=== PATIENT | male | born 1960 | race Caucasian/White ===

== ENCOUNTER 2016-12-26 16:44 | Inpatient (IN) | payer BC, OTHER ==
[2016-12-26] VITALS (11 sets, daily range): BP systolic 138–179; BP diastolic 73–93
[~2016-12-26] VITALS: Ht 188 cm; Wt 86.8 kg
[2016-12-26] MEDS ORDERED: niCARdipine IV 50 MG in NS (IVPB) 230 ML IV SCH (17:00)
[2016-12-26] MEDS ORDERED: LABETALOL HCL 20 MG/4 ML VIAL IV ONE (17:00)
--- NOTE | 2016-12-26 17:12 | Diagnostic Imaging Report ---
INDICATION: Weakness which began one day ago. EXAMINATION: Multiple contiguous axial CT images of the head were obtained. FINDINGS: The ventricles and sulci are within normal limits for size. There is no intracranial hemorrhage identified. There is no abnormal mass effect or shift of midline structures. IMPRESSION: Unremarkable CT of the head. Dictated by: Dictated on workstation # [id number]
[2016-12-26 17:15] LABS: BASOPHILS % (AUTO) 0 % (0-10); EOSINOPHILS # (AUTO) 0.2 10^3/uL (0.0-0.3); EOSINOPHILS % (AUTO) 2 % (0-10); LYMPHOCYTES # (AUTO) 1.1 X 10^3 (1.0-4.0); LYMPHOCYTES % (AUTO) 13 % (12-44); MEAN CORPUSCULAR HEMOGLOBIN 27 PG (25-34); MEAN CORPUSCULAR HGB CONC 35 G/DL (32-36); MEAN CORPUSCULAR VOLUME 79 FL (80-99); MEAN PLATELET VOLUME 9.8 FL (7.4-10.4); MONOCYTES # (AUTO) 0.8 X 10^3 (0.0-1.0); MONOCYTES % (AUTO) 10 % (0-12); NEUTROPHILS % (AUTO) 75 % (42-75); PLATELET COUNT 241 10^3/uL (130-400); RED BLOOD COUNT 5.18 10^6/uL (4.35-5.85); RED CELL DISTRIBUTION WIDTH 13.4 % (10.0-14.5); WHITE BLOOD COUNT 8.1 10^3/uL (4.3-11.0)
[2016-12-26 17:19] LABS: PROTHROMBIN TIME PATIENT 13.6 SEC (12.2-14.7)
--- NOTE | 2016-12-26 17:19 | Diagnostic Imaging Report ---
INDICATION: Hypertension. COMPARISON: No previous study is available for comparison at this time. FINDINGS: Heart size and pulmonary vasculature are within normal limits, and the lungs are clear, bilaterally. IMPRESSION: Unremarkable chest. Dictated by: Dictated on workstation # [id number]
--- NOTE | 2016-12-26 17:22 | Diagnostic Imaging Report ---
INDICATION: Right knee instability and falls. EXAM: AP, oblique and lateral views of the right knee are obtained. FINDINGS: The study is limited due to positioning. No acute fracture or malalignment is identified. There is narrowing of the medial knee joint compartment with prominent marginal spurring. There is questionable calcification also noted within the medial collateral ligament. IMPRESSION: Degenerative changes in the medial compartment of the knee. No definite acute abnormality is identified on the limited study. Dictated by: Dictated on workstation # [id number]
[2016-12-26 17:27] LABS: ALANINE AMINOTRANSFERASE 17 U/L (0-55); ALBUMIN 3.9 GM/DL (3.2-4.5); ANION GAP 6 MMOL/L (5-14); ASPARTATE AMINO TRANSFERASE 18 U/L (5-34); BILIRUBIN,TOTAL 1.1 MG/DL (0.1-1.0); BLOOD UREA NITROGEN 13 MG/DL (7-18); BUN/CREATININE RATIO 14; CALCIUM 9.3 MG/DL (8.5-10.1); CARBON DIOXIDE 28 MMOL/L (21-32); CHLORIDE 102 MMOL/L (98-107); GFR ESTIMATED > 60; GLUCOSE 226 MG/DL (70-105); POTASSIUM 4.3 MMOL/L (3.6-5.0); SODIUM 136 MMOL/L (135-145); TOTAL PROTEIN 6.3 GM/DL (6.4-8.2)
[2016-12-26 17:33] LABS: TROPONIN I < 0.30 NG/ML (<0.30)
[2016-12-26 17:37] LABS: BILIRUBIN,URINE NEGATIVE (NEGATIVE); KETONES,URINE NEGATIVE (NEGATIVE); LEUKOCYTE ESTERASE ,URINE NEGATIVE (NEGATIVE); NITRITE,URINE NEGATIVE (NEGATIVE); PH,URINE 6 (5-9); PROTEIN,URINE 3+ (NEGATIVE); UROBILINOGEN,URINE NORMAL (NORMAL)
[2016-12-26 17:53] LABS: SQUAMOUS EPITHELIAL CELL,UR RARE /HPF
[2016-12-26] MEDS ORDERED: ASPIRIN 325 MG (5 GR) TABLET PO ONE (18:15)
[2016-12-26 18:24] LABS: THYROID STIMULATING HORMONE 1.52 UIU/ML (0.35-4.94)
--- NOTE | 2016-12-26 18:29 | ED Neurological Problem ---
General Chief Complaint: Cardiac/General Problems Stated Complaint: HIGH BLOOD PRESSURE Nursing Triage Note: PT SENT TO THE ER BY [facility] WITH CC OF HYPERTENSION. Nursing Sepsis Screen: No Definite Risk Source: patient Exam Limitations: no limitations History of Present Illness Time seen by provider: 16:45 Initial Comments This 56-year-old gentleman presents to the emergency room via private vehicle from [facility] where he presented with right upper extremity weakness/ discoordination, slurred speech, and right-sided facial droop. Blood pressure as reported by [facility] staff was 240/100. Transfer to the hospital via EMS was recommended but patient declined. Patient denies any prior problems with severe hypertension. He denies any drug or alcohol use. Last known well time was yesterday evening. Patient's also reports that he fell in the shower yesterday due to chronic problems with his right knee. He denies injuring his head. Allergies and Home Medications Allergies Coded Allergies: No Known Drug Allergies (Unverified , 12/26/16) Constitutional: no symptoms reported Eyes: No Symptoms Reported Ears, Nose, Mouth, Throat: no symptoms reported Respiratory: no symptoms reported Cardiovascular: see HPI Gastrointestinal: no symptoms reported Genitourinary: no symptoms reported Musculoskeletal: no symptoms reported Skin: no symptoms reported Psychiatric/Neurological: See HPI Endocrine: No Symptoms Reported Hematologic/Lymphatic: No Symptoms Reported Past Uxmvtvk-Mjbuti-Okdvis Hx Patient Social History Alcohol Use: Rarely Uses Alcohol Beverage of Choice: Beer Recreational Drug Use: No Smoking Status: Never a Smoker 2nd Hand Smoke Exposure: No Recent Foreign Travel: No Contact w/Someone Who Travel: No Recent Infectious Disease Expo: No Recent Hopitalizations: No Seasonal Allergies Seasonal Allergies: No Surgeries History of Surgeries: Yes (LT KNEE) Surgeries: Orthopedic Respiratory History of Respiratory Disorde: No Cardiovascular History of Cardiac Disorders: Yes (HX OF HYPERTENSION IN HIS TEENS) Cardiac Disorders: Hypertension Reproductive System Hx Reproductive Disorders: No Genitourinary History of Genitourinary Disor: No Gastrointestinal History of Gastrointestinal Di: No Musculoskeletal History of Musculoskeletal Dis: Yes Musculoskeletal Disorders: Arthritis (right knee) Endocrine History of Endocrine Disorders: No HEENT History of HEENT Disorders: No Cancer History of Cancer: No Psychosocial History of Psychiatric Problem: No Integumentary History of Skin or Integumenta: No Family Medical History Significant Family History: No Pertinent Family Hx Physical Exam Vital Signs Vital Sign - Last 12Hours 12/26/16 16:53 Temp 97.6 Pulse 91 Resp 20 B/P (MAP) 251/121 Pulse Ox 97 O2 Delivery Room Air Capillary Refill : Less Than 3 Seconds General Appearance: WD/WN, no apparent distress HEENT: PERRL/EOMI, normal ENT inspection, pharynx normal Neck: normal inspection Respiratory: lungs clear, normal breath sounds, no respiratory distress, no accessory muscle use Cardiovascular: regular rate, rhythm, no edema, no murmur Gastrointestinal: non tender, soft Extremities: normal inspection, no pedal edema Neurologic/Psychiatric: alert, normal mood/affect, oriented x 3, other Crainal Nerves: normal hearing, PERRL, abnormal speech (slight dysarthria), facial weakness (slight right-sided droop) Coordination/Gait: normal gait, ABN nose to finger (R) (slight discoordination) Skin: normal color, warm/dry Stroke NIH Stroke Scale Assessment Level of Consciousness: 0=Alert (0), Level of Consciousness-Questions: 0= Answers both month/age (0), LOC Commands: 0=Performs both tasks (0), Visual Neri: 0=No visual loss (0), Facial Movement (Facial Paresis): 1=Minor paralysis (1), Motor Function-Arms Right: 0=No drift (0), Motor Function-Arms Left: 0=No drift (0), Motor Function-Legs Right: 0=No drift (0), Motor Function- Legs Left: 0=No drift (0), Limb Ataxia: 1=Present in one limb (1), Sensory: 0= Normal:no loss (0), Best Language: 0=No aphasia (0), Dysarthria: 1=Mild to moderate loss (1), Extinction & Inattention: 0=No abnormality (0), Total: 3 Progress/Results/Core Measures Results/Orders Lab Results Laboratory Tests Test 12/26/16 16:55 12/26/16 17:00 12/26/16 17:19 12/26/16 17:31 Range/Units White Blood Count 8.1 4.3-11.0 10^3/uL Red Blood Count 5.18 4.35-5.85 10^6/uL Hemoglobin 14.1 13.3-17.7 G/DL Hematocrit 41 40-54 % Mean Corpuscular Volume 79 L 80-99 FL Mean Corpuscular Hemoglobin 27 25-34 PG Mean Corpuscular Hemoglobin Concent 35 32-36 G/DL Red Cell Distribution Width 13.4 10.0-14.5 % Platelet Count 241 130-400 10^3/uL Mean Platelet Volume 9.8 7.4-10.4 FL Neutrophils (%) (Auto) 75 42-75 % Lymphocytes (%) (Auto) 13 12-44 % Monocytes (%) (Auto) 10 0-12 % Eosinophils (%) (Auto) 2 0-10 % Basophils (%) (Auto) 0 0-10 % Neutrophils # (Auto) 6.0 1.8-7.8 X 10^3 Lymphocytes # (Auto) 1.1 1.0-4.0 X 10^3 Monocytes # (Auto) 0.8 0.0-1.0 X 10^3 Eosinophils # (Auto) 0.2 0.0-0.3 10^3/uL Basophils # (Auto) 0.0 0.0-0.1 10^3/uL Prothrombin Time 13.6 12.2-14.7 SEC INR Comment 1.0 0.8-1.4 Activated Partial Thromboplast Time 31 24-35 SEC D-Dimer 0.32 0.00-0.49 UG/ML Sodium Level 136 135-145 MMOL/L Potassium Level 4.3 3.6-5.0 MMOL/L Chloride Level 102 98-107 MMOL/L Carbon Dioxide Level 28 21-32 MMOL/L Anion Gap 6 5-14 MMOL/L Blood Urea Nitrogen 13 7-18 MG/DL Creatinine 0.90 0.60-1.30 MG/DL Estimat Glomerular Filtration Rate > 60 BUN/Creatinine Ratio 14 Glucose Level 226 H 70-105 MG/DL Calcium Level 9.3 8.5-10.1 MG/DL Total Bilirubin 1.1 H 0.1-1.0 MG/DL Aspartate Amino Transf (AST/SGOT) 18 5-34 U/L Alanine Aminotransferase (ALT/SGPT) 17 0-55 U/L Alkaline Phosphatase 94 40-136 U/L Troponin I < 0.30 <0.30 NG/ML Total Protein 6.3 L 6.4-8.2 GM/DL Albumin 3.9 3.2-4.5 GM/DL Urine Opiates Screen NEGATIVE NEGATIVE Urine Oxycodone Screen NEGATIVE NEGATIVE Urine Methadone Screen NEGATIVE NEGATIVE Urine Propoxyphene Screen NEGATIVE NEGATIVE Urine Barbiturates Screen NEGATIVE NEGATIVE Ur Tricyclic Antidepressants Screen NEGATIVE NEGATIVE Urine Phencyclidine Screen NEGATIVE NEGATIVE Urine Amphetamines Screen NEGATIVE NEGATIVE Urine Methamphetamines Screen NEGATIVE NEGATIVE Urine Benzodiazepines Screen NEGATIVE NEGATIVE Urine Cocaine Screen NEGATIVE NEGATIVE Urine Cannabinoids Screen NEGATIVE NEGATIVE Glucometer 199 H 70-110 MG/DL Urine Color YELLOW Urine Clarity CLEAR Urine pH 6 5-9 Urine Specific [place] 1.010 L 1.016-1.022 Urine Protein 3+ H NEGATIVE Urine Glucose (UA) 2+ H NEGATIVE Urine Ketones NEGATIVE NEGATIVE Urine Nitrite NEGATIVE NEGATIVE Urine Bilirubin NEGATIVE NEGATIVE Urine Urobilinogen NORMAL NORMAL MG/DL Urine Leukocyte Esterase NEGATIVE NEGATIVE Urine RBC (Auto) 2+ H NEGATIVE Urine RBC RARE /HPF Urine WBC NONE /HPF Urine Squamous Epithelial Cells RARE /HPF Urine Crystals NONE /LPF Urine Bacteria NEGATIVE /HPF Urine Casts NONE /LPF Urine Mucus NEGATIVE /LPF Urine Culture Indicated NO My Orders Orders - ELIZABETH LOPEZ MD Cbc With Automated Diff (12/26/16 16:56) Protime With Inr (12/26/16 16:56) Partial Thromboplastin Time (12/26/16 16:56) Comprehensive Metabolic Panel (12/26/16 16:56) Fibrin Degradation Products (12/26/16 16:56) Troponin I (12/26/16 16:56) Ua Culture If Indicated (12/26/16 16:56) Chest 1 View, Ap/Pa Only (12/26/16 16:56) Ekg Tracing (12/26/16 16:56) Nothing By Mouth (12/27/16 Breakfast) Accucheck Stat ONCE (12/26/16 16:56) Saline Lock/Iv-Start (12/26/16 16:56) Saline Lock/Iv-Start (12/26/16 16:56) Vital Signs - Stroke Q15M (12/26/16 16:56) Ct Head Wo-R/O Stroke (12/26/16 16:56) O2 (12/26/16 16:56) Intake & Output 06,14,22 (12/26/16 16:56) Monitor-Rhythm Ecg Trace Only (12/26/16 16:56) Dysphagia Screening Tool (12/26/16 16:56) Labetalol Injection (Normodyne Injection (12/26/16 17:00) Ns (Ivpb) (Sodium C... W/Nicardipine Iv (12/26/16 17:00) Knee, Right, 3 Views (12/26/16 17:00) Drug Screen Stat (Urine) (12/26/16 17:41) Thyroid Stimulating Hormone (12/26/16 17:50) Free T4 (Free Thyroxine) (12/26/16 17:50) Aspirin Tablet (Aspirin Tablet) (12/26/16 18:15) Medications Given in ED Current Medications Medications Dose Ordered Sig/Timbo Route Start Time Stop Time Status Last Admin Dose Admin Labetalol HCl 20 mg ONCE ONCE IV 12/26/16 17:00 12/26/16 17:01 DC 12/26/16 17:27 20 MG Vital Signs/I&O Vital Sign - Last 12Hours 12/26/16 16:53 Temp 97.6 Pulse 91 Resp 20 B/P (MAP) 251/121 Pulse Ox 97 O2 Delivery Room Air Blood Pressure Mean: 164 Point of Care Testing Finger Stick Blood Glucose: 199 Blood Glucose Action Taken: INFORMED Progress Note : Progress Note Stroke activation was paged. Blood pressure was initially treated with labetalol 20 mg. This was followed by a Cardene drip. CT of the head was unremarkable. Remainder the workup was also unremarkable. Neurologic status remained unchanged. Aspirin was administered in the ER after dysphasia screening. ECG Initial ECG Impression Date: Dec 26, 2016 Initial ECG Impression Time: 17:21 Initial ECG Rate: 85 Initial ECG Rhythm: Normal Sinus Initial ECG Intervals: Normal Initial ECG Impression: Normal Comment Normal sinus rhythm with no ST elevation or depression. No abnormal intervals or axis deviation. Diagnostic Imaging Diagonstic Imaging: CT Plain Films/CT/US/NM/MRI: head Comments CT head viewed by me and report reviewed. See report below: NAME: FINA LALA [facility] REC#: [id number] PT STATUS: REG ER : 1960 PHYSICIAN: ELIZABETH LOPEZ MD ADMIT DATE: 12/26/16/ER Signed Date of Exam: 12/26/16 CT HEAD WO-R/O STROKE INDICATION: Weakness which began one day ago. EXAMINATION: Multiple contiguous axial CT images of the head were obtained. FINDINGS: The ventricles and sulci are within normal limits for size. There is no intracranial hemorrhage identified. There is no abnormal mass effect or shift of midline structures. IMPRESSION: Unremarkable CT of the head. Dictated by: Dictated on workstation # [id number] Dict: 12/26/16 1707 Trans: 12/26/161800 Interpreted by: EMELIA VILLASENOR MD Electronically signed by: EMELIA VILLASENOR MD 12/26/161800 Diagonstic Imaging: Xray Plain Films/CT/US/NM/MRI: knee Comments Right knee x-ray viewed by me and report reviewed. See report below: NAME: FINA LALA [facility] REC#: [id number] PT STATUS: REG ER : 1960 PHYSICIAN: ELIZABETH LOPEZ MD ADMIT DATE: 12/26/16/ER Signed Date of Exam:12/26/16 KNEE, RIGHT, 3 VIEWS INDICATION: Right knee instability and falls. EXAM: AP, oblique and lateral views of the right knee are obtained. FINDINGS: The study is limited due to positioning. No acute fracture or malalignment is identified. There is narrowing of the medial knee joint compartment with prominent marginal spurring. There is questionable calcification also noted within the medial collateral ligament. IMPRESSION: Degenerative changes in the medial compartment of the knee. No definite acute abnormality is identified on the limited study. Dictated by: Dictated on workstation # [id number] Dict: 12/26/16 1717 Trans: 12/26/161800 [facility] [id number] Interpreted by: EMELIA VILLASENOR MD Electronically signed by: EMELIA VILLASENOR MD 12/26/161800 Diagonstic Imaging: Xray Plain Films/CT/US/NM/MRI: chest Comments Chest x-ray viewed by me and report reviewed. See report below: NAME: FINA LALA [facility] REC#: [id number] PT STATUS: REG ER : 1960 PHYSICIAN: ELIZABETH LOPEZ MD ADMIT DATE: 12/26/16/ER Signed Date of Exam:12/26/16 CHEST 1 VIEW, AP/PA ONLY INDICATION: Hypertension. COMPARISON: No previous study is available for comparison at this time. FINDINGS: Heart size and pulmonary vasculature are within normal limits, and the lungs are clear, bilaterally. IMPRESSION: Unremarkable chest. Dictated by: Dictated on workstation # [id number] Dict: 12/26/16 1718 Trans: 12/26/16 1801 [facility] [id number] Interpreted by: EMELIA VILLASENOR MD Electronically signed by: EMELIA VILLASENOR MD 12/26/161800 Departure Communication (Admissions) Time/Spoke to Admitting Phy: 18:10 Communication Case was reviewed with Dr. Hernandez who agrees with admission to the ICU and control of blood pressure on a Cardene drip. Target blood pressure will be in the 180-200 range to avoid hypoperfusion from rapid decrease in blood pressure. Impression Impression: Primary Impression: Malignant hypertension Additional Impressions: Facial droop Dysarthria Discoordination Hyperglycemia Disposition: 09 ADMITTED INPATIENT Condition: Improved Admissions Decision to Admit Reason: Admit from ER (General) Decision to Admit/Date: Dec 26, 2016 Time/Decision to Admit Time: 16:50 Departure-Patient Inst. Referrals: NO,LOCAL PHYSICIAN (PCP/Family) Primary Care Physician ELIZABETH LOPEZ MD Dec 26, 2016 18:29
[2016-12-26] MEDS ORDERED: CATHETER FLUSH 10 ML SYR IV PRN (19:30)
[2016-12-26] MEDS: niCARdipine 50 MG/NS 250 ML IV DRIP IV SCH ×2 (19:56)
[2016-12-26] MEDS: CATHETER FLUSH 10 ML SYR IV SCH (22:05)
[2016-12-27] VITALS (18 sets, daily range): BP systolic 136–213; BP diastolic 69–104
[2016-12-27 04:54] LABS: BASOPHILS % (AUTO) 0 % (0-10); EOSINOPHILS # (AUTO) 0.2 10^3/uL (0.0-0.3); EOSINOPHILS % (AUTO) 2 % (0-10); LYMPHOCYTES # (AUTO) 1.5 X 10^3 (1.0-4.0); LYMPHOCYTES % (AUTO) 18 % (12-44); MEAN CORPUSCULAR HEMOGLOBIN 28 PG (25-34); MEAN CORPUSCULAR HGB CONC 35 G/DL (32-36); MEAN CORPUSCULAR VOLUME 80 FL (80-99); MEAN PLATELET VOLUME 9.7 FL (7.4-10.4); MONOCYTES # (AUTO) 0.9 X 10^3 (0.0-1.0); MONOCYTES % (AUTO) 11 % (0-12); NEUTROPHILS # (AUTO) 5.9 X 10^3 (1.8-7.8); NEUTROPHILS % (AUTO) 69 % (42-75); PLATELET COUNT 240 10^3/uL (130-400); RED BLOOD COUNT 4.72 10^6/uL (4.35-5.85); RED CELL DISTRIBUTION WIDTH 13.4 % (10.0-14.5); WHITE BLOOD COUNT 8.5 10^3/uL (4.3-11.0)
[2016-12-27 05:12] LABS: ANION GAP 11 MMOL/L (5-14); BLOOD UREA NITROGEN 14 MG/DL (7-18); BUN/CREATININE RATIO 15; CALCIUM 9.1 MG/DL (8.5-10.1); CARBON DIOXIDE 23 MMOL/L (21-32); CHLORIDE 107 MMOL/L (98-107); CREATININE SERUM 0.94 MG/DL (0.60-1.30); GFR ESTIMATED > 60; GLUCOSE 163 MG/DL (70-105); MAGNESIUM 1.9 MG/DL (1.8-2.4); PHOSPHORUS 3.4 MG/DL (2.3-4.7); POTASSIUM 3.9 MMOL/L (3.6-5.0); SODIUM 141 MMOL/L (135-145)
[2016-12-27] MEDS: niCARdipine 50 MG/NS 250 ML IV DRIP IV SCH ×4 (05:26→17:26)
[2016-12-27] MEDS: CATHETER FLUSH 10 ML SYR IV SCH ×3 (05:51→22:05)
--- NOTE | 2016-12-27 07:14 | Pulmonary Consultation ---
History of Present Illness History of Present Illness Date of Consultation 12/27/16 07:09 Time Seen by Provider: 07:09 Date of Admission History of Present Illness 56yo presented to ED secondary to right upper extremity weakness/discoordination , slurred speech, and right sided facial droop. BP at urgent care was 240/100. Denies drug and ETOH. No prior hx like this. I am consulted for ICU management. UDS is negative. Allergies and Home Medications Allergies Coded Allergies: No Known Drug Allergies (Unverified , 12/26/16) Past Ymdrngr-Supmzo-Jnbfub Hx Patient Social History Alcohol Use: Rarely Uses Number of Drinks Today: 0 Alcohol Beverage of Choice: Beer Recreational Drug Use: No Smoking Status: Never a Smoker 2nd Hand Smoke Exposure: No Recent Foreign Travel: No Contact w/Someone Who Travel: No Recent Infectious Disease Expo: No Recent Hopitalizations: No Seasonal Allergies Seasonal Allergies: No Surgeries History of Surgeries: Yes (LT KNEE) Surgeries: Orthopedic Respiratory History of Respiratory Disorde: No Cardiovascular History of Cardiac Disorders: Yes (HX OF HYPERTENSION IN HIS TEENS) Cardiac Disorders: Hypertension Reproductive System Hx Reproductive Disorders: No Genitourinary History of Genitourinary Disor: No Gastrointestinal History of Gastrointestinal Di: No Musculoskeletal History of Musculoskeletal Dis: Yes Musculoskeletal Disorders: Arthritis Endocrine History of Endocrine Disorders: No HEENT History of HEENT Disorders: No Cancer History of Cancer: No Psychosocial History of Psychiatric Problem: No Integumentary History of Skin or Integumenta: No Family Medical History Significant Family History: No Pertinent Family Hx Review of Systems Time Seen by Provider: 07:28 Constitutional: No: Fever, Chills, Sweats, Weakness, Malaise, Other Eyes: No: Pain, Vision change, Conjunctivae inflammation, Eyelid inflammation, Other, Redness ENT: No: Ear pain, Ear discharge, Nose pain, Nose discharge, Nose congestion, Mouth pain, Mouth swelling, Throat pain, Throat swelling, Other Respiratory: No: Cough, Dry, Shortness of breath, SOB with excertion, Wheezing , Hemoptysis, Pleuritic Pain, Sputum, Wheezing, Other Cardiovascular: No: Chest Pain, Palpitations, Orthopnea, Paroxysmal Noc. Dyspnea, Edema, Lt Headedness, Other Gastrointestinal: No: Nausea, Vomiting, Abdominal Pain, Diarrhea, Constipation , Melena, Hematochezia, Other Genitourinary: No Dysuria, No Frequency, No Incontinence, No Hematuria, No Retention, No Other Musculoskeletal: arm pain (left arm and leg weakness) Skin: No: Rash, Lesions, Jaundice, Bruising, Other Neurological: Weakness, Incoordination, Confusion Exam Exam Vital Signs Date Time Temp Pulse Resp B/P (MAP) Pulse Ox O2 Delivery O2 Flow Rate FiO2 12/27/16 06:00 67 13 150/72 96 Room Air 12/27/16 05:00 64 12 164/95 97 Room Air 12/27/16 04:00 66 11 155/79 97 Room Air 12/27/16 04:00 98 Room Air 12/27/16 03:00 71 15 146/86 97 Room Air 12/27/16 02:00 75 8 145/73 98 Room Air 12/27/16 01:00 76 12/27/16 01:00 76 14 136/85 98 Room Air 12/27/16 00:00 98 Room Air 12/27/16 00:00 97.4 73 14 151/75 98 Room Air 12/26/16 23:30 68 11 147/78 97 Room Air 12/26/16 23:00 69 13 153/77 97 Room Air 12/26/16 22:30 70 13 138/73 96 Room Air 12/26/16 22:00 76 18 155/82 96 Room Air 12/26/16 21:30 84 30 171/87 99 Room Air 12/26/16 21:00 87 28 167/77 97 Room Air 12/26/16 20:30 75 17 179/93 100 Room Air 12/26/16 20:17 100 Room Air 12/26/16 20:00 75 8 157/88 100 Room Air 12/26/16 19:45 84 20 178/89 99 Room Air 12/26/16 19:30 78 9 174/90 100 Room Air 12/26/16 19:15 87 11 100 Room Air 12/26/16 19:10 97.9 80 18 98 Room Air 12/26/16 19:08 83 12/26/16 19:05 85 27 168/89 96 Room Air 12/26/16 19:00 99.5 Room Air 12/26/16 18:40 97.6 12/26/16 16:53 97.6 91 20 251/121 97 Room Air General Appearance: No Apparent Distress, WD/WN, Anxious Neck: Full Range of Motion, Normal Inspection, Non Tender, Supple Respiratory: Chest Non Tender, Lungs Clear, Normal Breath Sounds, No Accessory Muscle Use, No Respiratory Distress Cardiovascular: Regular Rate, Rhythm, No Edema, No Gallop, No JVD, No Murmur Capillary Refill: Less Than 3 Seconds Gastrointestinal: non tender, soft Extremity: Normal Capillary Refill, Normal Inspection, Normal Range of Motion, Other (mild weakness on left ) Neurologic/Psychiatric: Alert, Oriented x3, Other (slurred speech ) Skin: Normal Color, Warm/Dry Results Lab Laboratory Tests 12/26/16 16:55 12/27/16 04:39 Assessment/Plan Assessment/Plan CVA vs TIA -Passed swallow evaluation -check echo, carotid dopplers -Plavix after repeat CT shows no bleed -Pt was outside of window for TPA upon admission -neuro checks Facial droop dysarthria malignant HTN 255 Clinical Quality Measures DVT/VTE Risk/Contraindication: Risk Factor Score Per Nursin RFS Level Per Nursing on Admit: 1=Low/No VTE PPX ALANIS DESHPANDE DO Dec 27, 2016 07:14
--- NOTE | 2016-12-27 08:45 | Diagnostic Imaging Report ---
EXAMINATION: Portable erect AP chest at 4:16 AM. INDICATION: Malignant hypertension. FINDINGS: The heart size is within normal limits and stable when compared to 12/26/2016. The lungs remain clear. There is still no sign of failure, pneumonia, or pleural effusion to suggest an acute abnormality. The mediastinum is not widened. The osseous structures are intact. IMPRESSION: Stable chest. There has been no adverse change since the prior exam. Dictated by: Dictated on workstation # [id number]
[2016-12-27] MEDS ORDERED: ASPIRIN E.C. 325 MG (ECOTRIN) TABLET PO SCH (09:00)
[2016-12-27 10:43] LABS: CHOLESTEROL 149 MG/DL (< 200); DIRECT LDL 110 MG/DL (1-129); TRIGLYCERIDES 106 MG/DL (<150); VLDL CHOLESTEROL 21 MG/DL (5-40)
--- NOTE | 2016-12-27 10:43 | Diagnostic Imaging Report ---
INDICATION: Stroke symptoms Carotid Doppler study performed in the routine fashion with color flow Doppler and waveform analysis. There is some mild plaquing visualized in the left carotid bifurcation. There is no significant elevation of the velocities. The ICA/CCA systolic velocity ratio is 1.4 on the right side, and 0.5 on the left. Both vertebrals show antegrade flow. IMPRESSION: Some plaquing is visualized in the left carotid bifurcation. There is no hemodynamically significant stenosis. Both vertebrals are patent. Dictated by: Dictated on workstation # [id number]
[2016-12-27] MEDS ORDERED: hydrALAZINE (APESOLINE) 20 MG/ML VIAL IV PRN (11:00)
[2016-12-27] MEDS: lisINopril 20 MG (ZESTRIL) TAB PO SCH (11:11)
[2016-12-27] MEDS: HYDROCHLOROTHIAZIDE 25 MG (HCTZ) TAB PO SCH (11:11)
[2016-12-27] MEDS ORDERED: MULT-35 PO (11:33)
[2016-12-27] MEDS ORDERED: NAPR220T66 PO ×2 (11:33)
--- NOTE | 2016-12-27 11:41 | Physical Therapy Progress Note ---
Therapy Progress Note Evaluation order received, eval attempted but patient had a BP of 193/95. Too high to treat safely at this time. We did note weakness in his right arm. Will check back this afternoon and see if his BP has decreased. MIREYA GARCIA PT Dec 27, 2016 11:41
--- NOTE | 2016-12-27 11:54 | History & Physical-Hospitalist ---
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 Pt did not receive TPA Night RN states pt can get up with assistance Meli ordered echo this am Frederick arreola DC yesterday Pressures up this am. Will discuss with Dr. Garrison Patient Interview: Pt states that he has been better Pt denies having a PCP. Pt was advised to obtain a PCP. Pts states that they used to see Dr. Alfonso at the [facility] [address] Pt confirms living in [place] with Pt denies smoking and ETOH use Pt confirms going to urgent care. Pt states that his symptoms started when he was at work on Sunday and felt funny when he tried to drive home. Pt went to work the next day and could not swing a hammer, he later tried to write and could not legibly. Pt confirms slurring his words currently. 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 Lungs sound perfect. Pt confirms having a knee replacement, so he has metal in his body. Possible MRI of brain was discussed Pt denies experiencing pain and is more frustrated than anything. Pt confirms having an echo performed PT discussed and they will get him up to ambulate Pt is concerned about his BP and I assured him that we will be working on this. For now a good blood pressure for pt will be ~ 180 Scribed by Jerica Underwood under the direct supervision of Dr. Paredes. 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) Alcohol Use: Rarely Uses Number of Drinks Today: 0 Alcohol Beverage of Choice: Beer Recreational Drug Use: No Smoking Status: Never a Smoker 2nd Hand Smoke Exposure: No Physical Abuse Screen: No Sexual Abuse: No Recent Foreign Travel: No Contact w/other who traveled: No Recent Hopitalizations: No Recent Infectious Disease Expo: No Seasonal Allergies Seasonal Allergies: No Surgeries Yes (LT KNEE REPLACEMENT) Orthopedic Respiratory No Cardiovascular Yes (HX OF HYPERTENSION IN HIS TEENS) Hypertension Reproductive System Hx Reproductive Disorders: No Genitourinary No Gastrointestinal No Musculoskeletal Yes Arthritis Endocrine History of Endocrine Disorders: No HEENT History of HEENT Disorders: No Cancer No Psychosocial History of Psychiatric Problem: No Integumentary History of Skin or Integumenta: No Family Medical History Significant Family History: No Pertinent Family Hx Review of Systems Constitutional: see HPI, weakness EENTM: no symptoms reported Respiratory: no symptoms reported Cardiovascular: no symptoms reported Gastrointestinal: no symptoms reported Musculoskeletal: no symptoms reported Skin: no symptoms reported Psychiatric/Neurological: Weakness (right arm and right leg) Physical Exam Physical Exam Vital Signs Vital Sign - Last 12Hours 12/26/16 16:53 Temp 97.6 Pulse 91 Resp 20 B/P (MAP) 251/121 Pulse Ox 97 O2 Delivery Room Air Capillary Refill : Less Than 3 Seconds General Appearance: No Apparent Distress, WD/WN, Chronically ill Eyes: Bilateral Eye Normal Inspection, Bilateral Eye PERRL HEENT: PERRL/EOMI, Normal ENT Inspection, Pharynx Normal Neck: Full Range of Motion, Normal Inspection, Non Tender, Supple, Carotid Bruit Respiratory: Chest Non Tender, Lungs Clear, Normal Breath Sounds, No Accessory Muscle Use, No Respiratory Distress Cardiovascular: Regular Rate, Rhythm, No Edema, No Gallop, No JVD, No Murmur, Normal Peripheral Pulses Gastrointestinal: Normal Bowel Sounds, No Organomegaly, No Pulsatile Mass, Non Tender, Soft Back: Normal Inspection, No CVA Tenderness, No Vertebral Tenderness Extremity: Normal Capillary Refill, Normal Inspection, Normal Range of Motion, Non Tender, No Calf Tenderness, No Pedal Edema Neurologic/Psychiatric: Alert, Oriented x3, Normal Mood/Affect, Motor Weakness (right arm and leg weakness 2/5) Skin: Normal Color, Warm/Dry Lymphatic: No Adenopathy Results Results/Procedures Lab Laboratory Tests 12/26/16 16:55 12/27/16 04:39 Assessment/Plan Admission Diagnosis Assessment: Acute malignant HTN with right sided weakness residual Hyperglycemia ordering HGBA1C Assessment and Plan Plan: Rehab eval Lipid panel PT/OT Cardiology consult Dr. Mustafa MRI brain BP management Clinical Quality Measures DVT/VTE Risk/Contraindication: Risk Factor Score Per Nursin RFS Level Per Nursing on Admit: 1=Low/No VTE PPX GRICEL APREDES DO Dec 27, 2016 11:54
[2016-12-27] MEDS ORDERED: amLODIPine 10 MG (NORVASC) TAB ONE (12:29)
--- NOTE | 2016-12-27 12:31 | Consultation-Cardiology ---
HPI-Cardiology Cardiology Consultation: Date of Consultation 12/27/16 Date of Admission Attending Physician Chinmay Hernandez MD Admitting Physician Marleni,Local Physician Consulting Physician Carlos MUSTAFA MD HPI: Time Seen by Provider: 12:31 Chief Complaint: Malignant hypertension This is a 56-year-old gentleman who presents with significantly elevated blood pressure and symptoms of stroke. The patient denies any significant chest pain or shortness of breath. His neurological symptoms include slurred speech, difficulty writing, and difficulty using his upper extremity. Review of Systems-Cardiology Review of Systems Constitutional: No As described under HPI, No no symptoms reported, No chills, No fever, No lightheadedness, No malaise, No tiredness, No weight loss, No weight gain, No other Eyes: No As described under HPI, No no symptoms reported, No blindness, No blurred vision, No contact lenses, No drainage, No decreased acuity, No foreign body sensation, No glasses, No inflammation, No pain, No photophobia, No previous injury, No shadows, No tunnel vision, No other, No vision change Ears/Nose/Throat: No As described under HPI, No no symptoms reported, No chronic hearing loss, No epistaxis, No ear discharge, No ear pain, No loose teeth, No mouth pain, No mouth swelling, No nasal drainage, No nose pain, No recent hearing loss, No throat pain, No throat swelling, No ulcerations, No other Respiratory: No no symptoms reported, No As described under HPI, No cough, No orthopnea, No shortness of breath, No SOB with excertion, No SOB at rest, No stridor, No wheezing, No other Cardiovascular: No no symptoms reported, No As described under HPI, No chest pain, No edema, No irregular heart rate, No lightheadedness, No palpitations, No syncope, No other Gastrointestinal: No no symptoms reported, No As described under HPI, No abdomen distended, No abdominal pain, No blood streaked bowels, No constipation , No diarrhea, No difficulty swallowing, No nausea, No poor appetite, No poor fluid intake, No rectal bleeding, No vomiting, No other, No nausea/vomiting/ diarrhea, No stool coloration changes Genitourinary: No no symptoms reported, No As described under HPI, No burning, No dysuria, No discharge, No frequency, No flank pain, No hematuria, No incontinence, No pain, No urgency, No other, No urine frequency changes, No urine coloration changes Musculoskeletal: No no symptoms reported, No As describe under HPI, No back pain, No gout, No joint pain, No joint swelling, No muscle pain, No muscle stiffness, No neck pain, No other Skin: No no symptoms reported, No As described under HPI, No change in color, No change in hair/nails, No dryness, No lesions, No lumps, No rash, No other, No skin related problems, No ulcerations, No rash on exposed areas, No ulcerations on exposed areas Psychiatric/Neurological: As described under HPI, weakness, focal weakness DJJ-Zexbwz-Bkfkwy Hx Patient Social History 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 Allergies and Home Medications Allergies Coded Allergies: No Known Drug Allergies (Unverified , 12/26/16) Home Medications Multivitamin 1 Each Tablet, 1 TAB PO DAILY, (Reported) Naproxen Sodium 220 Mg Tablet, 440 MG PO DAILY, (Reported) TAKES 2 (220MG) TABLETS Naproxen Sodium 220 Mg Tablet, 440 MG PO HS PRN for PAIN-MILD, (Reported) TAKES 2 (220MG) TABLETS Physical Exam-Cardiology Physical Exam Vital Signs/I&O Vital Sign - Last 12Hours 12/27/16 12/27/16 12/27/16 12/27/16 04:00 04:00 05:00 06:00 Pulse 66 64 67 Resp 11 12 13 B/P (MAP) 155/79 164/95 150/72 Pulse Ox 98 97 97 96 O2 Delivery Room Air Room Air Room Air Room Air 12/27/16 12/27/16 12/27/16 08:00 10:30 12:30 Temp 97.9 Resp 14 B/P (MAP) 205/84 203/81 Pulse Ox 100 100 100 O2 Delivery Room Air Room Air Room Air Capillary Refill : Less Than 3 Seconds Constitutional: No appears stated age, No AAO x 3, No apparent distress, No PERRL, No well-developed, No well-nourished, No other HEENT: other (slurred speech) Neck: No non-tender, No full range of motion, No supple, No normal inspection, No carotid bruit, No limited range of motion, No lymphadenopathy (R), No lymphadenopathy (L), No tender lateral, No tender midline, No thyromegaly, No other, No carotid pulses are 2 + bilaterally, No with good upstrokes Respiratory: No accessory muscle use, No respiratory distress, No chest tender , No chest expansion is symmetric, No chest is bilaterally symmetric, No lungs clear to percussion, No lungs clear to auscultation, No crackles, No rhonchi, No rales, No stridor, No wheezing, No pleural rub, No other Cardiovascular: No regular rate-rhythm, No irregularly irregular, No extra beats, No parasternal heave is noted, No JVD, No edema, No bradycardia, No tachycardia, No point of maximal impulse, No cardiac thrills are palpable, No S1 and S2, No gallop/S3, No gallop/S4, No diastolic murmur, No systolic murmur, No friction rub, No click, No other Gastrointestinal: No tender, No soft, No round, No distended, No pulsatile mass , No organomegaly, No guarding, No rebound, No tenderness, No hernia, No mass, No audible bowel sounds, No abnormal bowel sounds, No abdominal bruits, No spleenomegaly, No other Rectal: deferred Extremities: No normal range of motion, No non-tender, No normal inspection, No pedal edema, No calf tenderness, No normal capillary refill, No pelvis stable , No calf tenderness, No inflammation, No pedal edema, No slow capillary refill , No swelling, No other, No abrasion, No clubbing, No cyanosis, No ecchymosis, No laceration, No no lower extremity edema bilateral, No significant edema, No tenderness, No wound Neurologic/Psychiatric: facial droop, motor weakness Skin: No normal color, No warm/dry, No cyanosis, No cool, No diaphoresis, No damp, No ecchymosis, No jaundice, No mottled, No pallor, No rash, No tattoos/ piercings, No ulcerations, No rash on exposed areas, No ulcerations on exposed areas, No other Data Review Labs Laboratory Tests 12/26/16 16:55: White Blood Count 8.1, Red Blood Count 5.18, Hemoglobin 14.1, Hematocrit 41, Mean Corpuscular Volume 79L, Mean Corpuscular Hemoglobin 27, Mean Corpuscular Hemoglobin Concent 35, Red Cell Distribution Width 13.4, Platelet Count 241, Mean Platelet Volume 9.8, Neutrophils (%) (Auto) 75, Lymphocytes (%) (Auto) 13, Monocytes (%) (Auto) 10, Eosinophils (%) (Auto) 2, Basophils (%) (Auto) 0, Neutrophils # (Auto) 6.0, Lymphocytes # (Auto) 1.1, Monocytes # (Auto) 0.8, Eosinophils # (Auto) 0.2, Basophils # (Auto) 0.0, Prothrombin Time 13.6, INR Comment 1.0, Activated Partial Thromboplast Time 31, D-Dimer 0.32, Sodium Level 136, Potassium Level 4.3, Chloride Level 102, Carbon Dioxide Level 28, Anion Gap 6, Blood Urea Nitrogen 13, Creatinine 0.90, Estimat Glomerular Filtration Rate > 60, BUN/Creatinine Ratio 14, Glucose Level 226H, Calcium Level 9.3, Total Bilirubin 1.1H, Aspartate Amino Transf (AST/SGOT) 18, Alanine Aminotransferase (ALT/SGPT) 17, Alkaline Phosphatase 94, Troponin I < 0.30, Total Protein 6.3L, Albumin 3.9 12/26/16 17:00: Urine Opiates Screen NEGATIVE, Urine Oxycodone Screen NEGATIVE, Urine Methadone Screen NEGATIVE, Urine Propoxyphene Screen NEGATIVE, Urine Barbiturates Screen NEGATIVE, Ur Tricyclic Antidepressants Screen NEGATIVE, Urine Phencyclidine Screen NEGATIVE, Urine Amphetamines Screen NEGATIVE, Urine Methamphetamines Screen NEGATIVE, Urine Benzodiazepines Screen NEGATIVE, Urine Cocaine Screen NEGATIVE, Urine Cannabinoids Screen NEGATIVE 12/26/16 17:19: Glucometer 199H 12/26/16 17:31: Urine Color YELLOW, Urine Clarity CLEAR, Urine pH 6, Urine Specific [place] 1.010L, Urine Protein 3+H, Urine Glucose (UA) 2+H, Urine Ketones NEGATIVE, Urine Nitrite NEGATIVE, Urine Bilirubin NEGATIVE, Urine Urobilinogen NORMAL, Urine Leukocyte Esterase NEGATIVE, Urine RBC (Auto) 2+H, Urine RBC RARE, Urine WBC NONE, Urine Squamous Epithelial Cells RARE, Urine Crystals NONE, Urine Bacteria NEGATIVE, Urine Casts NONE, Urine Mucus NEGATIVE, Urine Culture Indicated NO, Thyroid Stimulating Hormone (TSH) 1.52, Free Thyroxine 0.95 12/27/16 04:38: Triglycerides Level 106, Cholesterol Level 149, LDL Cholesterol Direct 110, VLDL Cholesterol 21, HDL Cholesterol 31L 12/27/16 04:39: White Blood Count 8.5, Red Blood Count 4.72, Hemoglobin 13.2L, Hematocrit 38L, Mean Corpuscular Volume 80, Mean Corpuscular Hemoglobin 28, Mean Corpuscular Hemoglobin Concent 35, Red Cell Distribution Width 13.4, Platelet Count 240, Mean Platelet Volume 9.7, Neutrophils (%) (Auto) 69, Lymphocytes (%) (Auto) 18, Monocytes (%) (Auto) 11, Eosinophils (%) (Auto) 2, Basophils (%) (Auto) 0, Neutrophils # (Auto) 5.9, Lymphocytes # (Auto) 1.5, Monocytes # (Auto) 0.9, Eosinophils # (Auto) 0.2, Basophils # (Auto) 0.0, Sodium Level 141, Potassium Level 3.9, Chloride Level 107, Carbon Dioxide Level 23, Anion Gap 11, Blood Urea Nitrogen 14, Creatinine 0.94, Estimat Glomerular Filtration Rate > 60, BUN/ Creatinine Ratio 15, Glucose Level 163H, Hemoglobin A1c 6.7H, Calcium Level 9.1 , Phosphorus Level 3.4, Magnesium Level 1.9 A/P-Cardiology Assessment/Admission Diagnosis Malignant hypertension, stroke Plan Deferred treatment of stroke to the primary team. Malignant hypertension: Blood pressure systolic still over 200. Patient is on lisinopril and hydrochlorothiazide. Hydralazine 10 mg was given just before I saw the patient. I will add a standing dose of amlodipine 10 mg daily. Echocardiogram shows normal LV function with mild to moderate LVH and mild diastolic dysfunction. No significant valvular heart disease. The patient may require secondary hypertension workup as an outpatient. Thank you for your consultation. Please call me if you have any questions. Percy Mustafa MD, FACP, FACC, FSCAI, FHRS, CCDS Interventional Cardiology Cardiac Electrophysiology Vascular Medicine and Endovascular Interventions Clinical Quality Measures DVT/VTE Risk/Contraindication: Risk Factor Score Per Nursin RFS Level Per Nursing on Admit: 1=Low/No VTE PPX Carlos MUSTAFA MD Dec 27, 2016 12:31 pm
[2016-12-27] MEDS: amLODIPine 5 MG (NORVASC) TAB PO SCH (13:08)
--- NOTE | 2016-12-27 13:08 | Diagnostic Imaging Report ---
INDICATION: Screening for metallic foreign bodies prior to MRI imaging. FINDINGS: 2 views of the orbits shows no metallic foreign body or other abnormality. IMPRESSION: Normal orbits. Dictated by: Dictated on workstation # [id number]
[2016-12-27] MEDS ORDERED: GADOBUTROL 10 MMOL/10 ML (GADAVIST) VIAL IV ONE (13:15)
--- NOTE | 2016-12-27 14:36 | Diagnostic Imaging Report ---
PROCEDURE: MR imaging of the brain with and without contrast. TECHNIQUE: Multiplanar/multisequence MR imaging of the brain was performed with and without contrast. INDICATION: Right-sided weakness. COMPARISON: There are no previous MRI examinations available for comparison. The CT head exam performed on 12/26/2016 failed to show any sign of an acute abnormality. I reviewed that exam and I agree with the interpretation of that study. FINDINGS: On this exam, the diffusion series reveals that there is a 1.0 x 1.0 cm area of increased signal in the middle cerebellar peduncle on the left. There is a corresponding area of diminished signal in this area on the apparent diffusion coefficient series and most likely this is due to a subacute nonhemorrhagic infarct. There is no sign of hemorrhage in this area on the T1 series and there is no abnormal enhancement on the post contrast sequence. The remainder of the brain is unremarkable for an acute abnormality. There is no abnormal enhancement on the post contrast series to suggest a neoplastic or infectious process either. The ventricles are not abnormally dilated and are stable in size when compared to the CT head exam. There are a few small areas of increased signal in the periventricular white matter bilaterally on the FLAIR series. These are nonspecific but may be secondary to encephalomalacia from prior infarcts. There is also mild cortical atrophy. The degree of atrophy is consistent with the patient's age. The sella is not enlarged and the expected carotid flow voids are evident bilaterally. The orbits are symmetrical and within normal limits. The seventh and eighth nerve complexes are unremarkable. The sinuses are generally clear. IMPRESSION: 1. There is a subacute nonhemorrhagic infarct involving the left middle cerebellar peduncle. 2. There is no evidence for hemorrhage and no other acute intracranial abnormality is noted. 3. These results were discussed with Dr. Nupur Betancourt. CRITICAL FINDING: Dictated by: Dictated on workstation # [id number]
--- NOTE | 2016-12-27 15:57 | Physical Therapy Evaluation ---
PT Evaluation-General Medical Diagnosis Admission Date Dec 26, 2016 at 18:30 Medical Diagnosis: malignant HTN Onset Date: Dec 25, 2016 Therapy Diagnosis Therapy Diagnosis: weakness; abn gait Height/Weight Height (Feet): 6 Height (Inches): 2.00 Weight (Pounds): 197 Weight (Ounces): 0.0 Precautions Precautions/Isolations: Fall Prevention, Standard Precautions Referral Physician: erica Reason for Referral: Evaluation/Treatment Medical History Current History Pt presents with right sided weakness and slurred speech. Symptoms began on Sunday and persisted until Sunday. He presented to ED on Sunday and was admitted. He did not receive TPA. 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 PT Evaluation-Current Subjective Agreeable to PT. Anxious to get moving. Pain Numeric Pain Scale: 0-No Pain Location: No Pain Reported Objective Patient Orientation: Person, Place, Time, Situation Problem Solving: Good ROM/Strength ROM Lower Extremities ROM is WFL all planes. Strenght Lower Extremities Left LE strength is grossly 5/5 throughout Right LE strength: DF 2/5, quads 2/5, hip flexion 2/5 Integumentary/Posture Integumentary Intact Bowel Incontinence: No Bladder Incontinence: No Posture Upright and symmetrical Neuromuscular (Tone, Coordination, Reflexes) Intact reflexes on the right and symmetrical to the left. Decreased coordination right side. Sensory Vision: Functional Hearing: Functional Hand Dominance: Right Sensation Right Lower Extremit: Impaired Sensation Left Lower Extremity: Intact Transfers Functional Mitchell Measure 0=Not Assessed/NA 4=Minimal Assistance 1=Total Assistance 5=Supervision or Setup 2=Maximal Assistance 6=Modified Mitchell 3=Moderate Assistance 7=Complete Mitchell Transfers (B, C, W/C) (FIM): 4 Supine to/from Sit: 4 Sit to/from Stand: 4 (Min asssit to stand and assist to stabilize hand on the chair. ) Gait Mode of Locomotion: Walk Anticipated Mode of Locomotion: Walk Gait (FIM): 4 Distance (FIM): 3=150 ft Gait Persons Needed: 1 Gait Assistive Device: FWW Comments/Gait Description CGA at gait belt, asssit to keep right hand on the walker. Decreased foot clearance right and decreased coordinated movement on the right. Slightly unsteady with gait. Balance Sitting Static: Good Sitting Dynamic: Good Standing Static: Fair Standing Dynamic: Fair Treatment gait training and transfer training; education on safety and safe transfers. Educated pt and family to call for assist when he wants to get up and move around. Educated on fall risk and further injury. Assessment/Needs Presents with right sided weakness and limited ability to transfer and ambulate. He would significantly benefit from skilled PT intervnetion to address deficits and promote return to PLOF and indep mobility. EVL due to no other significant comorbidities. 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 Goals PT Fdc Goals Time Frame: Dec 29, 2016 Transfers (B,C,W/C) (FIM): 5 Gait (FIM): 4 PT Plan Problem List Problem List: Activity Tolerance, Functional Strength, Safety, Balance, Gait, Transfer, Bed Mobility Treatment/Plan Treatment Plan: Continue Plan of Care Treatment Plan: Bed Mobility, Education, Functional Activity Domenico, Functional Strength, Gait, Safety, Therapeutic Exercise, Transfers Treatment Duration: Dec 29, 2016 Frequency: Twice Daily (M-F and QD Sat) Estimated Hrs Per Day: .5 hour per day Patient and/or Family Agrees t: Yes Safety Risks/Education Patient Education: Gait Training, Transfer Techniques, Safety Issues Teaching Recipient: Patient, Family Teaching Methods: Discussion Response to Teaching: Reinforcement Needed Discharge Recommendations Therapy D/C Recommendations: Acute Rehab Time/GCodes Time In: 1530 Time Out: 1600 Total Billed Treatment Time: 30 Total Billed Treatment visit EVL 15 GT 15 ROCKY BROTHERS PT Dec 27, 2016 15:57
--- NOTE | 2016-12-27 15:59 | Occupational Therapy Eval ---
OT Evaluation-General/PLF Medical Diagnosis Admission Date Dec 26, 2016 at 18:30 Medical Diagnosis: malignant hypertension, facial droop, dysarthria Onset Date: Dec 26, 2016 Therapy Diagnosis Therapy Diagnosis: weakness, decr self care, decr funct use R UE, decr activ melissa, decr mobilit Height/Weight Height (Feet): 6 Height (Inches): 2.00 Weight (Pounds): 197 Weight (Ounces): 0.0 Precautions Precautions/Isolations: Fall Prevention, Standard Precautions Safety Interventions: None Referral Physician: Serafin Referral Reason: Evaluation/Treatment Medical History Pertinent Medical History: Arthritis (R knee), HTN Additional Medical History L total knee, arthritis R knee. Pt reported he was going to get a total knee soon on R Current History Admitted through ED with malignant hypertension, facial droop, incoordination, slurred speech. Fall in shower at home on 12-25-16 Reviewed History: Yes Social History Home: Single Level Current Living Status: Spouse ADL-Prior Level of Function ADL PLOF Comments Pt reported that he has been able to manage all of his basic self care needs until this event. He also did lawn work at home and still drove. 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 No pain mentioned. Very anxious and motivated to get return in his R arm. Appearance Alert, cooperative. present Mental Status/Objective Attachments: Saline Lock, Telemetry Current Hand Dominance: Right Upper Extremity ROM L UE WFL. R UE active shoulder flex/abd about 90 degrees against gravity. Elbow flex to midpoint against gravity. Pron WFL, supination to midpoint. Wrist ext PROM WFL. Finger flex/ext WFL passively. Able to get about 30 degrees wrist ext against gravity with effort. Gross finger flex but unable to touch tips to palm. Able to touch thumb to tip of index. Upper Extremity Coordination WFL L, impaired on R Upper Extremity Sensation Grossly WFL bilat Upper Extremity Strength L UE grossly 4+/5 throughout. grossly R shoulder can hold full flex briefly 3-/5 , elbow flex/ext 3-/5, wrist ext 2/5, finger flex 2/5 Edema: Slight edema in R hand Gross visual screening does not show visual deficit ADL-Treatment ADL-Current Pt reported that he was able to feed himself but with his L hand, not R hand. Functional [place] Measure 0=Not Assessed/NA 4=Minimal Assistance 1=Total Assistance 5=Supervision or Setup 2=Maximal Assistance 6=Modified [place] 3=Moderate Assistance 7=Complete IndependenceIRFPAI Quality Coding Scale 6 Independent with activity with or without an assistive device 5 Patient requires set up or clean up by helper. Patient completes activity by themselves 4 Supervision or touching assist (CGA). [place] provide cues , steadying assist 3 The helper provides less than half the effort to complete the activity 2 The helper provides more than half the effort to complete the activity 1 Dependent. The helper does all the effort to complete an activity 7 Patient refused to complete or attempt activity 9 The patient did not perform the activity before the current illness or injury 88 Not attempted due to Medical conditions or safety concerns Other Treatments Skilled facilitation techniques to increase functional use R UE. Pt tends to hold his breath and movements needed to be monitored so that he keeps breathing. After techniques, able to flex R elbow to get hand to mouth. Able to achieve wrist ext WFL, gross finger flex to touch palm (except index), touch thumb to side of index, middle and ring fingers. Pt given exercises that he can do in his room and also provided with foam hand rail car driver. pt encouraged to do ex no more that 10 reps to avoid muscle fatigue. pt encouraged to feed himself 5 bites for dinner of finger food such as tater tots. Pt educ on results of evaluation, deficits identified, keeping R hand elevated when possible, not holding breath, rehab process. verbal understanding from pt and his . pt left up in recliner, all needs met, R arm on pillows. OT Mcc Goals Mcc Goals Time Frame: Jan 19, 2017 Eating (FIM): 6 Grooming(FIM): 6 Bathing(FIM): 6 Upper Body Dressing(FIM): 6 Lower Body Dressing(FIM): 6 Toileting(FIM): 6 Toilet/Commode Transfer(FIM): 6 Shower Transfer(FIM): 6 Additional Goals: 2-Verbalize Understanding, 3-ImproveStrength/Domenico 1=Demonstrate adherence to instructed precautions during ADL tasks. 2=Patient will verbalize/demonstrate understanding of assistive devices/ modifications for ADL. 3=Patient will improve strength/tolerance for activity to enable patient to perform ADL's. OT Education/Plan Problem List/Assessment Assessment: Decreased Activ Tolerance, Decreased UE Strength, Edema, Impaired Coordination, Impaired Self-Care Skills, Restricted Funct UE ROM Pt would benefit from skilled OT to increase his independence in basic self care to allow him to safely return to his home and to decrease caregiver burden. Discharge Recommendations Plan/Recommendations: Continue POC Therapy D/C Recommendations: Acute Rehab Treatment Plan/Plan of Care Treatment,Training & Education: Yes Patient would benefit from OT for education, treatment and training to promote independence in ADL's, mobility, safety and/or upper extremity function for ADL' s. Plan of Care: ADL Retraining, Functional Mobility, UE Funct Exercise/Act, UE Neuromus Re-Ed/Coord Treatment Duration: Jan 19, 2017 Frequency: 5 times per week Estimated Hrs Per Day: .5 hour per day Agreement: Yes Rehab Potential: Good Time/GCodes Start Time: 14:50 Stop Time: 15:30 Total Time Billed (hr/min): 40 Billed Treatment Time visit, 10 minutes evaluation high intensity, 30 minutes neuromotor MARCIO PRECIADO OT Dec 27, 2016 15:59
[2016-12-28] MEDS: niCARdipine 50 MG/NS 250 ML IV DRIP IV SCH ×4 (01:40→11:30)
[2016-12-28 03:57] VITALS: BP 146/73
[2016-12-28 04:39] LABS: BASOPHILS % (AUTO) 0 % (0-10); EOSINOPHILS # (AUTO) 0.1 10^3/uL (0.0-0.3); EOSINOPHILS % (AUTO) 1 % (0-10); LYMPHOCYTES # (AUTO) 1.6 X 10^3 (1.0-4.0); LYMPHOCYTES % (AUTO) 19 % (12-44); MEAN CORPUSCULAR HEMOGLOBIN 28 PG (25-34); MEAN CORPUSCULAR HGB CONC 35 G/DL (32-36); MEAN CORPUSCULAR VOLUME 80 FL (80-99); MEAN PLATELET VOLUME 10.1 FL (7.4-10.4); MONOCYTES # (AUTO) 0.9 X 10^3 (0.0-1.0); MONOCYTES % (AUTO) 10 % (0-12); NEUTROPHILS # (AUTO) 6.2 X 10^3 (1.8-7.8); NEUTROPHILS % (AUTO) 70 % (42-75); PLATELET COUNT 245 10^3/uL (130-400); RED BLOOD COUNT 4.92 10^6/uL (4.35-5.85); RED CELL DISTRIBUTION WIDTH 13.4 % (10.0-14.5); WHITE BLOOD COUNT 8.8 10^3/uL (4.3-11.0)
[2016-12-28 05:18] LABS: ANION GAP 9 MMOL/L (5-14); BLOOD UREA NITROGEN 17 MG/DL (7-18); BUN/CREATININE RATIO 18; CALCIUM 9.3 MG/DL (8.5-10.1); CARBON DIOXIDE 24 MMOL/L (21-32); CHLORIDE 106 MMOL/L (98-107); CREATININE SERUM 0.94 MG/DL (0.60-1.30); GFR ESTIMATED > 60; GLUCOSE 161 MG/DL (70-105); MAGNESIUM 1.7 MG/DL (1.8-2.4); PHOSPHORUS 3.5 MG/DL (2.3-4.7); POTASSIUM 3.9 MMOL/L (3.6-5.0); SODIUM 139 MMOL/L (135-145)
[2016-12-28] MEDS: CATHETER FLUSH 10 ML SYR IV SCH (06:21)
--- NOTE | 2016-12-28 08:04 | Pulmonary Progress Note ---
Subjective Time Seen by Provider: 08:03 Subjective/Events-last exam Pt is doing better. No complications noted. Exam Exam Vital Signs Date Time Temp Pulse Resp B/P (MAP) Pulse Ox O2 Delivery O2 Flow Rate FiO2 12/28/16 03:57 98.5 74 14 146/73 97 Room Air 12/28/16 01:00 75 12/27/16 23:56 98.0 77 16 162/76 95 Room Air 12/27/16 23:55 Room Air 12/27/16 20:58 99.4 78 16 160/80 97 Room Air 12/27/16 20:45 Room Air 12/27/16 18:00 81 172/81 Room Air 12/27/16 17:00 71 155/72 Room Air 12/27/16 16:34 98.0 98 Room Air 12/27/16 16:33 100 Room Air 12/27/16 16:00 98.0 80 12 146/86 98 Room Air 12/27/16 16:00 80 146/69 12/27/16 15:00 83 171/89 Room Air 12/27/16 14:00 87 13 192/93 Room Air 12/27/16 13:30 Room Air 12/27/16 13:30 91 205/99 12/27/16 13:00 92 12/27/16 12:30 100 Room Air 12/27/16 12:00 75 213/104 Room Air 12/27/16 11:30 70 16 193/96 Room Air 12/27/16 10:30 97.9 14 205/84 100 Room Air 203/81 General Appearance: No Apparent Distress, WD/WN, Chronically ill HEENT: PERRL/EOMI, Normal ENT Inspection, Pharynx Normal Neck: Full Range of Motion, Normal Inspection, Non Tender, Supple, Carotid Bruit Respiratory: Chest Non Tender, Lungs Clear, Normal Breath Sounds, No Accessory Muscle Use, No Respiratory Distress Cardiovascular: Regular Rate, Rhythm, No Edema, No Gallop, No JVD, No Murmur, Normal Peripheral Pulses Capillary Refill: Less Than 3 Seconds Gastrointestinal: non tender, soft Extremity: Normal Capillary Refill, Normal Inspection, Normal Range of Motion, Non Tender, No Calf Tenderness, No Pedal Edema Neurologic/Psychiatric: Alert, Oriented x3, Normal Mood/Affect, Motor Weakness (right arm and leg weakness 2/5) Skin: Normal Color, Warm/Dry Lymphatic: No Adenopathy Results Lab Laboratory Tests 12/26/16 16:55 12/27/16 04:39 12/28/16 04:14 Assessment/Plan Assessment/Plan CVA -Passed swallow evaluation -Plavix -Pt was outside of window for TPA upon admission -neuro checks Facial droop dysarthria malignant HTN - improved 232 I am going to sign off please let me know of any questions/concerns. Clinical Quality Measures DVT/VTE Risk/Contraindication: Risk Factor Score Per Nursin RFS Level Per Nursing on Admit: 1=Low/No VTE PPX ALANIS DESHPANDE DO Dec 28, 2016 08:04
[2016-12-28 08:17] VITALS: BP 171/106
[2016-12-28] MEDS ORDERED: CLOPIDOGREL 75 MG (PLAVIX) TABLET PO SCH (09:00)
--- NOTE | 2016-12-28 09:19 | Diagnostic Imaging Report ---
CLINICAL INDICATION: Patient with malignant hypertension, right upper extremity discoordination, and right facial droop. EXAM: Portable chest x-ray upright view. COMPARISONS: Chest x-ray dated 12/27/2016. FINDINGS: Lungs/pleura: Lungs are clear. There is no pneumothorax. There is no pleural effusion. Mediastinum: Unremarkable. Pulmonary vasculature: Unremarkable. Heart: Upper limits of normal heart size for portable projection. Bones/extrathoracic soft tissue: Unremarkable. IMPRESSION: Upper limits of heart size for portable projection. Otherwise, there is no interval radiographic evidence of acute cardiopulmonary process. Dictated by: Dictated on workstation # [id number]
[2016-12-28] MEDS: lisINopril 20 MG (ZESTRIL) TAB PO SCH (10:05)
[2016-12-28] MEDS: amLODIPine 5 MG (NORVASC) TAB PO SCH (10:05)
[2016-12-28] MEDS: HYDROCHLOROTHIAZIDE 25 MG (HCTZ) TAB PO SCH (10:05)
[2016-12-28] MEDS ORDERED: AMLO5TAB2 PO (10:51)
[2016-12-28] MEDS ORDERED: ATOR10TA66 PO (10:51)
[2016-12-28] MEDS ORDERED: LISI-552 PO (10:51)
[2016-12-28] MEDS ORDERED: ASPI325T32 PO (10:51)
[2016-12-28] MEDS ORDERED: HYDR25TA4 PO (10:51)
[2016-12-28] MEDS ORDERED: CLOP75TA28 PO (10:51)
--- NOTE | 2016-12-28 10:59 | ST Cognitive Linguistic Eval ---
Speech Evaluation-General Medical Diagnosis Malignant Hypertension, Right Facial Droop, Dysarthria Onset Date: Dec 26, 2016 Therapy Diagnosis Therapy Diagnosis: Mild Dysarthria Precautions Precautions/Isolations: Standard Precautions Referral Referring Physician: Dr. Garrison Reason for Referral: Evaluation/Treatment Speech Evaluation Medical History Pertinent Medical History: Arthritis (R knee), HTN Reviewed History: Yes Social History Current Living Status: Spouse Speech PLF-Current Status Prior Level of Function The patient denied prior difficulties with speech or language. Subjective The patient was recently admitted to [facility] following an acute CVA resulting a right sided weakness and facial droop. The patient greeted the clinician appropriately and was agreeable to participation in the speech and language evaluation. Language Eval: Auditory Follows 1-Step Commands: Functional Follows Complex Directions: Functional Follows General Conversations: Functional Language Eval: Verbal Language Completes Spontaneous Greeting: Functional Requests Basic Needs: Functional States Basic Personal Info: Functional Expresses Complex Ideas: Functional Objective Oral Motor/Speech Production A cursory oral mechanism examination was completed. The patient displays a minimal reduction in right labial retraction, as well as, minimally reduced strength. Per patient, right facial sensation remains intact. Adequate left sided labial retraction and range of motion was noted. Lingual protrusion was at midline. Lingual range of motion was WNL. The patient displayed minimal to mild dysarthria (consistent with flaccid-type) , however, remained 100% intelligible throughout the session. Impression The patient displays minimal to mild dysarthria characterized by reduced right labial range of motion and strength. Speech Short Term Goals Short Term Goals Short Term Goals 1. The patient will demonstrate oral lingual range of motion and strengthening exercises with 90% accuracy, independently. Time Frame-STG: Three Days Speech Nursing Home Goals Nursing Home Goals 1. The patient will display continued intelligibility with reduced imprecise articulation through functional communication attempts. Time Frame: Two Weeks Speech-Plan Treatment Plan Speech Therapy Treatment Plan: Continue Plan of Care Continue skilled speech pathology to target functional expressive communication. Frequency: 3 times per week Estimated Hrs Per Day: .25 hour per day Rehab Potential: Good Safety Risks/Education Teaching Recipient: Patient Teaching Methods: Discussion Response to Teaching: Verbalize Understanding Education Topics Provided: Results, Recommendations, Plan of Care Time Speech Therapy Time In: 10:22 Speech Therapy Time Out: 10:37 Total Billed Time: 15 Billed Treatment Time 1, DARREN ARRIAGA ST Dec 28, 2016 10:59
--- NOTE | 2016-12-28 11:04 | Discharge Summary-Hospitalist ---
Diagnosis/Chief Complaint Date of Admission Dec 26, 2016 at 18:30 Date of Discharge Discharge Date: Dec 28, 2016 Admission Diagnosis Assessment: Acute malignant HTN with right sided weakness residual Hyperglycemia ordering HGBA1C Discharge Diagnosis Assessment: Acute malignant HTN with right sided weakness with infarct left side on MRI Hyperglycemia HGBA1C 6.7 Plan: Rehab eval Lipid panel PT/OT Cardiology consult Dr. Mustafa MRI brain BP management Discharge Summary Discharge Physical Examination Allergies: Coded Allergies: No Known Drug Allergies (Unverified , 12/26/16) Vitals & I&Os Vital Signs Date Time Temp Pulse Resp B/P (MAP) Pulse Ox O2 Delivery O2 Flow Rate FiO2 12/28/16 08:17 97.4 74 16 171/106 97 Room Air Hospital Course Notes from 12/28/16 Chart Review: MRI confirmed stroke Dr. 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 Pt was assured that this can be controlled through medication and recuperation. In-pt rehab discussed Physical exam stable Pt denies ability to make a fist with his right hand. Pt can raise his right arm and his right foot. Plan: Lipitor 10 mg Move to in-pt rehab Scribed by Jerica Underwood under the direct supervision of Dr. Betancourt. Hospital course: patient had a brief course. Admitted and placed on Cardene drip due to severe HTN and right sided weakness for 36 hours before admit. He was not a tpa candidate. MRI confirmed infarct on left c/w symptoms and weakness on the right. IRf consulted for rehab. CVA protocol initiated at [facility]. Labs (last 24 hrs) Laboratory Tests 12/28/16 04:14: White Blood Count 8.8, Red Blood Count 4.92, Hemoglobin 13.6, Hematocrit 39L, Mean Corpuscular Volume 80, Mean Corpuscular Hemoglobin 28, Mean Corpuscular Hemoglobin Concent 35, Red Cell Distribution Width 13.4, Platelet Count 245, Mean Platelet Volume 10.1, Neutrophils (%) (Auto) 70, Lymphocytes (%) (Auto) 19 , Monocytes (%) (Auto) 10, Eosinophils (%) (Auto) 1, Basophils (%) (Auto) 0, Neutrophils # (Auto) 6.2, Lymphocytes # (Auto) 1.6, Monocytes # (Auto) 0.9, Eosinophils # (Auto) 0.1, Basophils # (Auto) 0.0, Sodium Level 139, Potassium Level 3.9, Chloride Level 106, Carbon Dioxide Level 24, Anion Gap 9, Blood Urea Nitrogen 17, Creatinine 0.94, Estimat Glomerular Filtration Rate > 60, BUN/ Creatinine Ratio 18, Glucose Level 161H, Calcium Level 9.3, Phosphorus Level 3.5 , Magnesium Level 1.7L Pending Labs Discharge Home Medications: Active Scripts Active Hydrochlorothiazide 25 Mg Tablet 25 Mg PO DAILY Aspirin EC (Aspirin) 325 Mg Tablet.dr 325 Mg PO DAILY Lisinopril 20 Mg Tablet 20 Mg PO DAILY Amlodipine Besylate 5 Mg Tablet 10 Mg PO DAILY Atorvastatin Calcium 10 Mg Tablet 10 Mg PO HS Clopidogrel (Clopidogrel Bisulfate) 75 Mg Tablet 75 Mg PO DAILY@0900 Reported Daily Multiple Vitamin (Multivitamin) 1 Each Tablet 1 Tab PO DAILY Aleve (Naproxen Sodium) 220 Mg Tablet 440 Mg PO HS PRN TAKES 2 (220MG) TABLETS Aleve (Naproxen Sodium) 220 Mg Tablet 440 Mg PO DAILY TAKES 2 (220MG) TABLETS Instructions to patient/family Please see electonic discharge instructions given to patient. Clinical Quality Measures DVT/VTE Risk/Contraindication: Risk Factor Score Per Nursin RFS Level Per Nursing on Admit: 1=Low/No VTE PPX GRICEL BETANCOURT DO Dec 28, 2016 11:04
--- NOTE | 2016-12-28 11:39 | Physical Therapy Daily Note ---
PT Daily Note-Current Subjective Patient is emotional about shelter outcome. He voices his anxiety with not knowing. He agrees to PT. Pain Numeric Pain Scale: 5-Moderate Pain Location: Right Location Body Site: Knee Pain Description: Chronic Mental Status Patient Orientation: Normal For Age Transfers Functional [place] Measure 0=Not Assessed/NA 4=Minimal Assistance 1=Total Assistance 5=Supervision or Setup 2=Maximal Assistance 6=Modified [place] 3=Moderate Assistance 7=Complete IndependenceIRFPAI Quality Coding Scale 6 Independent with activity with or without an assistive device 5 Patient requires set up or clean up by helper. Patient completes activity by themselves 4 Supervision or touching assist (CGA). [place] provide cues , steadying assist 3 The helper provides less than half the effort to complete the activity 2 The helper provides more than half the effort to complete the activity 1 Dependent. The helper does all the effort to complete an activity 7 Patient refused to complete or attempt activity 9 The patient did not perform the activity before the current illness or injury 88 Not attempted due to Medical conditions or safety concerns Transfers (B, C, W/C) (FIM): 4 Scootin Rollin Supine to/from Sit: 5 Sit to/from Stand: 4 Bed to/from Chair: 4 Patient requires CGA for safety with use of gait belt Gait Training Gait (FIM): 2 Distance (FIM): 6=844-68 ft Distance: 125' Gait Level of Assist: 3 Gait Persons Needed: 1 Gait Assistive Device: Walker Thad step to gait sequence with use of thad walker in left hand. Patient will benefit from a right platform FWW. Exercises Supine Ex: Ankle pumps, Quad Set, Heel Slides, Straight leg raise, Hip abd/add Supine Reps: 15 (to improve motor control and strength to improve functional mobility) Assessment Patient continues to be emotional and voices fear of the unknown. PT reassured patient that the staff will assist with recovery to maximum potential. He will transfer to [facility] tomorrow for continued care. PT Senior Living Goals Review Analyst Goals PT Senior Living Goals Time Frame: Dec 29, 2016 Transfers (B,C,W/C) (FIM): 5 Gait (FIM): 4 PT Plan Treatment/Plan Treatment Plan: Continue Plan of Care Treatment Plan: Bed Mobility, Education, Functional Activity Domenico, Functional Strength, Gait, Safety, Therapeutic Exercise, Transfers Treatment Duration: Dec 29, 2016 Frequency: Twice Daily (M-F and QD Sat) Estimated Hrs Per Day: .5 hour per day Patient and/or Family Agrees t: Yes Safety Risks/Education Patient Education: Gait Training, Disease Process, Safety Issues Teaching Recipient: Patient Teaching Methods: Demonstration, Discussion Response to Teaching: Verbalize Understanding, Return Demonstration Discharge Recommendations Therapy D/C Recommendations: Acute Rehab Time/GCodes Time In: 1040 Time Out: 1105 Total Billed Treatment Time: 25 Total Billed Treatment 1 visit EX 15 min GT 10 min ASYA PADILLA PT Dec 28, 2016 11:38
--- NOTE | 2016-12-28 11:48 | Cardiology Progress Note ---
Cardiology SOAP Progress Note Subjective: Residual neurological deficits Objective: I&O/Vital Signs Vital Sign - Last 12Hours 12/28/16 12/28/16 12/28/16 03:57 07:00 08:17 Temp 98.5 97.4 Pulse 74 68 74 Resp 14 16 B/P (MAP) 146/73 171/106 Pulse Ox 97 97 O2 Delivery Room Air Room Air Weight (Pounds): 191 Weight (Ounces): 7.0 Weight (Calculated Kilograms): 86.091675 Constitutional: No appears stated age, No AAO x 3, No apparent distress, No PERRL, No well-developed, No well-nourished, No other Respiratory: No accessory muscle use, No respiratory distress, No chest tender , No chest expansion is symmetric, No chest is bilaterally symmetric, No lungs clear to percussion, No lungs clear to auscultation, No crackles, No rhonchi, No rales, No stridor, No wheezing, No pleural rub, No other Cardiovascular: No regular rate-rhythm, No irregularly irregular, No extra beats, No parasternal heave is noted, No JVD, No edema, No bradycardia, No tachycardia, No point of maximal impulse, No cardiac thrills are palpable, No S1 and S2, No gallop/S3, No gallop/S4, No diastolic murmur, No systolic murmur, No friction rub, No click, No other Gastrointestional: No tender, No soft, No round, No distended, No pulsatile mass, No organomegaly, No guarding, No rebound, No tenderness, No hernia, No mass, No audible bowel sounds, No abnormal bowel sounds, No abdominal bruits, No spleenomegaly, No other Extremities: No normal range of motion, No non-tender, No normal inspection, No pedal edema, No calf tenderness, No normal capillary refill, No pelvis stable , No calf tenderness, No inflammation, No pedal edema, No slow capillary refill , No swelling, No other, No abrasion, No clubbing, No cyanosis, No ecchymosis, No laceration, No no lower extremity edema bilateral, No significant edema, No tenderness, No wound Neurologic/Psychiatric: facial droop, motor weakness Skin: No normal color, No warm/dry, No cyanosis, No cool, No diaphoresis, No damp, No ecchymosis, No jaundice, No mottled, No pallor, No rash, No tattoos/ piercings, No ulcerations, No rash on exposed areas, No ulcerations on exposed areas, No other Results/Procedures: Labs Laboratory Tests 12/28/16 04:14: White Blood Count 8.8, Red Blood Count 4.92, Hemoglobin 13.6, Hematocrit 39L, Mean Corpuscular Volume 80, Mean Corpuscular Hemoglobin 28, Mean Corpuscular Hemoglobin Concent 35, Red Cell Distribution Width 13.4, Platelet Count 245, Mean Platelet Volume 10.1, Neutrophils (%) (Auto) 70, Lymphocytes (%) (Auto) 19 , Monocytes (%) (Auto) 10, Eosinophils (%) (Auto) 1, Basophils (%) (Auto) 0, Neutrophils # (Auto) 6.2, Lymphocytes # (Auto) 1.6, Monocytes # (Auto) 0.9, Eosinophils # (Auto) 0.1, Basophils # (Auto) 0.0, Sodium Level 139, Potassium Level 3.9, Chloride Level 106, Carbon Dioxide Level 24, Anion Gap 9, Blood Urea Nitrogen 17, Creatinine 0.94, Estimat Glomerular Filtration Rate > 60, BUN/ Creatinine Ratio 18, Glucose Level 161H, Calcium Level 9.3, Phosphorus Level 3.5 , Magnesium Level 1.7L A/P: Assessment/Dx: Malignant hypertension, stroke Plan: Deferred treatment of stroke to the primary team. Malignant hypertension: Blood pressure systolic in the range of 140-150 mmHg which is acceptable. Continue amlodipine 10 mg, lisinopril and hydrochlorothiazide. Echocardiogram shows normal LV function with mild to moderate LVH and mild diastolic dysfunction. No significant valvular heart disease. The patient may require secondary hypertension workup as an outpatient. I will continue to follow. Thank you for your consultation. Please call me if you have any questions. Percy Mustafa MD, FACP, FACC, FSCAI, FHRS, CCDS Interventional Cardiology Cardiac Electrophysiology Vascular Medicine and Endovascular Interventions Carlos MUSTAFA MD Dec 28, 2016 11:47 am
[2016-12-28 12:30] VITALS: BP 168/78
--- NOTE | 2016-12-28 12:49 | Occupational Ther Daily Note ---
OT Current Status-Daily Note Subjective Pt seen in room, up in bed, agreeable to OT. No pain mentioned. Pt tearful about loss. Appearance Alert, cooperative Mental Status/Objective Functional [place] Measure 0=Not Assessed/NA 4=Minimal Assistance 1=Total Assistance 5=Supervision or Setup 2=Maximal Assistance 6=Modified [place] 3=Moderate Assistance 7=Complete [place] ADL-Treatment Functional [place] Measure 0=Not Assessed/NA 4=Minimal Assistance 1=Total Assistance 5=Supervision or Setup 2=Maximal Assistance 6=Modified [place] 3=Moderate Assistance 7=Complete IndependenceIRFPAI Quality Coding Scale 6 Independent with activity with or without an assistive device 5 Patient requires set up or clean up by helper. Patient completes activity by themselves 4 Supervision or touching assist (CGA). [place] provide cues , steadying assist 3 The helper provides less than half the effort to complete the activity 2 The helper provides more than half the effort to complete the activity 1 Dependent. The helper does all the effort to complete an activity 7 Patient refused to complete or attempt activity 9 The patient did not perform the activity before the current illness or injury 88 Not attempted due to Medical conditions or safety concerns Other Treatment Skilled facilitation techniques used to increase functional use of R UE. Slight increase in swelling in R hand but not moveable with massage. After techniques, pt was able to hold R shoulder in almost full flex against gravity and slowly lower it. He was able to actively do shoulder internal and external rotation with mild resistance in both directions. He could flex and extend R elbow against gravity and with mild resistance. He had active pronation but supination was slow and only to midpoint. He could extend wrist fully but with effort, extra time and facilitation techniques. He had more difficulty with gross finger flexion and was not able to hold fingers to touch his palm. He was able to flex thumb to touch index and almost touch middle finger. Thumb extension not observed. He seems to have a little increased strength and coordination in shoulder but a little less in forearm, wrist and hand. At end of tx, pt was able to safely do some exercises on his own - he is very motivated for full recovery. Pt left up in bed, all needs met. Education OT Patient Education: Progress toward Goal/Update tx plan, Purpose of tx/ functional activities Teaching Recipient: Patient Teaching Methods: Discussion Response to Teaching: Verbalize Understanding, Reinforcement Needed OT Short Term Goals Short Term Goals 1=Demonstrate adherence to instructed precautions during ADL tasks. 2=Patient will verbalize/demonstrate understanding of assistive devices/ modifications for ADL. 3=Patient will improve strength/tolerance for activity to enable patient to perform ADL's. OT Sole Leather Cutting Machine Operator Goals Sole Leather Cutting Machine Operator Goals Time Frame: Jan 19, 2017 Eating (FIM): 6 Groomin Bathing(FIM): 6 Upper Body Dressing(FIM): 6 Lower Body Dressing(FIM): 6 Toileting(FIM): 6 Toilet/Commode Transfer(FIM): 6 Shower Transfer(FIM): 6 Additional Goals: 2-Verbalize Understanding, 3-ImproveStrength/Domenico 1=Demonstrate adherence to instructed precautions during ADL tasks. 2=Patient will verbalize/demonstrate understanding of assistive devices/ modifications for ADL. 3=Patient will improve strength/tolerance for activity to enable patient to perform ADL's. OT Education/Plan Problem List/Assessment Pt would benefit from skilled OT to increase his independence in basic self care to allow him to safely return to his home and to decrease caregiver burden. Discharge Recommendations Plan/Recommendations: Continue POC Treatment Plan/Plan of Care Patient would benefit from OT for education, treatment and training to promote independence in ADL's, mobility, safety and/or upper extremity function for ADL' s. Plan of Care: ADL Retraining, Functional Mobility, UE Funct Exercise/Act, UE Neuromus Re-Ed/Coord Treatment Duration: Jan 19, 2017 Frequency: 5 times per week Estimated Hrs Per Day: .5 hour per day Agreement: Yes Rehab Potential: Good Time/GCodes Start Time: 11:20 Stop Time: 12:00 Total Time Billed (hr/min): 40 Billed Treatment Time visit, 40 minutes neuromotor MARCIO PRECIADO OT Dec 28, 2016 12:48
[2016-12-28] MEDS ORDERED: NAPR220T66 PO ×2 (16:07)
[2016-12-28] MEDS ORDERED: MULT-35 PO (16:07)
[2016-12-28] MEDS ORDERED: ATORVASTATIN 10 MG (LIPITOR) TABLET PO SCH (21:00)
== END 2016-12-28 14:54 | DRG 65 ==
LOC: EDUNIT# 16:44 → ER 16:45 → ICU 18:30
PROVIDERS: ADMIT Internal Medicine; ATTEND Internal Medicine
DX: I63.9 Cerebral infarction, unspecified (principal); I69.351 Hemiplegia and hemiparesis following cerebral infarction affecting right dominant side; I69.392 Facial weakness following cerebral infarction; I69.322 Dysarthria following cerebral infarction; I10 Essential (primary) hypertension
CPT/HCPCS: 36415; 70250; 70450; 70553; 71010; 73562; 80048; 80053; 80061; 80306; 81000; 82962; 83036; 83735; 84100; 84439; 84443; 84484; 85025; 85379; 85610; 85730; 93005; 93041; 93306; 93880; 96365; 96375

== ENCOUNTER 2016-12-28 13:55 | Inpatient (IN) | payer BC ==
[~2016-12-28] VITALS: Ht 188 cm; Wt 87.2 kg
[~2016-12-28 13:55] MED LIST: AMLO5TAB2 PO; ASPI325T32 PO; ATOR10TA66 PO; CLOP75TA28 PO; HYDR25TA4 PO; LISI-552 PO; MULT-35 PO; NAPR220T66 PO
[2016-12-28 14:48] VITALS: BP 167/73
--- NOTE | 2016-12-28 15:41 | Physical Therapy Evaluation ---
PT Evaluation-General Medical Diagnosis Admission Date Dec 28, 2016 at 14:55 Medical Diagnosis: CVA Onset Date: Dec 26, 2016 Therapy Diagnosis Therapy Diagnosis: weakness; abn gait Height/Weight Height (Feet): 6 Height (Inches): 2.00 Weight (Pounds): 190 Weight (Ounces): 2.0 Precautions Precautions/Isolations: Standard Precautions Referral Physician: Juventino Reason for Referral: Evaluation/Treatment Medical History Pertinent Medical History: Arthritis, HTN, OA Additional Medical History Left TKR; Right knee OA, knew that he needed a TKR but hadnt done it yet. Current History Admitted to acute initially with right sided weakness. Pt was out of the range for TPA. Transferred to ARU for intensive therapy services. 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 PT Evaluation-Current Subjective Pt is agreeable to PT and anxious to get stronger. Pt tearful at times. Reports he had planned to start the process to have a R TKR in the near future, but that is now on hold. "I"ll do whatever it takes to get better." Pain Numeric Pain Scale: 0-No Pain Location: No Pain Reported Objective Patient Orientation: Person, Place, Time, Situation Problem Solving: Good ROM/Strength ROM Lower Extremities WFL; right knee does not seem to fully extend (lacks 5-8 degrees) which is likely attributed to orthopedic changes. Strenght Lower Extremities Left LE strength is 5/5 throughout. R: quads: 3/5; hamstrings: 3/5; DF 2/5 Integumentary/Posture Integumentary Refer to nursing notes. Ulcer noted on plantar aspect of right foot at the 5th metatarsal met head; circular. Bowel Incontinence: No Bladder Incontinence: No Posture Normal and symmetrical Neuromuscular (Tone, Coordination, Reflexes) Tone is normal Coordination is diminished throughout the right side. Reflexes are symmetrical Sensory Vision: Functional Hearing: Functional Hand Dominance: Right Sensation Right Lower Extremit: Impaired (slightly to light touch) Sensation Left Lower Extremity: Intact Transfers Functional [place] Measure 0=Not Assessed/NA 4=Minimal Assistance 1=Total Assistance 5=Supervision or Setup 2=Maximal Assistance 6=Modified [place] 3=Moderate Assistance 7=Complete IndependenceIRFPAI Quality Coding Scale 6 Independent with activity with or without an assistive device 5 Patient requires set up or clean up by helper. Patient completes activity by themselves 4 Supervision or touching assist (CGA). [place] provide cues , steadying assist 3 The helper provides less than half the effort to complete the activity 2 The helper provides more than half the effort to complete the activity 1 Dependent. The helper does all the effort to complete an activity 7 Patient refused to complete or attempt activity 9 The patient did not perform the activity before the current illness or injury 88 Not attempted due to Medical conditions or safety concerns Transfers (B, C, W/C) (FIM): 3 Scootin Rollin Roll Left to Right (QC): 5 Supine to/from Sit: 4 Sit to/from Stand: 3 (depending on surface height: min to mod assist) bed t/f WC(FIM only if WC use): 4 Sit to Lying (QC): 4 (asssit with right leg) Lying to Sitting/Side of Bed(Q: 5 Sit to Stand (QC): 3 Chair/Ksw-fb-Efkjx Xfer(QC): 4 Car Transfer (QC): 88 Pt has difficulty with pushing up from the chair with the right UE. If the chair height is elevated he only needs a light lifting assist but from standard chair height, needs mod [email or web address] Gait Does the Patient Walk?: Yes Mode of Locomotion: Walk Anticipated Mode of Locomotion: Walk Gait (FIM): 3 Distance (FIM): 3=150 ft Walk 10 feet (QC): 4 Walk 50 ft with 2 Turns(QC): 4 Walk 150 ft (QC): 3 Walking 10ft/uneven surface-QC: 3 Gait Assistive Device: FWW Comments/Gait Description Pt requires close CGA with gait and assist to keep right hand on the walker. He needs skilled cues for swing through and foot clearance of the right LE. Pt had an incident of his right knee buckling that required mod assist to recover. Impaired DF strength thus toe drag during swing through of gait; right knee strength deficits limit quad control and safety with ambulation. Wheelchair Training Does the Pt Use a Wheelchair?: No Stairs Stairs (FIM): 2 #of Steps: 4 1 Step (curb) (QC): 4 4 Steps (QC): 3 12 Steps (QC): 88 very close CGA to min assist with assist to stabilize right knee; skilled cues for sequencing and safety on stairs. Balance Sitting Static: Good Sitting Dynamic: Good Standing Static: Fair Standing Dynamic: Fair Picking up an Object (QC): 3 Treatment Worked on functional safety with transfers, performing sit to from stand several times with focus on foot placement and hand placement requiring skilled cues 50% of the time. Gait training with focus on keeping right hand on the walker and step through gait with education / training on safety due to right knee issues. Assessment/Needs Post CVA with right sided weakness. He presents with weakness throughout the LE which impairs functional transfers and gait and adds falls as a safety concern. He is alert and oriented to his deficits and very motivated to improve. He has an ulcer on the plantar aspect of his right foot which may be a barrier when trying to place an AFO. He will benefit from skilled training on functional strength, neuro reintegration, balance training, functional gait and progress to returning to community mobility and lifestyle. Rehab Potential: Good PT Short Term Goals Short Term Goals Time Frame: Jan 05, 2017 Transfers (B,C,W/C) (FIM): 4 Gait (FIM): 4 Distance (FIM): 3=150 ft Gait Assistive Device: Walker Platform PT Certified Mortician Goals Half-Way Goals PT Half-Way Goals Time Frame: Jan 19, 2017 Transfers (B,C,W/C) (FIM): 7 Sit to Lying (QC): 6 Lying-Sitting on Side/Bed(QC): 6 Sit to Stand (QC): 6 Roll Left to Right (QC): 6 Chair/Ebc-oy-Gdpfi Xfer(QC): 6 Car Transfer (QC): 6 Does the Patient Walk: Yes Gait (FIM): 6 Gait distance (FIM): 3=150 ft Walk 10 feet (QC): 6 Walk 10ft-Uneven Surface(QC): 6 Walk 50ft with 2 Turns (QC): 6 Walk 150 ft (QC): 6 Gait Assistive Device: FWW Stairs (FIM): 5 # of Steps: 8 1 Step (curb) (QC): 5 4 Steps (QC): 5 12 Steps (QC): 88 Picking up an Object (QC): 4 All LTG's are set with the plan for him to return home and be mod indep to indep with mobility in his home and short community distances. PT Plan Problem List Problem List: Activity Tolerance, Functional Strength, Safety, Balance, Gait, Transfer, Bed Mobility Treatment/Plan Treatment Plan: Continue Plan of Care Treatment Plan: Bed Mobility, Education, Functional Activity Domenico, Functional Strength, Group Therapy (social integration/support), Gait, Safety, Therapeutic Exercise, Transfers Treatment Duration: Jan 19, 2017 Frequency: At least 5 to 7 days/Wk (IRF) Estimated Hrs Per Day: 1.5 hours per day Patient and/or Family Agrees t: Yes Safety Risks/Education Patient Education: Transfer Techniques, Safety Issues Teaching Recipient: Patient Teaching Methods: Discussion Response to Teaching: Reinforcement Needed Time/GCodes Time In: 1445 Time Out: 1535 Total Billed Treatment Time: 50 Total Billed Treatment visit EVM 20 FA 15 GT 15 ROCKY BROTHERS PT Dec 28, 2016 15:41
[2016-12-28] MEDS ORDERED: NAPR220T66 PO ×2 (16:07)
[2016-12-28] MEDS ORDERED: MULT-35 PO (16:07)
--- NOTE | 2016-12-28 16:57 | Occupational Therapy Eval ---
OT Evaluation-General/PLF Medical Diagnosis Admission Date Dec 28, 2016 at 14:55 Medical Diagnosis: CVA Onset Date: Dec 26, 2016 Therapy Diagnosis Therapy Diagnosis: weakness, decr self care, decr funct use R UE, decr activ melissa, decr mobilit Height/Weight Height (Feet): 6 Height (Inches): 2.00 Weight (Pounds): 190 Weight (Ounces): 2.0 Precautions Precautions/Isolations: Fall Prevention, Standard Precautions Referral Physician: Juventino Referral Reason: Evaluation/Treatment Medical History Pertinent Medical History: Arthritis, HTN, OA Additional Medical History L total knee, arthritis R knee. Pt reported he is going to get a R total knee. Current History Admitted through ED with malignant hypertension, facial droop, incoordination, slurred speech. Fall in shower at home on 12-25-16. Reviewed History: Yes Social History Home: Single Level Current Living Status: Spouse ADL-Prior Level of Function ADL PLOF Comments Pt reported that he has been able to manage all of his basic self care needs until this event. He also did lawn work at home and still drove. 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 Pain reported 0/10. Pt very motivated to get return in his R arm. Appearance Alert, cooperative Mental Status/Objective Patient Orientation: Person, Place, Time, Situation Current Glasses/Contacts: Yes Hearing Aids: No Dentures/Partials: No Hand Dominance: Right Upper Extremity ROM L UE WFL. R UE active shoulder flex/abd about 90 degrees against gravity. Able to maintain full flex briefly when arm placed in position. Elbow flex WFL against gravity. Elbow extension against gravity. Pron WFL, supination to midpoint. Wrist ext WFL passively and to about 30 degrees ext against gravity, with effort. Gross finger flex but unable to touch finger tips to palms. Able to touch thumb to index Upper Extremity Coordination WFL L, impaired on R Upper Extremity Sensation grossly WFL bilat but pt reported R hand numbness this afternoon, which resolved "Like my hand was asleep" Upper Extremity Strength L UE grossly 4+/5 throughout. Grossly R shoulder 3-/5, elbow flex/ext 3+/5, wrist 3-/5, finger flex 2/5 Edema: Slight edema R hand, does not respond to massage gross visual screening does not show visual deficit but may have some right sided neglect ADL-Treatment ADL-Current Pt reported that he is able to feed himself but with his L hand and he can't cut up his food. Functional [place] Measure 0=Not Assessed/NA 4=Minimal Assistance 1=Total Assistance 5=Supervision or Setup 2=Maximal Assistance 6=Modified [place] 3=Moderate Assistance 7=Complete IndependenceIRFPAI Quality Coding Scale 6 Independent with activity with or without an assistive device 5 Patient requires set up or clean up by helper. Patient completes activity by themselves 4 Supervision or touching assist (CGA). [place] provide cues , steadying assist 3 The helper provides less than half the effort to complete the activity 2 The helper provides more than half the effort to complete the activity 1 Dependent. The helper does all the effort to complete an activity 7 Patient refused to complete or attempt activity 9 The patient did not perform the activity before the current illness or injury 88 Not attempted due to Medical conditions or safety concerns Grooming (FIM): 5 (Setup, seated at sink, to brush teeth, wash face and hands, comb hair. Used R hand to hold toothpaste while L hand took cap off. Brushed teeth with L hand) Oral Hygiene (QC): 5 (setup, seated at sink) Toilet/Commode Transfer (FIM): 4 (Min assist getting on and off BSC over toilet. Necessary to raise toilet seat high enough for him to get on/off. Also used platform walker, grab bar) Toilet Transfer (QC): 3 Other Treatments Skilled facilitation techniques used to increase functional use of R UE during ADLs and mobility. Pt was able to place his R arm on platform on walker but needed help to get hand in place. Skilled assistance needed to place R UE/hand in positions to assist with transfers. Pt placed R hand on countertop at sink and used R hand to turn water on/off. he is very motivated to get full use back in his R UE. At end of tx, pt back in bed, 4 rails up, bed alarm on, all needs met. Pt aware that he needs to call for help to use urinal if he is sitting at EOB. Education OT Patient Education: Correct positioning, Modified ADL techniques, Progress toward Goal/Update tx plan, Purpose of tx/functional activities, Reviewed precautions, Rehab process, Safety issues, Transfer techniques, Use of adapted equipment Teaching Recipient: Patient Teaching Methods: Demonstration, Discussion Response to Teaching: Verbalize Understanding, Return Demonstration, Reinforcement Needed OT Short Term Goals Short Term Goals Time Frame: Jan 12, 2017 Eating(FIM): 6 Grooming(FIM): 6 Toileting(FIM): 5 Toilet/Commode Transfer(FIM): 5 Additional Short Term Goals: 1-Demonstrate ADL Tasks, 2-Verbalize Understanding , 3-ImproveStrength/Domenico 1=Demonstrate adherence to instructed precautions during ADL tasks. 2=Patient will verbalize/demonstrate understanding of assistive devices/ modifications for ADL. 3=Patient will improve strength/tolerance for activity to enable patient to perform ADL's. OT [facility]ci Goals Energy Efficiency Finance Manager Goals Time Frame: Jan 26, 2017 Eating (FIM): 6 Eating (QC): 6 Groomin Oral Hygiene (QC): 6 Bathing(FIM): 6 Shower/Bathe Self (QC): 6 Upper Body Dressing(FIM): 6 Upper Body Dressing (QC): 6 Lower Body Dressing(FIM): 6 Lower Body Dressing (QC): 6 On/Off Footwear (QC): 6 Toileting(FIM): 6 Toileting Hygiene (QC): 6 Toilet/Commode Transfer(FIM): 6 Toilet/Commode Transfer (QC): 6 Shower Transfer(FIM): 6 Additional Goals: 1-Demonstrate ADL Tasks, 2-Verbalize Understanding, 3- ImproveStrength/Domenico 1=Demonstrate adherence to instructed precautions during ADL tasks. 2=Patient will verbalize/demonstrate understanding of assistive devices/ modifications for ADL. 3=Patient will improve strength/tolerance for activity to enable patient to perform ADL's. OT Education/Plan Problem List/Assessment Assessment: Decreased Activ Tolerance, Decreased Safety Aware, Decreased UE Strength, Dependent Transfers, Edema, Impaired Coordination, Impaired Funct Balance, Impaired Self-Care Skills, Restricted Funct UE ROM, Visual-Perceptual Deficit (possibly neglect) pt would benefit from skilled OT to increase his independence in basic self care to allow him to safely return to his home to live with family and to decrease caregiver burden Discharge Recommendations Plan/Recommendations: Continue POC Barriers to Progress impulsivity Target Placement home Treatment Plan/Plan of Care Treatment,Training & Education: Yes Patient would benefit from OT for education, treatment and training to promote independence in ADL's, mobility, safety and/or upper extremity function for ADL' s. Plan of Care: ADL Retraining, Functional Mobility, Group Exercise/Act as Ind ( education, exercise, activity melissa, socialization, communication, problem solving ), UE Funct Exercise/Act, UE Neuromus Re-Ed/Coord, Visual/Perceptual Retrain ( if needed) Treatment Duration: Jan 26, 2017 Frequency: At least 5 to 7 days/Wk (IRF) Estimated Hrs Per Day: 1.5 hours per day Agreement: Yes Rehab Potential: Good Time/GCodes Start Time: 15:50 Stop Time: 16:30 Total Time Billed (hr/min): 40 Billed Treatment Time visit, 10 minutes evaluation high intensity, 30 minutes ADL MARCIO PRECIADO OT Dec 28, 2016 16:57
[2016-12-28 17:20] VITALS: BP 146/83
--- NOTE | 2016-12-28 19:49 | PM&R Post Admission Assessment ---
Post Admission Physician Asses The preadmission screen agrees with the post admission assessment that the patient is a good candidate for inpatient rehabilitation. The patient will have a comprehensive program of inpatient rehabilitation with a goal of maximizing level of functional independence prior to discharge home with spouse and [facility]. The patient will have PT/OT ninety minutes per day, each discipline, five days a week for gait, strengthening, conditioning, balance, ADLs, any patient/family/caregiver training as necessary. Speech therapy to do cognitive and sppech assessment and treat as indicated 3-5 times aweek for 2 weeks for 30-45 min sessions each. Rehabilitation nursing to assist with bowel, bladder, skin, wound care, medication administration, pain management. District Wire Chief to assist with discharge planning, community reentry. SCD's for DVT prophylaxis.Wound care consulted fro ulcer rt fifth metatarsal head. He appears to be well motivated to participate in three hours of therapy a day. He should be able to tolerate three hours of therapy a day from a medical standpoint. He should benefit from the three hours of therapy a day. He has a reasonable discharge plan, reasonable discharge rehabilitation goals and a supportive family. He has various comorbidities that need to be closely monitored with medications and treatments adjusted on a daily basis as needed. These include: HTN Ulcer rt foot as per above OA rt Knee Barriers to discharge for this patient who had been independent prior to this are for him to be modified independent to supervision for ADLs and mobility skills prior to discharge home with spouse, so as to lessen the burden of the caregivers. Risks for this patient include: 1. Fall 2. Fracture 3. DVT 4. Pulmonary embolism 5. Wound infection 6. Skin breakdown 7. Contractures 8. Poorly controlled pain 9. Urinary retention 10. UTI 11. Respiratory infection 12. Aspiration 13. Poorly controlled HTN 14. Poorly controlled arthritic pain Estimated Length of Stay: 21 days Prognosis: Rehab prognosis appears good for goal of discharge home with spouse. modified independent to supervision for ADLs and mobility skills. SPENSER CHAPARRO MD Dec 28, 2016 19:49
[2016-12-28] MEDS: ATORVASTATIN 10 MG (LIPITOR) TABLET PO SCH (20:48)
[2016-12-29 05:00] VITALS: BP 149/72
--- NOTE | 2016-12-29 07:12 | HISTORY AND PHYSICAL ---
DATE OF SERVICE: 12/28/2016 CHIEF COMPLAINT: Difficulty with walking. 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 He was found to have a acute malignant hypertension with a left-sided infarct on MRI of the brain consistent with his right-sided weakness and dysarthria. He also had hemoglobin A1c of 6.7 indicating hyperglycemia. He was seen by Dr. Garrison and cardiology and followed by the hospitalist service. He does not see a physician regularly and has no PCP. He is now referred to inpatient rehabilitation for a comprehensive program with inpatient stroke rehabilitation with his insurance company's approval. Currently he requires assistance for his ADLs and mobility skills. PAST MEDICAL HISTORY: Untreated hypertension. PAST SURGICAL HISTORY: He has had a left total knee replacement in the past with Dr. Rosenthal. He has arthritis of the right knee and was considering having a right total knee replacement in the near future, which is now on hold temporarily. ALLERGIES: No known medication allergies. FAMILY HISTORY: Noncontributory. SOCIAL HISTORY: Essentially as per above. He lives in a 1-story home. He has a supportive family. REVIEW OF SYSTEMS: A 10-point review of systems significant for some slurred speech, gait imbalance, right-sided weakness. MEDICATIONS: Amlodipine 10 mg p.o. daily, ASA 325 mg p.o. daily, Lipitor 10 mg p.o. daily, Plavix 75 mg p.o. daily, hydrochlorothiazide 25 mg p.o. daily, lisinopril 20 mg p.o. daily. PHYSICAL EXAMINATION: GENERAL: A pleasant male, appearing his stated age, lying in bed, in no acute distress. VITAL SIGNS: Blood pressure 146/83, he is afebrile, pulse is 89, respirations 20, O2 sat 98% on room air. HEENT: He has a left labial droop, mild dysarthria, no oral lesions noted. Vision and hearing grossly intact. NECK: Supple without mass. HEART: Regular rhythm. LUNGS: Clear. ABDOMEN: Soft, nontender. Bowel sounds present. EXTREMITIES: No leg edema. No calf tenderness. There is a quarter size ulceration approximately 1/2 inch deep over the right 5th metatarsal head which the patient relates to a spider bite. No drainage is noted. Does not appear purulent. He reports no pain from this although he does report mildly decreased sensation in both feet. MUSCULOSKELETAL: He has functional passive range of motion in all 4 extremities. He has a well-healed surgical scar over the left knee. NEUROLOGIC: Cognition appears grossly intact. He has a mild dysarthria. He has a right hemiparesis. Sensation is grossly intact to touch other then in feet. Strength LLE 5/5 RT Quads 3/5 as well as hamstrings Dorsiflexion 2/5.Decreased coordination decreased on rt. LUE strength 4+/5 RT shoulder 3-/5 elbow flex ext 3+/5 Wrist 3-/5 Finger flex 2/5 He is rt hand domonant IMPRESSION: 1. Left middle cerebral artery distribution ischemic stroke with resultant right hemiparesis and dysarthria. 2. Hypertension, controlled with medication. 3. Foot ulcer, right 5th metatarsal head. 4. Hyperglycemia with hemoglobin A1c of 6.7. PLAN: 1. The patient will have a comprehensive program of inpatient stroke rehabilitation with goal of maximizing the level of functional independence prior to discharge home with spouse. The patient will have PT, OT 90 minutes per day each discipline for gait, strengthening, conditioning, ADLs and any patient family caregiver training as necessary and any adaptive equipment and training as necessary. 2. Rehabilitation nursing to assist with bowel, bladder, skin, wound care, medication administration, pain management. corporate services manager to assist with discharge planning and community reentry. Speech therapy to do cognitive and speech assessment and treat as indicated 3-5 times a week for 2 weeks, 30-45 minutes per session. 3. Follow with the hospitalist service as per their schedule. 4. Therapy with cardiac and fall precautions. 5. Consult wound care service regarding wound right 5th metatarsal head. ESTIMATED LENGTH OF STAY: Two weeks. PROGNOSIS: Rehab prognosis appear good for goal of discharging home with spouse, modified independent to supervision for ADLs and mobility skills. DIET: Heart healthy. The patient requests liberalization to a regular diet for now. CODE STATUS: Full code. Job ID: [id number] DocumentID: [id number] Dictated Date: 12/28/2016 19:44:10 Highway Maintenance Worker Date: 12/29/2016 07:11:58 Dictated By: SPENSER CHAPARRO MD [facility]ITALEliot
--- NOTE | 2016-12-29 08:09 | Occupational Ther Daily Note ---
OT Current Status-Daily Note Subjective Pt alert, sitting in bed. Agrees to therapy. No c/o pain. Mental Status/Objective Patient Orientation: Person, Place, Time, Situation Functional [place] Measure 0=Not Assessed/NA 4=Minimal Assistance 1=Total Assistance 5=Supervision or Setup 2=Maximal Assistance 6=Modified [place] 3=Moderate Assistance 7=Complete [place] ADL-Treatment Functional [place] Measure 0=Not Assessed/NA 4=Minimal Assistance 1=Total Assistance 5=Supervision or Setup 2=Maximal Assistance 6=Modified [place] 3=Moderate Assistance 7=Complete IndependenceIRFPAI Quality Coding Scale 6 Independent with activity with or without an assistive device 5 Patient requires set up or clean up by helper. Patient completes activity by themselves 4 Supervision or touching assist (CGA). [place] provide cues , steadying assist 3 The helper provides less than half the effort to complete the activity 2 The helper provides more than half the effort to complete the activity 1 Dependent. The helper does all the effort to complete an activity 7 Patient refused to complete or attempt activity 9 The patient did not perform the activity before the current illness or injury 88 Not attempted due to Medical conditions or safety concerns Eating (FIM): 6 (Pt able to open containers and feed self using regular utensils while seated. Uses L hand for eating/opening, R hand as stabilizer. ) Eating (QC): 6 (Pt able to open containers and feed self using regular utensils while seated. Uses L hand for eating/opening, R hand as stabilizer. ) Bathing (FIM): 4 (Pt able to bathe self while seated with SBA requiring min A to dry L arm and buttocks. Uses shower bench, handheld shower, and grab bars. ) Bathing Location: R Arm, L Upper Leg, R Upper Leg, L Lower Leg (including foot) , R Lower Leg (including foot), Chest, Abdomen, Buttocks, Perineal Area Shower/Bathe Self (QC): 3 (Pt able to bathe self while seated with SBA requiring min A to dry L arm and buttocks. Uses shower bench, handheld shower, and grab bars. ) Upper Body (FIM): 3 (Pt requires assist to thread arms through arm holes. Pt pulls over head with assist to manipulate down body. ) Upper Body Dressing (QC): 3 (Pt requires min A to thread arms through arm holes. Pt pulls over head with min A to manipulate down body. ) Lower Body Dressing (FIM): 2 (Pt requires assistance to stand and pull pants down, having one LOB with therapist helping to regain. Assistance to pull clothing off feet. Pt requires assistance to thread feet through pant legs. Mod A to stand while hiking up pants, requiring assistance to get over R hip. Assistance to don socks and knee brace. ) Lower Body Dressing (QC): 2 (Pt requires assistance to stand and pull pants down, having one LOB with therapist helping to regain. Assistance to pull clothing off feet. Pt requires assistance to thread feet through pant legs. Mod A to stand while hiking up pants, requiring assistance to get over R hip. Assistance to don socks and knee brace. ) On/Off Footwear (QC): 2 (Pt requires assitance to don/doff socks. Pt lifts foot off ground to help.) Toileting (FIM): 4 (Pt able to complete hygiene while seated. Requires assistance to stand and hike R side of pants over hips. Using BSC over toilet, FWW with arm platform, and grab bars. ) Toileting Hygiene (QC): 3 (Pt able to complete hygiene while seated. Requires assistance to stand and hike R side of pants over hips. Using BSC over toilet, FWW with arm platform, and grab bars. ) Transfers (B, C, W/C) (FIM): 3 (Pt requires mod A when ambulating with FWW with arm platform.) Toilet/Commode Transfer (FIM): 3 (Pt requires mod A to toilet with FWW with arm platform and BSC over toilet. ) Toilet Transfer (QC): 3 Shower Transfer(FIM): 3 (Pt requires mod A to transfer into shower with FWW and arm platform, grab bars, and shower bench. ) Other Treatment Pt transferred to EOB with mod A and verbal cues to life R UE off platform. Pt educated and instructed on R UE wt bearing to increase sensation and muscle movement. Completed R UE wt bearing through shoulder, elbow, and wrist, blocking elbow and wrist. Pt completed AROM with scapular elevation, depression and retraction then forearm pronation, 2 sets 5 reps. AAROM with elbow extension. AAROM with facilitation techniques elbow flexion and supination. After therapy, pt sitting EOB eating breakfast with call light and phone within reach. present. Nrsing notified of pt sitting EOB. All needs met in room. Education OT Patient Education: Exercise program Teaching Recipient: Patient, Family Teaching Methods: Demonstration, Discussion Response to Teaching: Verbalize Understanding, Return Demonstration OT Short Term Goals Short Term Goals Time Frame: Jan 12, 2017 Eating(FIM): 6 Grooming(FIM): 6 Toileting(FIM): 5 Toilet/Commode Transfer(FIM): 5 Additional Short Term Goals: 1-Demonstrate ADL Tasks, 2-Verbalize Understanding , 3-ImproveStrength/Domenico 1=Demonstrate adherence to instructed precautions during ADL tasks. 2=Patient will verbalize/demonstrate understanding of assistive devices/ modifications for ADL. 3=Patient will improve strength/tolerance for activity to enable patient to perform ADL's. OT Penitentiary Goals Projection Printer Goals Time Frame: Jan 26, 2017 Eating (FIM): 6 Eating (QC): 6 Groomin Oral Hygiene (QC): 6 Bathing(FIM): 6 Shower/Bathe Self (QC): 6 Upper Body Dressing(FIM): 6 Upper Body Dressing (QC): 6 Lower Body Dressing(FIM): 6 Lower Body Dressing (QC): 6 On/Off Footwear (QC): 6 Toileting(FIM): 6 Toileting Hygiene (QC): 6 Toilet/Commode Transfer(FIM): 6 Toilet/Commode Transfer (QC): 6 Shower Transfer(FIM): 6 Additional Goals: 1-Demonstrate ADL Tasks, 2-Verbalize Understanding, 3- ImproveStrength/Domenico 1=Demonstrate adherence to instructed precautions during ADL tasks. 2=Patient will verbalize/demonstrate understanding of assistive devices/ modifications for ADL. 3=Patient will improve strength/tolerance for activity to enable patient to perform ADL's. OT Education/Plan Problem List/Assessment pt would benefit from skilled OT to increase his independence in basic self care to allow him to safely return to his home to live with family and to decrease caregiver burden Discharge Recommendations Plan/Recommendations: Continue POC Treatment Plan/Plan of Care Patient would benefit from OT for education, treatment and training to promote independence in ADL's, mobility, safety and/or upper extremity function for ADL' s. Plan of Care: ADL Retraining, Functional Mobility, Group Exercise/Act as Ind ( education, exercise, activity melissa, socialization, communication, problem solving ), UE Funct Exercise/Act, UE Neuromus Re-Ed/Coord, Visual/Perceptual Retrain ( if needed) Treatment Duration: Jan 26, 2017 Frequency: At least 5 to 7 days/Wk (IRF) Estimated Hrs Per Day: 1.5 hours per day Agreement: Yes Rehab Potential: Good Time/GCodes Start Time: 07:00 Stop Time: 08:00 Total Time Billed (hr/min): 60 Billed Treatment Time 1 visit, ADL 3 (45 mins) NM 1 (15 mins) ROCKY PARADA Dec 29, 2016 08:09
[2016-12-29] MEDS: lisINopril 20 MG (ZESTRIL) TAB PO SCH (08:26)
[2016-12-29] MEDS: CLOPIDOGREL 75 MG (PLAVIX) TABLET PO SCH (08:27)
[2016-12-29] MEDS: HYDROCHLOROTHIAZIDE 25 MG (HCTZ) TAB PO SCH (08:27)
[2016-12-29] MEDS: ASPIRIN E.C. 325 MG (ECOTRIN) TABLET PO SCH (08:27)
[2016-12-29] MEDS: amLODIPine 10 MG (NORVASC) TAB PO SCH (08:27)
--- NOTE | 2016-12-29 08:29 | Wound Care Progress Note ---
Subjective Subjective Subjective/Events-last exam The patient is a 56 year old gentleman, previously untreated for hypertension, who presented to emergency with malignant hypertension and stroke. He has been transitioned to Inpatient Rehabilitation, and was noted by Dr. Jauregui to have an elevated HgbA1c and a R foot ulcer. The patient has diminished sensation in the R foot and the beginnings of hammer toes, c/w diabetic neuropathy. PMH: Stroke, HTN. FH: Cancer. Review of Systems Date Seen by Provider: Dec 29, 2016 Time Seen by Provider: 15:30 General: No Chills Pulmonary: No Dyspnea Cardiovascular: No: Chest Pain Musculoskeletal: leg pain Objective Exam Last Set of Vital Signs Vital Signs Date Time Temp Pulse Resp B/P (MAP) Pulse Ox O2 Delivery O2 Flow Rate FiO2 12/29/16 05:00 98.3 73 20 149/72 97 Room Air Capillary Refill : I&O Intake and Output 12/30/16 00:00 Intake Total 300 ml Balance 300 ml Intake Oral 300 ml # Voids 3 # Bowel Movements 1 General: Alert, No Acute Distress Lungs: Normal Air Movement Extremities: Other (Diminished pulses.) Skin: Other (Open area R plantar foot) Assessment/Plan Assessment/Plan Assessment/Plan 1. R foot ulcer, diabetic, Grade 2. 2. Peripheral arterial disease, atherosclerotic, with ulceration R foot. 3. Recent disabling stroke secondary to malignant hypertension. Plan: Screen for correctable arterial lesion. Routine dressings. Will follow. MONTEZ STOREY MD Dec 29, 2016 08:29
[2016-12-29 09:12] VITALS: BP 158/82
--- NOTE | 2016-12-29 10:10 | PM & R (SOAP) Progress Note ---
Subjective Time Seen by Provider: 07:55 Subjective/Events-last exam Patient was seen in his room this AM Adjusting well to unit. Discussed case with DR Fernandez Appreciate his note and orders. Review of Systems Neurological: Weakness, Incoordination Objective Exam Last Set of Vital Signs Vital Signs Date Time Temp Pulse Resp B/P (MAP) Pulse Ox O2 Delivery O2 Flow Rate FiO2 12/29/16 09:12 158/82 12/29/16 05:00 98.3 73 20 97 Room Air Capillary Refill : I&O Intake and Output 12/30/16 00:00 Intake Total 300 ml Balance 300 ml Intake Oral 300 ml # Voids 3 # Bowel Movements 1 General: Alert, Oriented X3, Cooperative, No Acute Distress HEENT: Atraumatic, PERRLA, EOMI, Mucous Memb Moist/[place], Other (labila droop) Neck: Supple, No JVD Lungs: Clear to Auscultation Heart: Regular Rate Abdomen: Normal Bowel Sounds, Soft, No Tenderness Extremities: Other (trace edema rt hand) Skin: Other (Ulcer rt fifth metatarsal head) Neuro: Other (RT HP and mild dysarthria) Assessment/Plan Assessment Left CVA with RT HP and dysarthria HTN Ulcer rt fifth metatarsal head Hyperglycemia wit a HGBAic of 6.7 Plan Continue PT/OT/ST F/U with hospitalist service F/U with DR Fernandez wound care Team Conference next week SPENSER CHAPARRO MD Dec 29, 2016 10:10
--- NOTE | 2016-12-29 10:15 | Individualized Plan of Care ---
Individualized Plan of Care Rehab Nursing IPOC Order Admission Date Dec 28, 2016 at 14:55 Current Orders Orders Pt Evaluate/Treat Request (12/28/16 13:55) Request Ot Evaluate & Treat (12/28/16 13:55) Request For Cognitive Services (12/28/16 13:55) Admission-Acute Rehab Unit (12/28/16 15:14) Sequential Compression Device 08,20 (12/28/16 15:14) Rehab Nursing Orders-Ipoc (12/28/16 15:14) Intake & Output 06,14,22 (12/28/16 15:14) Precautions (Aru) (12/28/16 15:14) Weekly Weight (Lbs) WEEK (12/28/16 15:14) Code/Resuscitation (12/28/16 15:17) Consult Physician (12/28/16 15:18) Amlodipine Tablet (Norvasc Tablet) (12/29/16 09:00) Aspirin Enteric Coated Tablet (Ecotrin T (12/29/16 09:00) Clopidogrel Tablet (Plavix Tablet) (12/29/16 09:00) Hydrochlorothiazide Cap/Tablet (Hctz Cap (12/29/16 09:00) Lisinopril Tablet (Zestril Tablet) (12/29/16 09:00) Consult Physician (12/28/16 15:37) Atorvastatin Tablet (Lipitor Tablet) (12/28/16 21:00) Speech Therapy Orders (12/28/16 15:54) Request Ot Evaluate & Treat (12/28/16 15:54) Ambulate TID (12/28/16 18:50) Sequential Compression Device 08,20 (12/28/16 18:50) Dvt/Vte Risk - Notifiy Physici (12/28/16 18:50) Heart Healthy (12/29/16 Breakfast) Us Dany Lower Ext [id number] (12/29/16 09:00) Us Noninvas Ext 3 Or >[id number] (12/29/16 09:00) Advanced Wound Care Dressing O DAILY PRN (12/29/16 08:22) Patient Visit (12/28/16 ) Pt Eval Moderate Complexity (12/28/16 ) Functional Activities, Ea 15 (12/28/16 ) Gait Training, Ea 15 Min (12/28/16 ) Rehab Nursing Orders: Diseage Management, Edu in Press Rel Techn, Hydration Management, Nutrition Management Other Nursing Orders: Monitor for any urinary retention or constipation Intensity of Therapy to be met Patient to be seen: Min.3h per day/5 of 7d PT IPOC Problem List: Activity Tolerance, Functional Strength, Safety, Balance, Gait, Transfer, Bed Mobility Treatment Plan: Continue Plan of Care Bed Mobility, Education, Functional Activity Domenico, Functional Strength, Group Therapy (social integration/support), Gait, Safety, Therapeutic Exercise, Transfers Treatment Duration: Jan 19, 2017 Frequency: At least 5 to 7 days/Wk (IRF) Estimated Hrs Per Day: 1.5 hours per day OT IPOC Problems: Decreased Activ Tolerance, Decreased Safety Aware, Decreased UE Strength, Dependent Transfers, Edema, Impaired Coordination, Impaired Funct Balance, Impaired Self-Care Skills, Restricted Funct UE ROM, Visual-Perceptual Deficit (possibly neglect) OT Treatment, Training and Edu: Yes OT Problems pt would benefit from skilled OT to increase his independence in basic self care to allow him to safely return to his home to live with family and to decrease caregiver burden Plan of Care: ADL Retraining, Functional Mobility, Group Exercise/Act as Ind ( education, exercise, activity melissa, socialization, communication, problem solving ), UE Funct Exercise/Act, UE Neuromus Re-Ed/Coord, Visual/Perceptual Retrain ( if needed) Treatment Duration: Jan 26, 2017 Frequency: At least 5 to 7 days/Wk (IRF) Estimated Hrs Per Day: 1.5 hours per day Physician IPOC Medical Issues being managed closely and that require the 24 hour availability of a physician: Foot ulcer HTN Medical Issues: DVT Prophylaxis, Falls Precautions, Fluid/Electrolyte/ Nutrition Balance, Infection Protection, Pain Management, Wound Care, Other ( List) (as per above) Brief Synthesis of Preadmission Screen, Post-Admission Evaluation, and Therapy Evaluations: 56 yo male with Poorly controlled HTN who developed a Left CVA with RT HP and dysarthria now admitted for Stroke rehab Had been Independent and 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 SPENSER CHAPARRO MD Dec 29, 2016 10:15
--- NOTE | 2016-12-29 10:54 | ST Cognitive Linguistic Eval ---
Speech Evaluation-General Medical Diagnosis CVA Onset Date: Dec 26, 2016 Therapy Diagnosis Therapy Diagnosis: Mild Dysarthria Precautions Precautions/Isolations: Fall Prevention, Standard Precautions Referral Referring Physician: Dr. Edmund Jauregui Reason for Referral: Evaluation/Treatment Cognitive Evaluation Medical History Pertinent Medical History: Arthritis, HTN, OA Reviewed History: Yes Social History Home: Single Level Current Living Status: Spouse Speech PLF-Current Status Prior Level of Function The patient denied difficulties with speech, language, or cognition prior to his recent CVA. Subjective The patient was recently admitted to [facility] with a diagnosis of CVA resulting in right handed weakness and right facial droop. The patient greeted the clinician appropriately and was agreeable to participation in the cognitive assessment. Language Eval: Auditory Comprehends Simple Yes/No Ques: Functional Indent/Objects Multiple Neri: Functional Ident/Pics in Multiple Neri: Functional Follows 1-Step Commands: Functional Follows Complex Directions: Functional Follows General Conversations: Functional Language Eval: Verbal Language Completes Spontaneous Greeting: Functional Produces Auto, Serial Info: Functional Imitates Simple Words/Phrases: Functional Word Finding: Functional Requests Basic Needs: Functional States Basic Personal Info: Functional Expresses Complex Ideas: Functional Cognitive Patient Orientation The patient is oriented to month, day of week, date, and year (independently). Objective Cognitive Domain Attention: WNL Memory: WNL Problem Solving: Functional Executive Functions: WNL Objective Oral Motor/Speech Production The patient displays reduced right labial retraction and strength. Lingual protrusion was at midline. Minimally to mildly imprecise articulation was noted , however, the patient is 100% intelligible in known and unknown contexts. Impression The patient presents with mild dysarthria characterized by imprecise articulation. Communication/Social Cognition Comprehension: 6 Expression: 5 Social Interaction: 6 Problem Solvin Memory: 6 Speech Patient Assess Expression of Ideas/Wants: Expression (4) Understanding Vebal Content: Understands (4) Brief Interview-Mental Status: Yes Repetition of Three Words: Three (3) Temporal Orientation: Year: Correct (3) Temporal Orientation: Month: Accurate within 5 days(2) Temporal Orientation: Day: Correct (1) Recall : Wear to say "Sock": Yes, no cue required (2) Recall : Color: Yes, no cue required (2) Recall : Bed: Yes, no cue required (2) Speech Short Term Goals Short Term Goals Short Term Goals 1. The patient will demonstrate 80% accuracy with oral lingual range of motion and strengthening exercises, independently. Time Frame-STG: Five Days Speech Associate Professor Of Psychology Goals Associate Professor Of Psychology Goals 1. The patient will display consistent intelligibility and improved functional verbal communication. Time Frame: One Week Comprehension: 6 Expression: 6 Social Interaction: 6 Problem Solvin Memory: 6 Speech-Plan Treatment Plan Speech Therapy Treatment Plan: Continue Plan of Care Continue skilled speech pathology to target right labial strengthening exercises. Frequency: At least 5 to 7 days/Wk (IRF) Estimated Hrs Per Day: .5 hour per day Rehab Potential: Good Safety Risks/Education Teaching Recipient: Patient Teaching Methods: Discussion Response to Teaching: Verbalize Understanding Education Topics Provided: Results, Recommendations, Plan of Care Time Speech Therapy Time In: 10:15 Speech Therapy Time Out: 10:45 Total Billed Time: 30 Billed Treatment Time 1, DARREN ARRIAGA Dec 29, 2016 10:54
[2016-12-29] MEDS ORDERED: LACTULOSE SYRUP 10GM/15ML (ENULOSE) 30ML UDC PO PRN (11:00)
[2016-12-29] MEDS ORDERED: POLYETHYLENE GLYCOL 17 GM (MIRALAX) PACK PO PRN (11:00)
--- NOTE | 2016-12-29 11:16 | Progress Note-Hospitalist ---
Progress Note Progress Notes/Assess & Plan Date Seen 12/29/16 Time Seen by Provider: 10:30 Diagonsis/Assessment & Plan New wound on right foot that had been present for approximately one month per the patient report but upon further evaluation by Dr. Fernandez clarity specialists no Doppler pulses noted and we'll order ultrasound to evaluate presumed severe peripheral vascular disease Hemoglobin A1c is 6.7 so we'll check Accu-Cheks twice a day and use sliding scale in the meantime Will hold off on metformin initiation due to the fact that he may need angiogram with contrast Still having severe weakness of the right arm and hand Bowels are not moving yet and declines any meds but I did leave meds to take as needed Blood pressure is satisfactory No fever, vital signs stable, blood pressure 158/86 Regular rate and rhythm, clear to auscultation bilaterally Right arm severe weakness 1/ 5 strength and right lower leg 3/5 strength Right foot right lateral area with 2 cm ulcer no erythema Assessment: Acute malignant HTN with right sided weakness with infarct left side on MRI Hyperglycemia HGBA1C 6.7 indicating new DM so ordered BID accuchecks and SSI A initiated Right foot ulcer appears to be PVD USG ordered Plan: Maintain meds USG pending Appreciated Dr Fernandez help GRICEL PAREDES DO Dec 29, 2016 11:16
--- NOTE | 2016-12-29 12:03 | Physical Therapy Daily Note ---
PT Daily Note-Current Subjective Pt is lying in bed prior to tx and agreeable to PT. Pt reports no pain. Pt is sitting on edge of bed with nurse call, phone, tray, all needs in reach, family in room post tx. Pain Numeric Pain Scale: 0-No Pain Location: No Pain Reported Mental Status Patient Orientation: Normal For Age Transfers Functional [place] Measure 0=Not Assessed/NA 4=Minimal Assistance 1=Total Assistance 5=Supervision or Setup 2=Maximal Assistance 6=Modified [place] 3=Moderate Assistance 7=Complete IndependenceIRFPAI Quality Coding Scale 6 Independent with activity with or without an assistive device 5 Patient requires set up or clean up by helper. Patient completes activity by themselves 4 Supervision or touching assist (CGA). [place] provide cues , steadying assist 3 The helper provides less than half the effort to complete the activity 2 The helper provides more than half the effort to complete the activity 1 Dependent. The helper does all the effort to complete an activity 7 Patient refused to complete or attempt activity 9 The patient did not perform the activity before the current illness or injury 88 Not attempted due to Medical conditions or safety concerns Transfers (B, C, W/C) (FIM): 3 Scootin Supine to/from Sit: 5 Sit to/from Stand: 3 Pt is SBA with bed mobility and min to mod assist with sit to stand transfers. He is a little impulsive. He also continually will place his right hand on the walker before standing and it will fall off because he has no master rigger. Gait Training Does the Patient Walk?: Yes Gait (FIM): 4 Distance (FIM): 3=150 ft Distance: 150' x2, 300'x2 Gait Level of Assist: 4 Gait Persons Needed: 1 Gait Assistive Device: Walker Platform Pt ambulates with platform walker and close CGA for safety. Pt has difficulty bringing right leg forward, and PT wraps right foot with francisco bandage to assist with dorsiflexion with gait. Pt requires verbal cues for safety. Patient does have a wound on his right foot and an AFO may not be safe due to pressure. Patient states he thinks it will be fine because he wore boots, worked, put pressure on it before, indicating that his safety awareness might be impaired. Exercises Standing: Hip Abduction, Hamstring curls Standing Reps: 20 Treatments Pt completes gait training to increase functional mobility and independence. Pt completes standing exercises (abduction, knee flexion, lunges) in parallel bars for functional LE strengthening. Assessment Current Status: Good Progress Pt gait is improved with francisco bandage, pt is unable to don AFO due to wound on bottom of right foot. Right knee is weak and has tendency to give out with fatigue. PT Short Term Goals Short Term Goals Time Frame: Jan 05, 2017 Transfers (B,C,W/C) (FIM): 4 Gait (FIM): 4 Distance (FIM): 3=150 ft Gait Assistive Device: Walker Platform PT Detention Goals Detention Goals PT Dean For [employer] Goals Time Frame: Jan 19, 2017 Transfers (B,C,W/C) (FIM): 7 Sit to Lying (QC): 6 Lying-Sitting on Side/Bed(QC): 6 Sit to Stand (QC): 6 Rollin Roll Left to Right (QC): 6 Chair/Oug-zy-Krmzj Xfer(QC): 6 Car Transfer (QC): 6 Does the Patient Walk: Yes Gait (FIM): 6 Gait distance (FIM): 3=150 ft Walk 10 feet (QC): 6 Walk 10ft-Uneven Surface(QC): 6 Walk 50ft with 2 Turns (QC): 6 Walk 150 ft (QC): 6 Gait Assistive Device: FWW Stairs (FIM): 5 # of Steps: 8 1 Step (curb) (QC): 5 4 Steps (QC): 5 12 Steps (QC): 88 Picking up an Object (QC): 4 PT Plan Problem List Problem List: Activity Tolerance, Functional Strength, Safety, Balance, Gait, Transfer, Bed Mobility, ROM Treatment/Plan Treatment Plan: Continue Plan of Care Treatment Plan: Bed Mobility, Education, Functional Activity Domenico, Functional Strength, Group Therapy (social integration/support), Gait, Safety, Therapeutic Exercise, Transfers Treatment Duration: Jan 19, 2017 Frequency: At least 5 to 7 days/Wk (IRF) Estimated Hrs Per Day: 1.5 hours per day Patient and/or Family Agrees t: Yes Safety Risks/Education Patient Education: Gait Training, Transfer Techniques, Reviewed Precautions, Correct Positioning, Safety Issues Teaching Recipient: Patient Teaching Methods: Demonstration, Discussion Response to Teaching: Verbalize Understanding, Reinforcement Needed Time/GCodes Time In: 1100 Time Out: 1200 Total Billed Treatment Time: 60 Total Billed Treatment 1 visit 30 GT 15 NM 15 EX MIREYA GARCIA PT Dec 29, 2016 12:02
[2016-12-29] MEDS: inSUlin ASPART (NovoLOG) 1 UNIT/0.01 ML (CHARGE PER UNIT) SC SCH ×3 (12:04→20:34)
--- NOTE | 2016-12-29 15:04 | Therapy Group Daily Note ---
Therapy Daily Group Note Patient Education Topic Other List Below (stair demonstration/safety and walker safety) Exercises LE Seated Exercise, UE Exercise Other/Notes Pt ambulated to OT/PT group with platform walker. OT/PT group consisted of introductions (name, place, first dollar made), socialization, education on ARU description/expectations, stair safety/demon, walker safety, pt led seated UE/ LE exercises and pt led conversations about medicare. Pt was able to introduce self appropriately. Pt contributed to conversations throughout group. Pt verbalized understanding of ARU description/expectations. Pt attentive to safety demonstrations and education. Pt was able to lead exercise and describe how to complete. After therapy, pt ambulated back to room with platform walker then transferred into bed. Call light/phone in reach. All needs met in room. Start Time: 13:00 Stop Time: 14:10 Total Billed Treatment Time: 70 Total Billed Treatment 1-GRP ROCKY PARADA Dec 29, 2016 15:04
--- NOTE | 2016-12-29 15:47 | Diagnostic Imaging Report ---
INDICATION: Nonhealing ulcer. Segmental ankle-brachial indices. The right lower extremity shows abnormal ankle brachial indices beginning in the calf and extending throughout to the foot with calf ankle-brachial index of 0.6. The digital index is 0.2. The left lower extremity shows abnormal ankle brachial index beginning at the calf which is 0.9 and measures 0.5 at the ankle and 0.3 at the digit. IMPRESSION: Abnormal bilateral segmental ankle-brachial indices. These do correlate well with the color Doppler images reported. Dictated by: Dictated on workstation # [id number]
--- NOTE | 2016-12-29 15:47 | Diagnostic Imaging Report ---
PROCEDURE: US Bilateral lower extremity arterial. TECHNIQUE: Multiple real-time grayscale images are obtained through both lower extremity arterial systems with color Doppler imaging and color Doppler spectral analysis. INDICATION: Peripheral vascular disease with claudication. Nonhealing ulcer on the right foot. FINDINGS: There is triphasic and biphasic flow noted in the right common femoral and proximal superficial femoral artery. Profundus femoral artery also shows normal flow. There is high-grade stenosis of the distal superficial femoral artery at the adductor canal with velocity of 220 cm/s. There is occlusion of the popliteal artery. There is monophasic flow noted in the posterior tibial artery with peak velocity of 40 cm/s. The anterior tibial artery appears occluded as does the dorsalis pedis. Left lower extremity shows biphasic flow with moderate atherosclerotic changes in the common femoral artery. The profundus femoral and superficial femoral artery are patent with no hemodynamic changes demonstrated. The popliteal artery shows normal biphasic flow. The posterior tibial artery shows monophasic flow with diffuse atherosclerotic plaquing. Peak velocity of 40 cm/s. The anterior tibial artery is occluded. IMPRESSION: 1. Diffuse atherosclerotic disease. Right lower extremity shows occlusion of the popliteal artery with single monophasic posterior tibial artery patent at the foot. 2. Diffuse atherosclerotic disease of the left lower extremity with hemodynamic disease noted in the trifurcation vessels with occlusion of the anterior tibial artery and monophasic flow at the ankle within the posterior tibial artery. Dictated by: Dictated on workstation # [id number]
[2016-12-29 18:00] VITALS: BP 156/73
[2016-12-29] MEDS: ATORVASTATIN 10 MG (LIPITOR) TABLET PO SCH (20:34)
[2016-12-30 05:32] VITALS: BP 165/74
[2016-12-30] MEDS: inSUlin ASPART (NovoLOG) 1 UNIT/0.01 ML (CHARGE PER UNIT) SC SCH ×4 (05:35→20:30)
[2016-12-30] MEDS: ASPIRIN E.C. 325 MG (ECOTRIN) TABLET PO SCH (07:49)
[2016-12-30] MEDS: CLOPIDOGREL 75 MG (PLAVIX) TABLET PO SCH (07:50)
[2016-12-30] MEDS: amLODIPine 10 MG (NORVASC) TAB PO SCH (07:50)
[2016-12-30] MEDS: HYDROCHLOROTHIAZIDE 25 MG (HCTZ) TAB PO SCH (07:50)
[2016-12-30] MEDS: lisINopril 20 MG (ZESTRIL) TAB PO SCH (07:50)
--- NOTE | 2016-12-30 08:58 | Occupational Ther Daily Note ---
OT Current Status-Daily Note Subjective Pt sleeping in bed, woke easily to name. Pt agreed to therapy. No c/o pain at this time. Pt gets frustrated that his UE isn't getting better as quickly as he wants it too. Mental Status/Objective Patient Orientation: Person, Place, Time, Situation Functional [place] Measure 0=Not Assessed/NA 4=Minimal Assistance 1=Total Assistance 5=Supervision or Setup 2=Maximal Assistance 6=Modified [place] 3=Moderate Assistance 7=Complete [place] ADL-Treatment Functional [place] Measure 0=Not Assessed/NA 4=Minimal Assistance 1=Total Assistance 5=Supervision or Setup 2=Maximal Assistance 6=Modified [place] 3=Moderate Assistance 7=Complete IndependenceIRFPAI Quality Coding Scale 6 Independent with activity with or without an assistive device 5 Patient requires set up or clean up by helper. Patient completes activity by themselves 4 Supervision or touching assist (CGA). [place] provide cues , steadying assist 3 The helper provides less than half the effort to complete the activity 2 The helper provides more than half the effort to complete the activity 1 Dependent. The helper does all the effort to complete an activity 7 Patient refused to complete or attempt activity 9 The patient did not perform the activity before the current illness or injury 88 Not attempted due to Medical conditions or safety concerns Other Treatment Completed electrical muscle stimulation to R UE to increase AROM for daily functional tasks. Electrical stimulation to bicep flexion, wrist extension, finger extension/flexion (5-6 combs, 9 sec contraction, 7 sec relaxation, 5 min for active assistive movement). Pt demonstrated increased AROM with bicep after electrical stimulation. Pt then ambulated to therapy gym using platform walker with min A. Pt sat on mat to work on wt bearing through R UE. Pt demonstrated active movement with shldr elevation/depression, scapular retraction/protraction and elbow extension (after muscle facilitation) while completing wt bearing. Pt then was able to complete horizontal shldr abd/add and retraction/protraction with gravity eliminated, compensatory movement initially then after verbal/physical cues correct movement. Pt given edema glove for R hand due to increased swelling. Pt ambulated back to room with min A using platform walker. After therapy, pt sitting in bed with call light/ phone in reach. All needs met in room. OT Short Term Goals Short Term Goals Time Frame: Jan 12, 2017 Eating(FIM): 6 Grooming(FIM): 6 Toileting(FIM): 5 Transfers (B,C,W/C) (FIM): 4 Toilet/Commode Transfer(FIM): 5 Additional Short Term Goals: 1-Demonstrate ADL Tasks, 2-Verbalize Understanding , 3-ImproveStrength/Domenico 1=Demonstrate adherence to instructed precautions during ADL tasks. 2=Patient will verbalize/demonstrate understanding of assistive devices/ modifications for ADL. 3=Patient will improve strength/tolerance for activity to enable patient to perform ADL's. OT Mcfp Goals Mcfp Goals Time Frame: Jan 26, 2017 Eating (FIM): 6 Eating (QC): 6 Groomin Oral Hygiene (QC): 6 Bathing(FIM): 6 Shower/Bathe Self (QC): 6 Upper Body Dressing(FIM): 6 Upper Body Dressing (QC): 6 Lower Body Dressing(FIM): 6 Lower Body Dressing (QC): 6 On/Off Footwear (QC): 6 Toileting(FIM): 6 Toileting Hygiene (QC): 6 Toilet/Commode Transfer(FIM): 6 Toilet/Commode Transfer (QC): 6 Shower Transfer(FIM): 6 Comprehension(FIM): 6 Expression (FIM): 6 Social Interaction(FIM): 6 Problem Solving(FIM): 6 Memory(FIM): 6 Additional Goals: 1-Demonstrate ADL Tasks, 2-Verbalize Understanding, 3- ImproveStrength/Domenico 1=Demonstrate adherence to instructed precautions during ADL tasks. 2=Patient will verbalize/demonstrate understanding of assistive devices/ modifications for ADL. 3=Patient will improve strength/tolerance for activity to enable patient to perform ADL's. OT Education/Plan Problem List/Assessment pt would benefit from skilled OT to increase his independence in basic self care to allow him to safely return to his home to live with family and to decrease caregiver burden Discharge Recommendations Plan/Recommendations: Continue POC Treatment Plan/Plan of Care Patient would benefit from OT for education, treatment and training to promote independence in ADL's, mobility, safety and/or upper extremity function for ADL' s. Plan of Care: ADL Retraining, Functional Mobility, Group Exercise/Act as Ind ( education, exercise, activity melissa, socialization, communication, problem solving ), UE Funct Exercise/Act, UE Neuromus Re-Ed/Coord, Visual/Perceptual Retrain ( if needed) Treatment Duration: Jan 26, 2017 Frequency: At least 5 to 7 days/Wk (IRF) Estimated Hrs Per Day: 1.5 hours per day Agreement: Yes Rehab Potential: Good Time/GCodes Start Time: 07:20 Stop Time: 08:50 Total Time Billed (hr/min): 90 Billed Treatment Time 1 visit-NM 3 (45 min) EX 3 (45 min) ROCKY PARADA Dec 30, 2016 08:58
[2016-12-30] MEDS: glyBURIDE 2.5 MG (MICRONASE) TAB PO SCH ×2 (12:24→16:21)
--- NOTE | 2016-12-30 13:58 | Physical Therapy Daily Note ---
PT Daily Note-Current Subjective Pt in bed, agreeable. Denies pain. "More frustration than anything". Mental Status Patient Orientation: Person, Place, Time, Situation Transfers Functional [place] Measure 0=Not Assessed/NA 4=Minimal Assistance 1=Total Assistance 5=Supervision or Setup 2=Maximal Assistance 6=Modified [place] 3=Moderate Assistance 7=Complete IndependenceIRFPAI Quality Coding Scale 6 Independent with activity with or without an assistive device 5 Patient requires set up or clean up by helper. Patient completes activity by themselves 4 Supervision or touching assist (CGA). [place] provide cues , steadying assist 3 The helper provides less than half the effort to complete the activity 2 The helper provides more than half the effort to complete the activity 1 Dependent. The helper does all the effort to complete an activity 7 Patient refused to complete or attempt activity 9 The patient did not perform the activity before the current illness or injury 88 Not attempted due to Medical conditions or safety concerns Transfers (B, C, W/C) (FIM): 5 Scootin Supine to/from Sit: 5 Sit to/from Stand: 4 Sit to Lying (QC): 4 Sit to Stand (QC): 4 Weight Bearing Weight Bearing Restriction: Full Weight Bearing Location Restriction: LE Bilateral Gait Training Does the Patient Walk?: Yes Distance (FIM): 3=150 ft Distance: 150 Walk 10 feet (QC): 4 Walk 50 ft with 2 Turns(QC): 4 Walk 150 ft (QC): 4 Gait Level of Assist: 4 Gait Persons Needed: 1 Gait Assistive Device: FWW Pt ambulated 150' x 2 with platform FWW with Alex bandage applied to (R) to improve foot clearance. VCS for foot clearance and knee stabilization during stance as well as base of support. Occasional scuffing on (R) with swing but no LOB. No knee buckling this date. Exercises Supine Ex: LE Protocol ((R) hip IR), Bridging, Ankle pumps, Quad Set, Glut sets , Heel Slides, Short Arc Quads, Straight leg raise, Hip abd/add Supine Reps: 20 NuStep Minutes: 20 ([employer] Coordinator and LE stabilizer on (R)) NuStep Workload: 2 Treatments Gait training with platform FWW. NuStep for (B) UE/LE reciprocal integration and functional strengthening, LE supine exercises for functional strengthening with focus on control and isolated movement on (R). Returned to bed with daughters present, needs met. Assessment Current Status: Good Progress Pt tolerated well. Fatigued at end of session but no knee buckling noted. PT Short Term Goals Short Term Goals Time Frame: Jan 05, 2017 Transfers (B,C,W/C) (FIM): 4 Gait (FIM): 4 Distance (FIM): 3=150 ft Gait Assistive Device: Walker Platform PT Deputy K 9 Goals Deputy K 9 Goals PT Fdc Goals Time Frame: Jan 19, 2017 Transfers (B,C,W/C) (FIM): 7 Sit to Lying (QC): 6 Lying-Sitting on Side/Bed(QC): 6 Sit to Stand (QC): 6 Rollin Roll Left to Right (QC): 6 Chair/Nuo-ce-Tncis Xfer(QC): 6 Car Transfer (QC): 6 Does the Patient Walk: Yes Gait (FIM): 6 Gait distance (FIM): 3=150 ft Walk 10 feet (QC): 6 Walk 10ft-Uneven Surface(QC): 6 Walk 50ft with 2 Turns (QC): 6 Walk 150 ft (QC): 6 Gait Assistive Device: FWW Stairs (FIM): 5 # of Steps: 8 1 Step (curb) (QC): 5 4 Steps (QC): 5 12 Steps (QC): 88 Picking up an Object (QC): 4 PT Plan Problem List Problem List: Activity Tolerance, Functional Strength, Safety, Balance, Gait, Transfer, Bed Mobility Treatment/Plan Treatment Plan: Continue Plan of Care Treatment Plan: Bed Mobility, Education, Functional Activity Domenico, Functional Strength, Group Therapy (social integration/support), Gait, Safety, Therapeutic Exercise, Transfers Treatment Duration: Jan 19, 2017 Frequency: At least 5 to 7 days/Wk (IRF) Estimated Hrs Per Day: 1.5 hours per day Patient and/or Family Agrees t: Yes Safety Risks/Education Patient Education: Gait Training, Safety Issues Teaching Recipient: Patient Teaching Methods: Discussion Response to Teaching: Verbalize Understanding, Return Demonstration, Reinforcement Needed Time/GCodes Time In: 1226 Time Out: 1356 Total Billed Treatment Time: 90 Total Billed Treatment 1, Ex x 60', Gt x 30 G Codes Necessary: No LENA NICHOLSON DPT Dec 30, 2016 13:57
[2016-12-30 18:08] VITALS: BP 149/74
[2016-12-30] MEDS: ATORVASTATIN 10 MG (LIPITOR) TABLET PO SCH (20:39)
[2016-12-31] MEDS: glyBURIDE 2.5 MG (MICRONASE) TAB PO SCH ×2 (05:39→16:40)
[2016-12-31] MEDS: inSUlin ASPART (NovoLOG) 1 UNIT/0.01 ML (CHARGE PER UNIT) SC SCH ×4 (05:39→20:14)
[2016-12-31 06:00] VITALS: BP 122/77
[2016-12-31 08:18] VITALS: BP 120/65
[2016-12-31] MEDS: amLODIPine 10 MG (NORVASC) TAB PO SCH (08:20)
[2016-12-31] MEDS: CLOPIDOGREL 75 MG (PLAVIX) TABLET PO SCH (08:20)
[2016-12-31] MEDS: lisINopril 20 MG (ZESTRIL) TAB PO SCH (08:20)
[2016-12-31] MEDS: HYDROCHLOROTHIAZIDE 25 MG (HCTZ) TAB PO SCH (08:20)
[2016-12-31] MEDS: ASPIRIN E.C. 325 MG (ECOTRIN) TABLET PO SCH (08:20)
[2016-12-31 18:56] VITALS: BP 143/74
[2016-12-31] MEDS: ATORVASTATIN 10 MG (LIPITOR) TABLET PO SCH (20:10)
[2017-01-01] MEDS: inSUlin ASPART (NovoLOG) 1 UNIT/0.01 ML (CHARGE PER UNIT) SC SCH ×4 (05:22→20:14)
[2017-01-01 05:23] VITALS: BP 149/63
[2017-01-01] MEDS: glyBURIDE 2.5 MG (MICRONASE) TAB PO SCH ×2 (06:08→17:16)
[2017-01-01 07:59] VITALS: BP 158/74
[2017-01-01] MEDS: HYDROCHLOROTHIAZIDE 25 MG (HCTZ) TAB PO SCH (08:00)
[2017-01-01] MEDS: CLOPIDOGREL 75 MG (PLAVIX) TABLET PO SCH (08:00)
[2017-01-01] MEDS: lisINopril 20 MG (ZESTRIL) TAB PO SCH (08:00)
[2017-01-01] MEDS: ASPIRIN E.C. 325 MG (ECOTRIN) TABLET PO SCH (08:00)
[2017-01-01] MEDS: amLODIPine 10 MG (NORVASC) TAB PO SCH (08:00)
--- NOTE | 2017-01-01 11:48 | Physical Therapy Daily Note ---
PT Daily Note-Current Subjective Patient in bathroom on toilet pre tx, agrees to PT after he is done. Patient has no complaints of pain. Appearance Patient sitting EOB post tx with nurse call, phone, tray, all needs met. Mental Status Patient Orientation: Normal For Age Transfers Functional [place] Measure 0=Not Assessed/NA 4=Minimal Assistance 1=Total Assistance 5=Supervision or Setup 2=Maximal Assistance 6=Modified [place] 3=Moderate Assistance 7=Complete IndependenceIRFPAI Quality Coding Scale 6 Independent with activity with or without an assistive device 5 Patient requires set up or clean up by helper. Patient completes activity by themselves 4 Supervision or touching assist (CGA). [place] provide cues , steadying assist 3 The helper provides less than half the effort to complete the activity 2 The helper provides more than half the effort to complete the activity 1 Dependent. The helper does all the effort to complete an activity 7 Patient refused to complete or attempt activity 9 The patient did not perform the activity before the current illness or injury 88 Not attempted due to Medical conditions or safety concerns Transfers (B, C, W/C) (FIM): 4 Sit to/from Stand: 4 Bed to/from Chair: 4 Patient performs transfers with CGA and cues for safety and hand placement. Gait Training Gait (FIM): 4 Distance: 150'x2, 100'x2 Gait Level of Assist: 4 Gait Persons Needed: 1 Gait Assistive Device: Walker Platform Patient ambulated 150'x2 with a platform walker with CGA, he also ambulated 100' x2 with a hemiwalker with CGA and right ankle wrap for dorsiflexion assist. He had no LOB but did need occasional cues for foot placement and positioning. Exercises LAQ right side for 5 min with 3# ankle weight. In parallel bars stepping sideways up and down 1 step x4 NuStep Minutes: 15 NuStep Workload: 5 (for strengthening of right lower extremity to improve mobility) Treatments transfers, ambulation, functional strengthening Assessment Current Status: Fair Progress Improving ambulation. Patient had no LOB and his right knee did not give out. PT Short Term Goals Short Term Goals Time Frame: Jan 05, 2017 Transfers (B,C,W/C) (FIM): 4 Gait (FIM): 4 Distance (FIM): 3=150 ft Gait Assistive Device: Walker Platform PT Batterboard Setter Goals Assisted Goals PT Assisted Goals Time Frame: Jan 19, 2017 Transfers (B,C,W/C) (FIM): 7 Sit to Lying (QC): 6 Lying-Sitting on Side/Bed(QC): 6 Sit to Stand (QC): 6 Rollin Roll Left to Right (QC): 6 Chair/Uru-ll-Rnnxl Xfer(QC): 6 Car Transfer (QC): 6 Does the Patient Walk: Yes Gait (FIM): 6 Gait distance (FIM): 3=150 ft Walk 10 feet (QC): 6 Walk 10ft-Uneven Surface(QC): 6 Walk 50ft with 2 Turns (QC): 6 Walk 150 ft (QC): 6 Gait Assistive Device: FWW Stairs (FIM): 5 # of Steps: 8 1 Step (curb) (QC): 5 4 Steps (QC): 5 12 Steps (QC): 88 Picking up an Object (QC): 4 PT Plan Problem List Problem List: Activity Tolerance, Functional Strength, Safety, Balance, Gait, Transfer, Bed Mobility Treatment/Plan Treatment Plan: Continue Plan of Care Treatment Plan: Bed Mobility, Education, Functional Activity Domenico, Functional Strength, Group Therapy (social integration/support), Gait, Safety, Therapeutic Exercise, Transfers Treatment Duration: Jan 19, 2017 Frequency: At least 5 to 7 days/Wk (IRF) Estimated Hrs Per Day: 1.5 hours per day Patient and/or Family Agrees t: Yes Safety Risks/Education Patient Education: Gait Training, Transfer Techniques, Correct Positioning, Safety Issues Teaching Recipient: Patient Teaching Methods: Demonstration, Discussion Response to Teaching: Reinforcement Needed Time/GCodes Time In: 1045 Time Out: 1145 Total Billed Treatment Time: 60 Total Billed Treatment 1 visit EX 25' GT 35' MIREYA GARCIA PT Jan 01, 2017 11:47
--- NOTE | 2017-01-01 12:42 | Occupational Ther Daily Note ---
OT Current Status-Daily Note Subjective Pt seen in room, up in bed, agreeable to OT. No pain mentioned. Appearance Alert, cooperative Mental Status/Objective Functional [place] Measure 0=Not Assessed/NA 4=Minimal Assistance 1=Total Assistance 5=Supervision or Setup 2=Maximal Assistance 6=Modified [place] 3=Moderate Assistance 7=Complete [place] ADL-Treatment Supine to sit EOB without assistance, including lowering bed rail himself. Sit to stand CGA, with pt placing R UE on platform of walker. Walked CGA, walker to bathroom, CGA to manage clothing and transfer on/off flat BSC over toilet. Assist to place R hand on armrest of BSC. Pt walked to sink to wash hands, CGA, FWW. He was able to balance at sink at wash L hand, R hand staying on platform. Functional [place] Measure 0=Not Assessed/NA 4=Minimal Assistance 1=Total Assistance 5=Supervision or Setup 2=Maximal Assistance 6=Modified [place] 3=Moderate Assistance 7=Complete IndependenceIRFPAI Quality Coding Scale 6 Independent with activity with or without an assistive device 5 Patient requires set up or clean up by helper. Patient completes activity by themselves 4 Supervision or touching assist (CGA). [place] provide cues , steadying assist 3 The helper provides less than half the effort to complete the activity 2 The helper provides more than half the effort to complete the activity 1 Dependent. The helper does all the effort to complete an activity 7 Patient refused to complete or attempt activity 9 The patient did not perform the activity before the current illness or injury 88 Not attempted due to Medical conditions or safety concerns Other Treatment Pt walked over 100 feet to gym with close CGA, FWW with platform, occasional cues for R foot placement. R knee buckled twice but pt supported himself on walker and no LOB. In gym, skilled facilitation techniques used to work on R shoulder, elbow, forearm, wrist and finger movements. Assistance needed to minimize overflow movements. Also did scapular strengthening/facilitation, especially for stabilization with elbow extension, as needed for sit to stand and scooting in bed. Pt walked back to room with close CGA, no knee buckling but did stop to take a brief standing break. Pt took R arm off platform to sit EOB, then used bilat arms to scoot self up toward head of bed. Pt left EOB, daughter in room, all needs met. Education OT Patient Education: Progress toward Goal/Update tx plan, Purpose of tx/ functional activities Teaching Recipient: Patient, Family (daughter) Teaching Methods: Discussion Response to Teaching: Verbalize Understanding OT Short Term Goals Short Term Goals Time Frame: Jan 12, 2017 Eating(FIM): 6 Grooming(FIM): 6 Toileting(FIM): 5 Transfers (B,C,W/C) (FIM): 4 Toilet/Commode Transfer(FIM): 5 Additional Short Term Goals: 1-Demonstrate ADL Tasks, 2-Verbalize Understanding , 3-ImproveStrength/Domenico 1=Demonstrate adherence to instructed precautions during ADL tasks. 2=Patient will verbalize/demonstrate understanding of assistive devices/ modifications for ADL. 3=Patient will improve strength/tolerance for activity to enable patient to perform ADL's. OT House Principal Goals Care Home Goals Time Frame: Jan 26, 2017 Eating (FIM): 6 Eating (QC): 6 Groomin Oral Hygiene (QC): 6 Bathing(FIM): 6 Shower/Bathe Self (QC): 6 Upper Body Dressing(FIM): 6 Upper Body Dressing (QC): 6 Lower Body Dressing(FIM): 6 Lower Body Dressing (QC): 6 On/Off Footwear (QC): 6 Toileting(FIM): 6 Toileting Hygiene (QC): 6 Toilet/Commode Transfer(FIM): 6 Toilet/Commode Transfer (QC): 6 Shower Transfer(FIM): 6 Comprehension(FIM): 6 Expression (FIM): 6 Social Interaction(FIM): 6 Problem Solving(FIM): 6 Memory(FIM): 6 Additional Goals: 1-Demonstrate ADL Tasks, 2-Verbalize Understanding, 3- ImproveStrength/Domenico 1=Demonstrate adherence to instructed precautions during ADL tasks. 2=Patient will verbalize/demonstrate understanding of assistive devices/ modifications for ADL. 3=Patient will improve strength/tolerance for activity to enable patient to perform ADL's. OT Education/Plan Problem List/Assessment pt would benefit from skilled OT to increase his independence in basic self care to allow him to safely return to his home to live with family and to decrease caregiver burden Discharge Recommendations Plan/Recommendations: Continue POC Treatment Plan/Plan of Care Patient would benefit from OT for education, treatment and training to promote independence in ADL's, mobility, safety and/or upper extremity function for ADL' s. Plan of Care: ADL Retraining, Functional Mobility, Group Exercise/Act as Ind ( education, exercise, activity melissa, socialization, communication, problem solving ), UE Funct Exercise/Act, UE Neuromus Re-Ed/Coord, Visual/Perceptual Retrain ( if needed) Treatment Duration: Jan 26, 2017 Frequency: At least 5 to 7 days/Wk (IRF) Estimated Hrs Per Day: 1.5 hours per day Agreement: Yes Rehab Potential: Good Time/GCodes Start Time: 08:00 Stop Time: 09:00 Total Time Billed (hr/min): 60 Billed Treatment Time visit, 15 minutes ADL, 15 minutes functional activity, 30 minutes neuromotor MARCIO PRECIADO OT Jan 01, 2017 12:42
--- NOTE | 2017-01-01 14:46 | Therapy Group Daily Note ---
Therapy Daily Group Note Patient Education Topic Other List Below Exercises LE Seated Exercise, UE Exercise Other/Notes Pt was an active participant in OT/PT group. He contributed to education/ discussion on memory and memory strategies and was able to identify different strategies that work for him to help remembering things. He also was successful in a memory activity, matching different images. He did seated UE and LE exercises, modifying them to his limitations. He walked to and from group, CGA, FWW with platform, with no LOB. Remembers to place R arm on arm rest when sitting. Pt left up in bed, all needs met. Start Time: 13:00 Stop Time: 14:15 Total Billed Treatment Time: 75 Total Billed Treatment visit, 75 minutes group MARCIO PRECIADO OT Jan 01, 2017 14:46
[2017-01-01 17:27] VITALS: BP 158/82
[2017-01-01] MEDS: ATORVASTATIN 10 MG (LIPITOR) TABLET PO SCH (19:50)
[2017-01-02 05:15] VITALS: BP 161/72
[2017-01-02] MEDS: glyBURIDE 2.5 MG (MICRONASE) TAB PO SCH ×2 (05:40→17:48)
[2017-01-02] MEDS: inSUlin ASPART (NovoLOG) 1 UNIT/0.01 ML (CHARGE PER UNIT) SC SCH ×4 (05:59→20:36)
--- NOTE | 2017-01-02 08:52 | Occupational Ther Daily Note ---
OT Current Status-Daily Note Subjective Pt sitting in bed, agreed to therapy. Pt declined shower, wanted to go to therapy gym to exercise. Mental Status/Objective Patient Orientation: Person, Place, Time, Situation Functional [place] Measure 0=Not Assessed/NA 4=Minimal Assistance 1=Total Assistance 5=Supervision or Setup 2=Maximal Assistance 6=Modified [place] 3=Moderate Assistance 7=Complete [place] ADL-Treatment Functional [place] Measure 0=Not Assessed/NA 4=Minimal Assistance 1=Total Assistance 5=Supervision or Setup 2=Maximal Assistance 6=Modified [place] 3=Moderate Assistance 7=Complete IndependenceIRFPAI Quality Coding Scale 6 Independent with activity with or without an assistive device 5 Patient requires set up or clean up by helper. Patient completes activity by themselves 4 Supervision or touching assist (CGA). [place] provide cues , steadying assist 3 The helper provides less than half the effort to complete the activity 2 The helper provides more than half the effort to complete the activity 1 Dependent. The helper does all the effort to complete an activity 7 Patient refused to complete or attempt activity 9 The patient did not perform the activity before the current illness or injury 88 Not attempted due to Medical conditions or safety concerns Other Treatment Pt transferred EOB to standing with min A. Ambulated to therapy gym with min A and FWW with arm platform. Pt sat on therapy mat to perform weightbearing through R UE to increase shoulder, elbow, and wrist AROM, strength, and proprioception. Pt demonstrated AROM scapular elevation/depression (with 2-3 lb weights) and retraction/protraction 3 sets 10x. Pt laid supine to perform AAROM shldr flex and elbox flex/ext with facilitation techniques, AROM shldr abd/add ( gravity eliminated) with arm lifted off mat to decrease resistance. E-stim on wrist flex/ext 5-6 combs 5 mins, thumb flex/ext 4-5 combs 5 mins. Pt then completed arm bike forward duration set 5 mins at 25 combs, backwards duration set 5 mins at 25 combs resistance, R UE duration set 3 mins at 15 combs resistance, rest breaks in between. Pt's arms felt fatigued after. Pt ambulated back to room with min A using FWW with arm platform. Pt transferred to EOB with min A. After therapy, pt sitting on EOB waiting for breakfast with call light and phone within reach. present. All needs met. Education OT Patient Education: Exercise program, Instructions to caregiver Teaching Recipient: Patient, Family Teaching Methods: Demonstration, Discussion Response to Teaching: Verbalize Understanding, Return Demonstration OT Short Term Goals Short Term Goals Time Frame: Jan 12, 2017 Eating(FIM): 6 Grooming(FIM): 6 Toileting(FIM): 5 Transfers (B,C,W/C) (FIM): 4 Toilet/Commode Transfer(FIM): 5 Additional Short Term Goals: 1-Demonstrate ADL Tasks, 2-Verbalize Understanding , 3-ImproveStrength/Domenico 1=Demonstrate adherence to instructed precautions during ADL tasks. 2=Patient will verbalize/demonstrate understanding of assistive devices/ modifications for ADL. 3=Patient will improve strength/tolerance for activity to enable patient to perform ADL's. OT Penitentiary Goals Penitentiary Goals Time Frame: Jan 26, 2017 Eating (FIM): 6 Eating (QC): 6 Groomin Oral Hygiene (QC): 6 Bathing(FIM): 6 Shower/Bathe Self (QC): 6 Upper Body Dressing(FIM): 6 Upper Body Dressing (QC): 6 Lower Body Dressing(FIM): 6 Lower Body Dressing (QC): 6 On/Off Footwear (QC): 6 Toileting(FIM): 6 Toileting Hygiene (QC): 6 Toilet/Commode Transfer(FIM): 6 Toilet/Commode Transfer (QC): 6 Shower Transfer(FIM): 6 Comprehension(FIM): 6 Expression (FIM): 6 Social Interaction(FIM): 6 Problem Solving(FIM): 6 Memory(FIM): 6 Additional Goals: 1-Demonstrate ADL Tasks, 2-Verbalize Understanding, 3- ImproveStrength/Domenico 1=Demonstrate adherence to instructed precautions during ADL tasks. 2=Patient will verbalize/demonstrate understanding of assistive devices/ modifications for ADL. 3=Patient will improve strength/tolerance for activity to enable patient to perform ADL's. OT Education/Plan Problem List/Assessment pt would benefit from skilled OT to increase his independence in basic self care to allow him to safely return to his home to live with family and to decrease caregiver burden Discharge Recommendations Plan/Recommendations: Continue POC Treatment Plan/Plan of Care Patient would benefit from OT for education, treatment and training to promote independence in ADL's, mobility, safety and/or upper extremity function for ADL' s. Plan of Care: ADL Retraining, Functional Mobility, Group Exercise/Act as Ind ( education, exercise, activity melissa, socialization, communication, problem solving ), UE Funct Exercise/Act, UE Neuromus Re-Ed/Coord, Visual/Perceptual Retrain ( if needed) Treatment Duration: Jan 26, 2017 Frequency: At least 5 to 7 days/Wk (IRF) Estimated Hrs Per Day: 1.5 hours per day Agreement: Yes Rehab Potential: Good Time/GCodes Start Time: 07:15 Stop Time: 08:45 Total Time Billed (hr/min): 90 Billed Treatment Time 1 visit, NM 5 (70 minutes) EX 1 (20 minutes) ROCKY PARADA Jan 02, 2017 08:52
[2017-01-02 09:00] VITALS: BP 142/72
[2017-01-02] MEDS: HYDROCHLOROTHIAZIDE 25 MG (HCTZ) TAB PO SCH (09:03)
[2017-01-02] MEDS: CLOPIDOGREL 75 MG (PLAVIX) TABLET PO SCH (09:03)
[2017-01-02] MEDS: lisINopril 20 MG (ZESTRIL) TAB PO SCH (09:03)
[2017-01-02] MEDS: amLODIPine 10 MG (NORVASC) TAB PO SCH (09:03)
[2017-01-02] MEDS: ASPIRIN E.C. 325 MG (ECOTRIN) TABLET PO SCH (09:03)
--- NOTE | 2017-01-02 10:05 | Progress Note-Hospitalist ---
Subjective HPI/CC On Admission Date Seen by Provider: Jan 02, 2017 Time Seen by Provider: 08:05 Subjective/Events-last exam Mr. 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 He's been ambulating with standby assistance. He still has significant right upper extremity hemiparesis with 1+ hand scudder strength and does not feel that there is is been any improvement in this regard. 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 He denies any current claudication but does have a right foot ulcer underneath the fifth metatarsal head and just lateral nonhealing. He underwent venous Doppler studies do reveal significant peripheral vascular disease bilaterally with previous history of reported claudication. He denies chest discomfort with stable dyspnea on exertion. He has no known history of coronary artery disease. Objective Exam Vital Signs Vital Sign - Last 12Hours 12/28/16 14:48 Temp 96.7 Pulse 83 Resp 20 B/P (MAP) 167/73 Pulse Ox 98 O2 Delivery Room Air Capillary Refill : General Appearance: No Apparent Distress, WD/WN Neck: Full Range of Motion, Non Tender, Supple, Other (no carotid bruits.) Respiratory: Chest Non Tender, Lungs Clear, Normal Breath Sounds, No Accessory Muscle Use, No Respiratory Distress Cardiovascular: Regular Rate, Rhythm, No Edema, No Gallop, No JVD, No Murmur, Normal Peripheral Pulses Extremity: Other (I lateral atrophic changes with loss of hair is noted. The right foot predominantly forefoot is cool without pallor. There is a punched out dime-sized ulcer underneath the right fifth metatarsal head it's nontender. Sensation to light touch is intact.) Neurologic/Psychiatric: Alert, Oriented x3, Other (with difficulty he can raise his right hand and touch his nose with his hand but there is no fine motor control on only 1+ hand scudder strength. He has 1+ wrist flexion and extension. There is 1 plus biceps and triceps strength.) Assessment/Plan Assessment and Plan Assess & Plan/Chief Complaint 1. The patient is now nearly one week out from left middle cerebral artery distribution CVA with right hemiparesis upper greater than lower continue physical therapy and occupational therapy with dietary consult later today for hypertension and hyperlipidemia education. 2. Significant peripheral vascular disease with nonhealing right foot ulcer as noted above. We'll consult Dr. Mustafa for consideration for arteriography.there may be a prominent of peripheral neuropathy due to underlying type II diabetes mellitus. 3. Type II diabetes mellitus under good control on current diet. Patient was a heavy regular soda drinker discussed the importance of significantly limiting simple sugars with dietary consult to follow. 4. Hypertension systolic pressures 140-160 on amlodipine we'll repeat CBC CMP and a sedimentation rate considering his diabetic foot ulcer and impending arteriography. We'll hold hypertension medication intensification at this time. CASIMIRO SANTIAGO MD Jan 02, 2017 10:05
--- NOTE | 2017-01-02 10:37 | Physical Therapy Daily Note ---
PT Daily Note-Current Subjective Agreeable to PT. Pt and in themidst of a lengthy discussion with DR Sylvester at start of treatment. Pt anxious to return to normal. Pain Numeric Pain Scale: 0-No Pain Location: No Pain Reported Mental Status Patient Orientation: Person, Place, Time, Situation Transfers Functional [place] Measure 0=Not Assessed/NA 4=Minimal Assistance 1=Total Assistance 5=Supervision or Setup 2=Maximal Assistance 6=Modified [place] 3=Moderate Assistance 7=Complete IndependenceIRFPAI Quality Coding Scale 6 Independent with activity with or without an assistive device 5 Patient requires set up or clean up by helper. Patient completes activity by themselves 4 Supervision or touching assist (CGA). [place] provide cues , steadying assist 3 The helper provides less than half the effort to complete the activity 2 The helper provides more than half the effort to complete the activity 1 Dependent. The helper does all the effort to complete an activity 7 Patient refused to complete or attempt activity 9 The patient did not perform the activity before the current illness or injury 88 Not attempted due to Medical conditions or safety concerns Transfers (B, C, W/C) (FIM): 4 Supine to/from Sit: 4 (uses bed rail and extra time.) Sit to/from Stand: 4 (CGA and skilled cues for hand placement.) Gait Training Gait (FIM): 4 Distance (FIM): 3=150 ft Distance: 150 ft x 4 with CGA and skilled cues to focus on heel strike Gait Assistive Device: Walker Platform Initailly ambulates with steppage gait; able to clear his toes doing so. Began focusing on heel strike and normalizing gait pattern, which he was able to do with a dyscoordinated movement but could strike the heel. CGA for gait for safety but no LOB noted. Pt able to place and remove his right UE from the platform. Focused on slowing his gait down to be more intentional with a heel strike. Treatments Seated LE ther ex to focue on strength for functional transfers and gait; DF in sitting 3x10; LAQ, hip flexion and ham curls with yellow theraband .15; Standing attempts to perform DF, unable to do so at this time. Standing ther ex x15 for marching and mini squats. Assessment Current Status: Good Progress Improved gait pattern after treatment this date. Strength improving. Focusing on functional movement patterns and safety. PT Short Term Goals Short Term Goals Time Frame: Jan 05, 2017 Transfers (B,C,W/C) (FIM): 4 Gait (FIM): 4 Distance (FIM): 3=150 ft Gait Assistive Device: Walker Platform PT Sales Floor Manager Goals Sales Floor Manager Goals PT Sales Floor Manager Goals Time Frame: Jan 19, 2017 Transfers (B,C,W/C) (FIM): 7 Sit to Lying (QC): 6 Lying-Sitting on Side/Bed(QC): 6 Sit to Stand (QC): 6 Rollin Roll Left to Right (QC): 6 Chair/Krt-in-Meprg Xfer(QC): 6 Car Transfer (QC): 6 Does the Patient Walk: Yes Gait (FIM): 6 Gait distance (FIM): 3=150 ft Walk 10 feet (QC): 6 Walk 10ft-Uneven Surface(QC): 6 Walk 50ft with 2 Turns (QC): 6 Walk 150 ft (QC): 6 Gait Assistive Device: FWW Stairs (FIM): 5 # of Steps: 8 1 Step (curb) (QC): 5 4 Steps (QC): 5 12 Steps (QC): 88 Picking up an Object (QC): 4 PT Plan Problem List Problem List: Activity Tolerance, Functional Strength, Safety, Balance, Gait, Transfer Treatment/Plan Treatment Plan: Continue Plan of Care Treatment Plan: Bed Mobility, Education, Functional Activity Domenico, Functional Strength, Group Therapy (social integration/support), Gait, Safety, Therapeutic Exercise, Transfers Treatment Duration: Jan 19, 2017 Frequency: At least 5 to 7 days/Wk (IRF) Estimated Hrs Per Day: 1.5 hours per day Patient and/or Family Agrees t: Yes Safety Risks/Education Patient Education: Gait Training Teaching Recipient: Patient Teaching Methods: Demonstration, Discussion Response to Teaching: Return Demonstration, Reinforcement Needed Time/GCodes Time In: 910 Time Out: 1010 Total Billed Treatment Time: 60 Total Billed Treatment visit EX 30 GT 30 ROCKY BROTHERS PT Jan 02, 2017 10:37
--- NOTE | 2017-01-02 10:53 | Speech Therapy Daily Note ---
Speech Daily Progress Note Subjective Date Seen by Provider: Jan 02, 2017 Time Seen by Provider: 10:15 The patient was seated upright in bed upon entrance. The patient's spouse was present at bedside for the treatment session. The patient was pleasant and agreeable to speech therapy on this date. Objective Oral Motor Exercises: Lingual and labial range of motion and strengthening exercises were initiated on this date. The patient displayed high accuracy with all exercises, completing the exercises with 90% accuracy and mild clinician cueing. Fifteen repetitions of each exercise were performed. Assessment Assessment Current Status: Good Progress Treatment Plan Discontinue ST, Goals Met Communication Comprehension: 6 Expression: 6 Social Cognition Social Interaction: 6 Problem Solvin Memory: 6 Speech Short Term Goals Short Term Goals Short Term Goals 1. The patient will demonstrate 80% accuracy with oral lingual range of motion and strengthening exercises, independently. Time Frame-STG: Five Days Speech Custodial Goals Chha Goals 1. The patient will display consistent intelligibility and improved functional verbal communication. Time Frame: One Week Comprehension: 6 (MET) Expression: 6 (MET) Social Interaction: 6 (MET) Problem Solvin (MET) Memory: 6 (MET) Speech-Plan Treatment Plan Speech Therapy Treatment Plan: Discontinue ST, Goals Met Discontinue speech pathology, goals met. Frequency: At least 5 to 7 days/Wk (IRF) Estimated Hrs Per Day: .5 hour per day Rehab Potential: Good Safety Risks/Education Teaching Recipient: Patient, Significant Other Teaching Methods: Demonstration, Handout, Discussion Response to Teaching: Verbalize Understanding, Return Demonstration Education Topics Provided: Oral Motor Exercises Time Speech Therapy Time In: 10:15 Speech Therapy Time Out: 10:45 Total Billed Time: 30 Billed Treatment Time 1, DARREN DOE Jan 02, 2017 10:53
--- NOTE | 2017-01-02 10:57 | Therapy Team Discharge Summary ---
Therapy Discharge Summary Discharge Recommendations Date of Discharge Speech-Language Pathology The patient was admitted to [facility] following a CVA which resulted in right sided weakness. The patient displays mild dysarthria characterized by imprecise articulation (reduced right labial retraction). Skilled speech pathology focused on oral motor exercises for strengthening and improved articulation. The patient completes oral motor exercises with high accuracy with minimal clinician cueing. As the patient has met all goals placed by speech pathology, speech will discontinue skilled speech services at this time. PT Prison Goals Materials Mgmt Tech Goals PT Materials Mgmt Tech Goals Time Frame: Jan 19, 2017 Transfers (B,C,W/C) (FIM): 7 Roll Left to Right (QC): 6 Sit to Lying (QC): 6 Lying-Sitting on Side/Bed(QC): 6 Sit to Stand (QC): 6 Chair/Koi-tr-Tyzll Xfer(QC): 6 Car Transfer (QC): 6 Does the Patient Walk: Yes Gait (FIM): 6 Gait distance (FIM): 3=150 ft Walk 10 feet (QC): 6 Walk 10ft-Uneven Surface(QC): 6 Walk 50ft with 2 Turns (QC): 6 Walk 150 ft (QC): 6 Gait Assistive Device: FWW Stairs (FIM): 5 # of Steps: 8 1 Step (curb) (QC): 5 4 Steps (QC): 5 12 Steps (QC): 88 Picking up an Object (QC): 4 OT Materials Mgmt Tech Goals Prison Goals Time Frame: Jan 26, 2017 Eating (FIM): 6 Eating (QC): 6 Oral Hygiene (QC): 6 Grooming(FIM): 6 Bathing(FIM): 6 Shower/Bathe Self (QC): 6 Upper Body Dressing(FIM): 6 Upper Body Dressing (QC): 6 Lower Body Dressing(FIM): 6 Lower Body Dressing (QC): 6 On/Off Footwear (QC): 6 Toileting(FIM): 6 Toileting Hygiene (QC): 6 Toilet/Commode Transfer(FIM): 6 Toilet/Commode Transfer (QC): 6 Shower Transfer(FIM): 6 Comprehension(FIM): 6 (MET) Expression (FIM): 6 (MET) Social Interaction(FIM): 6 (MET) Problem Solving(FIM): 6 (MET) Memory(FIM): 6 (MET) Additional Goals: 1-Demonstrate ADL Tasks, 2-Verbalize Understanding, 3- ImproveStrength/Domenico 1=Demonstrate adherence to instructed precautions during ADL tasks. 2=Patient will verbalize/demonstrate understanding of assistive devices/ modifications for ADL. 3=Patient will improve strength/tolerance for activity to enable patient to perform ADL's. Speech Prison Goals Prison Goals 1. The patient will display consistent intelligibility and improved functional verbal communication. Time Frame: One Week Comprehension: 6 (MET) Expression: 6 (MET) Social Interaction: 6 (MET) Problem Solvin (MET) Memory: 6 (MET) DARREN NUÑEZ Jan 02, 2017 10:57
[2017-01-02 11:32] LABS: BASOPHILS % (AUTO) 0 % (0-10); EOSINOPHILS # (AUTO) 0.1 10^3/uL (0.0-0.3); EOSINOPHILS % (AUTO) 1 % (0-10); LYMPHOCYTES # (AUTO) 1.2 X 10^3 (1.0-4.0); LYMPHOCYTES % (AUTO) 13 % (12-44); MEAN CORPUSCULAR HEMOGLOBIN 28 PG (25-34); MEAN CORPUSCULAR HGB CONC 35 G/DL (32-36); MEAN CORPUSCULAR VOLUME 80 FL (80-99); MEAN PLATELET VOLUME 10.6 FL (7.4-10.4); MONOCYTES # (AUTO) 0.8 X 10^3 (0.0-1.0); MONOCYTES % (AUTO) 9 % (0-12); NEUTROPHILS # (AUTO) 7.1 X 10^3 (1.8-7.8); NEUTROPHILS % (AUTO) 77 % (42-75); PLATELET COUNT 258 10^3/uL (130-400); RED BLOOD COUNT 5.22 10^6/uL (4.35-5.85); RED CELL DISTRIBUTION WIDTH 13.5 % (10.0-14.5); WHITE BLOOD COUNT 9.2 10^3/uL (4.3-11.0)
[2017-01-02 11:54] LABS: ALBUMIN 3.9 GM/DL (3.2-4.5); BILIRUBIN,TOTAL 1.6 MG/DL (0.1-1.0); CALCIUM 9.5 MG/DL (8.5-10.1); CREATININE SERUM 1.27 MG/DL (0.60-1.30); POTASSIUM 3.9 MMOL/L (3.6-5.0); TOTAL PROTEIN 6.4 GM/DL (6.4-8.2)
[2017-01-02 12:14] LABS: ERYTHROCYTE SEDIMENTATION RATE 8 MM/HR (0-30)
[2017-01-02 14:50] VITALS: BP 129/74
--- NOTE | 2017-01-02 14:52 | Vascular Consult ---
HPI-Cardiology Cardiology Consultation: Date of Consultation 01/02/17 Date of Admission Attending Physician Edmund Jauregui MD Admitting Physician No,Local Physician Consulting Physician Carlos MUSTAFA MD HPI: Time Seen by Provider: 13:30 Chief Complaint: Stroke This is a 56-year-old gentleman with history of previous stroke and malignant hypertension. He still has residual neurological deficit and therefore in our acute rehabilitation area. He has a nonhealing ulcer on the right foot. He does not have any resting pain in his foot. Review of Systems-Cardiology Review of Systems Constitutional: No As described under HPI, No no symptoms reported, No chills, No fever, No lightheadedness, No malaise, No tiredness, No weight loss, No weight gain, No other Eyes: No As described under HPI, No no symptoms reported, No blindness, No blurred vision, No contact lenses, No drainage, No decreased acuity, No foreign body sensation, No glasses, No inflammation, No pain, No photophobia, No previous injury, No shadows, No tunnel vision, No other, No vision change Ears/Nose/Throat: No As described under HPI, No no symptoms reported, No chronic hearing loss, No epistaxis, No ear discharge, No ear pain, No loose teeth, No mouth pain, No mouth swelling, No nasal drainage, No nose pain, No recent hearing loss, No throat pain, No throat swelling, No ulcerations, No other Respiratory: No no symptoms reported, No As described under HPI, No cough, No orthopnea, No shortness of breath, No SOB with excertion, No SOB at rest, No stridor, No wheezing, No other Cardiovascular: No no symptoms reported, No As described under HPI, No chest pain, No edema, No irregular heart rate, No lightheadedness, No palpitations, No syncope, No other Gastrointestinal: No no symptoms reported, No As described under HPI, No abdomen distended, No abdominal pain, No blood streaked bowels, No constipation , No diarrhea, No difficulty swallowing, No nausea, No poor appetite, No poor fluid intake, No rectal bleeding, No vomiting, No other, No nausea/vomiting/ diarrhea, No stool coloration changes Genitourinary: No no symptoms reported, No As described under HPI, No burning, No dysuria, No discharge, No frequency, No flank pain, No hematuria, No incontinence, No pain, No urgency, No other, No urine frequency changes, No urine coloration changes Musculoskeletal: No no symptoms reported, No As describe under HPI, No back pain, No gout, No joint pain, No joint swelling, No muscle pain, No muscle stiffness, No neck pain, No other Skin: No no symptoms reported, No As described under HPI, No change in color, No change in hair/nails, No dryness, No lesions, No lumps, No rash, No other, No skin related problems, No ulcerations, No rash on exposed areas, No ulcerations on exposed areas Psychiatric/Neurological: focal weakness YMD-Gngoyr-Odanqy Hx Patient Social History Alcohol Use: Occasionally Uses Recreational Drug Use: No Smoking Status: Never a Smoker 2nd Hand Smoke Exposure: No Recent Foreign Travel: No Recent Infectious Disease Expo: No Physical Abuse Screen: No Sexual Abuse: No Past Medical History PMH As described under Assessment. Family Medical History Family History: FH: gallbladder disease 19 MOTHER FH: testicular cancer 19 FATHER Allergies and Home Medications Allergies Coded Allergies: No Known Drug Allergies (Unverified , 12/26/16) Home Medications Multivitamin 1 Each Tablet, 1 TAB PO DAILY, (Reported) Naproxen Sodium 220 Mg Tablet, 440 MG PO DAILY, (Reported) TAKES 2 (220MG) TABLETS Naproxen Sodium 220 Mg Tablet, 440 MG PO HS PRN for PAIN-MILD, (Reported) TAKES 2 (220MG) TABLETS Physical Exam-Cardiology Physical Exam Vital Signs/I&O Vital Sign - Last 12Hours 01/02/17 01/02/17 01/02/17 14:50 18:14 20:40 Temp 97.5 97.2 Pulse 83 78 Resp 20 16 B/P (MAP) 129/74 138/81 Pulse Ox 94 98 O2 Delivery Room Air Room Air Intake and Output 01/03/17 00:00 Intake Total 980 ml Balance 980 ml Capillary Refill : Constitutional: No appears stated age, No AAO x 3, No apparent distress, No PERRL, No well-developed, No well-nourished, No other HEENT: No PERRL, No normal ENT inspection, No TMs normal, No pharynx normal, No scleral icterus (R), No scleral icterus (L), No pale conjunctivae (R), No pale conjunctivae (L), No photophobia, No TM abnormal (R), No TM abnormal (L), No pharyngeal erythema, No tonsillar exudate, No other, No discharge, No EOMI, No hearing is well preserved, No hard of hearing, No oral hygience is good, No ulceration, No xanthelasmas are seen Neck: No non-tender, No full range of motion, No supple, No normal inspection, No carotid bruit, No limited range of motion, No lymphadenopathy (R), No lymphadenopathy (L), No tender lateral, No tender midline, No thyromegaly, No other, No carotid pulses are 2 + bilaterally, No with good upstrokes Respiratory: No accessory muscle use, No respiratory distress, No chest tender , No chest expansion is symmetric, No chest is bilaterally symmetric, No lungs clear to percussion, No lungs clear to auscultation, No crackles, No rhonchi, No rales, No stridor, No wheezing, No pleural rub, No other Cardiovascular: No regular rate-rhythm, No irregularly irregular, No extra beats, No parasternal heave is noted, No JVD, No edema, No bradycardia, No tachycardia, No point of maximal impulse, No cardiac thrills are palpable, No S1 and S2, No gallop/S3, No gallop/S4, No diastolic murmur, No systolic murmur, No friction rub, No click, No other Gastrointestinal: No tender, No soft, No round, No distended, No pulsatile mass , No organomegaly, No guarding, No rebound, No tenderness, No hernia, No mass, No audible bowel sounds, No abnormal bowel sounds, No abdominal bruits, No spleenomegaly, No other Rectal: deferred Extremities: No normal range of motion, No non-tender, No normal inspection, No pedal edema, No calf tenderness, No normal capillary refill, No pelvis stable , No calf tenderness, No inflammation, No pedal edema, No slow capillary refill , No swelling, No other, No abrasion, No clubbing, No cyanosis, No ecchymosis, No laceration, No no lower extremity edema bilateral, No significant edema, No tenderness, No wound Neurologic/Psychiatric: alert, aphasia, motor weakness Skin: other (wound on the plantar aspect of the right fifth metatarsal) Data Review Labs Laboratory Tests 01/02/17 05:42: Glucometer 100 01/02/17 10:46: Glucometer 109 01/02/17 10:47: White Blood Count 9.2, Red Blood Count 5.22, Hemoglobin 14.5, Hematocrit 42, Mean Corpuscular Volume 80, Mean Corpuscular Hemoglobin 28, Mean Corpuscular Hemoglobin Concent 35, Red Cell Distribution Width 13.5, Platelet Count 258, Mean Platelet Volume 10.6H, Neutrophils (%) (Auto) 77H, Lymphocytes (%) (Auto) 13, Monocytes (%) (Auto) 9, Eosinophils (%) (Auto) 1, Basophils (%) (Auto) 0, Neutrophils # (Auto) 7.1, Lymphocytes # (Auto) 1.2, Monocytes # (Auto) 0.8, Eosinophils # (Auto) 0.1, Basophils # (Auto) 0.0, Erythrocyte Sedimentation Rate 8, Sodium Level 140, Potassium Level 3.9, Chloride Level 104, Carbon Dioxide Level 24, Anion Gap 12, Blood Urea Nitrogen 29H, Creatinine 1.27, Estimat Glomerular Filtration Rate 58, BUN/Creatinine Ratio 23, Glucose Level 120H, Calcium Level 9.5, Total Bilirubin 1.6H, Aspartate Amino Transf (AST/SGOT ) 19, Alanine Aminotransferase (ALT/SGPT) 19, Alkaline Phosphatase 81, Total Protein 6.4, Albumin 3.9 01/02/17 15:57: Glucometer 122H 01/02/17 20:09: Glucometer 163H A/P-Cardiology Assessment/Admission Diagnosis Nonhealing ulcer, severe PAD, hypertension, stroke Plan This is a 56-year-old gentleman with history of active smoking. He presented with malignant hypertension and stroke. He has residual neurological deficit. He was found to have nonhealing ulcer on the right foot. He does not have resting foot pain. Arterial ultrasound shows severe PAD. Patient will need peripheral angiography in the near future. Since the patient has had acute stroke, I would recommend that he completes his acute rehabilitation and be perform peripheral angiogram as an outpatient in the next 2-3 weeks. In the meantime we will optimize his medical therapy with aspirin, Plavix, statin. My office information was given to the patient and follow-up will be scheduled at discharge. Thank you for your consultation. Please call me if you have any questions. Percy Mustafa MD, FACP, FACC, FSCAI, FHRS, CCDS Interventional Cardiology Cardiac Electrophysiology Vascular Medicine and Endovascular Interventions Clinical Quality Measures DVT/VTE Risk/Contraindication: Risk Factor Score Per Nursin RFS Level Per Nursing on Admit: 4+=Very High Carlos MUSTAFA MD Jan 02, 2017 14:52
--- NOTE | 2017-01-02 14:56 | Therapy Group Daily Note ---
Therapy Daily Group Note Patient Education Topic Exercises, Other List Below (memory strategies, body systems) Exercises LE Seated Exercise, UE Exercise Other/Notes Pt ambulated with min A and FWW with arm platform to OT group in therapy gym. Participated in introductions (name, hospital born in, [place]), pt was social and contributed to conversations. Educated about different systems of body and how they affect balance. Pt reviewed memory strategies. Pt used strategies to recall and lead group in UE/LE seated exercises. Pt completed AROM with R UE during exercises. Pt reviewed board with different items on it, then used memory strategies to recall what was on it. Pt completed multisensory exercises. Pt completed stereognosis activity. Pt participated in group conversation about what pt does to relax. Pt ambulated back to room with min A using FWW with arm platform. Transferred to EOB with min A. After therapy, pt sitting on EOB eating snack with phone and call light in reach. All needs met. Start Time: 13:00 Stop Time: 14:10 Total Billed Treatment Time: 70 Total Billed Treatment 1-GRP ROCKY PARADA Jan 02, 2017 14:56
--- NOTE | 2017-01-02 17:11 | PM & R (SOAP) Progress Note ---
Subjective Time Seen by Provider: 16:45 Subjective/Events-last exam Patient was seen in his room this afternoon Appreciate DR Simon note as well as DR Crowley note and orders. Vascular studies noted-revealing Peripheral vascular D.pATIENT MIN ASSIST FOR TRANSFERS Review of Systems Neurological: Weakness Objective Exam Last Set of Vital Signs Vital Signs Date Time Temp Pulse Resp B/P (MAP) Pulse Ox O2 Delivery O2 Flow Rate FiO2 01/02/17 14:50 97.5 83 20 129/74 94 Room Air Capillary Refill : I&O Intake and Output 01/03/17 00:00 Intake Total 750 ml Balance 750 ml Intake Oral 750 ml # Voids 5 # Bowel Movements 1 General: Alert, Oriented X3, Cooperative, No Acute Distress HEENT: Atraumatic, PERRLA, EOMI, Mucous Memb Moist/[place], Other (labila droop) Neck: Supple, No JVD Lungs: Clear to Auscultation Heart: Regular Rate Abdomen: Normal Bowel Sounds, Soft, No Tenderness Extremities: Other (trace edema rt hand) Skin: Other (Ulcer rt fifth metatarsal head) Neuro: Other (RT HP and mild dysarthria) Results Lab Laboratory Tests 12/30/16 20:17: Glucometer 187H 12/31/16 05:38: Glucometer 162H 12/31/16 10:54: Glucometer 201H 12/31/16 15:57: Glucometer 155H 12/31/16 20:02: Glucometer 153H 01/01/17 05:11: Glucometer 99 01/01/17 10:58: Glucometer 191H 01/01/17 15:59: Glucometer 105 01/01/17 20:13: Glucometer 141H 01/02/17 05:42: Glucometer 100 01/02/17 10:46: Glucometer 109 01/02/17 10:47: White Blood Count 9.2, Red Blood Count 5.22, Hemoglobin 14.5, Hematocrit 42, Mean Corpuscular Volume 80, Mean Corpuscular Hemoglobin 28, Mean Corpuscular Hemoglobin Concent 35, Red Cell Distribution Width 13.5, Platelet Count 258, Mean Platelet Volume 10.6H, Neutrophils (%) (Auto) 77H, Lymphocytes (%) (Auto) 13, Monocytes (%) (Auto) 9, Eosinophils (%) (Auto) 1, Basophils (%) (Auto) 0, Neutrophils # (Auto) 7.1, Lymphocytes # (Auto) 1.2, Monocytes # (Auto) 0.8, Eosinophils # (Auto) 0.1, Basophils # (Auto) 0.0, Erythrocyte Sedimentation Rate 8, Sodium Level 140, Potassium Level 3.9, Chloride Level 104, Carbon Dioxide Level 24, Anion Gap 12, Blood Urea Nitrogen 29H, Creatinine 1.27, Estimat Glomerular Filtration Rate 58, BUN/Creatinine Ratio 23, Glucose Level 120H, Calcium Level 9.5, Total Bilirubin 1.6H, Aspartate Amino Transf (AST/SGOT ) 19, Alanine Aminotransferase (ALT/SGPT) 19, Alkaline Phosphatase 81, Total Protein 6.4, Albumin 3.9 01/02/17 15:57: Glucometer 122H Assessment/Plan Assessment Left CVA with RT HP and dysarthria HTN Ulcer rt fifth metatarsal head tYPE 2 dm witH a HGBAic of 6.7 NOW BETTER CONTROLLED WITH ADJUSTMENT IN MEDS Peripheral vascular D Plan Continue PT/OT dYSARTHRIA IMPROVED st HAS SIGNED OFF F/U with hospitalist service prn F/U with DR Fernandez wound care Team Conference TOMORROW 01-03-17 f/u RE VASCULAR STUDIES RECS aPPRECIATE dr Mcmahon NOTE AND ORDERS. SPENSER CHAPARRO MD Jan 02, 2017 17:10
[2017-01-02 18:14] VITALS: BP 138/81
[2017-01-02] MEDS: ATORVASTATIN 10 MG (LIPITOR) TABLET PO SCH (20:22)
[2017-01-03 06:06] VITALS: BP 115/66
[2017-01-03] MEDS: inSUlin ASPART (NovoLOG) 1 UNIT/0.01 ML (CHARGE PER UNIT) SC SCH ×4 (06:10→20:04)
[2017-01-03] MEDS: glyBURIDE 2.5 MG (MICRONASE) TAB PO SCH ×2 (06:22→16:26)
--- NOTE | 2017-01-03 08:11 | Occupational Ther Daily Note ---
OT Current Status-Daily Note Subjective Pt alert, sitting in bed. Agrees to therapy. No c/o pain. Declines shower, wants to go to therapy gym. Mental Status/Objective Patient Orientation: Person, Place, Time, Situation Functional [place] Measure 0=Not Assessed/NA 4=Minimal Assistance 1=Total Assistance 5=Supervision or Setup 2=Maximal Assistance 6=Modified [place] 3=Moderate Assistance 7=Complete [place] ADL-Treatment Functional [place] Measure 0=Not Assessed/NA 4=Minimal Assistance 1=Total Assistance 5=Supervision or Setup 2=Maximal Assistance 6=Modified [place] 3=Moderate Assistance 7=Complete IndependenceIRFPAI Quality Coding Scale 6 Independent with activity with or without an assistive device 5 Patient requires set up or clean up by helper. Patient completes activity by themselves 4 Supervision or touching assist (CGA). Stanton provide cues , steadying assist 3 The helper provides less than half the effort to complete the activity 2 The helper provides more than half the effort to complete the activity 1 Dependent. The helper does all the effort to complete an activity 7 Patient refused to complete or attempt activity 9 The patient did not perform the activity before the current illness or injury 88 Not attempted due to Medical conditions or safety concerns Toileting (FIM): 5 (Pt able to complete hygiene while seated and manipulate clothing with supervision using grab bars, FWW, and BSC over toilet.) Transfers (B, C, W/C) (FIM): 4 (Pt requires min A sit to stand, CGA when ambulating with FWW with arm platform. ) Toilet/Commode Transfer (FIM): 4 (Requires CGA to ambulate to bathroom with FWW with arm platform. Using grab bars, FWW, and BSC over toilet. ) Other Treatment Pt ambulated to therapy gym with CGA using FWW with arm platform. Pt demonstrated AROM scapular elevation/depression (with 3 lb weights) and scapular retraction/protraction 3 sets 10x. Pt sat on mat to perform weightbearing through R UE with with wrist blocked for support and shoulder blocked due to compensatory movements, used to increase shldr, elbow, and wrist strength, AROM, and proprioception. Pt worked on core balance and weightbearing through elbows with dynamic sitting balance while leaning to side onto each elbow 2 sets 10x. Pt then completed arm bike duration 8 minutes at minimal resistance using R UE (wrapped to handle due to decreased grasp skills) to increase strength, AROM, and activity tolerance for daily functional tasks. Pt ambulated back to room with CGA using FWW with arm platform. After therapy, pt sitting in bed with phone and call light in reach. present. All needs met. OT Short Term Goals Short Term Goals Time Frame: Jan 12, 2017 Eating(FIM): 6 Grooming(FIM): 6 Toileting(FIM): 5 Transfers (B,C,W/C) (FIM): 4 Toilet/Commode Transfer(FIM): 5 Additional Short Term Goals: 1-Demonstrate ADL Tasks, 2-Verbalize Understanding , 3-ImproveStrength/Domenico 1=Demonstrate adherence to instructed precautions during ADL tasks. 2=Patient will verbalize/demonstrate understanding of assistive devices/ modifications for ADL. 3=Patient will improve strength/tolerance for activity to enable patient to perform ADL's. OT Quality Control Coordinator Goals Shelter Goals Time Frame: Jan 26, 2017 Eating (FIM): 6 Eating (QC): 6 Groomin Oral Hygiene (QC): 6 Bathing(FIM): 6 Shower/Bathe Self (QC): 6 Upper Body Dressing(FIM): 6 Upper Body Dressing (QC): 6 Lower Body Dressing(FIM): 6 Lower Body Dressing (QC): 6 On/Off Footwear (QC): 6 Toileting(FIM): 6 Toileting Hygiene (QC): 6 Toilet/Commode Transfer(FIM): 6 Toilet/Commode Transfer (QC): 6 Shower Transfer(FIM): 6 Comprehension(FIM): 6 (MET) Expression (FIM): 6 (MET) Social Interaction(FIM): 6 (MET) Problem Solving(FIM): 6 (MET) Memory(FIM): 6 (MET) Additional Goals: 1-Demonstrate ADL Tasks, 2-Verbalize Understanding, 3- ImproveStrength/Domenico 1=Demonstrate adherence to instructed precautions during ADL tasks. 2=Patient will verbalize/demonstrate understanding of assistive devices/ modifications for ADL. 3=Patient will improve strength/tolerance for activity to enable patient to perform ADL's. OT Education/Plan Problem List/Assessment pt would benefit from skilled OT to increase his independence in basic self care to allow him to safely return to his home to live with family and to decrease caregiver burden Discharge Recommendations Plan/Recommendations: Continue POC Treatment Plan/Plan of Care Patient would benefit from OT for education, treatment and training to promote independence in ADL's, mobility, safety and/or upper extremity function for ADL' s. Plan of Care: ADL Retraining, Functional Mobility, Group Exercise/Act as Ind ( education, exercise, activity melissa, socialization, communication, problem solving ), UE Funct Exercise/Act, UE Neuromus Re-Ed/Coord, Visual/Perceptual Retrain ( if needed) Treatment Duration: Jan 26, 2017 Frequency: At least 5 to 7 days/Wk (IRF) Estimated Hrs Per Day: 1.5 hours per day Agreement: Yes Rehab Potential: Good Time/GCodes Start Time: 07:00 Stop Time: 08:00 Total Time Billed (hr/min): 60 Billed Treatment Time 1 visit, NM 3 (45 minutes) EX 1 (15 minutes) ROCKY PARADA Jan 03, 2017 08:11
[2017-01-03 08:44] VITALS: BP_SYST 125; BP_SYST 142; BP_DIAS 39; BP_DIAS 75
[2017-01-03] MEDS: CLOPIDOGREL 75 MG (PLAVIX) TABLET PO SCH (08:48)
[2017-01-03] MEDS: amLODIPine 10 MG (NORVASC) TAB PO SCH (08:48)
[2017-01-03] MEDS: HYDROCHLOROTHIAZIDE 25 MG (HCTZ) TAB PO SCH (08:48)
[2017-01-03] MEDS: lisINopril 20 MG (ZESTRIL) TAB PO SCH (08:49)
[2017-01-03] MEDS: ASPIRIN E.C. 325 MG (ECOTRIN) TABLET PO SCH (08:49)
--- NOTE | 2017-01-03 08:53 | PM & R (SOAP) Progress Note ---
Subjective Time Seen by Provider: 07:55 Subjective/Events-last exam Patient was seen in his room this AM reviewed DR Vernon and leighann notes and orders reviewed current labs and vascular studies.Patient min assist for transfers Objective Exam Last Set of Vital Signs Vital Signs Date Time Temp Pulse Resp B/P (MAP) Pulse Ox O2 Delivery O2 Flow Rate FiO2 01/03/17 08:44 84 20 125/39 99 Room Air 01/03/17 06:06 97.4 Capillary Refill : I&O Intake and Output 01/04/17 00:00 Intake Total 900 ml Balance 900 ml Intake Oral 900 ml # Voids 3 General: Alert, Oriented X3, Cooperative, No Acute Distress HEENT: Atraumatic, PERRLA, EOMI, Mucous Memb Moist/[place], Other (labila droop) Neck: Supple, No JVD Lungs: Clear to Auscultation Heart: Regular Rate Abdomen: Normal Bowel Sounds, Soft, No Tenderness Extremities: Other (trace edema rt hand) Skin: Other (Ulcer rt fifth metatarsal head) Neuro: Other (RT HP and mild dysarthria) Results Lab Laboratory Tests 12/31/16 10:54: Glucometer 201H 12/31/16 15:57: Glucometer 155H 12/31/16 20:02: Glucometer 153H 01/01/17 05:11: Glucometer 99 01/01/17 10:58: Glucometer 191H 01/01/17 15:59: Glucometer 105 01/01/17 20:13: Glucometer 141H 01/02/17 05:42: Glucometer 100 01/02/17 10:46: Glucometer 109 01/02/17 10:47: White Blood Count 9.2, Red Blood Count 5.22, Hemoglobin 14.5, Hematocrit 42, Mean Corpuscular Volume 80, Mean Corpuscular Hemoglobin 28, Mean Corpuscular Hemoglobin Concent 35, Red Cell Distribution Width 13.5, Platelet Count 258, Mean Platelet Volume 10.6H, Neutrophils (%) (Auto) 77H, Lymphocytes (%) (Auto) 13, Monocytes (%) (Auto) 9, Eosinophils (%) (Auto) 1, Basophils (%) (Auto) 0, Neutrophils # (Auto) 7.1, Lymphocytes # (Auto) 1.2, Monocytes # (Auto) 0.8, Eosinophils # (Auto) 0.1, Basophils # (Auto) 0.0, Erythrocyte Sedimentation Rate 8, Sodium Level 140, Potassium Level 3.9, Chloride Level 104, Carbon Dioxide Level 24, Anion Gap 12, Blood Urea Nitrogen 29H, Creatinine 1.27, Estimat Glomerular Filtration Rate 58, BUN/Creatinine Ratio 23, Glucose Level 120H, Calcium Level 9.5, Total Bilirubin 1.6H, Aspartate Amino Transf (AST/SGOT ) 19, Alanine Aminotransferase (ALT/SGPT) 19, Alkaline Phosphatase 81, Total Protein 6.4, Albumin 3.9 01/02/17 15:57: Glucometer 122H 01/02/17 20:09: Glucometer 163H 01/03/17 04:47: Glucometer 108 Assessment/Plan Assessment 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 SPENSER CHAPARRO MD Jan 03, 2017 08:53
--- NOTE | 2017-01-03 10:03 | Physical Therapy Daily Note ---
PT Daily Note-Current Subjective Pt is lying in bed and agreeable to PT. Pt has no reports of pain. Pt right ankle is wrapped with francisco wrap to assist with dorsiflexion. Pt is lying in bed with nurse call, tray, phone, all needs in reach post-tx, in room. Pain Numeric Pain Scale: 0-No Pain Location: No Pain Reported Mental Status Patient Orientation: Normal For Age Transfers Functional [place] Measure 0=Not Assessed/NA 4=Minimal Assistance 1=Total Assistance 5=Supervision or Setup 2=Maximal Assistance 6=Modified [place] 3=Moderate Assistance 7=Complete IndependenceIRFPAI Quality Coding Scale 6 Independent with activity with or without an assistive device 5 Patient requires set up or clean up by helper. Patient completes activity by themselves 4 Supervision or touching assist (CGA). [place] provide cues , steadying assist 3 The helper provides less than half the effort to complete the activity 2 The helper provides more than half the effort to complete the activity 1 Dependent. The helper does all the effort to complete an activity 7 Patient refused to complete or attempt activity 9 The patient did not perform the activity before the current illness or injury 88 Not attempted due to Medical conditions or safety concerns Transfers (B, C, W/C) (FIM): 4 Scootin Rollin Supine to/from Sit: 5 Sit to/from Stand: 4 Pt is CGA for sit to stand transfers for safety. Gait Training Does the Patient Walk?: Yes Gait (FIM): 4 Distance (FIM): 3=150 ft Distance: 150'x4 Gait Level of Assist: 4 Gait Persons Needed: 1 Gait Assistive Device: Walker Platform Pt ambulates with platform walker, leona walker, and large base quad cane. Pt requires close CGA for safety, pt is anxious about right knee buckling with WBing. Pt requires verbal cues for step sequencing with cane. His right knee never did buckle. Needs cues for foot placement when using the quad cane. Stair Training Stair Training: Handrails/: 1 handrail Stairs (FIM): 2 #of Steps: 8 Stairs: Pattern: Step to Level of Assist: 4 Pt requires CGA for safety, completes steps using handrail with left arm and step-to pattern. Cues for safety and foot placement. Exercises Seated Therapy Exercises: Long arc quads Seated Reps: 5 (5 min) Standing: Mini squats, Unilateral stance Standing Reps: 20 Pt completes lunges, mini squats, toe-tapping on cone in parallel bard with CGA , 15 of each. Treatments Pt completes gait training and stair training to increase functional mobility. Patient completes LAQ using 3 pound ankle weights for 5 minutes on right leg. Pt also completes standing exercises for functional LE strengthening. Assessment Current Status: Good Progress Pt is improving with ambulation and mobility. PT Short Term Goals Short Term Goals Time Frame: Jan 05, 2017 Transfers (B,C,W/C) (FIM): 4 Gait (FIM): 4 Distance (FIM): 3=150 ft Gait Assistive Device: Walker Platform PT Fci Goals Cyber Security Architect Goals PT Cyber Security Architect Goals Time Frame: Jan 19, 2017 Transfers (B,C,W/C) (FIM): 7 Sit to Lying (QC): 6 Lying-Sitting on Side/Bed(QC): 6 Sit to Stand (QC): 6 Rollin Roll Left to Right (QC): 6 Chair/Mbw-pq-Bmnwa Xfer(QC): 6 Car Transfer (QC): 6 Does the Patient Walk: Yes Gait (FIM): 6 Gait distance (FIM): 3=150 ft Walk 10 feet (QC): 6 Walk 10ft-Uneven Surface(QC): 6 Walk 50ft with 2 Turns (QC): 6 Walk 150 ft (QC): 6 Gait Assistive Device: FWW Stairs (FIM): 5 # of Steps: 8 1 Step (curb) (QC): 5 4 Steps (QC): 5 12 Steps (QC): 88 Picking up an Object (QC): 4 PT Plan Problem List Problem List: Activity Tolerance, Functional Strength, Safety, Balance, Gait, Transfer, Bed Mobility, ROM Treatment/Plan Treatment Plan: Continue Plan of Care Treatment Plan: Bed Mobility, Education, Functional Activity Domenico, Functional Strength, Group Therapy (social integration/support), Gait, Safety, Therapeutic Exercise, Transfers Treatment Duration: Jan 19, 2017 Frequency: At least 5 to 7 days/Wk (IRF) Estimated Hrs Per Day: 1.5 hours per day Patient and/or Family Agrees t: Yes Safety Risks/Education Patient Education: Gait Training, Transfer Techniques, Steps, Reviewed Precautions, Correct Positioning, Safety Issues Teaching Recipient: Patient Teaching Methods: Demonstration, Discussion Response to Teaching: Verbalize Understanding, Reinforcement Needed Time/GCodes Time In: 900 Time Out: 1000 Total Billed Treatment Time: 60 Total Billed Treatment 1 visit 30 GT 15 EX 15 NM MIREYA GARCIA PT Jan 03, 2017 10:03
--- NOTE | 2017-01-03 13:36 | Occupational Ther Daily Note ---
OT Current Status-Daily Note Subjective Pt sitting in bed. Agrees to therapy, no c/o pain. Mental Status/Objective Functional [place] Measure 0=Not Assessed/NA 4=Minimal Assistance 1=Total Assistance 5=Supervision or Setup 2=Maximal Assistance 6=Modified [place] 3=Moderate Assistance 7=Complete Telephone ADL-Treatment Functional Telephone Measure 0=Not Assessed/NA 4=Minimal Assistance 1=Total Assistance 5=Supervision or Setup 2=Maximal Assistance 6=Modified [place] 3=Moderate Assistance 7=Complete IndependenceIRFPAI Quality Coding Scale 6 Independent with activity with or without an assistive device 5 Patient requires set up or clean up by helper. Patient completes activity by themselves 4 Supervision or touching assist (CGA). [place] provide cues , steadying assist 3 The helper provides less than half the effort to complete the activity 2 The helper provides more than half the effort to complete the activity 1 Dependent. The helper does all the effort to complete an activity 7 Patient refused to complete or attempt activity 9 The patient did not perform the activity before the current illness or injury 88 Not attempted due to Medical conditions or safety concerns Other Treatment Pt transferred from EOB to standing and ambulated to therapy gym with min A and quad cane. Electrical stimulation for finger flexion (5 combs for 15 minutes) and wrist extension (6 combs for 10 minutes) to facilitate movement and complete AROM for daily functional tasks. Pt ambulated back to room with min A using quad cane. After therapy, pt sitting in bed with phone and call light in reach. All needs met. OT Short Term Goals Short Term Goals Time Frame: Jan 12, 2017 Eating(FIM): 6 Grooming(FIM): 6 Toileting(FIM): 5 Transfers (B,C,W/C) (FIM): 4 Toilet/Commode Transfer(FIM): 5 Additional Short Term Goals: 1-Demonstrate ADL Tasks, 2-Verbalize Understanding , 3-ImproveStrength/Domenico 1=Demonstrate adherence to instructed precautions during ADL tasks. 2=Patient will verbalize/demonstrate understanding of assistive devices/ modifications for ADL. 3=Patient will improve strength/tolerance for activity to enable patient to perform ADL's. OT Fpc Goals Clarifying Plant Operator Goals Time Frame: Jan 26, 2017 Eating (FIM): 6 Eating (QC): 6 Groomin Oral Hygiene (QC): 6 Bathing(FIM): 6 Shower/Bathe Self (QC): 6 Upper Body Dressing(FIM): 6 Upper Body Dressing (QC): 6 Lower Body Dressing(FIM): 6 Lower Body Dressing (QC): 6 On/Off Footwear (QC): 6 Toileting(FIM): 6 Toileting Hygiene (QC): 6 Toilet/Commode Transfer(FIM): 6 Toilet/Commode Transfer (QC): 6 Shower Transfer(FIM): 6 Comprehension(FIM): 6 (MET) Expression (FIM): 6 (MET) Social Interaction(FIM): 6 (MET) Problem Solving(FIM): 6 (MET) Memory(FIM): 6 (MET) Additional Goals: 1-Demonstrate ADL Tasks, 2-Verbalize Understanding, 3- ImproveStrength/Domenico 1=Demonstrate adherence to instructed precautions during ADL tasks. 2=Patient will verbalize/demonstrate understanding of assistive devices/ modifications for ADL. 3=Patient will improve strength/tolerance for activity to enable patient to perform ADL's. OT Education/Plan Problem List/Assessment pt would benefit from skilled OT to increase his independence in basic self care to allow him to safely return to his home to live with family and to decrease caregiver burden Discharge Recommendations Plan/Recommendations: Continue POC Treatment Plan/Plan of Care Patient would benefit from OT for education, treatment and training to promote independence in ADL's, mobility, safety and/or upper extremity function for ADL' s. Plan of Care: ADL Retraining, Functional Mobility, Group Exercise/Act as Ind ( education, exercise, activity melissa, socialization, communication, problem solving ), UE Funct Exercise/Act, UE Neuromus Re-Ed/Coord, Visual/Perceptual Retrain ( if needed) Treatment Duration: Jan 26, 2017 Frequency: At least 5 to 7 days/Wk (IRF) Estimated Hrs Per Day: 1.5 hours per day Agreement: Yes Rehab Potential: Good Time/GCodes Start Time: 13:00 Stop Time: 13:30 Total Time Billed (hr/min): 30 Billed Treatment Time 1 visit, NM 2 (30 minutes) ROCKY PARADA Jan 03, 2017 13:36
--- NOTE | 2017-01-03 15:32 | Physical Therapy Daily Note ---
PT Daily Note-Current Subjective Pt laying Supine in bed upon arrival. Pt agrees to PT. Pain Location: No Pain Reported Mental Status Patient Orientation: Person, Place, Time, Situation Transfers Functional [place] Measure 0=Not Assessed/NA 4=Minimal Assistance 1=Total Assistance 5=Supervision or Setup 2=Maximal Assistance 6=Modified [place] 3=Moderate Assistance 7=Complete IndependenceIRFPAI Quality Coding Scale 6 Independent with activity with or without an assistive device 5 Patient requires set up or clean up by helper. Patient completes activity by themselves 4 Supervision or touching assist ([facility]). [place] provide cues , steadying assist 3 The helper provides less than half the effort to complete the activity 2 The helper provides more than half the effort to complete the activity 1 Dependent. The helper does all the effort to complete an activity 7 Patient refused to complete or attempt activity 9 The patient did not perform the activity before the current illness or injury 88 Not attempted due to Medical conditions or safety concerns Scootin Rollin Supine to/from Sit: 5 Sit to/from Stand: 5 Sit to Stand (QC): 5 Weight Bearing Weight Bearing Restriction: Full Weight Bearing Location Restriction: LE Bilateral Gait Training Does the Patient Walk?: Yes Distance (FIM): 3=150 ft Distance: 150' Walk 10 feet (QC): 4 Walk 50 ft with 2 Turns(QC): 4 Walk 150 ft (QC): 4 Gait Level of Assist: 4 Gait Persons Needed: 1 Gait Assistive Device: Cane Large Base Quad Pt walks slow and a has a couple of stumbles but doesn't lose balance and is able to self-correct. Wheelchair Training Does the Pt Use a Wheelchair?: No Exercises NuStep Minutes: 10 NuStep Workload: 4 Treatments Pt transfers from Supine to EOB to standing using Quad Cane. Pt ambulates using Quad Cane at [facility] for safety. Pt uses NuStep for 10m at Workload 4 with attachment for RUE & R thigh to stay in place as well as francisco wrapping foot into foot pedal for positioning. Pt returns to room at end of tx to rest Supine in bed with all needs met. Assessment Current Status: Good Progress Pt has improved with independence and safety of transfers and mobility. Pt will still have occasional stumbles but able to self-correct during ambulation. PT Short Term Goals Short Term Goals Time Frame: Jan 05, 2017 Transfers (B,C,W/C) (FIM): 4 Gait (FIM): 4 Distance (FIM): 3=150 ft Gait Assistive Device: Walker Platform PT Solution Director Goals Assisted Goals PT Assisted Goals Time Frame: Jan 19, 2017 Transfers (B,C,W/C) (FIM): 7 Sit to Lying (QC): 6 Lying-Sitting on Side/Bed(QC): 6 Sit to Stand (QC): 6 Rollin Roll Left to Right (QC): 6 Chair/Zxa-ir-Etrng Xfer(QC): 6 Car Transfer (QC): 6 Does the Patient Walk: Yes Gait (FIM): 6 Gait distance (FIM): 3=150 ft Walk 10 feet (QC): 6 Walk 10ft-Uneven Surface(QC): 6 Walk 50ft with 2 Turns (QC): 6 Walk 150 ft (QC): 6 Gait Assistive Device: FWW Stairs (FIM): 5 # of Steps: 8 1 Step (curb) (QC): 5 4 Steps (QC): 5 12 Steps (QC): 88 Picking up an Object (QC): 4 PT Plan Problem List Problem List: Activity Tolerance, Functional Strength, Safety, Balance, Gait Treatment/Plan Treatment Plan: Continue Plan of Care Treatment Plan: Bed Mobility, Education, Functional Activity Domenico, Functional Strength, Group Therapy (social integration/support), Gait, Safety, Therapeutic Exercise, Transfers Treatment Duration: Jan 19, 2017 Frequency: At least 5 to 7 days/Wk (IRF) Estimated Hrs Per Day: 1.5 hours per day Patient and/or Family Agrees t: Yes Safety Risks/Education Patient Education: Gait Training, Correct Positioning, Safety Issues Teaching Recipient: Patient Teaching Methods: Discussion Response to Teaching: Verbalize Understanding Time/GCodes Time In: 1400 Time Out: 1430 Total Billed Treatment Time: 30 Total Billed Treatment visit, EX (15m) & GT (15m) LINDY MIRANDA CONFECTIONERY DROPS MACHINE OPERATOR Jan 03, 2017 15:32
[2017-01-03 18:00] VITALS: BP 149/74
[2017-01-03] MEDS: ATORVASTATIN 10 MG (LIPITOR) TABLET PO SCH (20:13)
[2017-01-04 06:00] VITALS: BP 127/66
[2017-01-04] MEDS: inSUlin ASPART (NovoLOG) 1 UNIT/0.01 ML (CHARGE PER UNIT) SC SCH ×4 (06:31→21:26)
[2017-01-04] MEDS: glyBURIDE 2.5 MG (MICRONASE) TAB PO SCH ×2 (06:33→18:35)
--- NOTE | 2017-01-04 08:08 | Occupational Ther Daily Note ---
OT Current Status-Daily Note Subjective Pt alert, sitting in bed. Agrees to therapy and shower today. No c/o pain. Mental Status/Objective Patient Orientation: Person, Place, Time, Situation Functional [place] Measure 0=Not Assessed/NA 4=Minimal Assistance 1=Total Assistance 5=Supervision or Setup 2=Maximal Assistance 6=Modified [place] 3=Moderate Assistance 7=Complete [place] ADL-Treatment Functional [place] Measure 0=Not Assessed/NA 4=Minimal Assistance 1=Total Assistance 5=Supervision or Setup 2=Maximal Assistance 6=Modified [place] 3=Moderate Assistance 7=Complete IndependenceIRFPAI Quality Coding Scale 6 Independent with activity with or without an assistive device 5 Patient requires set up or clean up by helper. Patient completes activity by themselves 4 Supervision or touching assist (CGA). [place] provide cues , steadying assist 3 The helper provides less than half the effort to complete the activity 2 The helper provides more than half the effort to complete the activity 1 Dependent. The helper does all the effort to complete an activity 7 Patient refused to complete or attempt activity 9 The patient did not perform the activity before the current illness or injury 88 Not attempted due to Medical conditions or safety concerns Bathing (FIM): 4 (Pt able to wash body while seated in shower, assistance needed to wash L arm. SBA when standing to dry buttocks. Using shower bench, grab bars, and handheld shower. ) Bathing Location: R Arm, L Upper Leg, R Upper Leg, L Lower Leg (including foot) , R Lower Leg (including foot), Chest, Abdomen, Buttocks, Perineal Area Upper Body (FIM): 5 (Pt ambulated to retrieve clothing with CGA, requiring assistance to transport to bathroom. Pt able to dress upper body while seated. ) Lower Body Dressing (FIM): 4 (Pt able to doff clothing by self, SBA when standing to pull pants down. Able to don underwear and pants by self with supervision. Assistance needed to don R sock. ) Transfers (B, C, W/C) (FIM): 4 (CGA sit to stand. ) Shower Transfer(FIM): 4 (CGA to transfer into shower using quad cane, grab bars , and shower bench. ) Pt able to brush hair while seated. Washes face while seated in shower. Other Treatment Pt ambulated to therapy gym with CGA and quad cane, 1 LOB stabilized by therapist and self. Pt sat on mat to perform weightbearing through R UE with wrist blocked for stabilization and shoulder blocked due to compensatory movements to increase strength, AROM, and proprioception. While seated, pt performed SROM B shoulder flexion 10x. Pt transferred from EOB to lying prone on mat by self to complete cory exercise. Pt used pulleys with B UE to increase strength in biceps and triceps. Pt then used cory with R UE while therapist held other cory to allow pt to fully engage R UE to increase strength and AROM for daily functional tasks. Pt ambulated back to room with CGA using quad cane. After therapy, pt sitting EOB waiting for breakfast with phone and call light in reach. All needs met. OT Short Term Goals Short Term Goals Time Frame: Jan 12, 2017 Eating(FIM): 6 Grooming(FIM): 6 Toileting(FIM): 5 Transfers (B,C,W/C) (FIM): 4 Toilet/Commode Transfer(FIM): 5 Additional Short Term Goals: 1-Demonstrate ADL Tasks, 2-Verbalize Understanding , 3-ImproveStrength/Domenico 1=Demonstrate adherence to instructed precautions during ADL tasks. 2=Patient will verbalize/demonstrate understanding of assistive devices/ modifications for ADL. 3=Patient will improve strength/tolerance for activity to enable patient to perform ADL's. OT Chcf Goals Chcf Goals Time Frame: Jan 26, 2017 Eating (FIM): 6 Eating (QC): 6 Groomin Oral Hygiene (QC): 6 Bathing(FIM): 6 Shower/Bathe Self (QC): 6 Upper Body Dressing(FIM): 6 Upper Body Dressing (QC): 6 Lower Body Dressing(FIM): 6 Lower Body Dressing (QC): 6 On/Off Footwear (QC): 6 Toileting(FIM): 6 Toileting Hygiene (QC): 6 Toilet/Commode Transfer(FIM): 6 Toilet/Commode Transfer (QC): 6 Shower Transfer(FIM): 6 Comprehension(FIM): 6 (MET) Expression (FIM): 6 (MET) Social Interaction(FIM): 6 (MET) Problem Solving(FIM): 6 (MET) Memory(FIM): 6 (MET) Additional Goals: 1-Demonstrate ADL Tasks, 2-Verbalize Understanding, 3- ImproveStrength/Domenico 1=Demonstrate adherence to instructed precautions during ADL tasks. 2=Patient will verbalize/demonstrate understanding of assistive devices/ modifications for ADL. 3=Patient will improve strength/tolerance for activity to enable patient to perform ADL's. OT Education/Plan Problem List/Assessment pt would benefit from skilled OT to increase his independence in basic self care to allow him to safely return to his home to live with family and to decrease caregiver burden Discharge Recommendations Plan/Recommendations: Continue POC Treatment Plan/Plan of Care Patient would benefit from OT for education, treatment and training to promote independence in ADL's, mobility, safety and/or upper extremity function for ADL' s. Plan of Care: ADL Retraining, Functional Mobility, Group Exercise/Act as Ind ( education, exercise, activity melissa, socialization, communication, problem solving ), UE Funct Exercise/Act, UE Neuromus Re-Ed/Coord, Visual/Perceptual Retrain ( if needed) Treatment Duration: Jan 26, 2017 Frequency: At least 5 to 7 days/Wk (IRF) Estimated Hrs Per Day: 1.5 hours per day Agreement: Yes Rehab Potential: Good Time/GCodes Start Time: 07:00 Stop Time: 08:00 Total Time Billed (hr/min): 60 Billed Treatment Time 1 visit, ADL 2 (30 minutes) NM 2 (30 minutes) ROCKY PARADA Jan 04, 2017 08:08
--- NOTE | 2017-01-04 08:29 | PM & R (SOAP) Progress Note ---
Subjective Time Seen by Provider: 07:35 Subjective/Events-last exam Patient was seen in his room this AM Patient SBA for transfers RT Foot with dry dressing in place Objective Exam Last Set of Vital Signs Vital Signs Date Time Temp Pulse Resp B/P (MAP) Pulse Ox O2 Delivery O2 Flow Rate FiO2 01/04/17 06:00 97.3 65 16 127/66 96 Room Air Capillary Refill : I&O Intake and Output 01/05/17 00:00 Intake Total 500 ml Balance 500 ml Intake Oral 500 ml # Voids 3 General: Alert, Oriented X3, Cooperative, No Acute Distress HEENT: Atraumatic, PERRLA, EOMI, Mucous Memb Moist/[place], Other (labila droop) Neck: Supple, No JVD Lungs: Clear to Auscultation Heart: Regular Rate Abdomen: Normal Bowel Sounds, Soft, No Tenderness Extremities: Other (trace edema rt hand) Skin: Other (Ulcer rt fifth metatarsal head) Neuro: Other (RT HP and mild dysarthria) Results Lab Laboratory Tests 01/01/17 10:58: Glucometer 191H 01/01/17 15:59: Glucometer 105 01/01/17 20:13: Glucometer 141H 01/02/17 05:42: Glucometer 100 01/02/17 10:46: Glucometer 109 01/02/17 10:47: White Blood Count 9.2, Red Blood Count 5.22, Hemoglobin 14.5, Hematocrit 42, Mean Corpuscular Volume 80, Mean Corpuscular Hemoglobin 28, Mean Corpuscular Hemoglobin Concent 35, Red Cell Distribution Width 13.5, Platelet Count 258, Mean Platelet Volume 10.6H, Neutrophils (%) (Auto) 77H, Lymphocytes (%) (Auto) 13, Monocytes (%) (Auto) 9, Eosinophils (%) (Auto) 1, Basophils (%) (Auto) 0, Neutrophils # (Auto) 7.1, Lymphocytes # (Auto) 1.2, Monocytes # (Auto) 0.8, Eosinophils # (Auto) 0.1, Basophils # (Auto) 0.0, Erythrocyte Sedimentation Rate 8, Sodium Level 140, Potassium Level 3.9, Chloride Level 104, Carbon Dioxide Level 24, Anion Gap 12, Blood Urea Nitrogen 29H, Creatinine 1.27, Estimat Glomerular Filtration Rate 58, BUN/Creatinine Ratio 23, Glucose Level 120H, Calcium Level 9.5, Total Bilirubin 1.6H, Aspartate Amino Transf (AST/SGOT ) 19, Alanine Aminotransferase (ALT/SGPT) 19, Alkaline Phosphatase 81, Total Protein 6.4, Albumin 3.9 01/02/17 15:57: Glucometer 122H 01/02/17 20:09: Glucometer 163H 01/03/17 04:47: Glucometer 108 01/03/17 10:58: Glucometer 106 01/03/17 16:14: Glucometer 116H 01/03/17 20:03: Glucometer 112H 01/04/17 06:30: Glucometer 91 Assessment/Plan Assessment 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 APPRECIATE DR CINTRON NOTE AND ORDERS. SPENSER CHAPARRO MD Jan 04, 2017 08:29
--- NOTE | 2017-01-04 08:56 | Physical Therapy Daily Note ---
PT Daily Note-Current Subjective Pt was laying in bed pre tx and agreeable to PT. Pt reports no pain. Pt right ankle was wrapped with francisco bandage to assist with dorsiflexion with ambulation. Pt was sitting in bed with nurse call, tray, phone, all needs in reach post tx. Pain Numeric Pain Scale: 0-No Pain Location: No Pain Reported Mental Status Patient Orientation: Normal For Age Transfers Functional [place] Measure 0=Not Assessed/NA 4=Minimal Assistance 1=Total Assistance 5=Supervision or Setup 2=Maximal Assistance 6=Modified [place] 3=Moderate Assistance 7=Complete IndependenceIRFPAI Quality Coding Scale 6 Independent with activity with or without an assistive device 5 Patient requires set up or clean up by helper. Patient completes activity by themselves 4 Supervision or touching assist (CGA). [place] provide cues , steadying assist 3 The helper provides less than half the effort to complete the activity 2 The helper provides more than half the effort to complete the activity 1 Dependent. The helper does all the effort to complete an activity 7 Patient refused to complete or attempt activity 9 The patient did not perform the activity before the current illness or injury 88 Not attempted due to Medical conditions or safety concerns Transfers (B, C, W/C) (FIM): 4 Scootin Rollin Supine to/from Sit: 5 Sit to/from Stand: 4 Pt is CGA with sit to stand transfers for safety. Gait Training Does the Patient Walk?: Yes Gait (FIM): 4 Distance (FIM): 3=150 ft Distance: 150'x3, 100'x2 Gait Level of Assist: 4 Gait Persons Needed: 1 Gait Assistive Device: Cane Large Base Quad Pt ambulates with large quad base cane and close CGA for safety. Pt ambulates slowly with step-to pattern and decreased foot clearance on right. Pt is verbally cued with cane placement and foot sequencing. Pt has one LOB with right knee buckling, requires mod assist with PT and gait belt to recover. Exercises Seated Therapy Exercises: Long arc quads Seated Reps: 5 (5 minutes) Treatments Pt completes gait training to increase functional mobility and seated LAQ with 3 pound ankle weight for 5 minutes to facilitate functional LE strengthening. Assessment Current Status: Good Progress Pt is improving with ambulation and distance is increased. Pt completes Tinnetti and scores 16/28, which places him at a high fall risk. PT Short Term Goals Short Term Goals Time Frame: Jan 05, 2017 Transfers (B,C,W/C) (FIM): 4 Gait (FIM): 4 Distance (FIM): 3=150 ft Gait Assistive Device: Walker Platform PT Long-Term Goals Heavy Line Technician Goals PT Long-Term Goals Time Frame: Jan 19, 2017 Transfers (B,C,W/C) (FIM): 7 Sit to Lying (QC): 6 Lying-Sitting on Side/Bed(QC): 6 Sit to Stand (QC): 6 Rollin Roll Left to Right (QC): 6 Chair/Tzh-ji-Xiwsx Xfer(QC): 6 Car Transfer (QC): 6 Does the Patient Walk: Yes Gait (FIM): 6 Gait distance (FIM): 3=150 ft Walk 10 feet (QC): 6 Walk 10ft-Uneven Surface(QC): 6 Walk 50ft with 2 Turns (QC): 6 Walk 150 ft (QC): 6 Gait Assistive Device: FWW Stairs (FIM): 5 # of Steps: 8 1 Step (curb) (QC): 5 4 Steps (QC): 5 12 Steps (QC): 88 Picking up an Object (QC): 4 PT Plan Problem List Problem List: Activity Tolerance, Functional Strength, Safety, Balance, Gait, Transfer, Bed Mobility, ROM Treatment/Plan Treatment Plan: Continue Plan of Care Treatment Plan: Bed Mobility, Education, Functional Activity Domenico, Functional Strength, Group Therapy (social integration/support), Gait, Safety, Therapeutic Exercise, Transfers Treatment Duration: Jan 19, 2017 Frequency: At least 5 to 7 days/Wk (IRF) Estimated Hrs Per Day: 1.5 hours per day Patient and/or Family Agrees t: Yes Safety Risks/Education Patient Education: Gait Training, Transfer Techniques, Reviewed Precautions, Correct Positioning, Safety Issues Teaching Recipient: Patient Teaching Methods: Demonstration, Discussion Response to Teaching: Verbalize Understanding, Reinforcement Needed Time/GCodes Time In: 800 Time Out: 900 Total Billed Treatment Time: 60 Total Billed Treatment 1 visit 45 GT 15 NM MIREYA GARCIA PT Jan 04, 2017 08:56
[2017-01-04] MEDS: CLOPIDOGREL 75 MG (PLAVIX) TABLET PO SCH (09:00)
[2017-01-04] MEDS: lisINopril 20 MG (ZESTRIL) TAB PO SCH (09:00)
[2017-01-04] MEDS: amLODIPine 10 MG (NORVASC) TAB PO SCH (09:00)
[2017-01-04] MEDS: HYDROCHLOROTHIAZIDE 25 MG (HCTZ) TAB PO SCH (09:01)
[2017-01-04] MEDS: ASPIRIN E.C. 325 MG (ECOTRIN) TABLET PO SCH (09:01)
[2017-01-04 09:59] VITALS: BP 134/70
--- NOTE | 2017-01-04 13:39 | Occupational Ther Daily Note ---
OT Current Status-Daily Note Subjective Pt alert, sitting in bed. No c/o pain. Agrees to therapy. Mental Status/Objective Patient Orientation: Person, Place, Time, Situation Functional [place] Measure 0=Not Assessed/NA 4=Minimal Assistance 1=Total Assistance 5=Supervision or Setup 2=Maximal Assistance 6=Modified [place] 3=Moderate Assistance 7=Complete [place] ADL-Treatment Functional [place] Measure 0=Not Assessed/NA 4=Minimal Assistance 1=Total Assistance 5=Supervision or Setup 2=Maximal Assistance 6=Modified [place] 3=Moderate Assistance 7=Complete IndependenceIRFPAI Quality Coding Scale 6 Independent with activity with or without an assistive device 5 Patient requires set up or clean up by helper. Patient completes activity by themselves 4 Supervision or touching assist (CGA). [place] provide cues , steadying assist 3 The helper provides less than half the effort to complete the activity 2 The helper provides more than half the effort to complete the activity 1 Dependent. The helper does all the effort to complete an activity 7 Patient refused to complete or attempt activity 9 The patient did not perform the activity before the current illness or injury 88 Not attempted due to Medical conditions or safety concerns Other Treatment Pt ambulated to therapy gym with CGA using quad cane. Electrical stimulation on R wrist & finger flexors/extenders (5-6 combs, 10 minutes) to increase sensation and AROM. Pt completed activity by grasping cones and attempting to isolate extension in arm to move to them to edge of table to increase gross grasp strength and AROM for daily functional tasks. Pt ambulated back to room with CGA using quad cane. After therapy, pt sitting on EOB with phone and call light in reach. Visitor present. All needs met. OT Short Term Goals Short Term Goals Time Frame: Jan 12, 2017 Eating(FIM): 6 Grooming(FIM): 6 Toileting(FIM): 5 Transfers (B,C,W/C) (FIM): 4 Toilet/Commode Transfer(FIM): 5 Additional Short Term Goals: 1-Demonstrate ADL Tasks, 2-Verbalize Understanding , 3-ImproveStrength/Domenico 1=Demonstrate adherence to instructed precautions during ADL tasks. 2=Patient will verbalize/demonstrate understanding of assistive devices/ modifications for ADL. 3=Patient will improve strength/tolerance for activity to enable patient to perform ADL's. OT Motorcycle Racer Goals Fpc Goals Time Frame: Jan 26, 2017 Eating (FIM): 6 Eating (QC): 6 Groomin Oral Hygiene (QC): 6 Bathing(FIM): 6 Shower/Bathe Self (QC): 6 Upper Body Dressing(FIM): 6 Upper Body Dressing (QC): 6 Lower Body Dressing(FIM): 6 Lower Body Dressing (QC): 6 On/Off Footwear (QC): 6 Toileting(FIM): 6 Toileting Hygiene (QC): 6 Toilet/Commode Transfer(FIM): 6 Toilet/Commode Transfer (QC): 6 Shower Transfer(FIM): 6 Comprehension(FIM): 6 (MET) Expression (FIM): 6 (MET) Social Interaction(FIM): 6 (MET) Problem Solving(FIM): 6 (MET) Memory(FIM): 6 (MET) Additional Goals: 1-Demonstrate ADL Tasks, 2-Verbalize Understanding, 3- ImproveStrength/Domenico 1=Demonstrate adherence to instructed precautions during ADL tasks. 2=Patient will verbalize/demonstrate understanding of assistive devices/ modifications for ADL. 3=Patient will improve strength/tolerance for activity to enable patient to perform ADL's. OT Education/Plan Problem List/Assessment pt would benefit from skilled OT to increase his independence in basic self care to allow him to safely return to his home to live with family and to decrease caregiver burden Discharge Recommendations Plan/Recommendations: Continue POC Treatment Plan/Plan of Care Patient would benefit from OT for education, treatment and training to promote independence in ADL's, mobility, safety and/or upper extremity function for ADL' s. Plan of Care: ADL Retraining, Functional Mobility, Group Exercise/Act as Ind ( education, exercise, activity melissa, socialization, communication, problem solving ), UE Funct Exercise/Act, UE Neuromus Re-Ed/Coord, Visual/Perceptual Retrain ( if needed) Treatment Duration: Jan 26, 2017 Frequency: 11 times per week Estimated Hrs Per Day: 1.5 hours per day Agreement: Yes Rehab Potential: Good Time/GCodes Start Time: 12:50 Stop Time: 13:30 Total Time Billed (hr/min): 40 Billed Treatment Time 1 visit, NM 3 (40 minutes) ROCKY PARADA Jan 04, 2017 13:38
--- NOTE | 2017-01-04 14:31 | Progress Note-Hospitalist ---
Subjective HPI/CC On Admission Date Seen by Provider: Jan 04, 2017 Time Seen by Provider: 13:30 Subjective/Events-last exam Patient reports feeling well and hoping to continue to progress with therapy. His only question is about the medicines he is taking here and if he'll need to take them at home. Objective Exam Vital Signs Vital Sign - Last 12Hours 12/29/16 05:00 Temp 98.3 Pulse 73 Resp 20 B/P (MAP) 149/72 Pulse Ox 97 O2 Delivery Room Air Capillary Refill : General Appearance: No Apparent Distress, WD/WN Respiratory: Lungs Clear, No Accessory Muscle Use, No Respiratory Distress Cardiovascular: Regular Rate, Rhythm, No Edema, No Murmur Gastrointestinal: Normal Bowel Sounds, Non Tender, Soft Extremity: Other (right sided weakness) Neurologic/Psychiatric: Alert, Oriented x3 Assessment/Plan Assessment and Plan Assess & Plan/Chief Complaint 1. 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 Peripheral vascular disease with nonhealing right foot ulcer - Dr Mustafa evaluated and recommended outpatient follow up 3. Type II diabetes mellitus, well controlled - A1c 6.7, continue glyburide 4. Hypertension, adequately controlled on multiple agents, will continue current regimen ESTHER JUAREZ MD Jan 04, 2017 14:31
--- NOTE | 2017-01-04 14:36 | Physical Therapy Daily Note ---
PT Daily Note-Current Subjective Pt is lying in bed prior to tx and agreeable to PT. Pt reports no pain. Pt was sitting in bed with nurse call, tray, phone, all needs in reach. Pain Numeric Pain Scale: 0-No Pain Location: No Pain Reported Mental Status Patient Orientation: Normal For Age Transfers Functional [place] Measure 0=Not Assessed/NA 4=Minimal Assistance 1=Total Assistance 5=Supervision or Setup 2=Maximal Assistance 6=Modified [place] 3=Moderate Assistance 7=Complete IndependenceIRFPAI Quality Coding Scale 6 Independent with activity with or without an assistive device 5 Patient requires set up or clean up by helper. Patient completes activity by themselves 4 Supervision or touching assist (CGA). [place] provide cues , steadying assist 3 The helper provides less than half the effort to complete the activity 2 The helper provides more than half the effort to complete the activity 1 Dependent. The helper does all the effort to complete an activity 7 Patient refused to complete or attempt activity 9 The patient did not perform the activity before the current illness or injury 88 Not attempted due to Medical conditions or safety concerns Transfers (B, C, W/C) (FIM): 4 Supine to/from Sit: 6 Sit to/from Stand: 4 Pt completes sit to stand transfer with CGA for safety. Gait Training Does the Patient Walk?: Yes Gait (FIM): 4 Distance (FIM): 3=150 ft Distance: 150'x2 Gait Level of Assist: 4 Gait Persons Needed: 1 Gait Assistive Device: Cane Large Base Quad Pt ambulates with LBQ cane and close CGA for safety. Pt has decreased foot clearance on right and requires verbal cues for sequencing with feet and cane placement. Pt right knee has tendency to buckle and requires close CGA for safety. Treatments Pt completes 40' obstacle course (foam mat, weaving between cones, step up) 4 times with close CGA for safety. Pt completes gait training and obstacle course to increase functional mobility and ability to navigate obstacles. Assessment Current Status: Good Progress Pt ambulation and endurance is improving. PT Short Term Goals Short Term Goals Time Frame: Jan 05, 2017 Transfers (B,C,W/C) (FIM): 4 Gait (FIM): 4 Distance (FIM): 3=150 ft Gait Assistive Device: Walker Platform PT Retirement Goals Global Risk Management Director Goals PT Retirement Goals Time Frame: Jan 19, 2017 Transfers (B,C,W/C) (FIM): 7 Sit to Lying (QC): 6 Lying-Sitting on Side/Bed(QC): 6 Sit to Stand (QC): 6 Rollin Roll Left to Right (QC): 6 Chair/Rpr-at-Klknr Xfer(QC): 6 Car Transfer (QC): 6 Does the Patient Walk: Yes Gait (FIM): 6 Gait distance (FIM): 3=150 ft Walk 10 feet (QC): 6 Walk 10ft-Uneven Surface(QC): 6 Walk 50ft with 2 Turns (QC): 6 Walk 150 ft (QC): 6 Gait Assistive Device: FWW Stairs (FIM): 5 # of Steps: 8 1 Step (curb) (QC): 5 4 Steps (QC): 5 12 Steps (QC): 88 Picking up an Object (QC): 4 PT Plan Problem List Problem List: Activity Tolerance, Functional Strength, Safety, Balance, Gait, Transfer, Bed Mobility, ROM Treatment/Plan Treatment Plan: Continue Plan of Care Treatment Plan: Bed Mobility, Education, Functional Activity Domenico, Functional Strength, Group Therapy (social integration/support), Gait, Safety, Therapeutic Exercise, Transfers Treatment Duration: Jan 19, 2017 Frequency: 11 times per week Estimated Hrs Per Day: 1.5 hours per day Patient and/or Family Agrees t: Yes Safety Risks/Education Patient Education: Gait Training, Transfer Techniques, Steps, Reviewed Precautions, Safety Issues Teaching Recipient: Patient Teaching Methods: Demonstration, Discussion Response to Teaching: Verbalize Understanding, Reinforcement Needed Time/GCodes Time In: 1400 Time Out: 1430 Total Billed Treatment Time: 30 Total Billed Treatment 1 visit 20 NM 10 GT ROCKY BROTHERS PT Jan 04, 2017 14:36
[2017-01-04 18:14] VITALS: BP 149/63
[2017-01-04] MEDS: ATORVASTATIN 10 MG (LIPITOR) TABLET PO SCH (20:59)
[2017-01-05 05:00] VITALS: BP 135/73
[2017-01-05] MEDS: inSUlin ASPART (NovoLOG) 1 UNIT/0.01 ML (CHARGE PER UNIT) SC SCH ×4 (05:14→20:14)
[2017-01-05] MEDS: glyBURIDE 2.5 MG (MICRONASE) TAB PO SCH ×2 (06:59→16:54)
[2017-01-05 08:28] VITALS: BP 138/68
[2017-01-05] MEDS: lisINopril 20 MG (ZESTRIL) TAB PO SCH (08:31)
[2017-01-05] MEDS: amLODIPine 10 MG (NORVASC) TAB PO SCH (08:31)
[2017-01-05] MEDS: ASPIRIN E.C. 325 MG (ECOTRIN) TABLET PO SCH (08:31)
[2017-01-05] MEDS: CLOPIDOGREL 75 MG (PLAVIX) TABLET PO SCH (08:31)
[2017-01-05] MEDS: HYDROCHLOROTHIAZIDE 25 MG (HCTZ) TAB PO SCH (08:31)
--- NOTE | 2017-01-05 08:33 | Occupational Ther Daily Note ---
OT Current Status-Daily Note Subjective Pt alert, sitting in bed. Agrees to therapy. No c/o pain. Mental Status/Objective Patient Orientation: Person, Place, Time, Situation Functional [place] Measure 0=Not Assessed/NA 4=Minimal Assistance 1=Total Assistance 5=Supervision or Setup 2=Maximal Assistance 6=Modified [place] 3=Moderate Assistance 7=Complete [place] ADL-Treatment Functional [place] Measure 0=Not Assessed/NA 4=Minimal Assistance 1=Total Assistance 5=Supervision or Setup 2=Maximal Assistance 6=Modified [place] 3=Moderate Assistance 7=Complete IndependenceIRFPAI Quality Coding Scale 6 Independent with activity with or without an assistive device 5 Patient requires set up or clean up by helper. Patient completes activity by themselves 4 Supervision or touching assist (CGA). [place] provide cues , steadying assist 3 The helper provides less than half the effort to complete the activity 2 The helper provides more than half the effort to complete the activity 1 Dependent. The helper does all the effort to complete an activity 7 Patient refused to complete or attempt activity 9 The patient did not perform the activity before the current illness or injury 88 Not attempted due to Medical conditions or safety concerns Toileting (FIM): 5 (Pt able to manipulate clothing and complete hygiene while seated on BSC over toilet using grab bars with supervision. ) Toilet/Commode Transfer (FIM): 4 (Pt ambulates to toilet with CGA using quad cane. ) Other Treatment Pt educated on 1 handed sock donning technique and was able to don sock by self using this method. Pt ambulated to restroom and then to gym with quad cane and CGA. Pt completed AROM elbow flexion 3 sets 5x. Pt then completed shoulder flexion on cory with R UE strapped to cory while therapist held other cory to increase strength, AROM, and activity tolerance for daily functional tasks. Pt completed shoulder int/ext rotation with arm strapped to skates and shoulder blocked due to compensatory movements. Pt then completed shoulder horizontal add/abd with skates and 2 lb weight with table slanted for increased resistance. Pt ambulated back to room with quad cane and CGA and transferred from EOB to supine by self. After therapy, pt lying in bed with phone and call light in reach. All needs met in room. Education OT Patient Education: Modified ADL techniques Teaching Recipient: Patient Teaching Methods: Demonstration, Discussion Response to Teaching: Verbalize Understanding, Return Demonstration OT Short Term Goals Short Term Goals Time Frame: Jan 12, 2017 Eating(FIM): 6 Grooming(FIM): 6 Toileting(FIM): 5 Transfers (B,C,W/C) (FIM): 4 Toilet/Commode Transfer(FIM): 5 Additional Short Term Goals: 1-Demonstrate ADL Tasks, 2-Verbalize Understanding , 3-ImproveStrength/Domenico 1=Demonstrate adherence to instructed precautions during ADL tasks. 2=Patient will verbalize/demonstrate understanding of assistive devices/ modifications for ADL. 3=Patient will improve strength/tolerance for activity to enable patient to perform ADL's. OT Paste Up Artist Apprentice Goals Fpc Goals Time Frame: Jan 26, 2017 Eating (FIM): 6 Eating (QC): 6 Groomin Oral Hygiene (QC): 6 Bathing(FIM): 6 Shower/Bathe Self (QC): 6 Upper Body Dressing(FIM): 6 Upper Body Dressing (QC): 6 Lower Body Dressing(FIM): 6 Lower Body Dressing (QC): 6 On/Off Footwear (QC): 6 Toileting(FIM): 6 Toileting Hygiene (QC): 6 Toilet/Commode Transfer(FIM): 6 Toilet/Commode Transfer (QC): 6 Shower Transfer(FIM): 6 Comprehension(FIM): 6 (MET) Expression (FIM): 6 (MET) Social Interaction(FIM): 6 (MET) Problem Solving(FIM): 6 (MET) Memory(FIM): 6 (MET) Additional Goals: 1-Demonstrate ADL Tasks, 2-Verbalize Understanding, 3- ImproveStrength/Domenico 1=Demonstrate adherence to instructed precautions during ADL tasks. 2=Patient will verbalize/demonstrate understanding of assistive devices/ modifications for ADL. 3=Patient will improve strength/tolerance for activity to enable patient to perform ADL's. OT Education/Plan Problem List/Assessment pt would benefit from skilled OT to increase his independence in basic self care to allow him to safely return to his home to live with family and to decrease caregiver burden Discharge Recommendations Plan/Recommendations: Continue POC Treatment Plan/Plan of Care Patient would benefit from OT for education, treatment and training to promote independence in ADL's, mobility, safety and/or upper extremity function for ADL' s. Plan of Care: ADL Retraining, Functional Mobility, Group Exercise/Act as Ind ( education, exercise, activity melissa, socialization, communication, problem solving ), UE Funct Exercise/Act, UE Neuromus Re-Ed/Coord, Visual/Perceptual Retrain ( if needed) Treatment Duration: Jan 26, 2017 Frequency: At least 5 of 7 days/Wk (IRF) Estimated Hrs Per Day: 1.5 hours per day Agreement: Yes Rehab Potential: Good Time/GCodes Start Time: 07:00 Stop Time: 08:00 Total Time Billed (hr/min): 60 Billed Treatment Time 1 visit, NM 4 (60 minutes) ROCKY PARADA Jan 05, 2017 08:33
--- NOTE | 2017-01-05 09:00 | Physical Therapy Daily Note ---
PT Daily Note-Current Subjective Pt was laying in bed pre tx and agreeable to PT. Pt right ankle was wrapped with francisco bandage to assist with dorsiflexion. Pt had no reports of pain. Pt was sitting in bed with nurse call, phone, tray, all needs in reach post tx. Pain Numeric Pain Scale: 0-No Pain Location: No Pain Reported Mental Status Patient Orientation: Normal For Age Transfers Functional [place] Measure 0=Not Assessed/NA 4=Minimal Assistance 1=Total Assistance 5=Supervision or Setup 2=Maximal Assistance 6=Modified [place] 3=Moderate Assistance 7=Complete IndependenceIRFPAI Quality Coding Scale 6 Independent with activity with or without an assistive device 5 Patient requires set up or clean up by helper. Patient completes activity by themselves 4 Supervision or touching assist (CGA). [place] provide cues , steadying assist 3 The helper provides less than half the effort to complete the activity 2 The helper provides more than half the effort to complete the activity 1 Dependent. The helper does all the effort to complete an activity 7 Patient refused to complete or attempt activity 9 The patient did not perform the activity before the current illness or injury 88 Not attempted due to Medical conditions or safety concerns Transfers (B, C, W/C) (FIM): 4 Scootin Rollin Supine to/from Sit: 6 Sit to/from Stand: 4 Pt is CGA with sit to stand for safety. Gait Training Gait (FIM): 4 Distance (FIM): 3=150 ft Distance: 100'x2, 200'x2 Gait Level of Assist: 4 Gait Persons Needed: 1 Gait Assistive Device: Walker Thad Pt ambulates with thad walker and close CGA for safety. Pt has decreased foot clearance on right. Pt prefers to use thad walker instead of LBQ cane due to patient request for increased stability with gait. Exercises Seated Therapy Exercises: Long arc quads Seated Reps: 5 (5 minutes) Standing: Marching, Mini squats, Unilateral stance Standing Reps: 20 NuStep Minutes: 15 NuStep Workload: 6 Treatments Pt completes gait training to increase functional mobility, tx on NuStep to increase endurance and LE functional strengthening, and standing exercises in parallel bars to increase LE strength. Pt completes 5 min of LAQ on right with 3 pound ankle weights. Assessment Current Status: Good Progress Pt ambulation is improving. Pt right knee buckled a few times with standing exercises, is giving pt difficulty and pain today with tx. PT Short Term Goals Short Term Goals Time Frame: Jan 05, 2017 Transfers (B,C,W/C) (FIM): 4 Gait (FIM): 4 Distance (FIM): 3=150 ft Gait Assistive Device: Walker Platform PT Certified Credit Counselor Goals Certified Credit Counselor Goals PT Prison Goals Time Frame: Jan 19, 2017 Transfers (B,C,W/C) (FIM): 7 Sit to Lying (QC): 6 Lying-Sitting on Side/Bed(QC): 6 Sit to Stand (QC): 6 Rollin Roll Left to Right (QC): 6 Chair/Orw-ip-Sbtea Xfer(QC): 6 Car Transfer (QC): 6 Does the Patient Walk: Yes Gait (FIM): 6 Gait distance (FIM): 3=150 ft Walk 10 feet (QC): 6 Walk 10ft-Uneven Surface(QC): 6 Walk 50ft with 2 Turns (QC): 6 Walk 150 ft (QC): 6 Gait Assistive Device: FWW Stairs (FIM): 5 # of Steps: 8 1 Step (curb) (QC): 5 4 Steps (QC): 5 12 Steps (QC): 88 Picking up an Object (QC): 4 PT Plan Problem List Problem List: Activity Tolerance, Functional Strength, Safety, Balance, Gait, Transfer, Bed Mobility, ROM Treatment/Plan Treatment Plan: Continue Plan of Care Treatment Plan: Bed Mobility, Education, Functional Activity Domenico, Functional Strength, Group Therapy (social integration/support), Gait, Safety, Therapeutic Exercise, Transfers Treatment Duration: Jan 19, 2017 Frequency: At least 5 of 7 days/Wk (IRF) Estimated Hrs Per Day: 1.5 hours per day Patient and/or Family Agrees t: Yes Safety Risks/Education Patient Education: Gait Training, Transfer Techniques, Reviewed Precautions, Correct Positioning, Safety Issues Teaching Recipient: Patient Teaching Methods: Demonstration, Discussion Response to Teaching: Verbalize Understanding, Reinforcement Needed Time/GCodes Time In: 800 Time Out: 900 Total Billed Treatment Time: 60 Total Billed Treatment 1 visit 30 EX 15 NM 15 GT MIREYA GARCIA PT Jan 05, 2017 09:00
--- NOTE | 2017-01-05 13:29 | Occupational Ther Daily Note ---
OT Current Status-Daily Note Subjective Pt alert, sitting in bed. Agrees to therapy. No c/o pain. Mental Status/Objective Patient Orientation: Person, Place, Time, Situation Functional [place] Measure 0=Not Assessed/NA 4=Minimal Assistance 1=Total Assistance 5=Supervision or Setup 2=Maximal Assistance 6=Modified [place] 3=Moderate Assistance 7=Complete [place] ADL-Treatment Functional [place] Measure 0=Not Assessed/NA 4=Minimal Assistance 1=Total Assistance 5=Supervision or Setup 2=Maximal Assistance 6=Modified [place] 3=Moderate Assistance 7=Complete IndependenceIRFPAI Quality Coding Scale 6 Independent with activity with or without an assistive device 5 Patient requires set up or clean up by helper. Patient completes activity by themselves 4 Supervision or touching assist (CGA). [place] provide cues , steadying assist 3 The helper provides less than half the effort to complete the activity 2 The helper provides more than half the effort to complete the activity 1 Dependent. The helper does all the effort to complete an activity 7 Patient refused to complete or attempt activity 9 The patient did not perform the activity before the current illness or injury 88 Not attempted due to Medical conditions or safety concerns Other Treatment Pt ambulated to therapy gym with CGA using quad cane. Electrical stimulation to wrist flexors/extensors for 10 minutes each. Pt worked on gross grasp skills by squeezing mod resistance sponge. AROM finger flexion with joints blocked to isolate DIP, PIP, and MCP joints and PROM to MCP joints for finger extension to increase strength and ROM for daily functional tasks. Pt ambulated back to room with CGA using quad cane. Transferred EOB to supine by self. After therapy , pt lying in bed with phone and call light in reach. All needs met. OT Short Term Goals Short Term Goals Time Frame: Jan 12, 2017 Eating(FIM): 6 Grooming(FIM): 6 Toileting(FIM): 5 Transfers (B,C,W/C) (FIM): 4 Toilet/Commode Transfer(FIM): 5 Additional Short Term Goals: 1-Demonstrate ADL Tasks, 2-Verbalize Understanding , 3-ImproveStrength/Domenico 1=Demonstrate adherence to instructed precautions during ADL tasks. 2=Patient will verbalize/demonstrate understanding of assistive devices/ modifications for ADL. 3=Patient will improve strength/tolerance for activity to enable patient to perform ADL's. OT Web Development Intern Goals Fdc Goals Time Frame: Jan 26, 2017 Eating (FIM): 6 Eating (QC): 6 Groomin Oral Hygiene (QC): 6 Bathing(FIM): 6 Shower/Bathe Self (QC): 6 Upper Body Dressing(FIM): 6 Upper Body Dressing (QC): 6 Lower Body Dressing(FIM): 6 Lower Body Dressing (QC): 6 On/Off Footwear (QC): 6 Toileting(FIM): 6 Toileting Hygiene (QC): 6 Toilet/Commode Transfer(FIM): 6 Toilet/Commode Transfer (QC): 6 Shower Transfer(FIM): 6 Comprehension(FIM): 6 (MET) Expression (FIM): 6 (MET) Social Interaction(FIM): 6 (MET) Problem Solving(FIM): 6 (MET) Memory(FIM): 6 (MET) Additional Goals: 1-Demonstrate ADL Tasks, 2-Verbalize Understanding, 3- ImproveStrength/Domenico 1=Demonstrate adherence to instructed precautions during ADL tasks. 2=Patient will verbalize/demonstrate understanding of assistive devices/ modifications for ADL. 3=Patient will improve strength/tolerance for activity to enable patient to perform ADL's. OT Education/Plan Problem List/Assessment pt would benefit from skilled OT to increase his independence in basic self care to allow him to safely return to his home to live with family and to decrease caregiver burden Discharge Recommendations Plan/Recommendations: Continue POC Treatment Plan/Plan of Care Patient would benefit from OT for education, treatment and training to promote independence in ADL's, mobility, safety and/or upper extremity function for ADL' s. Plan of Care: ADL Retraining, Functional Mobility, Group Exercise/Act as Ind ( education, exercise, activity melissa, socialization, communication, problem solving ), UE Funct Exercise/Act, UE Neuromus Re-Ed/Coord, Visual/Perceptual Retrain ( if needed) Treatment Duration: Jan 26, 2017 Frequency: At least 5 of 7 days/Wk (IRF) Estimated Hrs Per Day: 1.5 hours per day Agreement: Yes Rehab Potential: Good Time/GCodes Start Time: 12:45 Stop Time: 13:15 Total Time Billed (hr/min): 30 Billed Treatment Time 1 visit, NM 2 (30 minutes) ROCKY PARADA Jan 05, 2017 13:29
--- NOTE | 2017-01-05 14:04 | Physical Therapy Daily Note ---
PT Daily Note-Current Subjective Pt was sitting in bed prior to tx and agreeable to PT. Pt reports no pain. Pt right ankle was wrapped with francisco bandage to assist with dorsiflexion. Pt was sitting in bed with nurse call, tray, phone, all needs in reach post tx. Pain Numeric Pain Scale: 0-No Pain Location: No Pain Reported Mental Status Patient Orientation: Normal For Age Transfers Functional [place] Measure 0=Not Assessed/NA 4=Minimal Assistance 1=Total Assistance 5=Supervision or Setup 2=Maximal Assistance 6=Modified [place] 3=Moderate Assistance 7=Complete IndependenceIRFPAI Quality Coding Scale 6 Independent with activity with or without an assistive device 5 Patient requires set up or clean up by helper. Patient completes activity by themselves 4 Supervision or touching assist (CGA). [place] provide cues , steadying assist 3 The helper provides less than half the effort to complete the activity 2 The helper provides more than half the effort to complete the activity 1 Dependent. The helper does all the effort to complete an activity 7 Patient refused to complete or attempt activity 9 The patient did not perform the activity before the current illness or injury 88 Not attempted due to Medical conditions or safety concerns Transfers (B, C, W/C) (FIM): 4 Scootin Rollin Supine to/from Sit: 6 Sit to/from Stand: 4 Pt is mod I with all bed mobility. Pt is CGA with sit to stand transfers for safety. Gait Training Does the Patient Walk?: Yes Gait (FIM): 4 Distance (FIM): 3=150 ft Distance: 200',100' Gait Level of Assist: 4 Gait Persons Needed: 1 Gait Assistive Device: Walker Thad Pt ambulates with thad walker with CGA for safety. Pt has decreased foot clearance on right. Exercises Supine Ex: Bridging, Ankle pumps, Quad Set, Glut sets, Heel Slides, Resisted flex/ext, Straight leg raise, Hip abd/add Supine Reps: 20 Treatments Pt completes gait training to increase functional mobility and independence. Pt completes supine exercises on mat to increase functional LE strengthening. Assessment Current Status: Good Progress Pt ambulation is improving. PT Short Term Goals Short Term Goals Time Frame: Jan 05, 2017 Transfers (B,C,W/C) (FIM): 4 Gait (FIM): 4 Distance (FIM): 3=150 ft Gait Assistive Device: Walker Platform PT Awning Craftsperson Goals Awning Craftsperson Goals PT Fpc Goals Time Frame: Jan 19, 2017 Transfers (B,C,W/C) (FIM): 7 Sit to Lying (QC): 6 Lying-Sitting on Side/Bed(QC): 6 Sit to Stand (QC): 6 Rollin Roll Left to Right (QC): 6 Chair/Heh-py-Gubph Xfer(QC): 6 Car Transfer (QC): 6 Does the Patient Walk: Yes Gait (FIM): 6 Gait distance (FIM): 3=150 ft Walk 10 feet (QC): 6 Walk 10ft-Uneven Surface(QC): 6 Walk 50ft with 2 Turns (QC): 6 Walk 150 ft (QC): 6 Gait Assistive Device: FWW Stairs (FIM): 5 # of Steps: 8 1 Step (curb) (QC): 5 4 Steps (QC): 5 12 Steps (QC): 88 Picking up an Object (QC): 4 PT Plan Problem List Problem List: Activity Tolerance, Functional Strength, Safety, Balance, Gait, Transfer, Bed Mobility, ROM Treatment/Plan Treatment Plan: Continue Plan of Care Treatment Plan: Bed Mobility, Education, Functional Activity Domenico, Functional Strength, Group Therapy (social integration/support), Gait, Safety, Therapeutic Exercise, Transfers Treatment Duration: Jan 19, 2017 Frequency: At least 5 of 7 days/Wk (IRF) Estimated Hrs Per Day: 1.5 hours per day Patient and/or Family Agrees t: Yes Safety Risks/Education Patient Education: Gait Training, Transfer Techniques, Reviewed Precautions, Correct Positioning, Safety Issues Teaching Recipient: Patient Teaching Methods: Demonstration, Discussion Response to Teaching: Verbalize Understanding, Reinforcement Needed Time/GCodes Time In: 1330 Time Out: 1400 Total Billed Treatment Time: 30 Total Billed Treatment 1 visit 10 GT 20 MIREYA NAVA PT Jan 05, 2017 14:04
[2017-01-05 19:39] VITALS: BP 152/62
[2017-01-05] MEDS: ATORVASTATIN 10 MG (LIPITOR) TABLET PO SCH (20:13)
[2017-01-06 05:00] VITALS: BP 117/60
[2017-01-06] MEDS: glyBURIDE 2.5 MG (MICRONASE) TAB PO SCH ×2 (05:47→15:52)
[2017-01-06] MEDS: inSUlin ASPART (NovoLOG) 1 UNIT/0.01 ML (CHARGE PER UNIT) SC SCH ×4 (05:48→20:32)
[2017-01-06] MEDS: lisINopril 20 MG (ZESTRIL) TAB PO SCH (08:13)
[2017-01-06] MEDS: HYDROCHLOROTHIAZIDE 25 MG (HCTZ) TAB PO SCH (08:13)
[2017-01-06 08:14] VITALS: BP 129/67
[2017-01-06] MEDS: CLOPIDOGREL 75 MG (PLAVIX) TABLET PO SCH (08:14)
[2017-01-06] MEDS: ASPIRIN E.C. 325 MG (ECOTRIN) TABLET PO SCH (08:14)
[2017-01-06] MEDS: amLODIPine 10 MG (NORVASC) TAB PO SCH (08:14)
--- NOTE | 2017-01-06 10:19 | Physical Therapy Daily Note ---
PT Daily Note-Current Subjective Pt. agrees to Rx. States he would like to have a day pass for tomorrow. this WEIGHT SHIFTER sharing that we have not observed his family and their indep in managing him safely and that this would not be prudent at this time. Tis WEIGHT SHIFTER discussed this with nursing afterward and they concur. Pain Numeric Pain Scale: 0-No Pain Mental Status Patient Orientation: Normal For Age Attachments: Other-See Comments (LINDA as AFO holding R foot in DF) Transfers Functional [place] Measure 0=Not Assessed/NA 4=Minimal Assistance 1=Total Assistance 5=Supervision or Setup 2=Maximal Assistance 6=Modified [place] 3=Moderate Assistance 7=Complete IndependenceIRFPAI Quality Coding Scale 6 Independent with activity with or without an assistive device 5 Patient requires set up or clean up by helper. Patient completes activity by themselves 4 Supervision or touching assist (CGA). [place] provide cues , steadying assist 3 The helper provides less than half the effort to complete the activity 2 The helper provides more than half the effort to complete the activity 1 Dependent. The helper does all the effort to complete an activity 7 Patient refused to complete or attempt activity 9 The patient did not perform the activity before the current illness or injury 88 Not attempted due to Medical conditions or safety concerns Transfers (B, C, W/C) (FIM): 5 Scootin Rollin Supine to/from Sit: 6 Sit to/from Stand: 5 Gait Training Does the Patient Walk?: Yes Gait (FIM): 2 Distance (FIM): 3=150 ft (200x2) Gait Level of Assist: 2 Gait Persons Needed: 1 Gait Assistive Device: Walker Thad most of gait training pt. only required CGA , however after supine and stand exercise as pt.and this WEIGHT SHIFTER entered room and were rounding the bed pt. melted and required max assist to stay upright falling back completely on this WEIGHT SHIFTER and taking several seconds to recover and get footing again, pt. stating that his right knee went out. Pt. was given mod to max assist to get to the bed approx 4 ft. and then sat on bed Exercises Supine Ex: Bridging, Quad Set, Rolling, Glut sets, Straight leg raise, Hip abd/ add Supine Reps: 15 (sidelyingn clam shell and hip abd) Standing: Hip Abduction, Hamstring curls, Marching Standing Reps: 12 Assessment Current Status: Fair Progress at risk for falls PT Short Term Goals Short Term Goals Time Frame: Jan 05, 2017 Transfers (B,C,W/C) (FIM): 4 Gait (FIM): 4 Distance (FIM): 3=150 ft Gait Assistive Device: Walker Platform PT Audience Development Manager Goals Fpc Goals PT Fpc Goals Time Frame: Jan 19, 2017 Transfers (B,C,W/C) (FIM): 7 Sit to Lying (QC): 6 Lying-Sitting on Side/Bed(QC): 6 Sit to Stand (QC): 6 Rollin Roll Left to Right (QC): 6 Chair/Swb-ni-Avrhv Xfer(QC): 6 Car Transfer (QC): 6 Does the Patient Walk: Yes Gait (FIM): 6 Gait distance (FIM): 3=150 ft Walk 10 feet (QC): 6 Walk 10ft-Uneven Surface(QC): 6 Walk 50ft with 2 Turns (QC): 6 Walk 150 ft (QC): 6 Gait Assistive Device: FWW Stairs (FIM): 5 # of Steps: 8 1 Step (curb) (QC): 5 4 Steps (QC): 5 12 Steps (QC): 88 Picking up an Object (QC): 4 PT Plan Treatment/Plan Treatment Plan: Continue Plan of Care Treatment Plan: Bed Mobility, Education, Functional Activity Domenico, Functional Strength, Group Therapy (social integration/support), Gait, Safety, Therapeutic Exercise, Transfers Treatment Duration: Jan 19, 2017 Frequency: At least 5 of 7 days/Wk (IRF) Estimated Hrs Per Day: 1.5 hours per day Patient and/or Family Agrees t: Yes Safety Risks/Education Patient Education: Gait Training, Transfer Techniques, Correct Positioning, Disease Process, Safety Issues Teaching Recipient: Patient Teaching Methods: Demonstration, Discussion Response to Teaching: Verbalize Understanding, Return Demonstration, Reinforcement Needed Time/GCodes Time In: 940 Time Out: 1005 Total Billed Treatment Time: 25 Total Billed Treatment 1,GT15,EX10 G Codes Necessary: AAKASH Marks WEIGHT SHIFTER Jan 06, 2017 10:19
[2017-01-06 18:00] VITALS: BP 138/69
[2017-01-06] MEDS: ATORVASTATIN 10 MG (LIPITOR) TABLET PO SCH (20:32)
[2017-01-07 06:00] VITALS: BP 148/77
[2017-01-07] MEDS: inSUlin ASPART (NovoLOG) 1 UNIT/0.01 ML (CHARGE PER UNIT) SC SCH ×4 (06:36→20:13)
[2017-01-07] MEDS: glyBURIDE 2.5 MG (MICRONASE) TAB PO SCH ×2 (06:37→16:33)
[2017-01-07] MEDS: ASPIRIN E.C. 325 MG (ECOTRIN) TABLET PO SCH (09:05)
[2017-01-07] MEDS: amLODIPine 10 MG (NORVASC) TAB PO SCH (09:05)
[2017-01-07] MEDS: HYDROCHLOROTHIAZIDE 25 MG (HCTZ) TAB PO SCH (09:05)
[2017-01-07] MEDS: CLOPIDOGREL 75 MG (PLAVIX) TABLET PO SCH (09:06)
[2017-01-07] MEDS: lisINopril 20 MG (ZESTRIL) TAB PO SCH (09:06)
[2017-01-07 17:37] VITALS: BP 138/73
[2017-01-07] MEDS: ATORVASTATIN 10 MG (LIPITOR) TABLET PO SCH (20:13)
[2017-01-08] MEDS: inSUlin ASPART (NovoLOG) 1 UNIT/0.01 ML (CHARGE PER UNIT) SC SCH ×4 (05:55→21:45)
[2017-01-08 06:12] VITALS: BP 136/61
--- NOTE | 2017-01-08 07:59 | Occupational Ther Daily Note ---
OT Current Status-Daily Note Subjective Pt alert, sitting in bed. Agrees to therapy. No c/o pain. Mental Status/Objective Patient Orientation: Person, Place, Time, Situation Functional [place] Measure 0=Not Assessed/NA 4=Minimal Assistance 1=Total Assistance 5=Supervision or Setup 2=Maximal Assistance 6=Modified [place] 3=Moderate Assistance 7=Complete [place] ADL-Treatment Functional [place] Measure 0=Not Assessed/NA 4=Minimal Assistance 1=Total Assistance 5=Supervision or Setup 2=Maximal Assistance 6=Modified [place] 3=Moderate Assistance 7=Complete IndependenceIRFPAI Quality Coding Scale 6 Independent with activity with or without an assistive device 5 Patient requires set up or clean up by helper. Patient completes activity by themselves 4 Supervision or touching assist (CGA). [place] provide cues , steadying assist 3 The helper provides less than half the effort to complete the activity 2 The helper provides more than half the effort to complete the activity 1 Dependent. The helper does all the effort to complete an activity 7 Patient refused to complete or attempt activity 9 The patient did not perform the activity before the current illness or injury 88 Not attempted due to Medical conditions or safety concerns Other Treatment Pt ambulated to therapy gym with CGA using quad cane. Pt performed AROM scapular elevation/depression (with 2 lb weight) and retraction/protraction 3 sets 10x. Pt performed weightbearing through R UE with wrist blocked for stabilization and shoulder blocked due to compensatory movements, progression made in tricep muscle activation. Pt worked on dynamic sitting balance while leaning to R side for weightbearing through elbow. Pt performed AROM elbow flexion against gravity 3 sets 5x with no compensatory movements made. Pt laid supine to perform AROM shoulder flexion (progression made, no facilitation techniques necessary, elbow kept straight and arm controlled) and shoulder abduction (to 90 degrees due to pain). Pt completed arm bike (R hand strapped to handle due to low grasp strength) duration 5 mins forward at 15 combs resistance, 5 mins backward at 15 combs resistance, 3 mins forward with R UE with minimal resistance to increase strength, AROM, and activity tolerance for daily functional tasks. Pt ambulated back to room with CGA using quad cane. After therapy, pt sitting in bed with phone and call light in reach. All needs met. OT Short Term Goals Short Term Goals Time Frame: Jan 12, 2017 Eating(FIM): 6 Grooming(FIM): 6 Toileting(FIM): 5 Transfers (B,C,W/C) (FIM): 4 Toilet/Commode Transfer(FIM): 5 Additional Short Term Goals: 1-Demonstrate ADL Tasks, 2-Verbalize Understanding , 3-ImproveStrength/Domenico 1=Demonstrate adherence to instructed precautions during ADL tasks. 2=Patient will verbalize/demonstrate understanding of assistive devices/ modifications for ADL. 3=Patient will improve strength/tolerance for activity to enable patient to perform ADL's. OT Green Belt Goals Green Belt Goals Time Frame: Jan 26, 2017 Eating (FIM): 6 Eating (QC): 6 Groomin Oral Hygiene (QC): 6 Bathing(FIM): 6 Shower/Bathe Self (QC): 6 Upper Body Dressing(FIM): 6 Upper Body Dressing (QC): 6 Lower Body Dressing(FIM): 6 Lower Body Dressing (QC): 6 On/Off Footwear (QC): 6 Toileting(FIM): 6 Toileting Hygiene (QC): 6 Toilet/Commode Transfer(FIM): 6 Toilet/Commode Transfer (QC): 6 Shower Transfer(FIM): 6 Comprehension(FIM): 6 (MET) Expression (FIM): 6 (MET) Social Interaction(FIM): 6 (MET) Problem Solving(FIM): 6 (MET) Memory(FIM): 6 (MET) Additional Goals: 1-Demonstrate ADL Tasks, 2-Verbalize Understanding, 3- ImproveStrength/Domenico 1=Demonstrate adherence to instructed precautions during ADL tasks. 2=Patient will verbalize/demonstrate understanding of assistive devices/ modifications for ADL. 3=Patient will improve strength/tolerance for activity to enable patient to perform ADL's. OT Education/Plan Problem List/Assessment pt would benefit from skilled OT to increase his independence in basic self care to allow him to safely return to his home to live with family and to decrease caregiver burden Discharge Recommendations Plan/Recommendations: Continue POC Treatment Plan/Plan of Care Patient would benefit from OT for education, treatment and training to promote independence in ADL's, mobility, safety and/or upper extremity function for ADL' s. Plan of Care: ADL Retraining, Functional Mobility, Group Exercise/Act as Ind ( education, exercise, activity melissa, socialization, communication, problem solving ), UE Funct Exercise/Act, UE Neuromus Re-Ed/Coord, Visual/Perceptual Retrain ( if needed) Treatment Duration: Jan 26, 2017 Frequency: At least 5 of 7 days/Wk (IRF) Estimated Hrs Per Day: 1.5 hours per day Agreement: Yes Rehab Potential: Good Time/GCodes Start Time: 07:00 Stop Time: 08:00 Total Time Billed (hr/min): 60 Billed Treatment Time 1 visit, NM 4 (60 minutes) ROCKY PARADA Jan 08, 2017 07:59
[2017-01-08] MEDS: HYDROCHLOROTHIAZIDE 25 MG (HCTZ) TAB PO SCH (08:51)
[2017-01-08] MEDS: ASPIRIN E.C. 325 MG (ECOTRIN) TABLET PO SCH (08:51)
[2017-01-08] MEDS: lisINopril 20 MG (ZESTRIL) TAB PO SCH (08:51)
[2017-01-08] MEDS: CLOPIDOGREL 75 MG (PLAVIX) TABLET PO SCH (08:51)
[2017-01-08] MEDS: amLODIPine 10 MG (NORVASC) TAB PO SCH (08:51)
[2017-01-08] MEDS: glyBURIDE 2.5 MG (MICRONASE) TAB PO SCH ×2 (08:52→17:02)
--- NOTE | 2017-01-08 09:02 | Physical Therapy Daily Note ---
PT Daily Note-Current Subjective Pt was sitting in bed prior to tx and agreeable to PT. Pt reports knee has been cramping up over weekend. Pt reports no pain. Pt right ankle was wrapped with francisco bandage to assist with dorsiflexion. Pt was sitting in bed with nurse call, phone, tray, all needs in reach post-tx. Pain Numeric Pain Scale: 0-No Pain Location: No Pain Reported Mental Status Patient Orientation: Normal For Age knee brace Transfers Functional [place] Measure 0=Not Assessed/NA 4=Minimal Assistance 1=Total Assistance 5=Supervision or Setup 2=Maximal Assistance 6=Modified [place] 3=Moderate Assistance 7=Complete IndependenceIRFPAI Quality Coding Scale 6 Independent with activity with or without an assistive device 5 Patient requires set up or clean up by helper. Patient completes activity by themselves 4 Supervision or touching assist (CGA). [place] provide cues , steadying assist 3 The helper provides less than half the effort to complete the activity 2 The helper provides more than half the effort to complete the activity 1 Dependent. The helper does all the effort to complete an activity 7 Patient refused to complete or attempt activity 9 The patient did not perform the activity before the current illness or injury 88 Not attempted due to Medical conditions or safety concerns Transfers (B, C, W/C) (FIM): 4 Scootin Rollin Supine to/from Sit: 6 Sit to/from Stand: 4 Pt is mod I with all bed mobility and CGA with sit to stand transfer for safety. Gait Training Does the Patient Walk?: Yes Gait (FIM): 4 Distance (FIM): 3=150 ft Distance: 100', 250'x2 Gait Level of Assist: 4 Gait Persons Needed: 1 Gait Assistive Device: Walker Thad Pt ambulates with thad walker and close CGA for safety. Pt knee buckled twice with ambulation, but patient was able to recover without assistance. Stair Training Stair Training: Handrails/: 1 handrail #of Steps: 8 Stairs: Pattern: Step to Level of Assist: 4 Pt completes 8 stairs using close CGA for safety. Pt is verbally cued for sequencing with foot placement. Exercises Seated Therapy Exercises: Long arc quads Seated Reps: 5 (5 minutes) Standing: Hip Abduction, Hamstring curls, Marching, Mini squats, Unilateral stance Standing Reps: 15 Treatments Pt completes gait training and stair training to increase functional mobility. Pt completes 5 minutes of LAQ with 3 pound ankle weight and completes standing exercises in parallel bars to increase functional LE strengthening. Assessment Current Status: Good Progress Pt has different knee brace from home which is donned with treatment, pt reports he feels more stability than before but that his knee still gives out. Pt is improving with endurance and ambulation. Pt reports he may be going home on Sunday, and PT discussed benefits of family training. PT discussed setting up time for family to come in for training with bilingual social worker. PT Short Term Goals Short Term Goals Time Frame: Jan 05, 2017 Transfers (B,C,W/C) (FIM): 4 Gait (FIM): 4 Distance (FIM): 3=150 ft Gait Assistive Device: Walker Platform PT Calender Tender Goals Penitentiary Goals PT Penitentiary Goals Time Frame: Jan 19, 2017 Transfers (B,C,W/C) (FIM): 7 Sit to Lying (QC): 6 Lying-Sitting on Side/Bed(QC): 6 Sit to Stand (QC): 6 Rollin Roll Left to Right (QC): 6 Chair/Unh-ju-Sxhzj Xfer(QC): 6 Car Transfer (QC): 6 Does the Patient Walk: Yes Gait (FIM): 6 Gait distance (FIM): 3=150 ft Walk 10 feet (QC): 6 Walk 10ft-Uneven Surface(QC): 6 Walk 50ft with 2 Turns (QC): 6 Walk 150 ft (QC): 6 Gait Assistive Device: FWW Stairs (FIM): 5 # of Steps: 8 1 Step (curb) (QC): 5 4 Steps (QC): 5 12 Steps (QC): 88 Picking up an Object (QC): 4 PT Plan Problem List Problem List: Activity Tolerance, Functional Strength, Safety, Balance, Gait, Transfer, Bed Mobility, ROM Treatment/Plan Treatment Plan: Continue Plan of Care Treatment Plan: Bed Mobility, Education, Functional Activity Domenico, Functional Strength, Group Therapy (social integration/support), Gait, Safety, Therapeutic Exercise, Transfers Treatment Duration: Jan 19, 2017 Frequency: At least 5 of 7 days/Wk (IRF) Estimated Hrs Per Day: 1.5 hours per day Patient and/or Family Agrees t: Yes Safety Risks/Education Patient Education: Gait Training, Transfer Techniques, Reviewed Precautions, Correct Positioning, Safety Issues Teaching Recipient: Patient Teaching Methods: Demonstration, Discussion Response to Teaching: Verbalize Understanding, Reinforcement Needed Pt brought up driving himself to outpatient PT after discharge, PT discussed safety concerns with this issue and recommended he consult with a neurologist to get cleared to drive. Time/GCodes Time In: 800 Time Out: 900 Total Billed Treatment Time: 60 Total Billed Treatment 1 visit 30 GT 15 EX 15 NM MIREYA GARCIA PT Jan 08, 2017 09:02
--- NOTE | 2017-01-08 13:04 | Occupational Ther Daily Note ---
OT Current Status-Daily Note Subjective Pt alert, sitting in bed. Agrees to therapy. No c/o pain. Mental Status/Objective Patient Orientation: Person, Place, Time, Situation Functional [place] Measure 0=Not Assessed/NA 4=Minimal Assistance 1=Total Assistance 5=Supervision or Setup 2=Maximal Assistance 6=Modified [place] 3=Moderate Assistance 7=Complete [place] ADL-Treatment Functional [place] Measure 0=Not Assessed/NA 4=Minimal Assistance 1=Total Assistance 5=Supervision or Setup 2=Maximal Assistance 6=Modified [place] 3=Moderate Assistance 7=Complete IndependenceIRFPAI Quality Coding Scale 6 Independent with activity with or without an assistive device 5 Patient requires set up or clean up by helper. Patient completes activity by themselves 4 Supervision or touching assist (CGA). [place] provide cues , steadying assist 3 The helper provides less than half the effort to complete the activity 2 The helper provides more than half the effort to complete the activity 1 Dependent. The helper does all the effort to complete an activity 7 Patient refused to complete or attempt activity 9 The patient did not perform the activity before the current illness or injury 88 Not attempted due to Medical conditions or safety concerns Other Treatment Pt ambulated to gym with CGA using leona walker. Electrical stimulation to R UE wrist and finger extensors, flexing fingers to make a fist by self then extending fingers when E-stim activated. Functional activity completed by grasping cones loosely by self and moving them to other side of table, releasing when E-stim activated. Pt tolerated well. Pt ambulated back to room with CGA using leona walker. After therapy, pt sitting in bed with phone and call light in reach. All needs met. OT Short Term Goals Short Term Goals Time Frame: Jan 12, 2017 Eating(FIM): 6 Grooming(FIM): 6 Toileting(FIM): 5 Transfers (B,C,W/C) (FIM): 4 Toilet/Commode Transfer(FIM): 5 Additional Short Term Goals: 1-Demonstrate ADL Tasks, 2-Verbalize Understanding , 3-ImproveStrength/Domenico 1=Demonstrate adherence to instructed precautions during ADL tasks. 2=Patient will verbalize/demonstrate understanding of assistive devices/ modifications for ADL. 3=Patient will improve strength/tolerance for activity to enable patient to perform ADL's. OT Correction Goals Correction Goals Time Frame: Jan 26, 2017 Eating (FIM): 6 Eating (QC): 6 Groomin Oral Hygiene (QC): 6 Bathing(FIM): 6 Shower/Bathe Self (QC): 6 Upper Body Dressing(FIM): 6 Upper Body Dressing (QC): 6 Lower Body Dressing(FIM): 6 Lower Body Dressing (QC): 6 On/Off Footwear (QC): 6 Toileting(FIM): 6 Toileting Hygiene (QC): 6 Toilet/Commode Transfer(FIM): 6 Toilet/Commode Transfer (QC): 6 Shower Transfer(FIM): 6 Comprehension(FIM): 6 (MET) Expression (FIM): 6 (MET) Social Interaction(FIM): 6 (MET) Problem Solving(FIM): 6 (MET) Memory(FIM): 6 (MET) Additional Goals: 1-Demonstrate ADL Tasks, 2-Verbalize Understanding, 3- ImproveStrength/Domenico 1=Demonstrate adherence to instructed precautions during ADL tasks. 2=Patient will verbalize/demonstrate understanding of assistive devices/ modifications for ADL. 3=Patient will improve strength/tolerance for activity to enable patient to perform ADL's. OT Education/Plan Problem List/Assessment pt would benefit from skilled OT to increase his independence in basic self care to allow him to safely return to his home to live with family and to decrease caregiver burden Discharge Recommendations Plan/Recommendations: Continue POC Treatment Plan/Plan of Care Patient would benefit from OT for education, treatment and training to promote independence in ADL's, mobility, safety and/or upper extremity function for ADL' s. Plan of Care: ADL Retraining, Functional Mobility, Group Exercise/Act as Ind ( education, exercise, activity melissa, socialization, communication, problem solving ), UE Funct Exercise/Act, UE Neuromus Re-Ed/Coord, Visual/Perceptual Retrain ( if needed) Treatment Duration: Jan 26, 2017 Frequency: At least 5 of 7 days/Wk (IRF) Estimated Hrs Per Day: 1.5 hours per day Agreement: Yes Rehab Potential: Good Time/GCodes Start Time: 12:30 Stop Time: 13:00 Total Time Billed (hr/min): 30 Billed Treatment Time 1 visit, NM 2 (30 minutes) ROCKY PARADA Jan 08, 2017 13:04
--- NOTE | 2017-01-08 13:33 | Physical Therapy Daily Note ---
PT Daily Note-Current Subjective Pt was sitting in bed prior to tx and agreeable to PT. Pt right ankle was wrapped with francisco bandage to assist with dorsiflexion. Pt reports no pain. Pt was sitting in bed with nurse call, phone, tray, all needs in reach post tx. Pain Numeric Pain Scale: 0-No Pain Location: No Pain Reported Mental Status Patient Orientation: Normal For Age knee brace Transfers Functional [place] Measure 0=Not Assessed/NA 4=Minimal Assistance 1=Total Assistance 5=Supervision or Setup 2=Maximal Assistance 6=Modified [place] 3=Moderate Assistance 7=Complete IndependenceIRFPAI Quality Coding Scale 6 Independent with activity with or without an assistive device 5 Patient requires set up or clean up by helper. Patient completes activity by themselves 4 Supervision or touching assist (CGA). [place] provide cues , steadying assist 3 The helper provides less than half the effort to complete the activity 2 The helper provides more than half the effort to complete the activity 1 Dependent. The helper does all the effort to complete an activity 7 Patient refused to complete or attempt activity 9 The patient did not perform the activity before the current illness or injury 88 Not attempted due to Medical conditions or safety concerns Transfers (B, C, W/C) (FIM): 4 Scootin Rollin Supine to/from Sit: 6 Sit to/from Stand: 4 Pt is CGA with sit to stand for safety. Gait Training Does the Patient Walk?: Yes Gait (FIM): 4 Distance (FIM): 3=150 ft Distance: 400'x2 Gait Level of Assist: 1 Gait Persons Needed: 4 Gait Assistive Device: Walker Thad Pt ambulated with thad walker and close CGA for safety. Pt has decreased foot clearance on right. Pt right knee buckled once with ambulation but was able to recover with no assist from PT. Stair Training Stair Training: Handrails/: 1 handrail #of Steps: 3 Stairs: Pattern: Step to Level of Assist: 4 Pt completed 3 steps using handrail and moving thad walker up the stairs by himself. Pt required CGA for safety. Treatments Pt completed gait training in an outdoors environment to facilitate functional mobility. Treatment included stairs, ramp, and navigating obstacles with varied surface textures. Assessment Current Status: Good Progress Pt ambulation and endurance is improving. PT Short Term Goals Short Term Goals Time Frame: Jan 05, 2017 Transfers (B,C,W/C) (FIM): 4 (met) Gait (FIM): 4 (met) Distance (FIM): 3=150 ft Gait Assistive Device: Walker Platform PT Mat Puncher Goals Mat Puncher Goals PT Mat Puncher Goals Time Frame: Jan 19, 2017 Transfers (B,C,W/C) (FIM): 7 Sit to Lying (QC): 6 Lying-Sitting on Side/Bed(QC): 6 Sit to Stand (QC): 6 Rollin Roll Left to Right (QC): 6 Chair/Ynf-ly-Jknxh Xfer(QC): 6 Car Transfer (QC): 6 Does the Patient Walk: Yes Gait (FIM): 6 Gait distance (FIM): 3=150 ft Walk 10 feet (QC): 6 Walk 10ft-Uneven Surface(QC): 6 Walk 50ft with 2 Turns (QC): 6 Walk 150 ft (QC): 6 Gait Assistive Device: FWW Stairs (FIM): 5 # of Steps: 8 1 Step (curb) (QC): 5 4 Steps (QC): 5 12 Steps (QC): 88 Picking up an Object (QC): 4 PT Plan Problem List Problem List: Activity Tolerance, Functional Strength, Safety, Balance, Gait, Transfer, Bed Mobility, ROM Treatment/Plan Treatment Plan: Continue Plan of Care Treatment Plan: Bed Mobility, Education, Functional Activity Domenico, Functional Strength, Group Therapy (social integration/support), Gait, Safety, Therapeutic Exercise, Transfers Treatment Duration: Jan 19, 2017 Frequency: At least 5 of 7 days/Wk (IRF) Estimated Hrs Per Day: 1.5 hours per day Patient and/or Family Agrees t: Yes Safety Risks/Education Patient Education: Gait Training, Transfer Techniques, Steps, Reviewed Precautions, Correct Positioning, Safety Issues Teaching Recipient: Patient Teaching Methods: Demonstration, Discussion Response to Teaching: Verbalize Understanding, Reinforcement Needed Issues regarding patient driving himself after pt discharge was discussed again. PT reiterates concerns with safety and recommends getting clearance from neurologist first. Time/GCodes Time In: 1300 Time Out: 1330 Total Billed Treatment Time: 30 Total Billed Treatment 1 visit GT 30 ROCKY BROTHERS PT Jan 08, 2017 13:33
[2017-01-08 17:35] VITALS: BP 138/65
--- NOTE | 2017-01-08 21:10 | PM & R (SOAP) Progress Note ---
Subjective Time Seen by Provider: 20:00 Subjective/Events-last exam Patient was seen in his room this evening Discussed case with RN Patient Min assist for transfers Objective Exam Last Set of Vital Signs Vital Signs Date Time Temp Pulse Resp B/P (MAP) Pulse Ox O2 Delivery O2 Flow Rate FiO2 01/08/17 17:35 98.4 66 18 138/65 99 Room Air Capillary Refill : I&O Intake and Output 01/09/17 00:00 Intake Total 1462 ml Balance 1462 ml Intake Oral 1462 ml # Voids 9 General: Alert, No Acute Distress HEENT: Atraumatic, PERRLA, EOMI, Mucous Memb Moist/[place], Other (labila droop) Neck: Supple, No JVD Lungs: Normal Air Movement Heart: Regular Rate Abdomen: Normal Bowel Sounds, Soft, No Tenderness Extremities: Other (Diminished pulses.) Skin: Other (Open area R plantar foot) Neuro: Other (RT HP and mild dysarthria) Results Lab Laboratory Tests 01/06/17 05:46: Glucometer 110 01/06/17 11:08: Glucometer 117H 01/06/17 15:50: Glucometer 218H 01/06/17 20:31: Glucometer 103 01/07/17 06:36: Glucometer 94 01/07/17 11:12: Glucometer 187H 01/07/17 16:28: Glucometer 144H 01/07/17 20:10: Glucometer 92 01/08/17 05:09: Glucometer 88 01/08/17 11:06: Glucometer 137H 01/08/17 16:22: Glucometer 105 Assessment/Plan Assessment 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 APPRECIATE DR CINTRON NOTE AND ORDERS. Next Team Conference 01/10/17 SPENSER CHAPARRO MD Jan 08, 2017 21:10
[2017-01-08] MEDS: ATORVASTATIN 10 MG (LIPITOR) TABLET PO SCH (21:52)
[2017-01-09 06:00] VITALS: BP 126/63
[2017-01-09] MEDS: inSUlin ASPART (NovoLOG) 1 UNIT/0.01 ML (CHARGE PER UNIT) SC SCH ×4 (06:07→21:00)
--- NOTE | 2017-01-09 07:59 | Occupational Ther Daily Note ---
OT Current Status-Daily Note Subjective Pt alert, sitting in bed. Agrees to therapy and shower this morning. No c/o pain. Mental Status/Objective Patient Orientation: Person, Place, Time, Situation Functional [place] Measure 0=Not Assessed/NA 4=Minimal Assistance 1=Total Assistance 5=Supervision or Setup 2=Maximal Assistance 6=Modified [place] 3=Moderate Assistance 7=Complete [place] ADL-Treatment Functional [place] Measure 0=Not Assessed/NA 4=Minimal Assistance 1=Total Assistance 5=Supervision or Setup 2=Maximal Assistance 6=Modified [place] 3=Moderate Assistance 7=Complete IndependenceIRFPAI Quality Coding Scale 6 Independent with activity with or without an assistive device 5 Patient requires set up or clean up by helper. Patient completes activity by themselves 4 Supervision or touching assist (CGA). [place] provide cues , steadying assist 3 The helper provides less than half the effort to complete the activity 2 The helper provides more than half the effort to complete the activity 1 Dependent. The helper does all the effort to complete an activity 7 Patient refused to complete or attempt activity 9 The patient did not perform the activity before the current illness or injury 88 Not attempted due to Medical conditions or safety concerns Eating (FIM): 7 (Pt able to set self up and use regular utensils to cut food and feed self.) Eating (QC): 6 (Pt able to set self up and use regular utensils to cut food and feed self.) Grooming (FIM): 6 (Pt able to brush teeth and comb hair while seated at sink. Washes face while seated in shower.) Oral Hygiene (QC): 6 (Pt able to brush teeth while seated at sink. ) Bathing (FIM): 4 (Pt able to complete bathing by self with min A to wash/dry L arm. Using shower bench , grab bars, and handheld shower. SBA while standing to dry buttocks. ) Bathing Location: R Arm, L Upper Leg, R Upper Leg, L Lower Leg (including foot) , R Lower Leg (including foot), Chest, Abdomen, Buttocks, Perineal Area Shower/Bathe Self (QC): 3 (Pt able to complete bathing by self with min A to wash/dry L arm. Using shower bench , grab bars, and handheld shower. SBA while pt stands to dry buttocks. ) Upper Body (FIM): 5 (After set up, pt able to dress upper body by self while seated. ) Upper Body Dressing (QC): 5 (After set up, pt able to dress upper body by self while seated. ) Lower Body Dressing (FIM): 5 (After set up, pt able to dress lower body by self while seated. SBA while standing to pull up pants. Able to don socks by self, but required assistance with R foot today due to new bandaging on foot pulling while donning sock. ) Lower Body Dressing (QC): 4 (After set up, pt able to dress lower body by self while seated. SBA while standing to pull pants up. Able to don socks by self, but required assistance with R foot today due to new bandaging on foot pulling while donning sock. ) On/Off Footwear (QC): 4 (Able to don socks by self, but required assistance with R foot today due to new bandaging on foot pulling while donning sock. ) Toileting (FIM): 5 (Pt able to manipulate clothing and complete hygiene with SBA using grab bars, and BSC over toilet. ) Toileting Hygiene (QC): 4 (Pt able to manipulate clothing and complete hygiene with SBA using grab bars, and BSC over toilet. ) Transfers (B, C, W/C) (FIM): 4 (Pt requires CGA using leona walker. ) Toilet/Commode Transfer (FIM): 4 (CGA while using leona walker. Using grab bars , and BSC over toilet.) Toilet Transfer (QC): 4 (CGA using leona walker. Using grab bars and BSC over toilet. ) Shower Transfer(FIM): 4 (Requires CGA using leona walker, grab bars, and shower bench. ) Other Treatment Pt transferred from EOB to supine by self. While supine, pt completed AROM elbow ext against gravity with elbow stabilized and shoulder flexion to increase strength, coordination, and AROM for daily functional tasks. Pt performed shoulder abduction with education on correct positioning to eliminate pain, making progress from about 90 degrees yesterday to 160 degrees. After therapy, pt lying in bed with phone and call light in reach. All needs met in room. Education OT Patient Education: Exercise program Teaching Recipient: Patient Teaching Methods: Demonstration, Discussion Response to Teaching: Verbalize Understanding, Return Demonstration OT Short Term Goals Short Term Goals Time Frame: Jan 12, 2017 Eating(FIM): 6 Grooming(FIM): 6 Toileting(FIM): 5 Transfers (B,C,W/C) (FIM): 4 (met) Toilet/Commode Transfer(FIM): 5 Additional Short Term Goals: 1-Demonstrate ADL Tasks, 2-Verbalize Understanding , 3-ImproveStrength/Domenico 1=Demonstrate adherence to instructed precautions during ADL tasks. 2=Patient will verbalize/demonstrate understanding of assistive devices/ modifications for ADL. 3=Patient will improve strength/tolerance for activity to enable patient to perform ADL's. OT Mcc Goals Counter Pocket Trimmer Goals Time Frame: Jan 26, 2017 Eating (FIM): 6 (met-01/09/2017) Eating (QC): 6 (met-01/09/2017) Groomin (met 01/09/17) Oral Hygiene (QC): 6 (met 01/09/17) Bathing(FIM): 6 (not met) Shower/Bathe Self (QC): 6 (not met) Upper Body Dressing(FIM): 6 (not met) Upper Body Dressing (QC): 6 (not met) Lower Body Dressing(FIM): 6 (not met) Lower Body Dressing (QC): 6 (not met) On/Off Footwear (QC): 6 (not met) Toileting(FIM): 6 (not met) Toileting Hygiene (QC): 6 (not met) Toilet/Commode Transfer(FIM): 6 (not met) Toilet/Commode Transfer (QC): 6 (not met) Shower Transfer(FIM): 6 (not met) Comprehension(FIM): 6 (MET) Expression (FIM): 6 (MET) Social Interaction(FIM): 6 (MET) Problem Solving(FIM): 6 (MET) Memory(FIM): 6 (MET) Additional Goals: 1-Demonstrate ADL Tasks, 2-Verbalize Understanding, 3- ImproveStrength/Domenico 1=Demonstrate adherence to instructed precautions during ADL tasks. 2=Patient will verbalize/demonstrate understanding of assistive devices/ modifications for ADL. 3=Patient will improve strength/tolerance for activity to enable patient to perform ADL's. OT Education/Plan Problem List/Assessment pt would benefit from skilled OT to increase his independence in basic self care to allow him to safely return to his home to live with family and to decrease caregiver burden Discharge Recommendations Plan/Recommendations: Continue POC Therapy D/C Recommendations: Occupational Therapy Home Care Equpiment Recommendations-D/C: Rails on Tub/Shower, Extended Shower Sprayer, Rails on Toilet Treatment Plan/Plan of Care Patient would benefit from OT for education, treatment and training to promote independence in ADL's, mobility, safety and/or upper extremity function for ADL' s. Plan of Care: ADL Retraining, Functional Mobility, Group Exercise/Act as Ind ( education, exercise, activity melissa, socialization, communication, problem solving ), UE Funct Exercise/Act, UE Neuromus Re-Ed/Coord, Visual/Perceptual Retrain ( if needed) Treatment Duration: Jan 26, 2017 Frequency: At least 5 of 7 days/Wk (IRF) Estimated Hrs Per Day: 1.5 hours per day Agreement: Yes Rehab Potential: Good Time/GCodes Start Time: 07:00 Stop Time: 08:00 Total Time Billed (hr/min): 60 Billed Treatment Time 1 visit, ADL 3 (40 minutes) NM 1 (20 minutes) ROCKY PARADA Jan 09, 2017 07:59
[2017-01-09] MEDS: lisINopril 20 MG (ZESTRIL) TAB PO SCH (09:02)
[2017-01-09] MEDS: HYDROCHLOROTHIAZIDE 25 MG (HCTZ) TAB PO SCH (09:02)
[2017-01-09] MEDS: glyBURIDE 2.5 MG (MICRONASE) TAB PO SCH ×2 (09:02→15:37)
[2017-01-09] MEDS: amLODIPine 10 MG (NORVASC) TAB PO SCH (09:02)
[2017-01-09] MEDS: ASPIRIN E.C. 325 MG (ECOTRIN) TABLET PO SCH (09:02)
[2017-01-09] MEDS: CLOPIDOGREL 75 MG (PLAVIX) TABLET PO SCH (09:02)
--- NOTE | 2017-01-09 09:04 | Physical Therapy Daily Note ---
PT Daily Note-Current Subjective Pt was sitting in bed pre-tx and agreeable to PT. Pt reports no pain. Pt right ankle was wrapped with francisco bandage to assist with dorsiflexion and donned knee brace patient brought from home on right knee for treatment. Pt was sitting in bed with nurse call, phone, tray, all needs in reach post tx. Pain Numeric Pain Scale: 0-No Pain Location: No Pain Reported Mental Status Patient Orientation: Normal For Age knee brace Transfers Functional [place] Measure 0=Not Assessed/NA 4=Minimal Assistance 1=Total Assistance 5=Supervision or Setup 2=Maximal Assistance 6=Modified [place] 3=Moderate Assistance 7=Complete IndependenceIRFPAI Quality Coding Scale 6 Independent with activity with or without an assistive device 5 Patient requires set up or clean up by helper. Patient completes activity by themselves 4 Supervision or touching assist (CGA). [place] provide cues , steadying assist 3 The helper provides less than half the effort to complete the activity 2 The helper provides more than half the effort to complete the activity 1 Dependent. The helper does all the effort to complete an activity 7 Patient refused to complete or attempt activity 9 The patient did not perform the activity before the current illness or injury 88 Not attempted due to Medical conditions or safety concerns Transfers (B, C, W/C) (FIM): 5 Scootin Rollin Roll Left to Right (QC): 6 Supine to/from Sit: 6 Sit to/from Stand: 5 Sit to Lying (QC): 6 Sit to Stand (QC): 4 Chair/Bgi-wi-Prsvc Xfer(QC): 6 Bed to/from Chair: 6 Pt was mod I with all bed mobility and requires stand by assist with sit to stand transfers for safety. Gait Training Does the Patient Walk?: Yes Gait (FIM): 4 Distance (FIM): 3=150 ft Distance: 300'x2 Walk 10 feet (QC): 4 Walk 50 ft with 2 Turns(QC): 4 Walk 150 ft (QC): 4 Walking 10ft/uneven surface-QC: 4 Gait Level of Assist: 4 Gait Persons Needed: 1 Gait Assistive Device: Walker Thad Pt ambulates with thad walker and CGA for safety. Pt has decreased foot clearance on right and right knee has tendency to buckle. Pt right knee buckled once with ambulation, and patient was recovered with min assist from PT. Patient can ambulate 300' with CGA using a thad walker and 50' with at least 2 turns of 90 degrees and 10' over an uneven surface. Wheelchair Training Does the Pt Use a Wheelchair?: No Stair Training Stair Training: Handrails/: 1 handrail Stairs (FIM): 4 #of Steps: 12 1 Step (curb) (QC): 4 4 Steps (QC): 4 12 Steps (QC): 4 Stairs: Pattern: Step to Level of Assist: 4 Pt completes 12 stairs with CGA for safety. Exercises Seated Therapy Exercises: Long arc quads Seated Reps: 5 (5 min) Standing: Hip Abduction, Marching, Mini squats, Side steps, Unilateral stance Standing Reps: 20 Treatments Pt completed 5 min LAQ with 3 pound ankle weight and standing exercises in parallel bars to increase functional LE strengthening. Pt completed stair and gait training to increase functional mobility and independence. Assessment Current Status: Good Progress Pt ambulation is improving. Still has some right knee buckling. Patient is discharging tomorrow and has family training. He wants to be independent in his room but is not allowed at this time because of the knee buckling, if it would happen while he is up alone he would fall. PT Short Term Goals Short Term Goals Time Frame: Jan 05, 2017 Transfers (B,C,W/C) (FIM): 4 (met) Gait (FIM): 4 (met) Distance (FIM): 3=150 ft Gait Assistive Device: Walker Platform PT Half-Way Goals Half-Way Goals PT Chemical Dependency Attendant Goals Time Frame: Jan 19, 2017 Transfers (B,C,W/C) (FIM): 7 Sit to Lying (QC): 6 Lying-Sitting on Side/Bed(QC): 6 Sit to Stand (QC): 6 Rollin Roll Left to Right (QC): 6 Chair/Eel-yb-Aykcz Xfer(QC): 6 Car Transfer (QC): 6 Does the Patient Walk: Yes Gait (FIM): 6 Gait distance (FIM): 3=150 ft Walk 10 feet (QC): 6 Walk 10ft-Uneven Surface(QC): 6 Walk 50ft with 2 Turns (QC): 6 Walk 150 ft (QC): 6 Gait Assistive Device: FWW Stairs (FIM): 5 # of Steps: 8 1 Step (curb) (QC): 5 4 Steps (QC): 5 12 Steps (QC): 88 Picking up an Object (QC): 4 PT Plan Problem List Problem List: Activity Tolerance, Functional Strength, Safety, Balance, Gait, Transfer, Bed Mobility, ROM Treatment/Plan Treatment Plan: Continue Plan of Care Treatment Plan: Bed Mobility, Education, Functional Activity Domenico, Functional Strength, Group Therapy (social integration/support), Gait, Safety, Therapeutic Exercise, Transfers Treatment Duration: Jan 19, 2017 Frequency: At least 5 of 7 days/Wk (IRF) Estimated Hrs Per Day: 1.5 hours per day Patient and/or Family Agrees t: Yes Safety Risks/Education Patient Education: Gait Training, Transfer Techniques, Steps, Reviewed Precautions, Correct Positioning, Safety Issues Teaching Recipient: Patient Teaching Methods: Demonstration, Discussion Response to Teaching: Verbalize Understanding, Reinforcement Needed Time/GCodes Time In: 800 Time Out: 900 Total Billed Treatment Time: 60 Total Billed Treatment 1 visit 30 GT 30 MIREYA NAVA PT Jan 09, 2017 09:04
--- NOTE | 2017-01-09 11:54 | PM & R (SOAP) Progress Note ---
Subjective Time Seen by Provider: 07:50 Subjective/Events-last exam Patient was seen in his room this AM Patient Min assist for transfers Patient c/ o bleeding rt foot wound discussed with RN she will change dressing and check Review of Systems Neurological: Weakness Objective Exam Last Set of Vital Signs Vital Signs Date Time Temp Pulse Resp B/P (MAP) Pulse Ox O2 Delivery O2 Flow Rate FiO2 01/09/17 09:49 Room Air 01/09/17 06:00 98.4 66 18 126/63 96 Capillary Refill : I&O Intake and Output 01/10/17 00:00 Intake Total 250 ml Balance 250 ml Intake Oral 250 ml # Voids 3 General: Alert, No Acute Distress HEENT: Atraumatic, PERRLA, EOMI, Mucous Memb Moist/[place], Other (labila droop) Neck: Supple, No JVD Lungs: Normal Air Movement Heart: Regular Rate Abdomen: Normal Bowel Sounds, Soft, No Tenderness Extremities: Other (Diminished pulses.) Skin: Other (Open area R plantar foot) Neuro: Other (RT HP and mild dysarthria) Results Lab Laboratory Tests 01/06/17 15:50: Glucometer 218H 01/06/17 20:31: Glucometer 103 01/07/17 06:36: Glucometer 94 01/07/17 11:12: Glucometer 187H 01/07/17 16:28: Glucometer 144H 01/07/17 20:10: Glucometer 92 01/08/17 05:09: Glucometer 88 01/08/17 11:06: Glucometer 137H 01/08/17 16:22: Glucometer 105 01/08/17 21:54: Glucometer 125H 01/09/17 05:43: Glucometer 91 01/09/17 11:10: Glucometer 193H Assessment/Plan Assessment 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 APPRECIATE DR CINTRON NOTE AND ORDERS. Next Team Conference tomorrow 01/10/17 SPENSER Caban MD Jan 09, 2017 11:54
--- NOTE | 2017-01-09 13:12 | Occupational Ther Daily Note ---
OT Current Status-Daily Note Subjective Pt agrees to therapy. No c/o pain. Mental Status/Objective Patient Orientation: Person, Place, Time, Situation Functional [place] Measure 0=Not Assessed/NA 4=Minimal Assistance 1=Total Assistance 5=Supervision or Setup 2=Maximal Assistance 6=Modified [place] 3=Moderate Assistance 7=Complete [place] ADL-Treatment Functional [place] Measure 0=Not Assessed/NA 4=Minimal Assistance 1=Total Assistance 5=Supervision or Setup 2=Maximal Assistance 6=Modified [place] 3=Moderate Assistance 7=Complete IndependenceIRFPAI Quality Coding Scale 6 Independent with activity with or without an assistive device 5 Patient requires set up or clean up by helper. Patient completes activity by themselves 4 Supervision or touching assist (CGA). [place] provide cues , steadying assist 3 The helper provides less than half the effort to complete the activity 2 The helper provides more than half the effort to complete the activity 1 Dependent. The helper does all the effort to complete an activity 7 Patient refused to complete or attempt activity 9 The patient did not perform the activity before the current illness or injury 88 Not attempted due to Medical conditions or safety concerns Toileting (FIM): 5 (Pt completes manipulation of clothing and hygiene by self with supervision using grab bars and BSC over toilet. ) Toilet/Commode Transfer (FIM): 4 (CGA using leona walker. ) Other Treatment Pt ambulated to therapy gym with CGA using leona walker. Electrical stimulation to finger flexors for 5 mins at 4 combs to increase gross grasp AROM. E-stim to wrist and finger extensors at 5 combs while functional activity completed as pt grasped cones and moved them to other side of table to stack, releasing when e- stim activated. Progression made from yesterday as evidenced by pt's ability to grasp cones and keep hold of it while raising arm to stack on top of each other. E-stim removed and pt grasped 2 cones and stacked on top of others by self. Pt ambulated back to room with CGA using leona walker. After therapy, pt sitting in bed with phone and call light in reach. All needs met in room. OT Short Term Goals Short Term Goals Time Frame: Jan 12, 2017 Eating(FIM): 6 Grooming(FIM): 6 Toileting(FIM): 5 Transfers (B,C,W/C) (FIM): 4 (met) Toilet/Commode Transfer(FIM): 5 Additional Short Term Goals: 1-Demonstrate ADL Tasks, 2-Verbalize Understanding , 3-ImproveStrength/Domenico 1=Demonstrate adherence to instructed precautions during ADL tasks. 2=Patient will verbalize/demonstrate understanding of assistive devices/ modifications for ADL. 3=Patient will improve strength/tolerance for activity to enable patient to perform ADL's. OT Survey Instrument Operator Goals Survey Instrument Operator Goals Time Frame: Jan 26, 2017 Eating (FIM): 6 (met-01/09/2017) Eating (QC): 6 (met-01/09/2017) Groomin (met 01/09/17) Oral Hygiene (QC): 6 (met 01/09/17) Bathing(FIM): 6 (not met) Shower/Bathe Self (QC): 6 (not met) Upper Body Dressing(FIM): 6 (not met) Upper Body Dressing (QC): 6 (not met) Lower Body Dressing(FIM): 6 (not met) Lower Body Dressing (QC): 6 (not met) On/Off Footwear (QC): 6 (not met) Toileting(FIM): 6 (not met) Toileting Hygiene (QC): 6 (not met) Toilet/Commode Transfer(FIM): 6 (not met) Toilet/Commode Transfer (QC): 6 (not met) Shower Transfer(FIM): 6 (not met) Comprehension(FIM): 6 (MET) Expression (FIM): 6 (MET) Social Interaction(FIM): 6 (MET) Problem Solving(FIM): 6 (MET) Memory(FIM): 6 (MET) Additional Goals: 1-Demonstrate ADL Tasks, 2-Verbalize Understanding, 3- ImproveStrength/Domenico 1=Demonstrate adherence to instructed precautions during ADL tasks. 2=Patient will verbalize/demonstrate understanding of assistive devices/ modifications for ADL. 3=Patient will improve strength/tolerance for activity to enable patient to perform ADL's. OT Education/Plan Problem List/Assessment pt would benefit from skilled OT to increase his independence in basic self care to allow him to safely return to his home to live with family and to decrease caregiver burden Discharge Recommendations Plan/Recommendations: Continue POC Treatment Plan/Plan of Care Patient would benefit from OT for education, treatment and training to promote independence in ADL's, mobility, safety and/or upper extremity function for ADL' s. Plan of Care: ADL Retraining, Functional Mobility, Group Exercise/Act as Ind ( education, exercise, activity melissa, socialization, communication, problem solving ), UE Funct Exercise/Act, UE Neuromus Re-Ed/Coord, Visual/Perceptual Retrain ( if needed) Treatment Duration: Jan 26, 2017 Frequency: At least 5 of 7 days/Wk (IRF) Estimated Hrs Per Day: 1.5 hours per day Agreement: Yes Rehab Potential: Good Time/GCodes Start Time: 12:30 Stop Time: 13:00 Total Time Billed (hr/min): 30 Billed Treatment Time 1 visit, NM 2 (30 minutes) ROCKY PARADA Jan 09, 2017 13:12
--- NOTE | 2017-01-09 15:42 | Physical Therapy Daily Note ---
PT Daily Note-Current Subjective Pt laying Supine in bed upon arrival. Pt agrees to PT. Pain Numeric Pain Scale: 0-No Pain Location: No Pain Reported Mental Status Patient Orientation: Person, Place, Time, Situation Attachments: Other-See Comments (R knee brace) Transfers Functional [place] Measure 0=Not Assessed/NA 4=Minimal Assistance 1=Total Assistance 5=Supervision or Setup 2=Maximal Assistance 6=Modified [place] 3=Moderate Assistance 7=Complete IndependenceIRFPAI Quality Coding Scale 6 Independent with activity with or without an assistive device 5 Patient requires set up or clean up by helper. Patient completes activity by themselves 4 Supervision or touching assist (CGA). [place] provide cues , steadying assist 3 The helper provides less than half the effort to complete the activity 2 The helper provides more than half the effort to complete the activity 1 Dependent. The helper does all the effort to complete an activity 7 Patient refused to complete or attempt activity 9 The patient did not perform the activity before the current illness or injury 88 Not attempted due to Medical conditions or safety concerns Scootin Supine to/from Sit: 5 Sit to/from Stand: 5 Sit to Lying (QC): 5 Sit to Stand (QC): 5 Weight Bearing Weight Bearing Restriction: Full Weight Bearing Location Restriction: LE Bilateral Gait Training Does the Patient Walk?: Yes Distance (FIM): 3=150 ft Distance: 150' Walk 10 feet (QC): 5 Walk 50 ft with 2 Turns(QC): 5 Walk 150 ft (QC): 5 Gait Level of Assist: 5 Gait Persons Needed: 1 Gait Assistive Device: Cane Large Base Quad Pt has slow but steady gait, no LOB. Wheelchair Training Does the Pt Use a Wheelchair?: No Exercises NuStep Minutes: 15 NuStep Workload: 6 Treatments Pt transfers from Supine to EOB to standing using Cane at close SBA. Pt ambulates in [facility] using Cane at close SBA. Pt uses NuStep for 15m at Workload 6 with R hand and knee attachment for positioning. Pt returns to rest in bed at end of tx with all needs met. Assessment Current Status: Good Progress Pt has improved with independence and safety of ambulation and transfers. PT Short Term Goals Short Term Goals Time Frame: Jan 05, 2017 Transfers (B,C,W/C) (FIM): 4 (met) Gait (FIM): 4 (met) Distance (FIM): 3=150 ft Gait Assistive Device: Walker Platform PT Shelter Goals Tram Operator Goals PT Shelter Goals Time Frame: Jan 19, 2017 Transfers (B,C,W/C) (FIM): 7 Sit to Lying (QC): 6 Lying-Sitting on Side/Bed(QC): 6 Sit to Stand (QC): 6 Rollin Roll Left to Right (QC): 6 Chair/Taq-fu-Jgtsr Xfer(QC): 6 Car Transfer (QC): 6 Does the Patient Walk: Yes Gait (FIM): 6 Gait distance (FIM): 3=150 ft Walk 10 feet (QC): 6 Walk 10ft-Uneven Surface(QC): 6 Walk 50ft with 2 Turns (QC): 6 Walk 150 ft (QC): 6 Gait Assistive Device: FWW Stairs (FIM): 5 # of Steps: 8 1 Step (curb) (QC): 5 4 Steps (QC): 5 12 Steps (QC): 88 Picking up an Object (QC): 4 PT Plan Problem List Problem List: Activity Tolerance, Balance, Gait Treatment/Plan Treatment Plan: Continue Plan of Care Treatment Plan: Bed Mobility, Education, Functional Activity Domenico, Functional Strength, Group Therapy (social integration/support), Gait, Safety, Therapeutic Exercise, Transfers Treatment Duration: Jan 19, 2017 Frequency: At least 5 of 7 days/Wk (IRF) Estimated Hrs Per Day: 1.5 hours per day Patient and/or Family Agrees t: Yes Safety Risks/Education Patient Education: Gait Training, Transfer Techniques, Correct Positioning, Safety Issues Teaching Recipient: Patient Teaching Methods: Discussion Response to Teaching: Verbalize Understanding Time/GCodes Time In: 1400 Time Out: 1430 Total Billed Treatment Time: 30 Total Billed Treatment visit, GT (15m) & EX (15m) LINDY MIRANDA PTA Jan 09, 2017 15:42
[2017-01-09 17:57] VITALS: BP 138/67
[2017-01-09] MEDS ORDERED: LISI-552 PO (19:27)
[2017-01-09] MEDS ORDERED: GLYB2.5T4 PO (19:27)
[2017-01-09] MEDS ORDERED: ASPI325T32 PO (19:27)
[2017-01-09] MEDS ORDERED: HYDR25TA4 PO (19:27)
[2017-01-09] MEDS ORDERED: ATOR10TA66 PO (19:27)
[2017-01-09] MEDS ORDERED: AMLO10TA2 PO (19:27)
[2017-01-09] MEDS ORDERED: CLOP75TA28 PO (19:27)
[2017-01-09] MEDS: ATORVASTATIN 10 MG (LIPITOR) TABLET PO SCH (21:21)
--- NOTE | 2017-01-09 23:16 | Wound Care Progress Note ---
Subjective Subjective Subjective/Events-last exam 57 year old male with Grade 2 DFU of R 5ht metatarsal head, stable on silver alginate dressings. Limited ambulation due to stroke. The patient is urged to have follow-up for the foot ulcer. The seriousness of the condition is underlined and the risk of loss of limb is stated. The patient was found to have hemodynamically significant blockage in R popliteal. Intervention has been delayed to allow for recovery from acute CVA. PMH: HTN, DM, stroke, with hemiplegia. FH: Non-contributory. Review of Systems Date Seen by Provider: Jan 09, 2017 Time Seen by Provider: 17:30 General: No Chills Pulmonary: No Dyspnea Cardiovascular: No: Chest Pain Neurological: Weakness Objective Exam Last Set of Vital Signs Vital Signs Date Time Temp Pulse Resp B/P (MAP) Pulse Ox O2 Delivery O2 Flow Rate FiO2 01/09/17 17:57 97.9 67 18 138/67 98 Simple Mask Capillary Refill : I&O Intake and Output 01/10/17 00:00 Intake Total 1050 ml Balance 1050 ml Intake Oral 1050 ml # Voids 7 # Bowel Movements 2 General: Alert, No Acute Distress Lungs: Normal Air Movement Skin: Other (R 5th MTH --- 0.9 x 1.2 x 0.4 cm, base 75% granulation, 25% slough, margin with callus.) Results Lab Laboratory Tests 01/09/17 05:43: Glucometer 91 01/09/17 11:10: Glucometer 193H 01/09/17 15:35: Glucometer 81 01/09/17 21:27: Glucometer 86 Assessment/Plan Assessment/Plan Assessment/Plan 1. Diabetic foot ulcer, R 5th metatarsal head, Grade 2. 2. Peripheral arterial disease, atherosclerotic, R popliteal artery, hemodynamically significant. This will prevent wound healing of R foot. 3. Malignant hypertension, controlled. 4. Recent stroke. Plan: will continue silver alginate dressings as out-patient and follow-up in [facility]. MONTEZ STOREY MD Jan 09, 2017 23:16
[2017-01-10] MEDS: inSUlin ASPART (NovoLOG) 1 UNIT/0.01 ML (CHARGE PER UNIT) SC SCH (05:11)
[2017-01-10 05:50] VITALS: BP 143/52
[2017-01-10] MEDS: glyBURIDE 2.5 MG (MICRONASE) TAB PO SCH (07:24)
--- NOTE | 2017-01-10 08:02 | Occupational Ther Daily Note ---
OT Current Status-Daily Note Subjective Pt alert, agrees to therapy. No c/o pain. Pt reports his hand is not working as well this morning because he is tired and just woke up. Mental Status/Objective Patient Orientation: Person, Place, Time, Situation Functional [place] Measure 0=Not Assessed/NA 4=Minimal Assistance 1=Total Assistance 5=Supervision or Setup 2=Maximal Assistance 6=Modified [place] 3=Moderate Assistance 7=Complete [place] ADL-Treatment Functional [place] Measure 0=Not Assessed/NA 4=Minimal Assistance 1=Total Assistance 5=Supervision or Setup 2=Maximal Assistance 6=Modified [place] 3=Moderate Assistance 7=Complete IndependenceIRFPAI Quality Coding Scale 6 Independent with activity with or without an assistive device 5 Patient requires set up or clean up by helper. Patient completes activity by themselves 4 Supervision or touching assist (CGA). [place] provide cues , steadying assist 3 The helper provides less than half the effort to complete the activity 2 The helper provides more than half the effort to complete the activity 1 Dependent. The helper does all the effort to complete an activity 7 Patient refused to complete or attempt activity 9 The patient did not perform the activity before the current illness or injury 88 Not attempted due to Medical conditions or safety concerns Toileting (FIM): 5 (Pt completes manipulation of clothing and hygiene with supervision using grab bars and BSC over toilet. ) Toilet/Commode Transfer (FIM): 4 (CGA using leona walker. ) Other Treatment Pt ambulated to therapy gym with CGA using leona walker. AAROM pronation and supination with myofascial stretching to increase AROM. E-stim to finger flexors /extensors to increase AROM. Pt grasped cones and released, then moved cones from one side of table to the other and stacked them by self with trial and error to keep armature winder repairer on cones to increase AROM, strength, and activity tolerance for daily functional tasks. Educated about equipment needed at home, stated they are currently looking for tub transfer bench but have alternative until they get one. Pt ambulated back to room with CGA using leona walker. After therapy, pt sitting in bed with phone and call light in reach. present. All needs met. Education OT Patient Education: Instructions to caregiver, Modified ADL techniques Teaching Recipient: Patient, Family Teaching Methods: Discussion Response to Teaching: Verbalize Understanding OT Short Term Goals Short Term Goals Time Frame: Jan 12, 2017 Eating(FIM): 6 Grooming(FIM): 6 Toileting(FIM): 5 Transfers (B,C,W/C) (FIM): 4 (met) Toilet/Commode Transfer(FIM): 5 Additional Short Term Goals: 1-Demonstrate ADL Tasks, 2-Verbalize Understanding , 3-ImproveStrength/Domenico 1=Demonstrate adherence to instructed precautions during ADL tasks. 2=Patient will verbalize/demonstrate understanding of assistive devices/ modifications for ADL. 3=Patient will improve strength/tolerance for activity to enable patient to perform ADL's. OT Alf Goals Alf Goals Time Frame: Jan 26, 2017 Eating (FIM): 6 (met-01/09/2017) Eating (QC): 6 (met-01/09/2017) Groomin (met 01/09/17) Oral Hygiene (QC): 6 (met 01/09/17) Bathing(FIM): 6 (not met) Shower/Bathe Self (QC): 6 (not met) Upper Body Dressing(FIM): 6 (not met) Upper Body Dressing (QC): 6 (not met) Lower Body Dressing(FIM): 6 (not met) Lower Body Dressing (QC): 6 (not met) On/Off Footwear (QC): 6 (not met) Toileting(FIM): 6 (not met) Toileting Hygiene (QC): 6 (not met) Toilet/Commode Transfer(FIM): 6 (not met) Toilet/Commode Transfer (QC): 6 (not met) Shower Transfer(FIM): 6 (not met) Comprehension(FIM): 6 (MET) Expression (FIM): 6 (MET) Social Interaction(FIM): 6 (MET) Problem Solving(FIM): 6 (MET) Memory(FIM): 6 (MET) Additional Goals: 1-Demonstrate ADL Tasks, 2-Verbalize Understanding, 3- ImproveStrength/Domenico 1=Demonstrate adherence to instructed precautions during ADL tasks. 2=Patient will verbalize/demonstrate understanding of assistive devices/ modifications for ADL. 3=Patient will improve strength/tolerance for activity to enable patient to perform ADL's. OT Education/Plan Problem List/Assessment pt would benefit from skilled OT to increase his independence in basic self care to allow him to safely return to his home to live with family and to decrease caregiver burden Discharge Recommendations Plan/Recommendations: Continue POC Therapy D/C Recommendations: Occupational Therapy Home Care Equpiment Recommendations-D/C: Extended Bath Bench, Rails on Tub/Shower, Extended Shower Sprayer, Rails on Toilet Target Placement Home with family Treatment Plan/Plan of Care Patient would benefit from OT for education, treatment and training to promote independence in ADL's, mobility, safety and/or upper extremity function for ADL' s. Plan of Care: ADL Retraining, Functional Mobility, Group Exercise/Act as Ind ( education, exercise, activity melissa, socialization, communication, problem solving ), UE Funct Exercise/Act, UE Neuromus Re-Ed/Coord, Visual/Perceptual Retrain ( if needed) Treatment Duration: Jan 26, 2017 Frequency: At least 5 of 7 days/Wk (IRF) Estimated Hrs Per Day: 1.5 hours per day Agreement: Yes Rehab Potential: Good Time/GCodes Start Time: 07:00 Stop Time: 08:00 Total Time Billed (hr/min): 60 Billed Treatment Time 1 visit, NM 4 (60 minutes) ROCKY PARADA Jan 10, 2017 08:02
[2017-01-10] MEDS: HYDROCHLOROTHIAZIDE 25 MG (HCTZ) TAB PO SCH (08:05)
[2017-01-10] MEDS: amLODIPine 10 MG (NORVASC) TAB PO SCH (08:05)
[2017-01-10] MEDS: ASPIRIN E.C. 325 MG (ECOTRIN) TABLET PO SCH (08:05)
[2017-01-10] MEDS: CLOPIDOGREL 75 MG (PLAVIX) TABLET PO SCH (08:05)
[2017-01-10] MEDS: lisINopril 20 MG (ZESTRIL) TAB PO SCH (08:05)
--- NOTE | 2017-01-10 08:39 | Physical Therapy Daily Note ---
PT Daily Note-Current Subjective Pt was sitting on bed prior to tx and agreeable to PT. Pt was in room for family training. Pt had no complaints of pain. Pt donned knee brace and right ankle was wrapped with francisco bandage to assist with dorsiflexion. Pt was sitting on bed with nurse call, tray, all needs in reach post tx. Pain Numeric Pain Scale: 0-No Pain Location: No Pain Reported Mental Status Patient Orientation: Normal For Age Transfers Functional [place] Measure 0=Not Assessed/NA 4=Minimal Assistance 1=Total Assistance 5=Supervision or Setup 2=Maximal Assistance 6=Modified [place] 3=Moderate Assistance 7=Complete IndependenceIRFPAI Quality Coding Scale 6 Independent with activity with or without an assistive device 5 Patient requires set up or clean up by helper. Patient completes activity by themselves 4 Supervision or touching assist (CGA). [place] provide cues , steadying assist 3 The helper provides less than half the effort to complete the activity 2 The helper provides more than half the effort to complete the activity 1 Dependent. The helper does all the effort to complete an activity 7 Patient refused to complete or attempt activity 9 The patient did not perform the activity before the current illness or injury 88 Not attempted due to Medical conditions or safety concerns Transfers (B, C, W/C) (FIM): 5 Scootin Supine to/from Sit: 6 Sit to/from Stand: 5 Gait Training Does the Patient Walk?: Yes Gait (FIM): 4 Distance (FIM): 3=150 ft Distance: 150'x2 Gait Level of Assist: 4 Gait Persons Needed: 1 Gait Assistive Device: Walker Thad Pt ambulates with thad walker and requires CGA for safety due to right knee buckling. was educated on guarding and safety issues. She was told he could use an AFO for dorsiflexion but he would need a custom fit one due to his foot wound. Stair Training Stair Training: Handrails/: 1 handrail #of Steps: 4 Stairs: Pattern: Step to Level of Assist: 4 and patient educated on foot placement and safety. Treatments Pt completed gait and stair training with PT and PT educated family on safety issues regarding pts mobility. Assessment Current Status: Good Progress Pt has made good progress with rehab with functional mobility. Pt is discharging today to home with family support. PT Short Term Goals Short Term Goals Time Frame: Jan 05, 2017 Transfers (B,C,W/C) (FIM): 4 (met) Gait (FIM): 4 (met) Distance (FIM): 3=150 ft Gait Assistive Device: Walker Platform PT Halfway Goals Health Data Administrator Goals PT Halfway Goals Time Frame: Jan 19, 2017 Transfers (B,C,W/C) (FIM): 7 Sit to Lying (QC): 6 Lying-Sitting on Side/Bed(QC): 6 Sit to Stand (QC): 6 Rollin Roll Left to Right (QC): 6 Chair/Vsa-ie-Mieog Xfer(QC): 6 Car Transfer (QC): 6 Does the Patient Walk: Yes Gait (FIM): 6 Gait distance (FIM): 3=150 ft Walk 10 feet (QC): 6 Walk 10ft-Uneven Surface(QC): 6 Walk 50ft with 2 Turns (QC): 6 Walk 150 ft (QC): 6 Gait Assistive Device: FWW Stairs (FIM): 5 # of Steps: 8 1 Step (curb) (QC): 5 4 Steps (QC): 5 12 Steps (QC): 88 Picking up an Object (QC): 4 PT Plan Problem List Problem List: Activity Tolerance, Functional Strength, Safety, Balance, Gait, ROM Treatment/Plan Treatment Plan: Discontinue PT Treatment Plan: Bed Mobility, Education, Functional Activity Domenico, Functional Strength, Group Therapy (social integration/support), Gait, Safety, Therapeutic Exercise, Transfers Treatment Duration: Jan 19, 2017 Frequency: At least 5 of 7 days/Wk (IRF) Estimated Hrs Per Day: 1.5 hours per day Patient and/or Family Agrees t: Yes Safety Risks/Education Patient Education: Gait Training, Transfer Techniques, Steps, Reviewed Precautions, Correct Positioning, Instructions to Caregiver, Safety Issues Teaching Recipient: Patient, Significant Other Teaching Methods: Demonstration, Discussion Response to Teaching: Verbalize Understanding, Reinforcement Needed Patient was present today for family training. PT discussed pts knee buckling and how to guard on correct side with ambulation. Pt was educated on correct sequencing with stairs and guarding pt with steps. Pt was also given education regarding home health PT and neurological condition. Pt was also involved in discussion about patient not driving a vehicle due to lack of safety. Discharge Recommendations Therapy D/C Recommendations: Home w/ Family Support Time/GCodes Time In: 800 Time Out: 830 Total Billed Treatment Time: 30 Total Billed Treatment 1 visit GT 30 MIREYA GARCIA PT Jan 10, 2017 08:39
--- NOTE | 2017-01-10 08:54 | Therapy Team Discharge Summary ---
Therapy Discharge Summary Discharge Recommendations Date of Discharge Therapy D/C Recommendations: Home w/ Family Support Physical Therapy Patient came to rehab following a CVA. Upon admission patient performed bed mobility with min assist and transfers with mod assist, he ambulated 150' with mod assist using a rolling walker, and went up and down 4 steps using one handrail with CGA. Patient has been performing bed mobility and transfer training, balance and endurance training, functional strengthening, stair training, gait training, and education. Patient has made good progress but has only met his usp goals for bed mobility. Now, patient performs bed mobility with mod I, transfers with CGA, ambulates 300' with a hemiwalker with CGA (including 50' with at least 2 turns of 90 degrees and 10' over an uneven surface), and can go up and down 12 steps using 1 handrail with CGA, patient does not use a wheelchair . Patient is discharging from this facility today and will be discharged from PT at this time. PT Shampoo Person Goals Custodial Goals PT Shampoo Person Goals Time Frame: Jan 19, 2017 Transfers (B,C,W/C) (FIM): 7 Roll Left to Right (QC): 6 Sit to Lying (QC): 6 Lying-Sitting on Side/Bed(QC): 6 Sit to Stand (QC): 6 Chair/Yap-qe-Yfmyx Xfer(QC): 6 Car Transfer (QC): 6 Does the Patient Walk: Yes Gait (FIM): 6 Gait distance (FIM): 3=150 ft Walk 10 feet (QC): 6 Walk 10ft-Uneven Surface(QC): 6 Walk 50ft with 2 Turns (QC): 6 Walk 150 ft (QC): 6 Gait Assistive Device: FWW Stairs (FIM): 5 # of Steps: 8 1 Step (curb) (QC): 5 4 Steps (QC): 5 12 Steps (QC): 88 Picking up an Object (QC): 4 OT Custodial Goals Shampoo Person Goals Time Frame: Jan 26, 2017 Eating (FIM): 6 (met-01/09/2017) Eating (QC): 6 (met-01/09/2017) Oral Hygiene (QC): 6 (met 01/09/17) Grooming(FIM): 6 (met 01/09/17) Bathing(FIM): 6 (not met) Shower/Bathe Self (QC): 6 (not met) Upper Body Dressing(FIM): 6 (not met) Upper Body Dressing (QC): 6 (not met) Lower Body Dressing(FIM): 6 (not met) Lower Body Dressing (QC): 6 (not met) On/Off Footwear (QC): 6 (not met) Toileting(FIM): 6 (not met) Toileting Hygiene (QC): 6 (not met) Toilet/Commode Transfer(FIM): 6 (not met) Toilet/Commode Transfer (QC): 6 (not met) Shower Transfer(FIM): 6 (not met) Comprehension(FIM): 6 (MET) Expression (FIM): 6 (MET) Social Interaction(FIM): 6 (MET) Problem Solving(FIM): 6 (MET) Memory(FIM): 6 (MET) Additional Goals: 1-Demonstrate ADL Tasks, 2-Verbalize Understanding, 3- ImproveStrength/Domenico 1=Demonstrate adherence to instructed precautions during ADL tasks. 2=Patient will verbalize/demonstrate understanding of assistive devices/ modifications for ADL. 3=Patient will improve strength/tolerance for activity to enable patient to perform ADL's. Speech Shampoo Person Goals Shampoo Person Goals 1. The patient will display consistent intelligibility and improved functional verbal communication. Time Frame: One Week Comprehension: 6 (MET) Expression: 6 (MET) Social Interaction: 6 (MET) Problem Solvin (MET) Memory: 6 (MET) MIREYA GARCIA PT Jan 10, 2017 08:54
--- NOTE | 2017-01-10 09:40 | PM & R (SOAP) Progress Note ---
Subjective Time Seen by Provider: 08:20 Subjective/Events-last exam Patient was seen in his room this AM Labs reviewed Case discussed with RN, Patient set for discharge to home with family and HHC today Objective Exam Last Set of Vital Signs Vital Signs Date Time Temp Pulse Resp B/P (MAP) Pulse Ox O2 Delivery O2 Flow Rate FiO2 01/10/17 05:50 97.0 80 18 143/52 97 Room Air Capillary Refill : I&O Intake and Output 01/11/17 00:00 Intake Total 400 ml Balance 400 ml Intake Oral 400 ml # Voids 3 General: Alert, No Acute Distress HEENT: Atraumatic, PERRLA, EOMI, Mucous Memb Moist/[place], Other (labila droop) Neck: Supple, No JVD Lungs: Normal Air Movement Heart: Regular Rate Abdomen: Normal Bowel Sounds, Soft, No Tenderness Extremities: Other (Diminished pulses.) Skin: Other (R 5th MTH --- 0.9 x 1.2 x 0.4 cm, base 75% granulation, 25% slough, margin with callus.) Neuro: Other (RT HP and mild dysarthria) Results Lab Laboratory Tests 01/07/17 11:12: Glucometer 187H 01/07/17 16:28: Glucometer 144H 01/07/17 20:10: Glucometer 92 01/08/17 05:09: Glucometer 88 01/08/17 11:06: Glucometer 137H 01/08/17 16:22: Glucometer 105 01/08/17 21:54: Glucometer 125H 01/09/17 05:43: Glucometer 91 01/09/17 11:10: Glucometer 193H 01/09/17 15:35: Glucometer 81 01/09/17 21:27: Glucometer 86 01/10/17 04:49: Glucometer 117H Assessment/Plan Assessment Left CVA with RT HP and dysarthria HTN Ulcer rt fifth metatarsal head tYPE 2 dm witH a HGBAic of 6.7 NOW BETTER CONTROLLED WITH ADJUSTMENT IN MEDS Peripheral vascular D Plan Discharge today to home with C and Family F/U with Sigifredo Lincoln MD who will be new PCP and DR Fernandez Wound care Current meds reviewed See orders. SPENSER CHAPARRO MD Jan 10, 2017 09:40
[2017-01-10] MEDS ORDERED: BLOO1EAC87 MC ×2 (09:54→10:03)
--- NOTE | 2017-01-11 10:20 | Therapy Team Discharge Summary ---
Therapy Discharge Summary Discharge Recommendations Date of Discharge Jan 10, 2017 at 10:50 Therapy D/C Recommendations: Occupational Therapy Home Care Occupational Therapy Pt was seen for skilled OT to increase his independence in basic self care to allow him to safely return home after a stroke, with residual R sided hemiparesis. On admission he needed no help with eating, was setup for grooming. He needed min assist with bathing and toileting, mod assist with upper body dressing and toilet transfers and max assist with lower body dressing. By discharge he had increased functional use of his R UE and had progressed with hie ADLs to independent with eating, modified independent with grooming, setup or supervision for dressing and toileting, and min assist for bathing, toilet and shower transfers. He used shower bench, grab bars, hand held shower. BSC over toilet and quad cane or platform walker. See tx plans for goals met. Recommend continued OT in his home. DC OT PT Finance Director Goals Finance Director Goals PT Finance Director Goals Time Frame: Jan 19, 2017 Transfers (B,C,W/C) (FIM): 7 Roll Left to Right (QC): 6 Sit to Lying (QC): 6 Lying-Sitting on Side/Bed(QC): 6 Sit to Stand (QC): 6 Chair/Wcv-jb-Tbmlm Xfer(QC): 6 Car Transfer (QC): 6 Does the Patient Walk: Yes Gait (FIM): 6 Gait distance (FIM): 3=150 ft Walk 10 feet (QC): 6 Walk 10ft-Uneven Surface(QC): 6 Walk 50ft with 2 Turns (QC): 6 Walk 150 ft (QC): 6 Gait Assistive Device: FWW Stairs (FIM): 5 # of Steps: 8 1 Step (curb) (QC): 5 4 Steps (QC): 5 12 Steps (QC): 88 Picking up an Object (QC): 4 OT Finance Director Goals Group Home Goals Time Frame: Jan 26, 2017 Eating (FIM): 6 (met-01/09/2017) Eating (QC): 6 (met-01/09/2017) Oral Hygiene (QC): 6 (met 01/09/17) Grooming(FIM): 6 (met 01/09/17) Bathing(FIM): 6 (not met) Shower/Bathe Self (QC): 6 (not met) Upper Body Dressing(FIM): 6 (not met) Upper Body Dressing (QC): 6 (not met) Lower Body Dressing(FIM): 6 (not met) Lower Body Dressing (QC): 6 (not met) On/Off Footwear (QC): 6 (not met) Toileting(FIM): 6 (not met) Toileting Hygiene (QC): 6 (not met) Toilet/Commode Transfer(FIM): 6 (not met) Toilet/Commode Transfer (QC): 6 (not met) Shower Transfer(FIM): 6 (not met) Comprehension(FIM): 6 (MET) Expression (FIM): 6 (MET) Social Interaction(FIM): 6 (MET) Problem Solving(FIM): 6 (MET) Memory(FIM): 6 (MET) Additional Goals: 1-Demonstrate ADL Tasks, 2-Verbalize Understanding, 3- ImproveStrength/Domenico 1=Demonstrate adherence to instructed precautions during ADL tasks. 2=Patient will verbalize/demonstrate understanding of assistive devices/ modifications for ADL. 3=Patient will improve strength/tolerance for activity to enable patient to perform ADL's. Speech Group Home Goals Finance Director Goals 1. The patient will display consistent intelligibility and improved functional verbal communication. Time Frame: One Week Comprehension: 6 (MET) Expression: 6 (MET) Social Interaction: 6 (MET) Problem Solvin (MET) Memory: 6 (MET) MARCIO PRECIADO OT Jan 11, 2017 10:20
--- NOTE | 2017-01-24 12:49 | DISCHARGE SUMMARY ---
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 He was found to have an acute left-sided infarct on MRI of the brain consistent with his right-sided weakness and dysarthria as well as malignant hypertension. He had a hemoglobin A1c of 6.7 indicating a possible type 2 diabetes mellitus. He was seen by Dr. Garrison in cardiology and followed by the hospitalist service. He has not seen a physician regularly and has no PCP. He is then referred to the inpatient rehabilitation unit for a comprehensive program of stroke rehabilitation with his insurance company's approval. He had been independent and working prior to this. PAST MEDICAL HISTORY: Hypertension. He has had a left total knee replacement in the past with arthritis of the right knee and was considering having a right total knee replacement in the near future which is now on hold temporarily. He lives in a one story home and has supportive family. MEDICAL COURSE: He was found to have a diabetic foot ulcer in the right fifth metatarsal head. He was seen by Dr. Fernandez and topical care was provided. Dr. Fernandez ordered ultrasound of bilateral lower extremities revealing diffuse arthrosclerotic disease, right lower extremity shows occlusion of the popliteal artery with single monophasic posterior tibial artery patent at the foot, diffuse atherosclerotic disease of the left lower extremity with hemodynamic disease noted in his trifurcation vessels with occlusion of the anterior tibial artery and monophasic flow at the ankle within the posterior tibial artery. Dr. Mustafa was consulted for a vascular cause. The patient was felt to be appropriate for interventional revascularization procedure which will be scheduled on an outpatient basis. Topical care was provided to the wound. The patient was followed by Dr. Parrish at our hospitalist service. CBC on 01/02/2017 showed WBC 9.2, H and H 14.5/42, platelet count 258,000. Chemistry showed normal electrolytes, BUN mildly elevated at 29 on 01/02, creatinine are within normal limits at 1.27, blood glucose 120, bilirubin 1.6. Glucometer readings from 01/08-01/10/2017 varied between 88 and 193. He was afebrile during his stay. His pulse was 80 on 01/10, respirations 18, blood pressure 143/52, O2 sat 97% on room air. The patient was placed on glyburide for diabetes management. [facility] REHABILITATION COURSE: The patient progressed well with his therapies. He had increased strength and endurance. Speech therapy notes that the patient's displayed mild dysarthria characterized by imprecise articulation with reduced right labial retraction. The patient completed oral motor exercises with high accuracy with minimal clinician cueing. At discharge, patient had met all goals placed by speech pathology and was modified independent for social interaction, problem solving, memory, expression and comprehension. Physical therapy notes upon admission, the patient performed bed mobility with min assist and transfers with mod assist, could ambulate 150 feet with mod assist using a wheeled walker. Upon discharge, the patient was modified independent with bed mobility, contact guard for transfers and ambulates 300 feet with a leona-walker with contact guard assist. OT notes upon admission, the patient required no assistance with eating, was set up for grooming. He needed min assist with bathing and toileting and was mod assist for upper body dressing and toilet transfers and max assist for lower body dressing. By discharge, he had increased functional use of his right upper limb and had progressed with his ADLs to independence with eating, modified independent for grooming, set up for supervision for dressing and toileting and min assist for bathing, toilet and shower transfers. He used a shower bench, grab bars, hand held shower, bedside commode over toilet and quad cane or platform walker. Home health care, OT was recommended. DISCHARGE INSTRUCTIONS: The patient will have a new patient follow up with Dr. Sigifredo Lincoln, has PCP follow up with Dr. Fernandez in the wound care clinic and Dr. Mustafa for consideration for a revascularization procedure. The patient will have home health care nursing for diabetic foot ulcer wound care management. Prescription for a custom right AFO was provided and a leona-walker and shower chair. A carb consistent diet. DISCHARGE MEDICATIONS: Amlodipine 10 mg p.o. daily, ASA 325 mg p.o. daily, Lipitor 10 mg p.o. at bedtime, Plavix 75 mg p.o. daily, glyburide 1.25 mg p.o. b.i.d., hydrochlorothiazide 25 mg p.o. daily, lisinopril 20 mg p.o. daily, multivitamins 1 tablet p.o. daily. DISCHARGE DIAGNOSES: 1. 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 2. Hypertension, controlled on medication. 3. Diabetes mellitus with ulcer fifth metatarsal, received topical care. 4. Diabetes mellitus with peripheral vascular disease, diffuse. 5. Diabetes mellitus with peripheral neuropathy. 6. Hammertoes, right foot. 7. Smoker, currently abstaining 8. Hyperbilirubinemia with total bilirubin 1.6 on 01/02/2017. He will have repeat studies and follow up with Dr. Sigifredo Lincoln, new PCP. CONDITION AT DISCHARGE: Improved and stable. PROGNOSIS: Rehab prognosis appears good for continued improvement at home and return to independent living with some assistance from family as needed. Prognosis for returning to work appears somewhat guarded at this point. Job ID: [id number] DocumentID: [id number] Dictated Date: 01/23/2017 20:11:16 Hybrid Corn Breeder Date: 01/24/2017 12:48:08 Dictated By: SPENSER CHAPARRO MD
== END 2017-01-10 10:50 | disposition home health service (06) | DRG 57 ==
PROVIDERS: ADMIT Physical Medicine & Rehabilitation; ATTEND Physical Medicine & Rehabilitation
DX: I69.351 Hemiplegia and hemiparesis following cerebral infarction affecting right dominant side (principal); I69.322 Dysarthria following cerebral infarction; I10 Essential (primary) hypertension; E11.621 Type 2 diabetes mellitus with foot ulcer; L97.519 Non-pressure chronic ulcer of other part of right foot with unspecified severity; E11.51 Type 2 diabetes mellitus with diabetic peripheral angiopathy without gangrene; E11.40 Type 2 diabetes mellitus with diabetic neuropathy, unspecified; M20.41 Other hammer toe(s) (acquired), right foot; F17.210 Nicotine dependence, cigarettes, uncomplicated
CPT/HCPCS: 36415; 80053; 82962; 85025; 85652; 93923; 93925

== ENCOUNTER → 2017-01-15 | Outpatient (CLI) | payer BC ==
[~2017-01-15] MED LIST changes: +AMLO10TA2 PO; +BLOO1EAC87 MC; +GLYB2.5T4 PO
== END ==
LOC: WOUNDCARE 09:11
PROVIDERS: ATTEND Surgery
DX: E11.621 Type 2 diabetes mellitus with foot ulcer (principal); L97.512 Non-pressure chronic ulcer of other part of right foot with fat layer exposed; E11.42 Type 2 diabetes mellitus with diabetic polyneuropathy; I69.951 Hemiplegia and hemiparesis following unspecified cerebrovascular disease affecting right dominant side; I70.235 Atherosclerosis of native arteries of right leg with ulceration of other part of foot; I15.9 Secondary hypertension, unspecified
CPT/HCPCS: 11042; 87070; 87075; 87077; 87186; 87205

== ENCOUNTER → 2017-01-24 | Outpatient (CLI) | payer BC ==
[~2017-01-24] MED LIST changes: +ACET-2267 PO; +AMPI500C9 PO; +CALC-870 PO; +CEFE1VIA4 INJ; +CEFE2VIA5 INJ; +CLOP75TA69 PO; +METF500T4 PO
--- NOTE | 2017-01-24 17:23 | Diagnostic Imaging Report ---
INDICATION: Right foot pain. FINDINGS: Three views of the right foot show no fracture, dislocation or osteolytic change. IMPRESSION: Negative right foot. Dictated by: Dictated on workstation # [id number]
== END ==
LOC: RAD 16:21
PROVIDERS: ATTEND Surgery
DX: L97.512 Non-pressure chronic ulcer of other part of right foot with fat layer exposed (principal); I69.951 Hemiplegia and hemiparesis following unspecified cerebrovascular disease affecting right dominant side; I70.235 Atherosclerosis of native arteries of right leg with ulceration of other part of foot; E11.621 Type 2 diabetes mellitus with foot ulcer; E11.42 Type 2 diabetes mellitus with diabetic polyneuropathy; B96.5 Pseudomonas (aeruginosa) (mallei) (pseudomallei) as the cause of diseases classified elsewhere
CPT/HCPCS: 73630

== ENCOUNTER → 2017-01-24 | Outpatient (CLI) | payer BC ==
[~2017-01-24] MED LIST changes: -ACET-2267 PO; -AMPI500C9 PO; -CALC-870 PO; -CEFE1VIA4 INJ; -CEFE2VIA5 INJ; -CLOP75TA69 PO; -METF500T4 PO
== END ==
LOC: WOUNDCARE 15:11
PROVIDERS: ATTEND Surgery
DX: E11.621 Type 2 diabetes mellitus with foot ulcer (principal); L97.512 Non-pressure chronic ulcer of other part of right foot with fat layer exposed; I70.235 Atherosclerosis of native arteries of right leg with ulceration of other part of foot; I69.951 Hemiplegia and hemiparesis following unspecified cerebrovascular disease affecting right dominant side; E11.42 Type 2 diabetes mellitus with diabetic polyneuropathy; B96.5 Pseudomonas (aeruginosa) (mallei) (pseudomallei) as the cause of diseases classified elsewhere
CPT/HCPCS: 11042

== ENCOUNTER 2017-01-25 12:34 | Outpatient (CLI) | payer BC ==
[~2017-01-25] VITALS: Ht 185.4 cm; Wt 85.3 kg
[2017-01-25] MEDS ORDERED: CEFEPIME 2 GM/NS 50 ML IVPB IV SCH ×2 (13:00)
[2017-01-25] MEDS: CATHETER FLUSH 10 ML SYR IV PRN ×2 (13:43→14:13)
[2017-01-25 13:53] VITALS: BP 145/72
== END 2017-01-25 14:35 | disposition home or self-care (01) ==
LOC: SDC 12:34
PROVIDERS: ATTEND Surgery
DX: E11.621 Type 2 diabetes mellitus with foot ulcer; L97.512 Non-pressure chronic ulcer of other part of right foot with fat layer exposed; I70.235 Atherosclerosis of native arteries of right leg with ulceration of other part of foot; E11.42 Type 2 diabetes mellitus with diabetic polyneuropathy; B96.5 Pseudomonas (aeruginosa) (mallei) (pseudomallei) as the cause of diseases classified elsewhere; I69.951 Hemiplegia and hemiparesis following unspecified cerebrovascular disease affecting right dominant side
CPT/HCPCS: 36569; 76937; 96365

== ENCOUNTER → 2017-01-31 | Outpatient (CLI) | payer BC ==
[~2017-01-31] MED LIST changes: +ACET-2267 PO; +AMPI500C9 PO; +CALC-870 PO; +CEFE1VIA4 INJ; +CEFE2VIA5 INJ; +CLOP75TA69 PO; +METF500T4 PO
== END ==
LOC: WOUNDCARE 14:54
PROVIDERS: ATTEND Surgery
DX: E11.621 Type 2 diabetes mellitus with foot ulcer (principal); I70.235 Atherosclerosis of native arteries of right leg with ulceration of other part of foot; L97.512 Non-pressure chronic ulcer of other part of right foot with fat layer exposed; E11.42 Type 2 diabetes mellitus with diabetic polyneuropathy; B96.5 Pseudomonas (aeruginosa) (mallei) (pseudomallei) as the cause of diseases classified elsewhere; I69.951 Hemiplegia and hemiparesis following unspecified cerebrovascular disease affecting right dominant side
CPT/HCPCS: 11042

== ENCOUNTER 2017-02-01 08:39 | Day surgery (SDC) | payer BC ==
[~2017-02-01] VITALS: Ht 185.4 cm; Wt 84.8 kg
[2017-02-01] VITALS (10 sets, daily range): BP systolic 136–159; BP diastolic 67–86
[~2017-02-01 08:39] MED LIST changes: -ACET-2267 PO; -AMPI500C9 PO; -CALC-870 PO; -CEFE1VIA4 INJ; -CEFE2VIA5 INJ; -CLOP75TA69 PO; -METF500T4 PO
[2017-02-01] MEDS ORDERED: NS IV 1000 ML 1,000 ML ONE (08:40)
[2017-02-01] MEDS ORDERED: HEParin (CATH LAB) 2,000 ML IV ONE (08:40)
[2017-02-01] MEDS ORDERED: NS IV 1000 ML 1,000 ML IV SCH (08:48)
[2017-02-01 09:10] LABS: MEAN PLATELET VOLUME 9.9 FL (7.4-10.4); RED BLOOD COUNT 4.6 10^6/uL (4.35-5.85); RED CELL DISTRIBUTION WIDTH 13.5 % (10.0-14.5); WHITE BLOOD COUNT 7.7 10^3/uL (4.3-11.0)
[2017-02-01 09:18] LABS: INR 1.1 (0.8-1.4); PROTHROMBIN TIME PATIENT 14.1 SEC (12.2-14.7)
[2017-02-01 09:29] LABS: ALBUMIN 4.4 GM/DL (3.2-4.5); BILIRUBIN,TOTAL 1.3 MG/DL (0.1-1.0); CALCIUM 10.1 MG/DL (8.5-10.1); CREATININE SERUM 1.28 MG/DL (0.60-1.30); POTASSIUM 4.6 MMOL/L (3.6-5.0)
[2017-02-01] MEDS ORDERED: ASPI325T32 PO (09:43)
[2017-02-01] MEDS ORDERED: ATOR10TA66 PO (09:43)
[2017-02-01] MEDS ORDERED: CLOP75TA69 PO (09:43)
[2017-02-01] MEDS ORDERED: AMLO10TA2 PO (09:43)
[2017-02-01] MEDS ORDERED: HYDR25TA4 PO (09:45)
[2017-02-01] MEDS ORDERED: LISI-552 PO (09:45)
[2017-02-01] MEDS ORDERED: METF500T4 PO (09:45)
[2017-02-01] MEDS ORDERED: ACET-2267 PO (09:47)
[2017-02-01] MEDS ORDERED: CALC-870 PO (09:47)
[2017-02-01] MEDS ORDERED: AMPI500C9 PO (09:51)
[2017-02-01] MEDS ORDERED: CEFE1VIA4 INJ (09:51)
[2017-02-01] MEDS ORDERED: CEFE2VIA5 INJ (09:56)
[2017-02-01] MEDS ORDERED: INFLUENZA TRIvalent 2017-2018 0.5 ML/45 MCG SYR IM ONE (10:00)
--- NOTE | 2017-02-01 13:17 | Cardiac Procedure Note-CS/ASA ---
Pre-Procedure Note Pre-Op Procedure Note H&P Reviewed The H&P was reviewed, patient examined and no changes noted. Date H&P Reviewed: Feb 01, 2017 Time H&P Reviewed: 13:16 Conscious Sedation Pre-Proced Time Reviewed: 13:17 ASA Class: 3 Airway Mallampati Classification: (menominee appropriate class) I. II. III, IV Lungs Heart ASA score ASA 1: a normal healthy patient ASA 2: a patient with a mild systemic disease (mid diabetes, controlled hypertension, obesity ASA 3: a patient with a severe systemic disease that limits activity (angina , COPD, prior Myocardial infarction) ASA 4: a patient with an incapacitating disease that is a constant threat to life (CHF, renal failure) ASA 5: a moribund patient not expected to survive 24 hrs. (ruptured aneurysm) ASA 6: a declared brain patient whose organs are being harvested. For emergent operations, add the letter E after the classification Grade 1 Sedation Plan: Analgesia, Amnesia, Plan communicated to team members, Discussed options with patient/fam, Discussed risks with patient/fam Note The patient is an appropriate candidate to undergo the planned procedure, sedation, and anesthesia. The patient immediately re-assessed prior to indication. Carlos COLLIER MD Feb 01, 2017 1:17 pm
[2017-02-01] MEDS ORDERED: MIDAZOLAM 5 MG/5 ML (VERSED) VIAL ONE (13:31)
[2017-02-01] MEDS ORDERED: diphenhydrAMINE 50 MG/ML INJ (BENADRYL) ONE (13:32)
[2017-02-01] MEDS ORDERED: fentaNYL INJECTION 100 MCG/2 ML AMP ONE (13:32)
[2017-02-01] MEDS ORDERED: HEParin 1000 UNIT/ML (10ML VIAL) FOR BOLUS ONE (13:32)
[2017-02-01] MEDS ORDERED: NITROGLYCERIN DRIP 25 MG/D5W 0 ML IV ONE (13:32)
[2017-02-01] MEDS: NS IV 1000 ML 1,000 ML IV SCH (16:07)
--- NOTE | 2017-02-01 16:07 | Cardiology Post Procedure Note ---
Post-Procedure Note Physician (s)/Damage Prevention Coordinator (s) Physician Carlos COLLIER MD Pre-Procedure Diagnosis Pre-Procedure Diagnosis: right critical limb ischemia, nonhealing ulcer Post-Procedure Note Procedure Start Date: Feb 01, 2017 Procedure Start Time: 13:30 Name of Procedure: bilateral aortogram and lower extremity runoff, selective angiography of right lower extremity, balloon angioplasty of right posterior tibial, tibioperoneal trunk, popliteal artery, distal SFA. Findings/Procedure Note severe disease in the right distal SFA, proximal popliteal artery, occluded midsegment of the popliteal artery with reconstitution in the distal segment. One-vessel runoff which is the posterior tibial artery. Severe disease of the tibial peroneal trunk as well as the proximal segment of the posterior tibial artery. Successful balloon angioplasty of the right distal SFA, popliteal artery, tibioperoneal trunk, proximal segment of the posterior tibial artery. Anesthesia Type: Conscious Sedation Estimated blood loss (mL): 20 Contrast Amount: 150 Post-Procedure Diagnosis Post-operative diagnosis: critical limb ischemia with right lower extremity non-healing ulcer, Successful balloon angioplasty to the right SFA, popliteal artery, tibioperoneal trunk and posterior tibial artery. Carlos COLLIER MD Feb 01, 2017 4:07 pm
[2017-02-01] MEDS ORDERED: PATIENT MAY USE OWN MEDS, ALL PO SCH (16:15)
[2017-02-01] MEDS ORDERED: PATIENT MAY USE OWN MEDS, ALL MC SCH (19:00)
[2017-02-01] MEDS ORDERED: ACETAMINOPHEN 500 MG TAB (TYLENOL) PO PRN (20:00)
[2017-02-01] MEDS ORDERED: CALCIUM CARBONATE PO PRN (20:00)
[2017-02-01] MEDS ORDERED: CALCIUM CARBONATE 500 MG (TUMS) TAB.CHEW PO PRN (20:30)
[2017-02-01] MEDS ORDERED: amLODIPine 10 MG (NORVASC) TAB PO SCH (21:00)
[2017-02-01] MEDS ORDERED: AMPICILLIN TRIHYDRATE 500 MG PO SCH (21:00)
[2017-02-01] MEDS ORDERED: ATORVASTATIN 10 MG (LIPITOR) TABLET PO SCH (21:00)
[2017-02-01] MEDS: CEFEPIME HCL 2 GM (MAXIPIME) VIAL IV SCH (21:30)
[2017-02-01] MEDS: AMPICILLIN 500 MG CAPSULE PO SCH (21:31)
[2017-02-02] VITALS (9 sets, daily range): BP systolic 113–147; BP diastolic 71–83
[2017-02-02] MEDS: NS IV 1000 ML 1,000 ML IV SCH ×2 (01:24→13:02)
[2017-02-02 05:00] LABS: RED BLOOD COUNT 4.14 10^6/uL (4.35-5.85); RED CELL DISTRIBUTION WIDTH 13.4 % (10.0-14.5); WHITE BLOOD COUNT 8.4 10^3/uL (4.3-11.0)
[2017-02-02 05:21] LABS: CALCIUM 9.6 MG/DL (8.5-10.1); CREATININE SERUM 1.4 MG/DL (0.60-1.30); POTASSIUM 4.5 MMOL/L (3.6-5.0)
--- NOTE | 2017-02-02 06:44 | OPERATIVE REPORT ---
DATE OF SERVICE: 02/01/2017 REFERRING PHYSICIANS: 1. Sigifredo Lincoln MD 2. Alex Fernandez MD INDICATION: Right lower extremity critical limb ischemia; nonhealing ulcer. PREOPERATIVE DIAGNOSIS: Critical limb ischemia of the right lower extremity; nonhealing ulcer. POSTOPERATIVE DIAGNOSES: 1. Critical limb ischemia of the right lower extremity; nonhealing ulcer. 2. Successful balloon angioplasty of the right distal superficial femoral artery, popliteal artery, tibial peroneal trunk, proximal segment of the posterior tibial artery. HISTORY: The patient is 56-year-old gentleman who I initially saw as a consult for an acute stroke. He also has history of diabetes and a nonhealing ulcer on the right lower extremity. An ultrasound was performed which showed evidence of right popliteal occlusion with severe disease below the knee bilaterally. He was consented for urgent peripheral angiography and possible intervention. PROCEDURE PERFORMED: 1. Abdominal aortogram with bilateral lower extremity runoff. 2. Selective angiogram of the right superficial femoral artery. 3. Selective angiogram of the distal superficial femoral artery, popliteal artery and right lower extremity runoff. 4. Balloon angioplasty of distal right superficial femoral artery. 5. Balloon angioplasty of the right popliteal artery. 6. Balloon angioplasty of the right tibioperoneal trunk. 7. Balloon angioplasty of the proximal segment of the right posterior tibial artery. 8. Mynx closure of the left femoral artery. 9. Selective angiography of the left lower extremity with runoff. COMPLICATIONS: None. SPECIMENS REMOVED: None. ESTIMATED BLOOD LOSS: 30 mL. EQUIPMENT: 1. 6-Bulgarian x 11 ACT sheath. 2. Pigtail catheter. 3. 0.035 Storq 300 cm wire. 4. Straight 65 cm catheter. 5. 6-Bulgarian x 70 cm flexor sheath. 6. Cassi Support cath 0.018 x 150 cm. 7. Cordova [place] 18 3 x40, x150 balloon. 8. Cordova [place] 18 4x100, x150 cm balloon. 9. 6-Bulgarian MynxGrip closure device. ANTICOAGULATION: IV heparin. CONTRAST: 150 mL of isovue. FLUOROSCOPY TIME: 13.4 MINUTES. FLUOROSCOPY DOSE: 283 mGy. PROCEDURE DETAILS: The patient was brought to the home performance laborer after informed consent was taken. All the risks and complications were explained in detail. The patient was draped and prepped in the usual sterile fashion. We gained access in the left femoral artery with a 6-Bulgarian sheath. We then took a pigtail catheter which was advanced over a regular J-wire into the distal abdominal aorta. The wire was taken out. Abdominal aortogram with bilateral lower extremity runoff was performed. Distal abdominal aortogram did not show any significant disease. LEFT LOWER EXTREMITY: There is no significant arterial disease in the left common iliac artery, external iliac artery, common femoral artery. There is mild disease in the proximal segment of the superficial femoral artery. 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 However, below the popliteal artery, there is severe subtotal occlusion of the proximal segment of the posterior tibial artery as well as the deep peroneal artery. Reconstitution is noted in the mid segments and there is mild, diffuse disease in the rest of the segments of both the left posterior tibial artery as well as the deep peroneal artery. the anterior tibial artery is severely diffusely diseased with multiple occlusive segments and does not significantly contribute to blood supply below the knee in the left lower extremity. RIGHT LOWER EXTREMITY: No significant disease in the right common iliac artery, external iliac artery, common femoral artery. There is no significant disease noted in the proximal and mid segment of the superficial femoral artery. There is moderate to severe disease in the distal segment of the superficial femoral artery. Disease severity is 70%. Significant at least moderate to severe disease is noted in the proximal segment of the popliteal artery, however, and the popliteal artery is totally occluded in the mid segment. Reconstitution is noted in the distal aspect of the popliteal artery. The anterior tibial artery is severely diseased and then totally occluded in the proximal segment. The tibioperoneal trunk has severe diffuse disease. The proximal segment of the posterior tibial artery also has high grade stenosis, however, the rest of the posterior tibial artery does not have significant disease and supplies the foot. There is possibly distal posterior tibial disease right at the level of the ankle joint. There is severe disease in the deep peroneal artery with multiple occlusive segments and reconstitution. The deep peroneal artery does not contribute significantly to the blood supply below the knee in the right lower extremity. RECOMMENDATIONS: 1. Balloon angioplasty and intervention is recommended to the right distal superficial femoral artery. 2. Balloon angioplasty and intervention is recommended to the right popliteal artery. 3. Balloon angioplasty and intervention is recommended to the right tibioperoneal trunk. 4. Balloon angioplasty and intervention is recommended to the proximal segment of the right posterior tibial artery. VASCULAR INTERVENTION DETAILS: A crossover was performed with a Storq wire as well as the pigtail catheter. The Storq wire was advanced until the level of the right common femoral artery. We were not able to advance the pigtail catheter due to hostile iliac bifurcation. We therefore took the pigtail catheter out and went in with a 65 cm [employer] straight catheter. This catheter tip was placed in the distal right common femoral artery. Selective angiography was performed of the distal common femoral artery as well as the right proximal segment of the superficial femoral artery. This did not show any significant disease in the RECORD CLERK SALESPERSON as well as the proximal segment of the SFA. We then placed the Storq wire with the J-wire back in the distal RECORD CLERK SALESPERSON and took the straight catheter out. We then exchanged the sheath with the long 6-Bulgarian x 70 cm flexor sheath. The sheath tip was placed in the mid segment of the superficial femoral artery. Selective angiogram of the distal SFA, popliteal artery and right lower extremity runoff was performed which confirmed our initial findings of moderate to severe disease in the distal SFA, total occlusion in the popliteal artery, severe high grade stenosis in the right tibioperoneal trunk as well as the proximal segment of the right posterior tibial artery. We then took a V18 0.018 guidewire and used a Cassi Support catheter by [employer]. We were able to cross the total occlusion in the popliteal artery with difficulty with both the Cassi catheter as well as the guidewire. The guidewire was advanced into the posterior tibial artery and the Cassi catheter was tracked until the posterior tibial artery. We then took the guidewire out and injected through the Cassi Catheter which confirmed intraluminal placement of the Cassi catheter. We then put the guidewire back into the mid posterior tibial artery and the Cassi catheter was then taken out of the body. At this point in time, ACT was performed which was 192 seconds. We then took an [place] 18 3x10 x150 balloon. The tibioperoneal trunk as well as the entire length of the popliteal artery balloon angioplasty was performed. Each inflation was performed at 8 atmosphere for 94 seconds, 76 seconds, 67 seconds respectively. The last inflation was performed at 10 atmosphere. This balloon was taken out and post balloon angioplasty angiogram showed recanalization of the popliteal artery however, there was still diffuse residual disease as well as a small nonflow limiting dissection in the distal aspect of the popliteal artery. We then took a larger balloon [place] 18 4x100 x150 and performed balloon angioplasty of the entire length of the popliteal artery. This was done at 8 atmospheres for 3 minutes. Post angioplasty angiogram showed significantly improved flow as well as no significant residual stenosis. We then took the same balloon and performed a balloon angioplasty of the tibioperoneal trunk as well as the proximal segment of the right posterior tibial artery at low pressure 4 atmospheres for 3 minutes. The results were also excellent with significantly improved blood flow to the right posterior tibial artery. We then took the balloon back and placed it in the distal SFA and the proximal popliteal artery and did high pressure dilatation twice at 14 atmospheres for 3 minutes each with good results and only mild residual stenosis in the distal SFA as well as the proximal popliteal artery. We achieved satisfactory results, therefore the balloon was taken out and the repeat angiogram was performed through the sheath which showed good flow into the right posterior tibial artery as well as no significant residual stenosis in the popliteal artery. Mild residual stenosis was noted in the distal SFA as well as the popliteal artery and the wire was taken out and then we did another selective angiogram from the distal SFA with the runoff until the foot which showed significantly improved blood flow to the right lower extremity. The sheath was then pulled back until the level of the bifurcation of the iliac artery and a nonselective angiogram was performed which showed no significant complication. The long sheath was taken out of the body and replaced with a short 6-Bulgarian sheath. Through the 6-Bulgarian sheath we performed another selective angiogram of the left lower extremity which confirmed mild disease in the proximal segment of the superficial femoral artery and severe diffuse disease of below the knee in the left lower extremity. We also performed a 6-Bulgarian MynxGrip closure device. After the ACT of 192 seconds, we gave further 2000 units of heparin. The patient was transferred to the recovery area with no complications. He tolerated the procedure well. IMPRESSION AND CONCLUSIONS: 1. Moderate to severe disease of the right distal superficial femoral artery. 2. 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 3. Severe stenosis of the right tibioperoneal trunk. 4. Severe disease of the proximal segment of the posterior tibial artery. 5. Successful angioplasty of the right distal superficial femoral artery, popliteal artery, right tibioperoneal trunk, right posterior tibial artery. PLAN: 1. The patient will be given IV fluids. 2. The patient will continue dual antiplatelet therapy with aspirin and Plavix. 3. CBC and BUN, creatinine will be performed in the morning. 4. The patient hopefully will be discharged in the morning to follow up in the office in 1-2 weeks. Job ID: [id number] DocumentID: [id number] Dictated Date: 02/01/2017 22:30:37 Cardiology Physician Assistant Date: 02/02/2017 06:43:38 Dictated By: JOLENE COLLIER MD MTDD
[2017-02-02] MEDS: CEFEPIME HCL 2 GM (MAXIPIME) VIAL IV SCH (08:33)
[2017-02-02] MEDS: AMPICILLIN 500 MG CAPSULE PO SCH ×3 (08:36→17:00)
[2017-02-02] MEDS: metFORMIN 500 MG (GLUCOPHAGE) TAB PO SCH ×2 (08:37→17:00)
[2017-02-02] MEDS ORDERED: ATOR10TA66 PO (08:44)
--- NOTE | 2017-02-02 08:46 | Discharge Inst-Post CATH ---
Discharge Inst-CATH Post Cardiac Cath D/C Inst Follow Up/Plan Follow up with Dr Mustafa in one to two weeks. CARDIAC CATH DISCHARGE INSTRUCTIONS *Hold Metformin for 48 hours post heart cath. ACTIVITY * Go Home directly and rest. * Limit activity of the leg (or wrist if it was used) for 7 days including aerobics, swimming, jogging, bicycling, etc. * Restrict stair-climbing for 7 days if possible, if not, climb up with your non -cath leg, then bring together on the same step. * Avoid lifting, pushing, pulling or excessive movement of the affected extremity for 7 days. * Customary sexual activity may be resumed after 2 days-use caution not to use a position that strains or causes pain to the affected extremity. * No driving for 24 hours. * NO SMOKING. * Avoid straining for bowel movements for 7 days. * Gentle walking on level ground is allowed. * Returning to work will depend on the type of procedure and the results. Your doctor will discuss this with you. CALL YOUR DOCTOR FOR ANY OF THE FOLLOWING: *If bleeding from the puncture site occurs- Apply gentle pressure to site with clean cloth and call your doctor or EMS. * If a knot or lump forms under the skin, increases in size, or causes pain. * If bruising appears to be worsening or moving further down your leg instead of disappearing. * Temperature above 101 F. CARE OF YOUR GROIN INCISION; * Bruising or purple discoloration of the skin near the puncture site is common. * You may shower only, no bathtub bathing for 5 days. Be careful to avoid slipping as your leg may feel stiff. * If a closure device was used on your femoral artery, please see the attached guide regarding care of the device and your leg. * REMOVE the dressing from your groin the next day after your procedure in the shower. CARE OF YOUR WRIST INCISION; * Bruising or purple discoloration of the skin near the puncture site is common. * You may shower. * DO NOT submerge wrist. * Remove dressing in 24 hours. Carlos MUSTAFA MD Feb 02, 2017 8:46 am
--- NOTE | 2017-02-02 08:50 | Cardiology Discharge Summary ---
Diagnosis/Chief Complaint Date of Admission february 01, 2017 Date of Discharge february 02, 2017 Admission Diagnosis Critical limb ischemia - right lower extremity Final/Discharge Diagnosis CLI , SLOT AMBASSADOR of the R distal SFA, Popliteal, TP trunk and PT Chief Complaint/HPI Chief Complaint/HPI right foot non healing ulcer, history of CVA one month ago. Discharge Summary Procedures Peripheral angiogram and intervention. Discharge Physical Examination stable Hospital Course stable Pending Labs Laboratory Tests 02/02/17 04:50: White Blood Count 8.4, Red Blood Count 4.14, Hemoglobin 11.7, Hematocrit 34, Mean Corpuscular Volume 81, Mean Corpuscular Hemoglobin 28, Mean Corpuscular Hemoglobin Concent 35, Red Cell Distribution Width 13.4, Platelet Count 189, Mean Platelet Volume 10.0, Sodium Level 139, Potassium Level 4.5, Chloride Level 106, Carbon Dioxide Level 22, Anion Gap 11, Blood Urea Nitrogen 29, Creatinine 1.40, Estimat Glomerular Filtration Rate 52, BUN/Creatinine Ratio 21 , Glucose Level 149, Calcium Level 9.6 Discussion & Recommendations Discussion post cath discharge instructions given. follow up in one to two weeks Follow up appt.: in one to two weeks Dicharge Diet: Cardiac Diet Activity as Tolerated: Yes Home Medications Reviewed patient Home Medication Reconciliation Form Discharge Home Medications: Reviewed and agree with Discharge Medication list on patient's Discharge Instruction sheet Condition at discharge stable Instructions to patient/family Follow up with Dr Mustafa in one to two weeks. Diagnosis/Problems Diagnosis/Problems (1) Critical lower limb ischemia Status: Resolved Carlos MUSTAFA MD Feb 02, 2017 8:50 am
[2017-02-02] MEDS ORDERED: ASPIRIN E.C. 325 MG (ECOTRIN) TABLET PO SCH (09:00)
[2017-02-02] MEDS ORDERED: HYDROCHLOROTHIAZIDE 25 MG (HCTZ) TAB PO SCH (09:00)
[2017-02-02] MEDS ORDERED: CLOPIDOGREL 75 MG (PLAVIX) TABLET PO SCH ×2 (09:00)
[2017-02-02] MEDS ORDERED: ASPIRIN E.C. 81 MG (ECOTRIN) TAB PO SCH (09:00)
[2017-02-02] MEDS ORDERED: lisINopril 20 MG (ZESTRIL) TAB PO SCH (09:00)
--- NOTE | 2017-02-17 23:46 | CARDIAC CATHETERIZATION ---
DATE OF SERVICE: 02/01/2017 PERIPHERAL ANGIOGRAPHY AND INTERVENTION REFERRING PHYSICIANS: 1. Sigifredo Lincoln MD 2. Alex Fernandez MD INDICATION: Right lower extremity critical limb ischemia; nonhealing ulcer. PREOPERATIVE DIAGNOSIS: Critical limb ischemia of the right lower extremity; nonhealing ulcer. POSTOPERATIVE DIAGNOSES: 1. Critical limb ischemia of the right lower extremity; nonhealing ulcer. 2. Successful balloon angioplasty of the right distal superficial femoral artery, popliteal artery, tibial peroneal trunk, proximal segment of the posterior tibial artery. HISTORY: The patient is 56-year-old gentleman who I initially saw as a consult for an acute stroke. He also has history of diabetes and a nonhealing ulcer on the right lower extremity. An ultrasound was performed which showed evidence of right popliteal occlusion with severe disease below the knee bilaterally. He was consented for urgent peripheral angiography and possible intervention. PROCEDURE PERFORMED: 1. Abdominal aortogram with bilateral lower extremity runoff. 2. Selective angiogram of the right superficial femoral artery. 3. Selective angiogram of the distal superficial femoral artery, popliteal artery and right lower extremity runoff. 4. Balloon angioplasty of distal right superficial femoral artery. 5. Balloon angioplasty of the right popliteal artery. 6. Balloon angioplasty of the right tibioperoneal trunk. 7. Balloon angioplasty of the proximal segment of the right posterior tibial artery. 8. Mynx closure of the left femoral artery. 9. Selective angiography of the left lower extremity with runoff. COMPLICATIONS: None. SPECIMENS REMOVED: None. ESTIMATED BLOOD LOSS: 30 mL. EQUIPMENT: 1. 6-Somali x 11 ACT sheath. 2. Pigtail catheter. 3. 0.035 Storq 300 cm wire. 4. Straight 65 cm catheter. 5. 6-Somali x 70 cm flexor sheath. 6. Cassi Support cath 0.018 x 150 cm. 7. [place] 18 3 x40, x150 balloon. 8. [place] 18 4x100, x150 cm balloon. 9. 6-Somali MynxGrip closure device. ANTICOAGULATION: IV heparin. CONTRAST: 150 mL of isovue. FLUOROSCOPY TIME: 13.4 MINUTES. FLUOROSCOPY DOSE: 283 mGy. PROCEDURE DETAILS: The patient was brought to the medical lab technologist after informed consent was taken. All the risks and complications were explained in detail. The patient was draped and prepped in the usual sterile fashion. We gained access in the left femoral artery with a 6-Somali sheath. We then took a pigtail catheter which was advanced over a regular J-wire into the distal abdominal aorta. The wire was taken out. Abdominal aortogram with bilateral lower extremity runoff was performed. Distal abdominal aortogram did not show any significant disease. A crossover was performed with a Storq wire as well as the pigtail catheter. The Storq wire was advanced until the level of the right common femoral artery. We were not able to advance the pigtail catheter due to hostile iliac bifurcation. We therefore took the pigtail catheter out and went in with a 65 cm [employer] straight catheter. This catheter tip was placed in the distal right common femoral artery. Selective angiography was performed of the distal common femoral artery as well as the right proximal segment of the superficial femoral artery. This did not show any significant disease in the BOTTOM FINISHER as well as the proximal segment of the SFA. We then placed the Storq wire with the J-wire back in the distal BOTTOM FINISHER and took the straight catheter out. We then exchanged the sheath with the long 6-Somali x 70 cm flexor sheath. The sheath tip was placed in the mid segment of the superficial femoral artery. Selective angiogram of the distal SFA, popliteal artery and right lower extremity runoff was performed which confirmed our initial findings of moderate to severe disease in the distal SFA, total occlusion in the popliteal artery, severe high grade stenosis in the right tibioperoneal trunk as well as the proximal segment of the right posterior tibial artery. LEFT LOWER EXTREMITY: There is no significant arterial disease in the left common iliac artery, external iliac artery, common femoral artery. There is mild disease in the proximal segment of the superficial femoral artery. 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 However, below the popliteal artery, there is severe subtotal occlusion of the proximal segment of the posterior tibial artery as well as the deep peroneal artery. Reconstitution is noted in the mid segments and there is mild, diffuse disease in the rest of the segments of both the left posterior tibial artery as well as the deep peroneal artery. the anterior tibial artery is severely diffusely diseased with multiple occlusive segments and does not significantly contribute to blood supply below the knee in the left lower extremity. RIGHT LOWER EXTREMITY: No significant disease in the right common iliac artery, external iliac artery, common femoral artery. There is no significant disease noted in the proximal and mid segment of the superficial femoral artery. There is moderate to severe disease in the distal segment of the superficial femoral artery. Disease severity is 70%. Significant at least moderate to severe disease is noted in the proximal segment of the popliteal artery, however, and the popliteal artery is totally occluded in the mid segment. Reconstitution is noted in the distal aspect of the popliteal artery. The anterior tibial artery is severely diseased and then totally occluded in the proximal segment. The tibioperoneal trunk has severe diffuse disease. The proximal segment of the posterior tibial artery also has high grade stenosis, however, the rest of the posterior tibial artery does not have significant disease and supplies the foot. There is possibly distal posterior tibial disease right at the level of the ankle joint. There is severe disease in the deep peroneal artery with multiple occlusive segments and reconstitution. The deep peroneal artery does not contribute significantly to the blood supply below the knee in the right lower extremity. RECOMMENDATIONS: 1. Balloon angioplasty and intervention is recommended to the right distal superficial femoral artery. 2. Balloon angioplasty and intervention is recommended to the right popliteal artery. 3. Balloon angioplasty and intervention is recommended to the right tibioperoneal trunk. 4. Balloon angioplasty and intervention is recommended to the proximal segment of the right posterior tibial artery. VASCULAR INTERVENTION DETAILS: A crossover was performed with a Storq wire as well as the pigtail catheter. The Storq wire was advanced until the level of the right common femoral artery. We were not able to advance the pigtail catheter due to hostile iliac bifurcation. We therefore took the pigtail catheter out and went in with a 65 cm [employer] straight catheter. This catheter tip was placed in the distal right common femoral artery. Selective angiography was performed of the distal common femoral artery as well as the right proximal segment of the superficial femoral artery. This did not show any significant disease in the BOTTOM FINISHER as well as the proximal segment of the SFA. We then placed the Storq wire with the J-wire back in the distal BOTTOM FINISHER and took the straight catheter out. We then exchanged the sheath with the long 6-Somali x 70 cm flexor sheath. The sheath tip was placed in the mid segment of the superficial femoral artery. Selective angiogram of the distal SFA, popliteal artery and right lower extremity runoff was performed which confirmed our initial findings of moderate to severe disease in the distal SFA, total occlusion in the popliteal artery, severe high grade stenosis in the right tibioperoneal trunk as well as the proximal segment of the right posterior tibial artery. We then took a V18 0.018 guidewire and used a Cassi Support catheter by [employer] We were able to cross the total occlusion in the popliteal artery with difficulty with both the Cassi catheter as well as the guidewire. The guidewire was advanced into the posterior tibial artery and the Cassi catheter was tracked until the posterior tibial artery. We then took the guidewire out and injected through the Cassi Catheter which confirmed intraluminal placement of the Cassi catheter. We then put the guidewire back into the mid posterior tibial artery and the Cassi catheter was then taken out of the body. At this point in time, ACT was performed which was 192 seconds. We then took an Port Tobacco 18 3x10 x150 balloon. The tibioperoneal trunk as well as the entire length of the popliteal artery balloon angioplasty was performed. Each inflation was performed at 8 atmosphere for 94 seconds, 76 seconds, 67 seconds respectively. The last inflation was performed at 10 atmosphere. This balloon was taken out and post balloon angioplasty angiogram showed recanalization of the popliteal artery however, there was still diffuse residual disease as well as a small nonflow limiting dissection in the distal aspect of the popliteal artery. We then took a larger balloon Port [place] 18 4x100 x150 and performed balloon angioplasty of the entire length of the popliteal artery. This was done at 8 atmospheres for 3 minutes. Post angioplasty angiogram showed significantly improved flow as well as no significant residual stenosis. We then took the same balloon and performed a balloon angioplasty of the tibioperoneal trunk as well as the proximal segment of the right posterior tibial artery at low pressure 4 atmospheres for 3 minutes. The results were also excellent with significantly improved blood flow to the right posterior tibial artery. We then took the balloon back and placed it in the distal SFA and the proximal popliteal artery and did high pressure dilatation twice at 14 atmospheres for 3 minutes each with good results and only mild residual stenosis in the distal SFA as well as the proximal popliteal artery. We achieved satisfactory results, therefore the balloon was taken out and the repeat angiogram was performed through the sheath which showed good flow into the right posterior tibial artery as well as no significant residual stenosis in the popliteal artery. Mild residual stenosis was noted in the distal SFA as well as the popliteal artery and the wire was taken out and then we did another selective angiogram from the distal SFA with the runoff until the foot which showed significantly improved blood flow to the right lower extremity. The sheath was then pulled back until the level of the bifurcation of the iliac artery and a nonselective angiogram was performed which showed no significant complication. The long sheath was taken out of the body and replaced with a short 6-Somali sheath. Through the 6-Somali sheath we performed another selective angiogram of the left lower extremity which confirmed mild disease in the proximal segment of the superficial femoral artery and severe diffuse disease of below the knee in the left lower extremity. We also performed a 6-Somali MynxGrip closure device. After the ACT of 192 seconds, we gave further 2000 units of heparin. The patient was transferred to the recovery area with no complications. He tolerated the procedure well. IMPRESSION AND CONCLUSIONS: 1. Moderate to severe disease of the right distal superficial femoral artery. 2. 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 3. Severe stenosis of the right tibioperoneal trunk. 4. Severe disease of the proximal segment of the posterior tibial artery. 5. Successful angioplasty of the right distal superficial femoral artery, popliteal artery, right tibioperoneal trunk, right posterior tibial artery. PLAN: 1. The patient will be given IV fluids. 2. The patient will continue dual antiplatelet therapy with aspirin and Plavix. 3. CBC and BUN, creatinine will be performed in the morning. 4. The patient hopefully will be discharged in the morning to follow up in the office in 1-2 weeks. Job ID: [id number] DocumentID: [id number] Dictated Date: 02/01/2017 22:30:37 Clinical Trials Assistant Date: 02/02/2017 06:43:38 Dictated By: JOLENE COLLIER MD <Dictated by JOLENE COLLIER MD> <Electronically signed by JOLENE COLLIER MD> 02/02/17 [id number]
== END 2017-02-02 18:24 | disposition home or self-care (01) ==
LOC: CATH 08:39 → ICU 16:20 → CATH 02-02 18:24
PROVIDERS: ATTEND Internal Medicine Interventional Cardiology
DX: L97.519 Non-pressure chronic ulcer of other part of right foot with unspecified severity (principal); E11.621 Type 2 diabetes mellitus with foot ulcer; I70.203 Unspecified atherosclerosis of native arteries of extremities, bilateral legs; I10 Essential (primary) hypertension; I69.398 Other sequelae of cerebral infarction; R53.1 Weakness; Z79.84 Long term (current) use of oral hypoglycemic drugs; Z79.899 Other long term (current) drug therapy
CPT/HCPCS: 36247; 36415; 37224; 37228; 37232; 75630; 75774; 80048; 80053; 80061; 85027; 85610; 85730; 87081; 93005

== ENCOUNTER → 2017-02-14 | Outpatient (CLI) | payer BC ==
[~2017-02-14] MED LIST changes: +ACET-2267 PO; +AMPI500C9 PO; +CALC-870 PO; +CEFE1VIA4 INJ; +CEFE2VIA5 INJ; +CLOP75TA69 PO; +METF500T4 PO
== END ==
LOC: WOUNDCARE 15:12
PROVIDERS: ATTEND Surgery
DX: E11.621 Type 2 diabetes mellitus with foot ulcer (principal); L97.512 Non-pressure chronic ulcer of other part of right foot with fat layer exposed; I70.235 Atherosclerosis of native arteries of right leg with ulceration of other part of foot; E11.42 Type 2 diabetes mellitus with diabetic polyneuropathy; I69.951 Hemiplegia and hemiparesis following unspecified cerebrovascular disease affecting right dominant side; B96.5 Pseudomonas (aeruginosa) (mallei) (pseudomallei) as the cause of diseases classified elsewhere
CPT/HCPCS: 99213

== ENCOUNTER → 2017-02-21 | Outpatient (CLI) | payer BC | LOC: WOUNDCARE 15:19 | PROVIDERS: ATTEND Surgery | DX: E11.621 Type 2 diabetes mellitus with foot ulcer (principal); E11.42 Type 2 diabetes mellitus with diabetic polyneuropathy; L97.512 Non-pressure chronic ulcer of other part of right foot with fat layer exposed; I69.951 Hemiplegia and hemiparesis following unspecified cerebrovascular disease affecting right dominant side; I70.235 Atherosclerosis of native arteries of right leg with ulceration of other part of foot; B96.5 Pseudomonas (aeruginosa) (mallei) (pseudomallei) as the cause of diseases classified elsewhere | CPT/HCPCS: 99212 ==

== ENCOUNTER → 2017-02-21 | Day surgery (SDC) | payer BC | END | disposition home or self-care (01) | LOC: SDC 16:43 | PROVIDERS: ATTEND Surgery | DX: Z45.2 Encounter for adjustment and management of vascular access device (principal) ==

== ENCOUNTER → 2017-04-09 | Outpatient (CLI) | payer BC ==
--- NOTE | 2017-04-09 18:07 | Diagnostic Imaging Report ---
INDICATION: Chronic kidney disease. COMPARISON: None. FINDINGS: Both kidneys are normal in size and echogenicity. Both kidneys measure approximately 10.6 cm in length. The cortical thickness and the cortical medullary differentiation is well maintained. There is no evidence of calculi, focal mass or hydronephrosis. Limited views of the pelvis demonstrate minimally distended urinary bladder. Evaluation for intraluminal filling defects or calculi is suboptimal. There is no ascites. IMPRESSION: Urinary bladder is suboptimally evaluated, but otherwise bilateral renal sonogram is unremarkable. Dictated by: Dictated on workstation # [id number]
== END ==
LOC: RAD 17:03
PROVIDERS: ATTEND Internal Medicine Nephrology
DX: E11.22 Type 2 diabetes mellitus with diabetic chronic kidney disease (principal); I12.9 Hypertensive chronic kidney disease with stage 1 through stage 4 chronic kidney disease, or unspecified chronic kidney disease; N18.2 Chronic kidney disease, stage 2 (mild); E11.65 Type 2 diabetes mellitus with hyperglycemia; D64.9 Anemia, unspecified
CPT/HCPCS: 76770

== ENCOUNTER 2017-05-17 13:50 | Outpatient (RCR) | payer BC | END 2017-05-21 | disposition home or self-care (01) | PROVIDERS: ATTEND Family Medicine | DX: I69.951 Hemiplegia and hemiparesis following unspecified cerebrovascular disease affecting right dominant side (principal); E11.9 Type 2 diabetes mellitus without complications; I10 Essential (primary) hypertension; M17.11 Unilateral primary osteoarthritis, right knee; Z96.652 Presence of left artificial knee joint ==

== ENCOUNTER 2017-09-13 10:55 | Day surgery (SDC) | payer BC ==
[~2017-09-13] VITALS: Ht 185.4 cm; Wt 84.8 kg
[2017-09-13] VITALS (10 sets, daily range): BP systolic 120–142; BP diastolic 69–91
[~2017-09-13 10:55] MED LIST changes: -METF500T4 PO; +METF500T5 PO
[2017-09-13] MEDS ORDERED: NS IV 1000 ML 3,000 ML ONE (11:04)
[2017-09-13] MEDS: NS IV 1000 ML 1,000 ML IV SCH ×3 (11:33→19:05)
[2017-09-13 11:34] LABS: HEMOGLOBIN 13.3 G/DL (13.3-17.7); MEAN PLATELET VOLUME 10.1 FL (7.4-10.4); RED BLOOD COUNT 4.59 10^6/uL (4.35-5.85); WHITE BLOOD COUNT 7.3 10^3/uL (4.3-11.0)
[2017-09-13] MEDS ORDERED: LIDOCAINE 1% INJ 20 ML 20 ML VIAL ONE (11:37)
[2017-09-13] MEDS ORDERED: HEParin 1000 UNIT/ML (10ML VIAL) FOR BOLUS ONE (11:37)
[2017-09-13 11:46] LABS: PROTHROMBIN TIME PATIENT 13.4 SEC (12.2-14.7)
[2017-09-13 11:54] LABS: ALANINE AMINOTRANSFERASE 20 U/L (0-55); ALBUMIN 4.5 GM/DL (3.2-4.5); ALKALINE PHOSPHATASE 68 U/L (40-136); BILIRUBIN,TOTAL 1.1 MG/DL (0.1-1.0); BUN/CREATININE RATIO 21; CALCIUM 9.9 MG/DL (8.5-10.1); CARBON DIOXIDE 24 MMOL/L (21-32); CHLORIDE 106 MMOL/L (98-107); CHOLESTEROL 111 MG/DL (< 200); CREATININE SERUM 1.12 MG/DL (0.60-1.30); GFR ESTIMATED > 60; GLUCOSE 144 MG/DL (70-105); HDL CHOLESTEROL 36 MG/DL (40-60); POTASSIUM 4.6 MMOL/L (3.6-5.0); SODIUM 139 MMOL/L (135-145); TOTAL PROTEIN 6.6 GM/DL (6.4-8.2); TRIGLYCERIDES 97 MG/DL (<150); VLDL CHOLESTEROL 19 MG/DL (5-40)
[2017-09-13] MEDS ORDERED: LISI40TA PO (12:10)
[2017-09-13] MEDS ORDERED: ATOR40TA70 PO (12:11)
[2017-09-13] MEDS ORDERED: AMLO10TA2 PO (12:11)
[2017-09-13] MEDS ORDERED: DOXE10CA29 PO ×2 (12:12→12:14)
[2017-09-13] MEDS ORDERED: METF500T5 PO (12:13)
[2017-09-13] MEDS ORDERED: DOXE3TAB3 PO ×2 (12:14→12:16)
[2017-09-13] MEDS ORDERED: MIDAZOLAM 5 MG/5 ML (VERSED) VIAL ONE (16:37)
[2017-09-13] MEDS ORDERED: diphenhydrAMINE 50 MG/ML INJ (BENADRYL) ONE (16:37)
[2017-09-13] MEDS ORDERED: fentaNYL INJECTION 100 MCG/2 ML AMP ONE (16:37)
[2017-09-13] MEDS ORDERED: NS IV 1000 ML 1,000 ML ONE (16:38)
--- NOTE | 2017-09-13 17:14 | Cardiac Procedure Note-CS/ASA ---
Pre-Procedure Note Pre-Op Procedure Note H&P Reviewed The H&P was reviewed, patient examined and no changes noted. Date H&P Reviewed: September 13, 2017 Time H&P Reviewed: 17:00 Conscious Sedation Pre-Proced Time Reviewed: 17:00 ASA Class: 3 Airway Mallampati Classification: ([place] appropriate class) I. II. III, IV Lungs Heart ASA score ASA 1: a normal healthy patient ASA 2: a patient with a mild systemic disease (mid diabetes, controlled hypertension, obesity ASA 3: a patient with a severe systemic disease that limits activity (angina , COPD, prior Myocardial infarction) ASA 4: a patient with an incapacitating disease that is a constant threat to life (CHF, renal failure) ASA 5: a moribund patient not expected to survive 24 hrs. (ruptured aneurysm) ASA 6: a declared brain patient whose organs are being harvested. For emergent operations, add the letter E after the classification Grade 1 Sedation Plan: Analgesia, Amnesia, Plan communicated to team members, Discussed options with patient/fam, Discussed risks with patient/fam Note The patient is an appropriate candidate to undergo the planned procedure, sedation, and anesthesia. The patient immediately re-assessed prior to indication. Carlos COLLIER MD September 13, 2017 5:14 pm
[2017-09-13] MEDS ORDERED: HYDROmorphone 2 MG/ML VIAL (DILAUDID) ONE (17:48)
--- NOTE | 2017-09-13 18:49 | Cardiology Post Procedure Note ---
Post-Procedure Note Physician (s)/Customer Engagement Representative (s) Physician Carlos COLLIER MD Pre-Procedure Diagnosis Pre-Procedure Diagnosis: left significant PAD, left hernandez wound Post-Procedure Note Procedure Start Date: September 13, 2017 Procedure Start Time: 16:30 Name of Procedure: Peripheral angiogram and intervention Findings/Procedure Note Severe left tibioperoneal trunk stenosis, posterior tibial artery stenosis, deep peroneal artery stenosis. Successful FABRICATION MIG WELDER to L TP trunk, PT and DP arteries. Anesthesia Type: Conscious Sedation Estimated blood loss (mL): 40 Contrast Amount: 260 Post-Procedure Diagnosis Post-operative diagnosis: severe left LE PAD, successful FABRICATION MIG WELDER Carlos COLLIER MD September 13, 2017 6:49 pm
[2017-09-13] MEDS ORDERED: PATIENT MAY USE OWN MEDS, ALL PO SCH (19:00)
[2017-09-14] VITALS: BP 135/74
--- NOTE | 2017-09-14 01:56 | OPERATIVE REPORT ---
DATE OF SERVICE: 09/13/2017 PERIPHERAL ANGIOGRAM AND INTERVENTION REPORT PERFORMING PHYSICIAN: Maren Mustafa MD. INDICATIONS: Severe peripheral arterial disease, claudication, left lower extremity wound. PREOPERATIVE DIAGNOSIS: Severe left lower extremity peripheral arterial disease, claudication, left hernandez wound. POSTOPERATIVE DIAGNOSIS: Successful CORE MOUNTER to the left tibioperoneal trunk, posterior tibial artery and deep peroneal artery. HISTORY: This is a 56-year-old gentleman, who has previous history of hypertension, stroke and diabetes. He previously presented for a right toe nonhealing ulcer. He had peripheral angiography, which showed a severe disease in below the knee, which was treated with successful CORE MOUNTER. The right lower extremity ulcer completely resolved post intervention. He was seen as an outpatient and complained of left lower extremity claudication. There also was a left hernandez wound. JASMINE and ultrasounds were done, which revealed significant below the knee disease. Therefore, the patient was scheduled for peripheral angiography and possible intervention. PROCEDURES PERFORMED: 1. Abdominal aortogram with bilateral lower extremity runoff. 2. Selective arteriogram of the left superficial femoral artery and popliteal artery. 3. Selective angiogram of the left tibioperoneal trunk, posterior tibial artery, deep peroneal artery. 4. CORE MOUNTER to the left tibioperoneal trunk. 5. CORE MOUNTER to the left deep peroneal artery. 6. CORE MOUNTER to the posterior tibial artery. COMPLICATIONS: None. SEDATION: Conscious sedation. ESTIMATED BLOOD LOSS: 40 mL. ANTICOAGULATION: IV heparin. CONTRAST: 260 mL. FLUOROSCOPY DOSE: 145 milligrays. PROCEDURE IN DETAIL: The patient was brought to the laborer shellfish processing after informed consent was taken. All the risks and complication were discussed in detail. The patient was draped and prepped in the usual standard fashion. Access was gained in the right femoral artery with a 6-Lebanese sheath. We took a pigtail catheter and placed it in the mid abdominal aorta and abdominal aortogram, bilateral nonselective renal angiogram and lower extremity runoff were done. Then, we took a rim catheter to do a crossover, but we were not able to. Therefore, we used a UF catheter and a Glidewire and we were able to do a crossover. The UF catheter was advanced into the superficial femoral artery and then we took a regular Storq wire and that was placed in the mid SFA and the UF catheter and the sheath were taken out and we put in a long 6-Lebanese x 90 cm sheath. The sheath tip was placed in the mid SFA and selective angiogram of the SFA and popliteal artery was done. The tip of the sheath was moved further into the distal SFA. Another selective angiogram of the tibioperoneal trunk as well as the posterior tibial as well as deep peroneal artery was done. FINDINGS: No significant abdominal aortic disease. Bilateral nonselective renal angiogram showed no significant bilateral renal disease. Patent right common iliac artery, external iliac artery, common femoral artery. Mild distal SFA disease. Mild to moderate right popliteal artery disease. Maximum Stenosis severity is 50% - 70%. Totally occluded anterior tibial artery with faint reconstitution distally. Significantly diseased right deep peroneal artery. Patent right posterior tibial artery with mild disease, but supplies flow in the foot. Patent left common iliac artery, external iliac artery, common femoral artery, superficial femoral artery, popliteal artery. Severe 80% stenosis in the tibioperoneal trunk. Severe occlusive disease in the left anterior tibial artery. Severe subtotal occlusion of the proximal segment of the deep peroneal artery. Stenosis severity over 99%. Reconstitution and the deep peroneal artery supplies till the foot. Severe proximal stenosis of the left posterior tibial artery, which is around 90% to 95%. RECOMMENDATIONS: 1. CORE MOUNTER to the left tibioperoneal trunk is recommended. 2. CORE MOUNTER to the left posterior tibial artery is recommended. 3. CORE MOUNTER to the left peroneal artery is recommended. INTERVENTION DETAILS: IV heparin was given. One ACT was done, which was over 240 seconds. We took a command 0.014 wire and crossed the lesion in the posterior tibial artery. We then took an [place] 14 2.0 x 200 mm balloon and performed balloon inflation at 14 atmospheres for 2 minutes. Still significant disease was noted; therefore we exchanged the balloon for an [place] 14 2.5 x 120 x 150 balloon. Another inflation was done for 14 atmospheres for 2 minutes. At this point in time, we wanted to move the Command wire forward, but there was no torquability at the tip. Therefore, through the balloon we exchanged for another 0.014 Command 300 cm wire. We were not able to get good tip control. Therefore, we exchanged it for a 0.014 BMW 300 cm wire and the wire was placed distally. We then did balloon inflation with a 2.5 x 120 x 150 [place] balloon and excellent results were noted. We then took the balloon back in the tibioperoneal trunk and then took the BMW wire out and took 0.014 Choice extra support wire and were able to cross into the deep peroneal artery. The 2.5 balloon was taken out and we took an [place] 3 x 150 balloon and did a balloon inflation in the tibioperoneal trunk as well as in the deep peroneal artery at 14 atmospheres for 3 minutes. Excellent results were noted with no residual stenosis with great blood flow. Therefore, the wire was taken out and post-angiogram showed excellent results. We then took the long sheath back into the bifurcation of the abdominal aorta and took another angiogram. No damage was done to the bifurcation. Therefore, the sheath was exchanged for a short 6-Lebanese sheath and the right femoral artery was closed with a Mynx device. The patient tolerated procedure well and did not have any complication. CONCLUSION: Successful CORE MOUNTER to severe disease in the left tibioperoneal trunk, posterior tibial artery and deep peroneal artery. PLAN: Continue aspirin, Plavix and other secondary aggressive secondary prevention measures. Job ID: [id number] DocumentID: [id number] Dictated Date: 09/13/2017 19:52:48 Crude Oil Driver Date: 09/14/2017 01:55:40 Dictated By: MD ART ESPAÑAD
[2017-09-14 04:00] VITALS: BP 123/64
[2017-09-14 04:04] LABS: HEMOGLOBIN 12.8 G/DL (13.3-17.7); MEAN PLATELET VOLUME 10.1 FL (7.4-10.4); RED BLOOD COUNT 4.39 10^6/uL (4.35-5.85); RED CELL DISTRIBUTION WIDTH 13.3 % (10.0-14.5); WHITE BLOOD COUNT 7.6 10^3/uL (4.3-11.0)
[2017-09-14 04:23] LABS: BUN/CREATININE RATIO 19; CALCIUM 9.4 MG/DL (8.5-10.1); CARBON DIOXIDE 20 MMOL/L (21-32); CHLORIDE 108 MMOL/L (98-107); GFR ESTIMATED > 60; GLUCOSE 195 MG/DL (70-105); POTASSIUM 4.5 MMOL/L (3.6-5.0); SODIUM 140 MMOL/L (135-145)
[2017-09-14] MEDS: NS IV 1000 ML 1,000 ML IV SCH (04:49)
[2017-09-14 08:51] VITALS: BP 123/72
[2017-09-14] MEDS ORDERED: CLOPIDOGREL 75 MG (PLAVIX) TABLET PO SCH (09:00)
[2017-09-14] MEDS ORDERED: ASPIRIN E.C. 81 MG (ECOTRIN) TAB PO SCH (09:00)
--- NOTE | 2017-09-14 14:11 | Cardiology Discharge Summary ---
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 Patient complained of severe claudication in the left lower extremity and left hernandez wound. Abnormal JASMINE and ultrasound. Peripheral angiography and possible intervention is recommended. Discharge Summary Procedures Peripheral angiogram showed severe subtotal occlusion of the deep peroneal artery in the left, severe stenosis of the left posterior tibial artery as well as the tibioperoneal trunk. Successful balloon angioplasty to all 3 blood vessels. Discharge Physical Examination Normal cardiovascular examination. Normal respiratory examination. Mild bruising noted in the right groin. Hospital Course Unremarkable. Discussion & Recommendations Discussion All discharge instructions discussed at length with the patient and family. Patient will continue aspirin, Plavix long-term. Patient also continue high- dose statin. Discharge took over 30 minutes to complete. Follow up appt.: Dr. Mustafa Dicharge Diet: Cardiac Diet Activity as Tolerated: Yes Home Medications Reviewed patient Home Medication Reconciliation performed by pharmacy medication reconciliations termite technician and/or nursing. Patients Allergies have been reviewed. Discharge Home Medications: Reviewed and agree with Discharge Medication list on patient's Discharge Instruction sheet Condition at discharge Stable Instructions to patient/family Follow-up with Dr. Mustafa. Carlos MUSTAFA MD September 14, 2017 14:11
== END 2017-09-14 10:55 | disposition home or self-care (01) ==
LOC: CATH 10:55 → ICU 19:08 → CATH 09-14 10:55
PROVIDERS: ATTEND Internal Medicine Interventional Cardiology
DX: I70.212 Atherosclerosis of native arteries of extremities with intermittent claudication, left leg (principal); I70.248 Atherosclerosis of native arteries of left leg with ulceration of other part of lower leg; E11.622 Type 2 diabetes mellitus with other skin ulcer; L97.929 Non-pressure chronic ulcer of unspecified part of left lower leg with unspecified severity; I12.9 Hypertensive chronic kidney disease with stage 1 through stage 4 chronic kidney disease, or unspecified chronic kidney disease; E11.21 Type 2 diabetes mellitus with diabetic nephropathy; N18.9 Chronic kidney disease, unspecified; E78.5 Hyperlipidemia, unspecified; Z86.73 Personal history of transient ischemic attack (TIA), and cerebral infarction without residual deficits; Z79.82 Long term (current) use of aspirin; Z79.84 Long term (current) use of oral hypoglycemic drugs; Z79.899 Other long term (current) drug therapy
CPT/HCPCS: 36415; 75630; 80048; 80053; 80061; 85027; 85347; 85610; 85730; 87081; 93005

== ENCOUNTER 2018-08-03 10:24 | Emergency (ER) | payer BC ==
[~2018-08-03] VITALS: Ht 188 cm; Wt 95.3 kg
[~2018-08-03 10:24] MED LIST changes: -AMLO10TA2 PO; +AMLO10TA7 PO; -AMLO5TAB2 PO; +AMLO5TAB9 PO; +ATOR40TA70 PO; +DOXE10CA29 PO; +DOXE3TAB3 PO; +LISI40TA PO; +METF-397 PO; -METF500T5 PO
--- NOTE | 2018-08-03 12:08 | Diagnostic Imaging Report ---
PROCEDURE: CT head and maxillofacial without contrast. TECHNIQUE: Multiple contiguous axial images were obtained through the head and facial bones without the use of intravenous contrast. Auto Exposure Controls were utilized during the CT exam to meet ALARA standards for radiation dose reduction. INDICATION: Head and face trauma. Comparison is made with prior examination from 12/26/16. FINDINGS: The ventricles and sulci are within normal limits. There is no hydrocephalus. There is no midline shift. There is no intracranial mass, hemorrhage or extra-axial fluid collection. The calvarium is intact. There is a comminuted fracture of the nasal bone bilaterally displaced to the right. There are air-fluid levels in both maxillary sinuses. The zygomatic arches are intact. The pterygoid plates are intact. The mandibular condyles are well aligned. The mandible is intact. The orbital floors are intact. Lamina papyracea is intact. The globes and intraorbital structures are unremarkable. Frontal sinuses clear. IMPRESSION: Comminuted nasal bone fracture displaced to the right with air-fluid level in the maxillary sinuses bilaterally. There may be minimal nondisplaced fracture of the nasal spine. No other displaced facial bone fractures. No acute intracranial abnormality. Dictated by: Dictated on workstation # [id number]
[2018-08-03] MEDS ORDERED: TETANUS,DIPTH,PERTUSS P/F (BOOSTRIX) 0.5 ML VIAL IM ONE (12:30)
[2018-08-03] MEDS ORDERED: TRANEXAMIC ACID 100 MG/ML 10 ML INJECTION IV ONE (12:53)
[2018-08-03] MEDS ORDERED: TRANEXAMIC ACID IV ONE (13:00)
[2018-08-03] MEDS ORDERED: NS IV ONE (13:00)
--- NOTE | 2018-08-03 13:14 | ED General ---
General Chief Complaint: Nasal Problems Stated Complaint: NOSE INJURY Nursing Triage Note: PT AMB TO [facility] 6 WITH COMPLAINT OF NOSE INJURY. PT STATES HE WAS CUTTING TREES AND A STUMP CAME BACK AND HIT HIM IN THE NOSE. DENIES LOC OR ANY OTHER INJURY. PT STATES HE TAKES BLOOD THINNERS. Nursing Sepsis Screen: No Definite Risk Source of Information: Patient Exam Limitations: No Limitations History of Present Illness Date Seen by Provider: Aug 03, 2018 Time Seen by Provider: 10:34 Initial Comments This 57-year-old Bulgarian presents to the emergency room after being struck in the nose by a tree. The trunk of the tree flipped back when being cut and struck him in the face. It was a fairly large portion of the trunk measuring 5 or 6 inches in diameter. He has swelling and abrasions to the exterior nose and ecchymosis. He denies any injury to his teeth. There was no loss of consciousness. He denies symptoms of concussion. He is in need of a tetanus immunization. He takes aspirin and Plavix due to history of stroke and ischemic lower extremity. He has tissue packing in his nose for persistent oozing of blood. Allergies and Home Medications Allergies Coded Allergies: No Known Drug Allergies (Unverified , 12/26/16) Home Medications Acetaminophen 500 Mg Tablet, 1,000 MG PO Q4H PRN for PAIN-MILD, (Reported) Amlodipine Besylate 10 Mg Tablet, 10 MG PO DAILY, (Reported) Aspirin 325 Mg Tablet.dr, 325 MG PO DAILY, (Reported) Atorvastatin Calcium 40 Mg Tablet, 40 MG PO DAILY, (Reported) Clindamycin HCl 300 Mg Capsule, 300 MG PO QID Prescribed by: ELIZABETH SANDERSON on 08/03/18 1321 Clopidogrel Bisulfate 75 Mg Tablet, 75 MG PO DAILY, (Reported) Doxepin HCl 10 Mg Capsule, 10 MG PO PRN PRN for SLEEP, (Reported) Doxepin HCl 3 Mg Tablet, 3 MG PO PRN PRN for SLEEP, (Reported) Hydrocodone/Acetaminophen 1 Each Tablet, 1-2 TAB PO Q6H Prescribed by: ELIZABETH SANDERSON on 08/03/18 1320 Lisinopril 40 Mg Tablet, 40 MG PO DAILY, (Reported) Metformin HCl 500 Mg Tablet, 500 MG PO BID, (Reported) Patient Home Medication List Home Medication List Reviewed: Yes Review of Systems Review of Systems Constitutional: no symptoms reported EENTM: see HPI Respiratory: no symptoms reported Cardiovascular: no symptoms reported Gastrointestinal: no symptoms reported Genitourinary: no symptoms reported Musculoskeletal: see HPI Skin: see HPI Psychiatric/Neurological: No Symptoms Reported Hematologic/Lymphatic: See HPI Immunological/Allergic: no symptoms reported Past Dctkziy-Lradzc-Vcqbwc Hx Patient Social History Alcohol Use: Occasionally Uses Number of Drinks Today: AA Alcohol Beverage of Choice: Beer Recreational Drug Use: No Smoking Status: Never a Smoker 2nd Hand Smoke Exposure: No Recent Foreign Travel: No Contact w/Someone Who Travel: No Recent Infectious Disease Expo: No Recent Hopitalizations: No Immunizations Up To Date Tetanus Booster (TDap): More than 5yrs PED Vaccines UTD: Yes Seasonal Allergies Seasonal Allergies: No Past Medical History Surgeries: Yes (LT KNEE REPLACEMENT) Joint Replacement, Orthopedic, Vascular Surgery (angioplasty of the lower extremities for ischemic limb) Respiratory: No Cardiac: Yes (HX OF HYPERTENSION IN HIS TEENS) Hypertension, Peripheral Vascular Neurological: Yes (STROKE 2016) Stroke Reproductive Disorders: No Genitourinary: No Gastrointestinal: No Musculoskeletal: Yes (BOTH KNEE'S SCOPED LEFT KNEE TOTAL REPLACEMENT) Arthritis Endocrine: Yes Diabetes, Non-Insulin dep HEENT: No Cancer: No Psychosocial: No Integumentary: No Family Medical History FH: gallbladder disease 19 MOTHER FH: testicular cancer 19 FATHER No Pertinent Family Hx Physical Exam Vital Signs Vital Signs - First Documented 08/03/18 10:34 Temp 97.3 Pulse 74 Resp 18 B/P (MAP) 178/79 (112) Pulse Ox 98 O2 Delivery Room Air Capillary Refill : Less Than 3 Seconds Height, Weight, BMI Height: 6'2.00" Weight: 210lbs. 0.0oz. 95.567053lk; 24.7 BMI Method:Stated General Appearance: WD/WN, Mild Distress HEENT: PERRL/EOMI, TMs Normal, Pharynx Normal, Other (no dental injury. Disfigurement, swelling, ecchymosis, and abrasions to the nose. Epistaxis in both nostrils. 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 Skin: Normal Color, Warm/Dry, Ecchymosis Progress/Results/Core Measures Suspected Sepsis Recent Fever Within 48 Hours: No Infection Criteria Present: None New/Unexplained Altered Menta: No Sepsis Screen: No Definite Risk SIRS Temperature:97.3 Pulse: 74 Respiratory Rate: 18 Blood Pressure 178 /79 Mean: 112 Results/Orders My Orders Orders - ELIZABETH LOPEZ MD Ct Head/Maxillofacial Wo (08/03/18 10:39) Dipht,Pertuss(Acell),Tet Adult (Boostrix (08/03/18 12:30) Tranexamic Acid Injection (Cyklokapron I (08/03/18 13:00) Tranexamic Acid Injection (Cyklokapron I (08/03/18 12:53) Oxymetazoline 0.05% Nasal Metaline (Afrin 0. (08/03/18 13:29) Medications Given in ED Current Medications Medications Dose Ordered Sig/Timbo Route Start Time Stop Time Status Last Admin Dose Admin Diphtheria/ Tetanus/Acell Pertussis 0.5 ml ONCE ONCE IM 08/03/18 12:30 08/03/18 12:31 DC 08/03/18 12:32 0.5 ML Oxymetazoline HCl 15 ml STK-MED ONCE .ROUTE 08/03/18 13:29 08/03/18 13:32 DC 08/03/18 13:39 15 ML Tranexamic Acid 1910 mg/Sodium Chloride 69.1 ml @ 414.6 mls/ hr ONCE ONCE IV 08/03/18 13:00 08/03/18 13:09 DC 08/03/18 13:11 414.6 MLS/HR Vital Signs/I&O 08/03/18 10:34 Temp 97.3 Pulse 74 Resp 18 B/P (MAP) 178/79 (112) Pulse Ox 98 O2 Delivery Room Air Capillary Refill : Less Than 3 Seconds Blood Pressure Mean: 112 Progress Note : Progress Note Patient was seen and examined. CT of the head and face was ordered. Patient is on aspirin and Plavix and needs clearance of head injury due to antiplatelet meds. CT demonstrated no intracranial injury. He did have a nasal fracture and blood within the sinuses. He continued to have oozing from the right nostril. The nostril was packed with gauze soaked with TXA. He eventually did bleed through this. Gauze was removed and 2 sprays of Afrin were applied to each nostril. The right nostril was then again packed with gauze and soaked with TXA. Case was discussed with Dr. Mccain who agrees with packing and follow- up in the clinic. He would like to see him Sunday morning. He is to start antibiotics and hold aspirin and Plavix until he is seen by Dr. Mccain. Boostrix tetanus booster was administered. Diagnostic Imaging Diagonstic Imaging: CT Plain Films/CT/US/NM/MRI: facial bones, head Comments CT head and face viewed by me and report reviewed. See report below: NAME: FINA LALA [facility] REC#: [id number] PT STATUS: REG ER : 1960 PHYSICIAN: ELIZABETH LOPEZ MD ADMIT DATE: 08/03/18/ER Draft Date of Exam:08/03/18 CT HEAD/MAXILLOFACIAL WO PROCEDURE: CT head and maxillofacial without contrast. TECHNIQUE: Multiple contiguous axial images were obtained through the head and facial bones without the use of intravenous contrast. Auto Exposure Controls were utilized during the CT exam to meet ALARA standards for radiation dose reduction. INDICATION: Head and face trauma. Comparison is made with prior examination from 12/26/16. FINDINGS: The ventricles and sulci are within normal limits. There is no hydrocephalus. There is no midline shift. There is no intracranial mass, hemorrhage or extra-axial fluid collection. The calvarium is intact. There is a comminuted fracture of the nasal bone bilaterally displaced to the right. There are air-fluid levels in both maxillary sinuses. The zygomatic arches are intact. The pterygoid plates are intact. The mandibular condyles are well aligned. The mandible is intact. The orbital floors are intact. Lamina papyracea is intact. The globes and intraorbital structures are unremarkable. Frontal sinuses clear. IMPRESSION: Comminuted nasal bone fracture displaced to the right with air-fluid level in the maxillary sinuses bilaterally. There may be minimal nondisplaced fracture of the nasal spine. No other displaced facial bone fractures. No acute intracranial abnormality. Dictated on workstation # [id number] Dict: 08/03/18 1132 Trans: 08/03/18 1208 ELIDA [id number] Interpreted by: JADON ARCHULETA MD Departure Impression Primary Impression: Nasal fracture Qualified Codes: S02.2XXA - Fracture of nasal bones, initial encounter for closed fracture Additional Impression: Epistaxis Disposition: 01 HOME, SELF-CARE Condition: Improved Departure-Patient Inst. Decision time for Depature: 13:15 Referrals: MONTEZ MCCAIN MD, CHAD C MD (PCP/Family) Primary Care Physician Patient Instructions: Nosebleeds (DC) Add. Discharge Instructions: Keep your head elevated as much as possible until bleeding stops and swelling starts to decrease. You may ice in 20 minute intervals until swelling starts to improve. For mild pain take Tylenol (acetaminophen) up to 1000 mg every 6 hours as needed. For more intense pain, use hydrocodone as prescribed. You may wish to take a stool softener such as Colace when you take hydrocodone to prevent constipation. If bleeding does not stop within the next few hours, you may try Afrin nasal spray purchased [id number], 4 squirts in each side of the nose, and then apply gentle direct pressure. If you still have significant bleeding 20 minutes after Afrin use, return to the ER. Start your antibiotics and complete the entire course as prescribed. Follow-up with Dr. Mccain on Sunday. See his contact information below. He is expecting to follow-up with you. Skip your doses of aspirin and Plavix tomorrow and on Sunday until you see Dr. Mccain. All discharge instructions reviewed with patient and/or family. Voiced understanding. Scripts Clindamycin HCl (Clindamycin HCl) 300 Mg Capsule 300 MG PO QID, #20 CAP Prov: ELIZABETH LOPEZ MD 08/03/18 Hydrocodone/Acetaminophen (Hydrocodone-Acetamin 5-325 mg) 1 Each Tablet 1-2 TAB PO Q6H for PAIN-MODERATE MDD 10, #15 TAB Prov: ELIZABETH LOPEZ MD 08/03/18 Copy Copies To 1: MONTEZ MCCAIN MD, JOSHUA T MD Aug 03, 2018 13:14
[2018-08-03] MEDS ORDERED: HYDR-3812 PO (13:20)
[2018-08-03] MEDS ORDERED: CLIN300C11 PO (13:21)
[2018-08-03] MEDS ORDERED: OXYMETAZOLINE (AFRIN) 0.05% NA 15 ML BTL ONE (13:29)
[2018-08-03 13:43] VITALS: BP 174/72
== END 2018-08-03 13:43 | disposition home or self-care (01) ==
LOC: EDUNIT# 10:24 → ER 10:26
DX: S02.2XXA Fracture of nasal bones, initial encounter for closed fracture (principal); R04.0 Epistaxis; I10 Essential (primary) hypertension; E11.51 Type 2 diabetes mellitus with diabetic peripheral angiopathy without gangrene; I73.9 Peripheral vascular disease, unspecified; Z79.82 Long term (current) use of aspirin; Z80.8 Family history of malignant neoplasm of other organs or systems; Z23 Encounter for immunization; Z79.02 Long term (current) use of antithrombotics/antiplatelets; Z86.73 Personal history of transient ischemic attack (TIA), and cerebral infarction without residual deficits; Z79.84 Long term (current) use of oral hypoglycemic drugs; Z96.652 Presence of left artificial knee joint; Z95.820 Peripheral vascular angioplasty status with implants and grafts; W22.09XA Striking against other stationary object, initial encounter
CPT/HCPCS: 30901; 70450; 70486; 90471; 90715

== ENCOUNTER → 2019-04-01 | Outpatient (CLI) | payer BC ==
[~2019-04-01] MED LIST changes: +CLIN300C11 PO; +HYDR-3812 PO
== END ==
LOC: CARD 08:39
PROVIDERS: ATTEND Internal Medicine Interventional Cardiology
DX: I08.1 Rheumatic disorders of both mitral and tricuspid valves (principal); I73.9 Peripheral vascular disease, unspecified; I63.9 Cerebral infarction, unspecified; I10 Essential (primary) hypertension; E11.9 Type 2 diabetes mellitus without complications
CPT/HCPCS: 93306

== ENCOUNTER → 2020-07-12 | Outpatient (CLI) | payer BC, MEDICARE ==
[~2020-07-12] MED LIST changes: +ACHD5005 PO; +AMLO-250 PO; +AMLO-251 PO; -AMLO10TA7 PO; -AMLO5TAB9 PO; -CLIN300C11 PO; +CLIN300C12 PO; +GLBR2.5T PO; -GLYB2.5T4 PO; -HYDR-3812 PO; -LISI-552 PO; +LISI20TA26 PO; -LISI40TA PO; +LISI40TA9 PO
== END ==
LOC: CARD 09:00
PROVIDERS: ATTEND Nurse Practitioner Family
DX: I34.0 Nonrheumatic mitral (valve) insufficiency (principal)
CPT/HCPCS: 93306

== ENCOUNTER → 2020-07-13 | Outpatient (CLI) | payer BC, MEDICARE ==
[~2020-07-13] VITALS: Ht 185 cm; Wt 95.0 kg
[~2020-07-13] MED LIST changes: +REGADENOSON 0.4 MG/5 ML SYR (LEXISCAN) IV ONE
[2020-07-13] MEDS: CATHETER FLUSH 10 ML SYR IV PRN ×2 (07:40→09:14)
[2020-07-13 09:09] VITALS: BP 191/82
--- NOTE | 2020-07-13 15:29 | STRESS TEST ---
DATE OF SERVICE: 07/13/2020 RESTING AND POST REGADENOSON TECHNETIUM-99M TETROFOSMIN SPECT CT IMAGING ORDERING PHYSICIAN: Maria Alejandra Hennessy APRN PRIMARY PHYSICIAN: Dr. Sigifredo Lincoln. CLINICAL DIAGNOSES: Abnormal electrocardiogram. Baseline images were carried out after injection of 10.91 mCi of technetium-99m Tetrofosmin. This was followed by 0.4 mg regadenoson and 28.9 mCi of technetium-99m Tetrofosmin. The electrocardiogram showed sinus rhythm at baseline. Old septal wall myocardial infarction cannot be excluded. There is nonspecific ST abnormality in the lateral leads. The electrocardiogram did not change significantly with the regadenoson infusion. The patient tolerated the procedure well. Review of images at rest and following stress does not indicate any significant perfusion defects consistent with myocardial ischemia or infarction. Gated images show normal global left ventricular systolic function with normal regional wall motion. Left ventricular ejection fraction is calculated to be 68%. CONCLUSIONS: 1. No evidence of any significant myocardial ischemia or infarction on this study. 2. Normal regional wall motion. 3. Normal global left ventricular systolic function with a calculated ejection fraction of 68%. Job ID: [id number] DocumentID: [id number] Dictated Date: 07/13/2020 14:56:30 Signal System Testing Maintainer Date: 07/13/2020 15:28:29 Dictated By: LIA AMAYA MD, MA, FACP, FACC,
== END ==
LOC: CARD 08:00
PROVIDERS: ATTEND Nurse Practitioner Family
DX: R94.31 Abnormal electrocardiogram [ECG] [EKG] (principal)
CPT/HCPCS: 78452; 93017; A9502